=== PATIENT | male | born 1955 | race African-American/Black ===

== ENCOUNTER 2016-06-06 07:44 | Emergency (ER) | payer OTHER, MEDICARE ==
[~2016-06-06] VITALS: Ht 165.1 cm; Wt 117.9 kg
[~2016-06-06 07:44] MED LIST: ASPIRIN EC81 M1 PO; AUGMENTIN 875-1 EACH PO; CANDESARTAN CIL16 MG PO; COLCHICINE0.6 M2 PO; COREG 25 MG TAB25 MG PO; FUROSEMIDE40 M1 PO; GUAIFENESIN-COD10 ML PO; HYDRALAZINE HCL50 M1 PO; IMDUR 60MG TAB60 MG PO; ISOSORBIDE MONO60 MG PO; LEVEMIR 10100 UNITS/ SC; LEVOTHYROXIN0.025 M1 PO; LYRICA50 MG PO; METOLAZONE10 MG PO; METOLAZONE2.5 MG PO; NOVOLOG100 U/ML SC; PERCOCET 325 MG1 TA2 PO; PERCOCET 5-3251 EACH PO; PROCRIT20000 UNIT SC; RENVELA800 M1; RENVELA800 MG PO; XALATAN2.5 ML OPH; ZAROXOLYN - DIUL5 MG PO
[2016-06-06 07:49] VITALS: BP 131/84
--- NOTE | 2016-06-06 08:55 | ED HAND/WRIST INJURY COMPLAINT ---
History of Present Illness General Chief Complaint: Hand or Wrist Injury Stated Complaint: L HAND SWELLING, HX OF GOUT Source: patient, old records Exam Limitations: no limitations Vital Signs & Intake/Output Vital Signs & Intake/Output Vital Signs Date Time Temp Pulse Resp B/P Pulse O2 O2 Flow FiO2 Ox Delivery Rate 06/06 0834 97 06/06 0749 97.1 86 18 131/84 95 Room Air Allergies Coded Allergies: NO KNOWN ALLERGIES (06/10/14) Reconcile Medications Amoxicillin/Potassium Clav (Augmentin 875-125 Tablet) 875 MG-125 MG TABLET 1 TAB PO BID bronchitis Aspirin (Ecotrin) 81 MG ECT 1 TAB PO DAILY HEART (Reported) Carvedilol (Coreg) 25 MG TAB 1.5 TAB PO BID HIGH BLOOD PRESSURE Colchicine 0.6 MG TABLET 1 TAB PO BID PRN gout Colchicine 0.6 MG TABLET 1 TAB PO BID gout Epoetin Kameron (Procrit) 20,000 UNIT/1 ML VIAL 30,000 U SC EVERY 2 WEEKS ANEMIA Furosemide 40 MG TABLET 2 TAB PO BID WATER PILL (Reported) HYDRALAZINE HCL (Hydralazine HCl) 50 MG TABLET 2 TAB PO BID BP (Reported) Hydrocodone/Acetaminophen ([place] 5-325 Tablet) 5 MG-325 MG TABLET 1-2 TAB PO Q6P PRN PAIN Insulin Aspart, Recombinant (Novolog) 100 U/ML JORDAN 0 UNITS SC SEE SLIDING SCALE GLUCOSE CONTROL VIA VGO-20 W/ boluses 2 units before breakfast 2 units before lunch 4 units before dinner Isosorbide Monitrate Sr (Imdur 60MG Tab) 60 MG TAB 2 TAB PO DAILY HEART HEALTH Latanoprost (Xalatan) 2.5 ML DROPS 1 GTT OPH QPM BOTH EYES (Reported) Levothyroxine Sodium 0.025 MG TAB 1 TAB PO DAILY AC THYROID (Reported) Metolazone 10 MG TAB 1 TAB PO Friday CHF (Reported) Oxycodone HCl/Acetaminophen (Percocet 5-325 MG Tablet) 1 EACH TABLET 1-2 TAB PO Q6P PRN pain Robitussin AC (Guaifenesin-Codeine Syrup) 200 MG-20 MG/10 ML LIQUID 10 ML PO Q6HR PRN COUGH Sevelamer Carbonate (Renvela) 800 MG TAB 1 TAB PO TID PHOSPHORUS (Reported) Triage Note: 61 Y/O MALE C/O PAIN AND SWELLING TO L HAND X 2 WEEKS. HX GOUT AND STATES PAIN IS SIMILIAR. DENIES INJURIES OR TRAUMA. SWELLING NOTED. Triage Nurses Notes Reviewed? yes HPI: Patient presents for evaluation of gradual onset of constant severe aching left hand pain gets worse with movement and palpation. Patient states this is consistent with prior attacks of gout that he had in the past. He tried aspirin without much improvement. He states he tries to avoid anti-inflammatory medications outside of aspirin due to his kidney disease. There is been no associated fever or trauma. Past History Travel History Traveled to [place] past 21 day No Medical History Any Pertinent Medical History? 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 There is also an excision of a retained foreign object. This was in May 2012. Psychosocial History Who do you live with Spouse Services at Home None What is your primary language Peruvian Tobacco Use: Never used Family History Family History, If Any: MOTHER Diabetes mellitus (DM) Relation not specified for: Cerebrovascular accident in mother Hx Contributory? No Review of Systems Review of Systems Constitutional: Reports: no symptoms. EENTM: Reports: no symptoms. Respiratory: Reports: no symptoms. Cardiovascular: Reports: no symptoms. GI: Reports: no symptoms. Genitourinary: Reports: no symptoms. Musculoskeletal: Reports: see HPI. Skin: Reports: no symptoms. Neurological/Psychological: Reports: no symptoms. Hematologic/Endocrine: Reports: no symptoms. Immunologic/Allergic: Reports: no symptoms. All Other Systems: Reviewed and Negative Physical Exam Physical Exam Hand Left: see below Hand Right: normal inspection Comments: Gen.: Well-nourished, well-developed, no acute respiratory distress. Head: Normocephalic, atraumatic. Eyes: Normal inspection bilaterally Ears: Normal inspection bilaterally Nose: Normal inspection, nasal cannula in place Throat/mouth : Moist mucosa Neck: Supple, full range of motion, no goiter Heart: Regular rate and rhythm Lungs: Quiet respirations Back: Normal range of motion Extremities: Left hand: Tenderness over the dorsal proximal aspect of the left hand without associated soft tissue swelling or erythema. Left hand is neurovascularly intact distally. Decreased range of motion secondary to pain. Neurologic: Cranial nerves grossly intact, speech is clear Skin: warm and dry Psychiatric: Calm, cooperative, no apparent delusions or hallucinations Progress Differential Diagnosis: cellulitis, gout, septic arthritis, tenosynovitis Plan of Care: Orders Procedure Date/time Status Durable Medical Equipment 06/06 908 Active Colchicine, pain medication, PCP follow-up (JILLIAN CANO,LAMBERT Ewing) Departure Departure Disposition: HOME OR SELF CARE Condition: Stable Clinical Impression Primary Impression: Gout of left hand Referrals: ELLIS CANO,RODNEY Farias (PCP/Family) Additional Instructions: Rest your hand. Colchicine and [place] as prescribed for pain. Follow-up with your primary care physician on Friday. Return if any concerns or sudden worsening. Thank you for choosing the [facility] for your care. It was a pleasure to serve you today. Lambert Ramirez M.D. [facility] Departure Forms: Customer Survey General Discharge Information Prescriptions: Current Visit Scripts Colchicine 1 TAB PO BID PRN gout #14 TAB Hydrocodone/Acetaminophen ([place] 5-325 Tablet) 1-2 TAB PO Q6P PRN PAIN #20 TAB
[2016-06-06] MEDS ORDERED: NORCO 5-325 TA1 EACH PO (09:06)
[2016-06-06] MEDS ORDERED: COLCHICINE0.6 M2 PO (09:06)
== END 2016-06-06 09:45 ==
LOC: ERH 07:44
DX: M10.9 Gout, unspecified (principal)

== ENCOUNTER 2016-08-14 15:09 | Inpatient (IN) | payer OTHER, MEDICARE ==
[~2016-08-14] VITALS: Ht 167.6 cm; Wt 105.0 kg
[~2016-08-14 15:09] MED LIST changes: +NORCO 5-325 TA1 EACH PO
[2016-08-14 15:42] LABS: ABSOLUTE BASOPHIL COUNT 0 /CUMM (0.0-0.2); ABSOLUTE EOSINOPHIL COUNT 0.1 /CUMM (0.0-0.7); ABSOLUTE GRANULOCYTE CT 3.5 /CUMM (1.4-6.5); ABSOLUTE LYMPH COUNT 0.6 /CUMM (1.2-3.4); ABSOLUTE MONOCYTE COUNT 0.6 /CUMM (0.10-0.60); BASOPHIL % 0.5 % (0.0-2.0); EOSINOPHIL % 1.4 % (0-5); GRANULOCYTE % 73.3 % (42.2-75.2); HEMATOCRIT 29.7 % (42-52); MEAN CORPUSCULAR HGB 30.6 PG (27.0-31.0); MEAN CORPUSCULAR HGB CONC 32.6 G/DL (33.0-37.0); MEAN CORPUSCULAR VOLUME 93.9 FL (80.0-94.0); MEAN PLATELET VOLUME 8.2 FL (7.4-10.4); PLATELET COUNT 164 /CUMM (130-400); RBC DISTRIBUTION WIDTH 20.1 % (11.5-14.5); RED BLOOD CELL CT 3.16 /CUMM (4.70-6.10); WHITE BLOOD CELL COUNT 4.8 /CUMM (4.8-10.8)
[2016-08-14 15:51] LABS: PT 14.9 SEC (9.4-12.5); PTT 33 SEC (25-37)
--- NOTE | 2016-08-14 16:01 | ED GI/GU/ABDOMINAL COMPLAINT ---
History of Present Illness General Chief Complaint: General Adult Stated Complaint: PT WAS SIB BY HIS DR. MONTILLA Source: patient Exam Limitations: no limitations Vital Signs & Intake/Output Vital Signs & Intake/Output Vital Signs Date Time Temp Pulse Resp B/P B/P Pulse O2 O2 Flow FiO2 Mean Ox Delivery Rate 08/144 98.0 95 20 122/72 92 08/14 2158 Room Air 08/14 2028 97.5 106 18 113/65 99 Room Air 08/14 1800 96.5 101 18 141/59 93 Room Air 08/14 1613 97 Room Air 08/14 1531 96.9 98 18 130/90 95 Room Air ED Intake and Output 08/15 0000 08/14 1200 Intake Total Output Total Balance Patient 230 lb Weight Weight Reported by Patient Measurement Method Allergies Coded Allergies: NO KNOWN ALLERGIES (06/10/14) Reconcile Medications Allopurinol 300 MG TABLET 1 TAB PO DAILY GOUT (Reported) Aspirin (Ecotrin*) 81 MG TABLET. HEART HEALTH (Reported) Carvedilol (Coreg) 25 MG TABLET 1.5 TAB PO BID RATE CONTROL Cholecalciferol (Vitamin D3) (Vitamin D) 1,000 UNIT TABLET 1 TAB PO DAILY SUPPLEMENT (Reported) Epoetin Kameron (Procrit) 20,000 UNIT/ML VIAL 1 UNIT IV Q 3 WEEKS ANEMIA ( Reported) Fluticasone-Salmeterol (Advair 100-50 Diskus) 100 MCG-50 MCG/DOSE BLST.W.DEV 1 PUF INH BID ASTHMA (Reported) Furosemide 40 MG TABLET 2 TAB PO BID WATER PILL (Reported) Hydralazine HCl 50 MG TABLET 2 TAB PO BID HYPERTENSION (Reported) Insulin Aspart, Recombinant (Novolog) 100 U/ML JORDAN 0 UNITS SC SEE SLIDING SCALE GLUCOSE CONTROL VIA VGO-20 W/ boluses 2 units before breakfast 2 units before lunch 4 units before dinner Isosorbide Monitrate Sr (Imdur 60MG Tab) 60 MG TAB 2 TAB PO DAILY [facility] Latanoprost (Xalatan) 2.5 ML DROPS 1 GTT OPH QPM BOTH EYES (Reported) Oxycodone HCl/Acetaminophen (Percocet 5-325 MG Tablet) 1 EACH TABLET 1-2 TAB PO Q6P PRN pain Sevelamer Carbonate (Renvela) 800 MG TAB 1 TAB PO TID PHOSPHORUS (Reported) Sub-Q Insulin Device, 20 Unit (Vgo 20) 1 EACH EACH DM (Reported) Triage Note: C/O VOMITING X "A COUPLE OF DAYS", FELLING "UNCOMFORTABLE" IN STOMACH AND CHEST. SENT BY DR. ORNELAS FOR EVALUATION. HAS FISTULA IN LEFT ARM. PMH: ESRD, HAS FISTULA Triage Nurses Notes Reviewed? yes Onset: Abrupt Duration: day(s): (FEW) Timing: recent history Activities at Onset: none Modifying Factors: Worsens With: eating. Associated Symptoms: nausea/vomiting HPI: This a 61-year-old male with history of insulin dependent diabetes and stage renal disease not yet on hemodialysis who presents from home for chief complaint of intractable episodes of vomiting over the past few days. He was sent in by Dr. Barnes for evaluation. Patient had an AV fistula placed in his left arm close to one year ago but has never been accessed yet. He denies any fever or chills. I H and states that every time he eats he gets nauseous and vomits. There is no diagnosis of gastroparesis at this point. Past History Travel History Traveled to [place] past 21 day No Medical History Any Pertinent Medical History? 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 There is also an excision of a retained foreign object. This was in May 2012. Psychosocial History Who do you live with Spouse Services at Home None What is your primary language Kinyarwanda Tobacco Use: Never used ETOH Use: occasional use Family History Family History, If Any: MOTHER Diabetes mellitus (DM) Relation not specified for: Cerebrovascular accident in mother Hx Contributory? No Review of Systems Review of Systems Constitutional: Denies: chills, fever. EENTM: Reports: blurred vision. Respiratory: Denies: cough, short of breath, sputum production. Cardiovascular: Denies: chest pain, palpitations. GI: Reports: abdominal pain (DISCOMFORT), nausea, vomiting. Genitourinary: Denies: discharge, dysuria. Musculoskeletal: Reports: no symptoms. Skin: Reports: no symptoms. Neurological/Psychological: Reports: no symptoms. Hematologic/Endocrine: Denies: bruising, bleeding, polyuria, polydipsia. Immunologic/Allergic: Denies: splenectomy. All Other Systems: Reviewed and Negative Physical Exam Physical Exam General Appearance: well developed/nourished, alert, awake, mild distress Head: atraumatic Eyes: Bilateral: EOMI. Ears, Nose, Throat, Mouth: hearing grossly normal, moist mucous membrane Neck: normal inspection, supple, full range of motion Respiratory: normal breath sounds, chest non-tender, no respiratory distress Cardiovascular: regular rate/rhythm (FLUTTER ON MONITOR) Peripheral Pulses: 2+ radial (R), 2+ radial (L) Gastrointestinal: soft, non-tender, PROTUBERANT Extremities: normal range of motion Neurologic/Psych: awake, alert, oriented x 3 Skin: intact, normal color, warm/dry Core Measures ACS in differential dx? Yes ASA ordered for poss ACS? No-ACS ruled out Severe Sepsis Present: No Septic Shock Present: No Progress Differential Diagnosis: GASTROENTERITIS, SBO, ILEUS, WORSENING RENAL DISEASE, NEW ONSET ATRIAL FLUTTER Plan of Care: Orders Procedure Date/time Status Renal Dialysis Diet 08/15 D Active Renal Dialysis Diet 08/15 B Active TROPONIN LEVEL 08/15 0600 Active PHOSPHORUS 08/15 0600 Active MAGNESIUM 08/15 0600 Active CBC WITHOUT DIFFERENTIAL 08/15 0600 Active BASIC ELECTROLYTES PLUS BUN&CR 08/15 0600 Active EKG 08/15 0600 Active TROPONIN LEVEL 08/15 0000 Active EKG 08/15 0000 Active Code Status 08/14 2228 Active Vital Signs 08/14 2157 Active Teach/Educate 08/14 2157 Active Pain Treatment and Response 08/14 2157 Active Nutritional Intake, Monitor 08/14 2157 Active Isolation 08/14 2157 Active Intake & Output 08/14 2157 Active Patient Care Conference 08/14 2157 Active Activity/Ambulation 08/14 2157 Active Add-on Test (ER Only) 08/14 194 Active FingerStick- Glucose 08/14 193 Active Pathway - chart 08/14 1859 Active Pathway - chart 08/14 1852 Active Vital Signs 08/14 185 Complete Intake & Output 08/14 185 Active Vital Signs 08/14 1835 Active Code Status 08/14 1835 Complete Patient Data 08/14 1822 Active Patient Data 08/14 1821 Active Admit to inpatient 08/14 1812 Active URINALYSIS 08/14 1752 Complete FingerStick- Glucose 08/14 1726 Active THYROID STIMULATING HORMONE 08/14 1536 Complete TROPONIN LEVEL 08/14 1536 Complete PHOSPHORUS 08/14 1536 Complete MAGNESIUM 08/14 1536 Complete FREE T4 08/14 1536 Complete PARTIAL THROMBOPLASTIN TIME 08/14 1534 Complete PROTHROMBIN TIME 08/14 1534 Complete LACTIC ACID 08/14 1534 Complete CBC WITHOUT DIFFERENTIAL 08/14 1534 Complete BASIC METABOLIC PANEL 08/14 1534 Complete EKG 08/14 1534 Active House Staff 08/14 UNK Active Lab Add-on Test 08/14 UNK Active Hemoccult 08/14 UNK Active ECHOCARDIOGRAM 08/14 UNK Active Current Medications Sig/Cole Start time Last Medication Dose Stop Time Status Admin Latanoprost 1 GTT QPM 08/15 2200 AC (Xalatan) Aspirin Buffered 81 MG DAILY 08/15 1000 AC (Ecotrin) Cholecalciferol 1,000 IU DAILY 08/15 1000 AC (Vitamin D) Insulin Detemir 5 UNITS BID 08/15 1000 AC (Levemir) Sevelamer Carbonate 800 MG TID 08/15 1000 AC (Renvela) Insulin Aspart 0 TIDAC 08/15 0800 AC (NovoLOG) Levothyroxine Sodium 0.025 MG DAILY AC 08/15 0700 AC (Synthroid) Metoclopramide HCl 10 MG Q6P PRN 08/14 2230 AC (Reglan) Carvedilol 37.5 MG BID 08/14 2223 AC (Coreg) Acetaminophen 650 MG Q6P PRN 08/14 1900 AC (Tylenol) Acetaminophen 1,000 MG Q6P PRN 08/14 1900 AC (Ofirmev) Oxycodone HCl 10 MG Q6P PRN 08/14 1900 AC (Roxicodone) Heparin Sodium 25,000 UNIT Q24H 08/14 1845 AC 08/14 (Porcine) 1950 (Heparin) Sodium Chloride 500 ML Laboratory Tests 08/14/161950: Troponin I Cancelled 08/14/16 1834: Lactic Acid Cancelled 08/14/16 1750: Urine Color YEL, Urine Clarity CLEAR, Urine pH 6.0, Ur Specific [place] 1.015, Urine Protein 100 H, Urine Ketones NEG, Urine Nitrite NEG, Urine Bilirubin NEG, Urine Urobilinogen 0.2, Ur Leukocyte Esterase NEG, Ur Microscopic SEDIMENT EXAMINED, Urine WBC 1-3 H, Ur Epithelial Cells FEW, Urine Hemoglobin NEG, Urine Glucose NEG 08/14/16 1536: Anion Gap 15, Estimated GFR 10 L, BUN/Creatinine Ratio 20.2, Glucose 62 L, Lactic Acid 0.8, Calcium 7.6 L, Phosphorus 6.5 H, Magnesium 2.3, Troponin I 0.06, TSH 1.880, Free T4 1.30, PT 14.9 H, INR 1.42 H, APTT 33, CBC w Diff NO MAN DIFF REQ, RBC 3.16 L, MCV 93.9, MCH 30.6, RDW 20.1 H, MPV 8.2, Gran % 73.3 , Lymphocytes % 12.9 L, Monocytes % 11.9 H, Eosinophils % 1.4, Basophils % 0.5 , Absolute Granulocytes 3.5, Absolute Lymphocytes 0.6 L, Absolute Monocytes 0.6 , Absolute Eosinophils 0.1, Absolute Basophils 0, PUBS MCHC 32.6 L EKG, TELE MONITOR, LABS DRAWN IN TRIAGE. [place] SEEN BY DR SAUCEDO ON ARRIVAL. ADVISES ADMISSION TO THE HOSPITAL IF HE HAS WORSENING CREATININE. CRE 5.6. PATIENT IN NEW ONSET ATRIAL FLUTTER. D/W DR GOLDBERG - NO HISTORY OF A FLUTTER. IV HEPARIN ORDERED. PLACED ON TELEMETRY UNDER HOSPITALIST SERVICE. (DON CANO,YOON) Diagnostic Imaging: Viewed by Me: Radiology Read. Discussed w/RAD: Radiology Read. CXR Impression: PATIENT: TIFFANI SHI PRESENT AGE: 61 PATIENT ACCOUNT NO: [id number] : 54 LOCATION: [facility] ORDERING PHYSICIAN: YOON OCHOA MD SERVICE DATE: 08/14/16 EXAM TYPE: RAD - XRY-ABD MULTI VIEW W/PA CHEST EXAMINATION: XR ABDOMEN WITH PA CHEST CLINICAL INDICATION: Abdominal distention, vomiting. COMPARISON: Chest x-ray 03/22/2016. TECHNIQUE: PA view of the chest is obtained. AP supine views (3 images) of the abdomen are obtained. FINDINGS: The bowel gas pattern is normal with no evidence of obstruction. There is no definite evidence of free air. There are no soft tissue masses organomegaly. A tiny density in the left upper quadrant could represent calcification or dense material in colon. There is moderate enlargement of the cardiac silhouette with mild central vascular congestion, both slightly more pronounced when compared to the prior chest x-ray. IMPRESSION: No evidence of bowel obstruction or definite evidence of free air. 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 <Electronically signed in Other Vendor System> SIGNED BY: TOO REY MD 08/14/16 1741 Initial ED EKG: ATRIAL FLUTTER, 111 BPM Prior EKG: unchanged Departure Departure Time of Disposition: 1811 Disposition: STILL A PATIENT Condition: Stable Clinical Impression Primary Impression: Acute renal failure Secondary Impressions: Atrial flutter Referrals: ELLIS CANO,RODNEY Farias (PCP/Family) Departure Forms: Customer Survey General Discharge Information Prescriptions: Current Visit Scripts Carvedilol (Coreg) 1.5 TAB PO BID #60 TAB Admission Note Spoke With: RICHARD CANO,KELSEY Documentation of Exam: Documentation of any treatments & extenuating circumstances including Concerns Regarding Discharge (functional status, medication knowledge or non-compliance, living conditions, etc.) that warrant an admission rather than observation: [ NEPHROLOGY CONSULTATION, ANTIEMETICS, IV HEPARIN, TELE MONITOR, SERIAL EKG/ TROPONIN, CARDIOLOGY EVALUATION DR GOLDBERG, ECHOCARDIOGRAM] Critical Care Note Critical Care Note Critical Care Time: 30-74 min
[2016-08-14] MEDS ORDERED: PROCRIT20000 UNIT IV (17:35)
[2016-08-14] MEDS ORDERED: ADVAIR 100-501 EACH INH (17:39)
[2016-08-14] MEDS ORDERED: CALCITRIOL0.25 MC1 PO (17:39)
[2016-08-14] MEDS ORDERED: ALLOPURINOL300 M1 PO (17:39)
[2016-08-14] MEDS ORDERED: VGO 201 EACH (17:40)
[2016-08-14] MEDS ORDERED: VITAMIN D1000 UNIT PO (17:41)
--- NOTE | 2016-08-14 17:48 | RADIOLOGY REPORT ---
EXAMINATION: XR ABDOMEN WITH PA CHEST CLINICAL INDICATION: Abdominal distention, vomiting. COMPARISON: Chest x-ray 03/22/2016. TECHNIQUE: PA view of the chest is obtained. AP supine views (3 images) of the abdomen are obtained. FINDINGS: The bowel gas pattern is normal with no evidence of obstruction. There is no definite evidence of free air. There are no soft tissue masses organomegaly. A tiny density in the left upper quadrant could represent calcification or dense material in colon. There is moderate enlargement of the cardiac silhouette with mild central vascular congestion, both slightly more pronounced when compared to the prior chest x-ray. IMPRESSION: No evidence of bowel obstruction or definite evidence of free air.
--- NOTE | 2016-08-14 19:33 | History & Physical ---
TIM SALCIDO 08/14/161931: General Information and HPI MD Statement: I have seen and personally examined TIFFANI SANTIAGO and documented this H&P. The patient is a 61 year old M who presented with a patient stated chief complaint of nausea and vomiting x 2 wks. Source of Information: patient, old records Exam Limitations: no limitations History of Present Illness: Mr. Santiago is a 61-year-old man who was known to be in his usual state of health until 2 weeks ago. He has a past medical history of diabetes (insulin- dependent), end-stage renal disease (not on hemodialysis, AV fistula in place), nonischemic cardiomyopathy, CHF, hypertension. He was brought to [facility] with a chief concern of nausea, vomiting 2 weeks, abnormal renal function (as informed by his frame changer). As per the patient, he had nausea and vomiting, intermittent for the last 2 weeks; associated with food intake. Also reports abdominal distention. No diarrhea or constipation. Reports decreased fluid intake. No change in his urinary output. He continues to have pedal edema, which is chronic, largely unchanged. No shortness of breath, chest pain, palpitations. No lightheadedness or dizziness, weakness in lower or upper extremities. No abnormal bleeding noted. No fever, cough, association with any sick contacts or travel lately. Sees Dr. Agudelo, and Clem Barnes MD and Dr. Mcpherson regularly. Compliant with his medications, and ambulates using a cane with no difficulty. Nonsmoker, and occasional alcohol use. 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 There is also an excision of a retained foreign object. This was in May 2012. Past Family/Social History Family History Relations & Conditions if any MOTHER Diabetes mellitus (DM) Relation not specified for: Cerebrovascular accident in mother Psychosocial History Who Do You Live With? spouse Services at Home: None Primary Language: Nepali ETOH Use: occasional use Functional Ability ADLs Independent: dressing, eating, toileting, bathing. Ambulation: cane IADLs Independent: telephone. Needs Assist: housework, finances, food prep, medication admin. Unknown: shopping, transportation. Review of Systems Review of Systems Constitutional: Reports: see HPI. Denies: chills, fever, weakness. EENTM: Denies: visual changes, icterus. Cardiovascular: Denies: chest pain, edema, orthopena, palpitations, peripheral edema, syncope. Respiratory: Denies: cough, hemoptysis, orthopnea, short of breath, sputum production. GI: Reports: distention, nausea. Denies: abdominal pain, bloating, constipation, diarrhea, melena, bloody stool, changes in stool. Genitourinary: Denies: discharge, hesitation, nocturia. Musculoskeletal: Denies: back pain, joint pain. Skin: Denies: dryness. Neurological/Psychological: Denies: anxiety, numbness, paresthesia, pre-existing deficit, tingling, tremors. Hematologic/Endocrine: Denies: bleeding. Exam & Diagnostic Data Last 24 Hrs of Vital Signs/I&O Vital Signs Date Time Temp Pulse Resp B/P B/P Pulse O2 O2 Flow FiO2 Mean Ox Delivery Rate 08/14 1800 96.5 101 18 141/59 93 Room Air 08/14 1613 97 Room Air 08/14 1531 96.9 98 18 130/90 95 Room Air Intake & Output 08/14 1600 08/14 0800 08/14 0000 Intake Total Output Total Balance Patient 230 lb Weight Weight Reported by Patient Measurement Method Physical Exam General Appearance Alert, Oriented X3, Cooperative Skin No Rashes, No Breakdown, No Significant Lesion Skin Temp/Moisture Exam: Warm/Dry Sepsis Skin Exam (color): Normal for Ethnicity HEENT Atraumatic, PERRLA, EOMI, Mucous Membr. moist/pink, decreased visual acuity Neck Supple, No JVD, No thryomegaly, +2 Carotid Pulse wo Bruit Lymphatic Axillary nl, Cervical nl Cardiovascular Normal S1, Normal S2, No Murmurs, irregular Lungs Clear to Auscultation, Normal Air Movement Abdomen Normal Bowel Sounds, Soft, No Tenderness, No Hepatospenomegaly, No Masses, abdominal distention Neurological Normal Gait, Normal Speech, Strength at 5/5 X4 Ext, Normal Tone, Sensation Intact, Cranial Nerves 3-12 NL Extremities No Clubbing, No Cyanosis, Normal Pulses, No Tenderness/Swelling Vascular Normal Pulses, Pulses Symmetrical Sepsis Peripheral Pulse Location: Dorsalis Pedis Sepsis Peripheral Pulse Exam: Normal Sepsis Cap Refill Exam: <2 Sec Body Front and Back (Adult) 1) fistula Last 24 Hrs of Labs/Cristi: Laboratory Tests 08/14/16 1834: Lactic Acid Cancelled 08/14/16 1750: Urine Color YEL, Urine Clarity CLEAR, Urine pH 6.0, Ur Specific [place] 1.015, Urine Protein 100 H, Urine Ketones NEG, Urine Nitrite NEG, Urine Bilirubin NEG, Urine Urobilinogen 0.2, Ur Leukocyte Esterase NEG, Ur Microscopic SEDIMENT EXAMINED, Urine WBC 1-3 H, Ur Epithelial Cells FEW, Urine Hemoglobin NEG, Urine Glucose NEG 08/14/16 1536: Anion Gap 15, Estimated GFR 10 L, BUN/Creatinine Ratio 20.2, Glucose 62 L, Lactic Acid 0.8, Calcium 7.6 L, Phosphorus 6.5 H, Magnesium 2.3, Troponin I 0.06, TSH 1.880, Free T4 1.30, PT 14.9 H, INR 1.42 H, APTT 33, CBC w Diff NO MAN DIFF REQ, RBC 3.16 L, MCV 93.9, MCH 30.6, RDW 20.1 H, MPV 8.2, Gran % 73.3 , Lymphocytes % 12.9 L, Monocytes % 11.9 H, Eosinophils % 1.4, Basophils % 0.5 , Absolute Granulocytes 3.5, Absolute Lymphocytes 0.6 L, Absolute Monocytes 0.6 , Absolute Eosinophils 0.1, Absolute Basophils 0, PUBS MCHC 32.6 L Diagnostic Data EKG Results Aflutter HR 111 No STTWI Other Results RAD - XRY-ABD MULTI VIEW W/PA CHEST The bowel gas pattern is normal with no evidence of obstruction. There is no definite evidence of free air. There are no soft tissue masses organomegaly. A tiny density in the left upper quadrant could represent calcification or dense material in colon. There is moderate enlargement of the cardiac silhouette with mild central vascular congestion, both slightly more pronounced when compared to the prior chest x-ray. IMPRESSION: No evidence of bowel obstruction or definite evidence of free air. Assessment/Plan Assessment: His a middle-aged man with a past history of diabetes, end-stage renal disease, nonischemic cardiomyopathy, CHF is being evaluated for persistent nausea and vomiting, worsening renal function. At the time of admission, vitals were stable temperature 96.9, pulse rate 98, respiratory rate 18, blood pressure 130/90, pulse ox 95% on room air. Lab findings indicated WBC 4.8, hemoglobin 9.7 (baseline 10.0), platelets 164, sodium 139, potassium 3.7, bicarbonate 23, renal function-abnormal: BUN 113, serum creatinine 5.6 (last BUN 94, serum creatinine 4.9 03/22/2016), glucose 62 (low likely from worsening kidney function and long-acting insulin use), and calcium 7.6, phosphorus 6.5 (due to ESRD). EKG findings revealed atrial flutter , heart rate 111, irregular. Chest x-ray revealed mild vascular congestion, with no overt pulmonary edema. Abdominal x-ray did not reveal any evidence of obstruction or any free air. TSH, free T4 within normal limits. Echocardiogram-08/09/2015 revealed ejection fraction of 35-40%, with global hypokinesis and diastolic dysfunction. Differential diagnosis: #1 acute on chronic kidney disease #2 atrial flutter #3 diabetes complication-nephropathy Below is the problem list and plan: #1 nausea, vomiting-likely due to elevated BUN at this time. No infectious etiology found either in history or any lab findings. Gastroparesis could be contributing to this condition, but highly unlikely. Symptomatic treatment with antiemetics. #2 atrial flutter-Hemoccult test/HAYLEY negative for bleeding. Patient was started on intravenous heparin. Currently rate controlled with carvedilol. [id number] VASC score 3, w/ to 3.2 % yearly risk of stroke. Anticoagulation is indicated. Serial electrocardiograms and cardiac enzymes to r/o TX. Await recommendation from the photo optics technician. Patient has history of CHF, but no clinical signs suggestive of fluid overload. No furosemide indicated at this time. Thyroid function within normal limits. Etiology unclear at this time, with uremia being the most likely cause. #3 diabetes-patient has insulin pump in place. Replace dosing from insulin pump with manual long-acting and short-acting insulin at this time. Hold long-acting insulin at this time, as the patient has low blood sugar. At just long-acting insulin as per kidney function permits. Endocrinology erp consultant advising. Check HbA1c. #4 end-stage renal disease-worsening kidney function. Acute on chronic kidney disease. GFR around 10 mL. In view of worsening kidney function, would have to dialyze this patient. No fluids indicated at this time. Nephrology-Dr. Luna /Dr. Victoria advising. #5 anemia-currently stable. Continue Epogen. #6 DVT prophylaxis-IV heparin #7 full-code. As Ranked By This Provider Problem List: 1. Atrial flutter 2. Acute renal failure 3. Chronic kidney disease (CKD) 4. Hypertension 5. Diabetes Core Measures/Miscellaneous Acute Coronary Syndrome ACS Diagnosis: No Cerebrovascular Accident CVA/TIA Diagnosis: No Congestive Heart Failure CHF Diagnosis: No Venous Thromboembolism VTE Risk Factors: Acute medical illness, Age > 40, CHF or Resp failure, Nephrotic syndrome [facility] prophylaxis d/t: No contraindications No VTE Pharm Prophylaxis d/t: No contraindications VTE Diagnosis: No VTE Type: NONE VTE Confirmed by (Test): NONE Severe Sepsis Severe Sepsis Present: No Septic Shock Septic Shock Present: No Miscellaneous Documentation Attending Case Discussed With: KELSEY RAMOS MD Primary Care Physician: ELLIS CANO,RODNEY Farias Patient sees these Specialists Clem Barnes MD Level of Patient Care: Telemetry SHAY RAMOS MD 08/14/162057: General Information and HPI Allergies/Medications Home Med list Allopurinol 300 MG TABLET 1 TAB PO DAILY GOUT (Reported) Aspirin (Ecotrin*) 81 MG TABLET. HEART HEALTH (Reported) Carvedilol (Coreg) 25 MG TABLET 1.5 TAB PO BID RATE CONTROL Cholecalciferol (Vitamin D3) (Vitamin D) 1,000 UNIT TABLET 1 TAB PO DAILY SUPPLEMENT (Reported) Epoetin Kameron (Procrit) 20,000 UNIT/ML VIAL 1 UNIT IV Q 3 WEEKS ANEMIA ( Reported) Fluticasone-Salmeterol (Advair 100-50 Diskus) 100 MCG-50 MCG/DOSE BLST.W.DEV 1 PUF INH BID ASTHMA (Reported) Furosemide 40 MG TABLET 2 TAB PO BID WATER PILL (Reported) Hydralazine HCl 50 MG TABLET 2 TAB PO BID HYPERTENSION (Reported) Insulin Aspart, Recombinant (Novolog) 100 U/ML JORDAN 0 UNITS SC SEE SLIDING SCALE GLUCOSE CONTROL VIA VGO-20 W/ boluses 2 units before breakfast 2 units before lunch 4 units before dinner Isosorbide Monitrate Sr (Imdur 60MG Tab) 60 MG TAB 2 TAB PO DAILY HEART HEALTH Latanoprost (Xalatan) 2.5 ML DROPS 1 GTT OPH QPM BOTH EYES (Reported) Oxycodone HCl/Acetaminophen (Percocet 5-325 MG Tablet) 1 EACH TABLET 1-2 TAB PO Q6P PRN pain Sevelamer Carbonate (Renvela) 800 MG TAB 1 TAB PO TID PHOSPHORUS (Reported) Sub-Q Insulin Device, 20 Unit (Vgo 20) 1 EACH EACH DM (Reported) Attending MD Review Statement Attending Statement Attending MD Statement: examined this patient, discuss w/resident/PA/DISPATCHER ELECTRIC POWER, agreed w/resident/PA/DISPATCHER ELECTRIC POWER Attending Assessment/Plan: 61 yo M T2DM on insulin via VGO, CKD stage 5, anemia of chronic disease, cardiomyopathy with both chronic systolic and diastolic CHF, CAD, legally blind due to diabetic retinopathy, ANAHI, hypothyroidism, last admitted to [place] August 2015 for anemia and right knee effusion; who now presents with 2 week h/o episodic nausea and vomiting. C/o abdominal distension, but no pain or diarrhea. He is passing gas and has normal BM's. He had an left AV fistula placed Dec [address] York in anticipation of dialysis. He still makes urine. Vitals stable except for tachycardia. AAO, MMM, Lungs clear, Heart S1S2 regular, Abdomen: soft, distended, BS+, no tenderness. LE: 2+ pitting edema. LUE AV fistula bruit+. Labs: H/H 9.7/29.7, INR 1.42, BUN 113, creat 5.6 (creat 4.5- 5.0), lactic acid 0.8, Calcium 7.6, phosphorus 6.5, trop neg, TSH/ free T4 normal. UA proteinuria. Abd Xray: no bowel obstruction or free air. CXR: mild central vascular congestion. EKG: Aflutter. Echo (2016): EF 35-40%, diastolic dysfunction. 1. Nausea/ vomiting in the setting of uremia, acute worsening of chronic kidney disease. No infectious process. Supportive care with anti-emetics. Patient was evaluated by Physician Neonatology in ER, with a plan for dialysis in AM. They may try to access the fistula, if not patient will need Armen Cath placement by IR prior to dialysis. No diuretics or IV hydration. Hold allopurinol and lasix. 2. New onset Atrial flutter most likely in the setting of uremia. Tele admit, serial EKG and troponin, Echo, Cardio consult (Dr. Agudelo). TFTs are normal. Continue Coreg. Given high [id number] VASc score, IV heparin has been initiated. May need to hold heparin 30 mins to 1 hour prior to Armen Cath placement in AM. Please discuss with nephro and IR. 3. T2DM on insulin via VGO. The VGO has been discontinued. Patient was noted to be hypoglycemic in ER, given juice and accucheks improved. Initiate levemir and novolog SS from AM. Endo consulted. Recheck HbA1c (last A1C was 8.4 in 2014). 4. Anemic of chronic disease. Patient to receive Epogen with dialysis. DVT ppx IV heparin. DNR/I. I tried calling his to update her about the plan, however no response. 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 He denied any fever, chest pain,palpitations, change in urine output, headache, lightheadedness, dizziness, diarrhea or constiaption. His regular doctors are nephro : Dr barnes,endo : Dr mcpherson On presentation, patient was alert, oriented to time, place and person, mental status intact. CVS : s1, s2 present, mild crackles at base, no obvious signs of fluid overload noted. Skin : mucous membrane not very dry, normal tugor. RS : AEBE, no wheezing PA :BS +, abdomen distended, tensed, nontender, no guarding/rigidity. extremtiy : b/l 1 to 2+ pedal edema ( not worse from baseline), lef upper extremity AV fistula present. Vitals : tmax: 97.5. HR around 110, RR : 15, b/p 130/90, 95% on room air. Relevant labs : white count :4.0, no bands, H/H :9.7/29.7 (this is baseline) Electrolytes : na - 139, k - 3.5, bun/creatinine : 113/5.6 (basline 4.4/94) phosphorus : 6.5,mag : 2.3, calcium : 7.6, initial troponin negative. EKG was noted to be atrial flutter not present on previosu EKG. Xray abd and chest xray : showed no evidence of obstruction,no definite evidence of free air. A tiny density in the left upper quadrant could represent calcification or dense material in colon and moderate enlargement of the cardiac silhouette with mild central vascular congestion, both slightly more pronounced when compared to the prior chest x-ray. Problem list alognwith assesment and plan : Problem #1 acute on chronic CKD stage 5 * patient doesnot have altered mental status however worsening bun/creatinine, abdominal bloating, nausea and vomiting seems to more like 2/2 to uremia. Other possbility could be diabetic gastroparesis 2/2 to longstandign DM. * continue to monitor vitas q shift. * continue to monitor strict i/o. * patient has h/o stage 3 DD and was noted to have mild pulmonary congestion and on other hand he is having nausea/vomting and is not able to keep anything inside, therefore fine line between hydration and iv diuretics. * as the patient looks okay hydration cardozo and doesnt look in florid fluid overlaod as well, we will hold off both furosemide and ivf for now. * nephrology to see the patient to determine need for dialysis * patient has a av fistula, further to be determined if this can be used. * if not patient will need armen cath if decide to dialyse * continue to monitor kidney function test closely on daily basis. * continue iv reglan prn for nausea. * will start renal dialysis diet for now, watch if tolerates diet. * hold furosemide Problem #2 h/o complicated DM with neurpathy and retinopathy. * continue to monitor FS * case discussed with Dr perez ( patient of dr mcpherson) * endo consult. * patient had insuln pump which was removed in the ED. * we will hold off inulin for now, as the patient was noted to be hypoglycemia. * patient takes 20 untis at home, however as per Dr perez we will not start the patient on no insulin for tonight, unless the patient sugar is > 200. * Will start novolgue SS ( low dose) and levemir 5 untis BId in the am. Problem # 3 hypothyrodism * TFT's WNLL * Continue levothyroxine. Problem #4 New onset Atrial flutter on ekg. * continue to monitor the patient on tele. * Chasvasc 2 socre of 3, AC recommended, will start him on iv heparin for now. * Will ct home med of cavedilol. * Previous Echo in 2016 showed EF of 35 to 40% with stage 3 DD. * repeat echo at this admission. * Please trend EKg and troponins to davide out ACS, next at 12am and 6am. * Cardiology consult with Dr. agudelo in am. Problem #5 Normocytic symptomatic Anemia * Patient was guaiac negative * Anemia most likely 2/2 to ESRD and continue procrit with dialysis. Problem #6 Nonischemic cardiomyopathy: * Manager Patient Dr. Agudelo consulted. * Will repeat echo * will hold lasix for now * will continue carvedilol Problem # 7. Diabetic Retinopathy: * Latanoprost was continued DNR/DNI renal diet. pain pathway with tylenol dvt px iv heparin.
--- NOTE | 2016-08-14 19:35 | Admission Certification ---
Admission Certification Certification Statement - As attending physician, I certify that at the time of - admission, based on clinical presentation, severity of - symptoms, need for further diagnostic testing and - therapeutic interventions, and risk of adverse outcomes - without in-hospital treatment, in my clinical assessment, - this patient requires an acute hospital stay for a minimum - of two nights or longer. I have also considered psychsocial - factors such as support system, advanced age, financial - issues, cognitive issues, and failed out-patient treatments, - past re-admission history, safety of patient, and lack of - compliance as applicable. Specific rationale supporting this admission is: Acute on chronic kidney disease stage 5, uremia, new onset atrial flutter requiring inpatient admission.
[2016-08-14] MEDS ORDERED: COREG25 M1 PO (19:39)
--- NOTE | 2016-08-14 19:42 | Cons- Nephrology ---
General Information and HPI Consulting Request Date of Consult: 08/14/16 Requested By: RICHARD CANO,KELSEY Reason for Consult: ESRD with vomitng History of Present Illness: 61 yo male with ckd stage 5 from diabetes followed by Dr. Barnes in office. He also has a dilated cardiomyopathy with EF of less than 20%. He had an AVF created in [address] York in anticipation of dialysis. Most recently his creatiine has been near 5. He now presents with 2 weeks of epidsodic vomiting, usually post meal, not asssociated with any pain. He states his appetite is normal although he has lost around 5 lbs. He denies diarrhea, has not had any history of gastroparesis. In the ED his BUN was found to be over 100, creatinine over 5 so he was admitted. FH: negative for kidney disease SH: No smoking or excessive EtOH Allergies/Medications Allergies: Coded Allergies: NO KNOWN ALLERGIES (06/10/14) Home Med List: Allopurinol 300 MG TABLET 1 TAB PO DAILY GOUT (Reported) Aspirin (Ecotrin) 81 MG ECT 1 TAB PO DAILY HEART (Reported) Calcitriol 0.25 MCG CAPSULE 1 CAP PO DAILY CALCIUM (Reported) Carvedilol (Coreg) 25 MG TAB 1.5 TAB PO BID HIGH BLOOD PRESSURE Cholecalciferol (Vitamin D3) (Vitamin D) 1,000 UNIT TABLET 1 TAB PO DAILY SUPPLEMENT (Reported) Colchicine 0.6 MG TABLET 1 TAB PO BID PRN gout Epoetin Kameron (Procrit) 20,000 UNIT/ML VIAL 1 UNIT IV Q 3 WEEKS ANEMIA ( Reported) Fluticasone-Salmeterol (Advair 100-50 Diskus) 100 MCG-50 MCG/DOSE BLST.W.DEV 1 PUF INH BID ASTHMA (Reported) Furosemide 40 MG TABLET 2 TAB PO BID WATER PILL (Reported) HYDRALAZINE HCL (Hydralazine HCl) 50 MG TABLET 2 TAB PO BID BP (Reported) Insulin Aspart, Recombinant (Novolog) 100 U/ML JORDAN 0 UNITS SC SEE SLIDING SCALE GLUCOSE CONTROL VIA VGO-20 W/ boluses 2 units before breakfast 2 units before lunch 4 units before dinner Isosorbide Monitrate Sr (Imdur 60MG Tab) 60 MG TAB 2 TAB PO DAILY [facility] Latanoprost (Xalatan) 2.5 ML DROPS 1 GTT OPH QPM BOTH EYES (Reported) Levothyroxine Sodium 0.025 MG TAB 1 TAB PO DAILY AC THYROID (Reported) Metolazone 10 MG TAB 1 TAB PO Friday CHF (Reported) Oxycodone HCl/Acetaminophen (Percocet 5-325 MG Tablet) 1 EACH TABLET 1-2 TAB PO Q6P PRN pain Sevelamer Carbonate (Renvela) 800 MG TAB 1 TAB PO TID PHOSPHORUS (Reported) Sub-Q Insulin Device, 20 Unit (Vgo 20) 1 EACH EACH DM (Reported) Current Medications: Current Medications Sig/Cole Start time Last Medication Dose Route Stop Time Status Admin Acetaminophen 650 MG Q6P PRN 08/14 190 AC PO Acetaminophen 1,000 MG Q6P PRN 08/14 190 AC IV Heparin Sodium See Dose PER PROTOCL PRN 08/14 1899 DC (Porcine) Insts (1) IV Heparin Sodium 4,000 UNIT ONCE ONE 08/14 1844 DC (Porcine) IV 08/14 184 Heparin Sodium 25,000 UNIT Q24H 08/14 184 AC (Porcine) IV Sodium Chloride 500 ML Metoclopramide HCl 0 .STK-MED ONE 08/14 1638 DC .ROUTE Metoclopramide HCl 10 MG ONCE ONE 08/14 1630 DC 08/14 IV 08/14 1631 1646 Oxycodone HCl 10 MG Q6P PRN 08/14 190 AC PO Dose Instructions: (1)Heparin Sodium (Porcine): SEE ADMIN CRITERIA Review of Systems Review of Systems: Negative except as noted above. 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 There is also an excision of a retained foreign object. This was in May 2012. Family History Relations & Conditions If Any: MOTHER Diabetes mellitus (DM) Relation not specified for: Cerebrovascular accident in mother Psychosocial History Who Do You Live With? spouse Services at Home: None Primary Language: Burkinan ETOH Use: occasional use Exam & Diagnostic Data Vital Signs and I&O Vital Signs Date Time Temp Pulse Resp B/P B/P Pulse O2 O2 Flow FiO2 Mean Ox Delivery Rate 08/14 1800 96.5 101 18 141/59 93 Room Air 08/14 1613 97 Room Air 08/14 1531 96.9 98 18 130/90 95 Room Air Intake & Output 08/14 1600 08/14 0400 08/13 1600 08/13 0400 08/12 1600 08/12 0400 Intake Total Output Total Balance Patient 230 lb Weight Weight Reported by Patient Measurement Method Physical Exam: NAD VS as above Eyes: anicteric, PEERLA Neck: no mass or thyromegaly Nodes: negative cervical/inguinal Skin: no rash or induration Lungs: clear P&A CV: no rub or murmur Abd: mild distention, non-tender, no organomegaly, BS positive Exts: 2+ ankle edema, [place] AVF with poor distal development, bruit present. Neuro: A&O, CN intact, no asterixis Results Pertinent Lab Results: Laboratory Tests 08/14 08/14 1834 1750 Chemistry Lactic Acid Cancelled Urines Urine Color (YEL,AMB,STR) YEL Urine Clarity (CLEAR) CLEAR Urine pH (5.0 - 8.0) 6.0 Ur Specific [place] (1.001 - 1.035) 1.015 Urine Protein (NEG,<30 MG/DL) 100 H Urine Ketones (NEG) NEG Urine Nitrite (NEG) NEG Urine Bilirubin (NEG) NEG Urine Urobilinogen (0.1 - 1.0 EU/dl) 0.2 Ur Leukocyte Esterase (NEG) NEG Ur Microscopic SEDIMENT EXAMINED Urine WBC (0 - 2 /HPF) 1-3 H Ur Epithelial Cells (NONE,FEW) FEW Urine Hemoglobin (NEG) NEG Urine Glucose (N MG/DL) NEG 08/14 1536 Chemistry Sodium (137 - 145 mmol/L) 139 Potassium (3.5 - 5.1 mmol/L) 3.7 Chloride (98 - 107 mmol/L) 100 Carbon Dioxide (22 - 30 mmol/L) 23 Anion Gap (5 - 16) 15 BUN (9 - 20 mg/dL) 113 *H Creatinine (0.7 - 1.2 mg/dL) 5.6 *H Estimated GFR (>60 ml/min) 10 L BUN/Creatinine Ratio (7 - 25 %) 20.2 Glucose (65 - 99 mg/dL) 62 L Lactic Acid (0.7 - 2.1 mmol/L) 0.8 Calcium (8.4 - 10.2 mg/dL) 7.6 L Phosphorus (2.5 - 4.5 mg/dL) 6.5 H Magnesium (1.6 - 2.3 mg/dL) 2.3 TSH (0.270 - 4.200 uIU/mL) Pending Free T4 (0.78 - 2.44 ng/dL) Pending Coagulation PT (9.4 - 12.5 SEC) 14.9 H INR (0.90 - 1.17) 1.42 H APTT (25 - 37 SEC) 33 Hematology CBC w Diff NO MAN DIFF REQ WBC (4.8 - 10.8 /CUMM) 4.8 RBC (4.70 - 6.10 /CUMM) 3.16 L Hgb (14.0 - 18.0 G/DL) 9.7 L Hct (42 - 52 %) 29.7 L MCV (80.0 - 94.0 FL) 93.9 MCH (27.0 - 31.0 PG) 30.6 RDW (11.5 - 14.5 %) 20.1 H Plt Count (130 - 400 /CUMM) 164 MPV (7.4 - 10.4 FL) 8.2 Gran % (42.2 - 75.2 %) 73.3 Lymphocytes % (20.5 - 51.1 %) 12.9 L Monocytes % (1.7 - 9.3 %) 11.9 H Eosinophils % (0 - 5 %) 1.4 Basophils % (0.0 - 2.0 %) 0.5 Absolute Granulocytes (1.4 - 6.5 /CUMM) 3.5 Absolute Lymphocytes (1.2 - 3.4 /CUMM) 0.6 L Absolute Monocytes (0.10 - 0.60 /CUMM) 0.6 Absolute Eosinophils (0.0 - 0.7 /CUMM) 0.1 Absolute Basophils (0.0 - 0.2 /CUMM) 0 PUBS MCHC (33.0 - 37.0 G/DL) 32.6 L Assessment/Plan Assessment/Recommendations Assessment: Patient with post prandial vomiting, which may be due to uremia. Current GFR is around 5 cc so would have to assume that uremia is primary driving force as never had history of gastroparesis. He is willling to begin maintenence dialysis but I am not certain his AVF will be useable. Recommendations: Will arrange for dialyisis tomorrow but may have to have Marshal catheter placed if access cannot be successfully canulated. He would probably benefit from some balloon augmentation if we cannot use the access. I would otherwise keep him on his usual outpatient medications but EPO will be given with dialysis. Thank you for this consult.
[2016-08-14 22:54] VITALS: BP 122/72
--- NOTE | 2016-08-15 07:22 | Cons- Endocrinology ---
General Information and HPI Consulting Request Date of Consult: 08/15/16 Requested By: medical team Reason for Consult: Hypoglycemia Source of Information: patient, old records Exam Limitations: poor historian History of Present Illness: This 61-year-old -[place] male apparently had developed nausea and vomiting over the past few weeks. When he came to emergency room he had low sugar with a glucose of only 62. The patient was on the VGO-20. He was taking 2 units before meals as well. The patient has end-stage renal disease and the plan is to begin dialysis during this admission. He has been seen by Dr. Victoria on the renal service. He already has a shunt but it is uncertain whether that can be used. Patient also has cardiac disease with a low EF. He has developed now atrial flutter fibrillation. He has been placed on heparin. Allergies/Medications Allergies: Coded Allergies: NO KNOWN ALLERGIES (06/10/14) Home Med List: Allopurinol 300 MG TABLET 1 TAB PO DAILY GOUT (Reported) Aspirin (Ecotrin*) 81 MG TABLET. HEART [facility] (Reported) Carvedilol (Coreg) 25 MG TABLET 1.5 TAB PO BID RATE CONTROL Cholecalciferol (Vitamin D3) (Vitamin D) 1,000 UNIT TABLET 1 TAB PO DAILY SUPPLEMENT (Reported) Epoetin Kameron (Procrit) 20,000 UNIT/ML VIAL 1 UNIT IV Q 3 WEEKS ANEMIA ( Reported) Fluticasone-Salmeterol (Advair 100-50 Diskus) 100 MCG-50 MCG/DOSE BLST.W.DEV 1 PUF INH BID ASTHMA (Reported) Furosemide 40 MG TABLET 2 TAB PO BID WATER PILL (Reported) Hydralazine HCl 50 MG TABLET 2 TAB PO BID HYPERTENSION (Reported) Insulin Aspart, Recombinant (Novolog) 100 U/ML JORDAN 0 UNITS SC SEE SLIDING SCALE GLUCOSE CONTROL VIA VGO-20 W/ boluses 2 units before breakfast 2 units before lunch 4 units before dinner Isosorbide Monitrate Sr (Imdur 60MG Tab) 60 MG TAB 2 TAB PO DAILY [facility] Latanoprost (Xalatan) 2.5 ML DROPS 1 GTT OPH QPM BOTH EYES (Reported) Oxycodone HCl/Acetaminophen (Percocet 5-325 MG Tablet) 1 EACH TABLET 1-2 TAB PO Q6P PRN pain Sevelamer Carbonate (Renvela) 800 MG TAB 1 TAB PO TID PHOSPHORUS (Reported) Sub-Q Insulin Device, 20 Unit (Vgo 20) 1 EACH EACH DM (Reported) Review of Systems Review of Systems Constitutional: Denies: chills, fever. Cardiovascular: Denies: chest pain. Respiratory: Denies: short of breath. Musculoskeletal: Denies: back pain. Skin: Reports: no symptoms. 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 There is also an excision of a retained foreign object. This was in May 2012. Family History Relations & Conditions If Any: MOTHER Diabetes mellitus (DM) Relation not specified for: Cerebrovascular accident in mother Psychosocial History Where Do You Live? Home Who Do You Live With? spouse Services at Home: None Primary Language: Belizean Smoking Status: Never Smoked ETOH Use: occasional use Functional Ability ADLs Independent: dressing, eating, toileting, bathing. Ambulation: cane IADLs Independent: telephone. Needs Assist: housework, finances, food prep, medication admin. Unknown: shopping, transportation. Exam & Diagnostic Data Last 24 Hrs of Vital Signs/I&O Vital Signs Date Time Temp Pulse Resp B/P B/P Pulse O2 O2 Flow FiO2 Mean Ox Delivery Rate 08/15 0316 125 92 08/14 2300 125 122/72 08/14 2254 98.0 95 20 122/72 92 08/14 2158 Room Air 08/149 97.5 106 18 113/65 99 Room Air 08/14 1800 96.5 101 18 141/59 93 Room Air 08/14 1613 97 Room Air 08/14 1531 96.9 98 18 130/90 95 Room Air Intake & Output 08/15 0800 08/15 0000 08/14 1600 Intake Total 200 200 Output Total 300 300 Balance -100 -100 Intake, Oral 200 200 Output, Urine 300 300 Patient 230 lb 230 lb Weight Weight Reported by Patient Reported by Patient Measurement Method Vital Signs Date Time Temp Pulse Resp B/P B/P Pulse O2 O2 Flow FiO2 Mean Ox Delivery Rate 08/15 0316 125 92 08/14 2300 125 122/72 08/14 2254 98.0 95 20 122/72 92 08/14 2158 Room Air 08/14 2028 97.5 106 18 113/65 99 Room Air 08/14 1800 96.5 101 18 141/59 93 Room Air 08/14 1613 97 Room Air 08/14 1531 96.9 98 18 130/90 95 Room Air Intake & Output 08/15 0800 08/15 0000 08/14 1600 Intake Total 200 200 Output Total 300 300 Balance -100 -100 Intake, Oral 200 200 Output, Urine 300 300 Patient 230 lb 230 lb Weight Weight Reported by Patient Reported by Patient Measurement Method Physical Exam General Appearance: alert, awake, obese Head: normal appearance Eyes: Bilateral: normal appearance. Neck: normal inspection Respiratory: normal breath sounds Cardiovascular: irregularly irregular Gastrointestinal: distention Extremities: swelling (mild both lower legs) Neurologic/Psych: awake, alert Skin: intact Assessment/Plan Assessment/Plan Suggest that we reduce the patient's insulin. The VGO can be stopped. We can place him on Levemir 5 units twice a day and sliding scale NovoLog for sugars that are above 150. Once this patient starts dialysis, his appetite may improve and further adjustments in his insulin regimen will probably be necessary we can check his sugars 4 times a day before meals and at bedtime. No bedtime coverage should be given. Cardiology consult to be obtained. The patient will probably begin dialysis today.. Consult Acknowledgment - Thank you for your consult request.
--- NOTE | 2016-08-15 07:35 | PN- Housestaff ---
TIM SALCIDO 08/15/16 0734: Subjective Follow-up For: - ESRD - Aflutter - Diabetes - Anemia Complaints: no complaints Tele-Events Since Last Visit: A flutter, heart rate 94-110, multiple PVCs. Subjective: The patient was comfortable this morning. Did not have any complaints. Vitals were stable overnight. Did not have any nausea or vomiting. Patient was seen by Dr. Dahl this morning. Review of Systems Constitutional: Reports: see HPI. Objective Last 24 Hrs of Vital Signs/I&O Vital Signs Date Time Temp Pulse Resp B/P B/P Pulse O2 O2 Flow FiO2 Mean Ox Delivery Rate 08/15 0316 125 92 08/14 2300 125 122/72 08/14 2254 98.0 95 20 122/72 92 08/14 2158 Room Air 08/14 2029 97.5 106 18 113/65 99 Room Air 08/14 1800 96.5 101 18 141/59 93 Room Air 08/14 1613 97 Room Air 08/14 1531 96.9 98 18 130/90 95 Room Air Intake & Output 08/15 0800 08/15 0000 08/14 1600 Intake Total 200 200 Output Total 300 300 Balance -100 -100 Intake, Oral 200 200 Output, Urine 300 300 Patient 230 lb 230 lb Weight Weight Reported by Patient Reported by Patient Measurement Method Physical Exam General Appearance: No Acute Distress Other Physical Findings: General Exam: AAOx3, No acute distress, Skin: No rashes, no breakdown HEENT: PERRLA, EOMI Neck: Supple, No JVD No cervical lymphadenopathy CVS: Reg Rate, Normal S1,S2, No MGR Resp: Normal air entry, no ronchi/rales Abdomen: Soft, No tenderness, Normal Bowel Sounds Neuro: Normal Speech, Strength 5/5 b/l x 4 extremities, Sensation intact, CN III -XII NL, Reflexes 2+ Extremities: No cyanosis, 2+ pedal edema, AV fistula on left upper extremity Current Medications: Current Medications Sig/Cole Start time Last Medication Dose Route Stop Time Status Admin Acetaminophen 650 MG Q6P PRN 08/140 AC PO Acetaminophen 1,000 MG Q6P PRN 08/140 AC IV Aspirin Buffered 81 MG DAILY 08/15 1000 CAN PO Carvedilol 50 MG BID 08/15 1000 AC 08/15 PO 1015 Carvedilol 37.5 MG BID 08/14 2223 DC 08/14 PO 2300 Cholecalciferol 1,000 IU DAILY 08/15 1000 AC 08/15 PO 1014 Heparin Sodium See Dose PER PROTOCL PRN 08/14 1900 DC (Porcine) Insts (1) IV Heparin Sodium 4,000 UNIT ONCE ONE 08/14 1845 DC 08/14 (Porcine) IV 08/14 1846 1950 Heparin Sodium 25,000 UNIT Q24H 08/14 1845 AC 08/15 (Porcine) IV 1750 Sodium Chloride 500 ML Insulin Aspart 0 TIDAC 08/15 0800 AC 08/15 SC 1755 Insulin Detemir 5 UNITS BID 08/15 1000 AC 08/15 SC 1015 Latanoprost 1 GTT QPM 08/15 2200 AC OPH Levothyroxine Sodium 0.025 MG DAILY AC 08/15 0700 AC 08/15 PO 0555 Metoclopramide HCl 10 MG Q6P PRN 08/14 2230 AC IV Oxycodone HCl 10 MG Q6P PRN 08/14 1900 AC PO Patient Medication 1 ED .STK-MED ONE 08/15 1414 DC Teaching ED 08/15 1415 Sevelamer Carbonate 800 MG 0800,1200,1700 08/15 0800 AC 08/15 PO 1749 Dose Instructions: (1)Heparin Sodium (Porcine): SEE ADMIN CRITERIA Last 24 Hrs of Lab/Cristi Results Last 24 Hrs of Labs/Mics: Laboratory Tests 08/15/16 0900: Hep Bs Antigen Cancelled, Hep Bs Antibody Cancelled, Hepatitis C Antibody Cancelled 08/15/16 0900: Anion Gap 17 H, Estimated GFR 11 L, BUN/Creatinine Ratio 20.0, Phosphorus 6.6 H, Magnesium 2.2, Troponin I 0.09, Hep Bs Antigen NONREACTIVE, Hep Bs Antibody NONREACTIVE, Hepatitis C Antibody NONREACTIVE 08/15/16 0625: APTT 67 H 08/15/16 0100: Magnesium 2.1, Troponin I 0.06 08/14/16 1951: Troponin I Cancelled 08/14/16 1834: Lactic Acid Cancelled Assessment/Plan Assessment: Mr. Santiago is a 61-year-old man with a past medical history of diabetes ( insulin-dependent), end-stage renal disease (not on hemodialysis, AV fistula in place), nonischemic cardiomyopathy, CHF, hypertension is being evaluated for a chief concern of nausea, vomiting 2 weeks, abnormal renal function (as informed by his dental practitioner). At the time of admission, vitals were stable temperature 96.9, pulse rate 98, respiratory rate 18, blood pressure 130/90, pulse ox 95% on room air. Lab findings indicated WBC 4.8, hemoglobin 9.7 (baseline 10.0), platelets 164, sodium 139, potassium 3.7, bicarbonate 23, renal function-abnormal: BUN 113, serum creatinine 5.6 (last BUN 94, serum creatinine 4.9 03/22/2016), glucose 62 (low likely from worsening kidney function and long-acting insulin use), and calcium 7.6, phosphorus 6.5 (due to ESRD). EKG findings revealed atrial flutter , heart rate 111, irregular. Chest x-ray revealed mild vascular congestion, with no overt pulmonary edema. Abdominal x-ray did not reveal any evidence of obstruction or any free air. TSH, free T4 within normal limits. Differential diagnosis: #1 acute on chronic kidney disease #2 atrial flutter #3 diabetes complication-nephropathy Below is the problem list and plan: #1 nausea, vomiting-likely due to elevated BUN at this time. Gastroparesis in the differential. Continue symptomatic treatment with antiemetics at this time. #2 atrial flutter- Patient was started on intravenous heparin. Currently rate controlled with carvedilol. Serial electrocardiograms and cardiac enzymes are negative. 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 Increase the dose of carvedilol. To start Coumadin after a decision is made about an Marshal catheter placement in the a.m. Thyroid function within normal limits. Etiology unclear at this time, with uremia being the most likely cause. Await recommendation from Dr. York. #3 diabetes-patient has insulin pump in place. Continue long-acting insulin as per kidney function permits. #4 end-stage renal disease-worsening kidney function. Acute on chronic kidney disease. No fluids indicated at this time. Nephrology-Dr. Luna/Dr. Victoria advising. Closely monitor renal function, and BUN. Problem List: 1. Atrial flutter 2. Acute renal failure 3. Chronic kidney disease (CKD) 4. Hypertension Pain Ratin Pain Location: none Pain Goal: Pain 4 or less Pain Plan: tylenol prn Tomorrow's Labs & Rationales: cbc bep PATTI TAYLOR MD 08/15/16 1241: Attending MD Review Statement Attending Statement Attending MD Statement: examined this patient, discuss w/resident/PA/CARDIOTHORACIC ANESTHESIA TECHNICIAN, agreed w/resident/PA/CARDIOTHORACIC ANESTHESIA TECHNICIAN, reviewed EMR data (avail) Attending Assessment/Plan: 61M PMH CKD now with worsening renal function, hypervolemia, uremia, hyperphospatemia. Had AV-fistula performed recently but not yet matured. Patient has no complaints. Also found to have new onset atrial flutter and started on heparin drip. Will follow nephrology recommendations, continue heparin drip, possible dialysis catheter placement, start Coumadin after any procedure, monitor electrolytes and renal function, continue home medications.
--- NOTE | 2016-08-15 07:55 | Cons- Cardiology ---
General Information and HPI Consulting Request Date of Consult: 08/15/16 Requested By: PATTI TAYLOR MD Reason for Consult: Atrial flutter Source of Information: patient Exam Limitations: no limitations History of Present Illness: 60 year old male with h/o non ischemic CMP (last LVEF 35-40% by echo 1 year ago, refused ICD on many occasions in the past), HTN, DM, severe renal insuficiency, AV fistula. Patient was admitted last night with postprandial nausea, vomiting and worsening renal function. In ER he was found to be in atrial flutter with rates 90-110 bpm. He does not report any palpitations, chest pain, dyspnea, dizziness or syncope. Allergies/Medications Allergies: Coded Allergies: NO KNOWN ALLERGIES (06/10/14) Home Med List: Allopurinol 300 MG TABLET 1 TAB PO DAILY GOUT (Reported) Aspirin (Ecotrin*) 81 MG TABLET. HEART HEALTH (Reported) Carvedilol (Coreg) 25 MG TABLET 1.5 TAB PO BID RATE CONTROL Cholecalciferol (Vitamin D3) (Vitamin D) 1,000 UNIT TABLET 1 TAB PO DAILY SUPPLEMENT (Reported) Epoetin Kameron (Procrit) 20,000 UNIT/ML VIAL 1 UNIT IV Q 3 WEEKS ANEMIA ( Reported) Fluticasone-Salmeterol (Advair 100-50 Diskus) 100 MCG-50 MCG/DOSE BLST.W.DEV 1 PUF INH BID ASTHMA (Reported) Furosemide 40 MG TABLET 2 TAB PO BID WATER PILL (Reported) Hydralazine HCl 50 MG TABLET 2 TAB PO BID HYPERTENSION (Reported) Insulin Aspart, Recombinant (Novolog) 100 U/ML JORDAN 0 UNITS SC SEE SLIDING SCALE GLUCOSE CONTROL VIA VGO-20 W/ boluses 2 units before breakfast 2 units before lunch 4 units before dinner Isosorbide Monitrate Sr (Imdur 60MG Tab) 60 MG TAB 2 TAB PO DAILY HEART [facility] Latanoprost (Xalatan) 2.5 ML DROPS 1 GTT OPH QPM BOTH EYES (Reported) Oxycodone HCl/Acetaminophen (Percocet 5-325 MG Tablet) 1 EACH TABLET 1-2 TAB PO Q6P PRN pain Sevelamer Carbonate (Renvela) 800 MG TAB 1 TAB PO TID PHOSPHORUS (Reported) Sub-Q Insulin Device, 20 Unit (Vgo 20) 1 EACH EACH DM (Reported) Current Medications: Current Medications Sig/Cole Start time Last Medication Dose Route Stop Time Status Admin Acetaminophen 650 MG Q6P PRN 08/14 1900 AC PO Acetaminophen 1,000 MG Q6P PRN 08/14 1900 AC IV Aspirin Buffered 81 MG DAILY 08/15 1000 AC PO Carvedilol 37.5 MG BID 08/14 2223 AC 08/14 PO 2300 Cholecalciferol 1,000 IU DAILY 08/15 1000 AC PO Heparin Sodium See Dose PER PROTOCL PRN 08/14 1900 DC (Porcine) Insts (1) IV Heparin Sodium 4,000 UNIT ONCE ONE 08/14 1845 DC 08/14 (Porcine) IV 08/14 1846 1950 Heparin Sodium 25,000 UNIT Q24H 08/14 1845 AC 08/14 (Porcine) IV 1950 Sodium Chloride 500 ML Insulin Aspart 0 TIDAC 08/15 0800 AC SC Insulin Detemir 5 UNITS BID 08/15 1000 AC SC Latanoprost 1 GTT QPM 08/15 2200 AC OPH Levothyroxine Sodium 0.025 MG DAILY AC 08/15 0700 AC 08/15 PO 0555 Metoclopramide HCl 10 MG Q6P PRN 08/14 2230 AC IV Metoclopramide HCl 0 .STK-MED ONE 08/14 1638 DC .ROUTE Metoclopramide HCl 10 MG ONCE ONE 08/14 1630 DC 08/14 IV 08/14 1631 1646 Oxycodone HCl 10 MG Q6P PRN 08/14 1900 AC PO Sevelamer Carbonate 800 MG 0800,1200,1700 08/15 0800 AC PO Dose Instructions: (1)Heparin Sodium (Porcine): SEE ADMIN CRITERIA Review of Systems Review of Systems: 12 point ROS negative except for HPI. 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 There is also an excision of a retained foreign object. This was in May 2012. Family History Relations & Conditions If Any: MOTHER Diabetes mellitus (DM) Relation not specified for: Cerebrovascular accident in mother Psychosocial History Where Do You Live? Home Who Do You Live With? spouse Services at Home: None Primary Language: Latvian Smoking Status: Never Smoked ETOH Use: occasional use Functional Ability ADLs Independent: dressing, eating, toileting, bathing. Ambulation: cane IADLs Independent: telephone. Needs Assist: housework, finances, food prep, medication admin. Unknown: shopping, transportation. Exam & Diagnostic Data Vital Signs and I&O Vital Signs Date Time Temp Pulse Resp B/P B/P Pulse O2 O2 Flow FiO2 Mean Ox Delivery Rate 08/15 0316 125 92 08/14 2300 125 122/72 08/14 2254 98.0 95 20 122/72 92 08/14 2158 Room Air 08/14 2028 97.5 106 18 113/65 99 Room Air 08/14 1800 96.5 101 18 141/59 93 Room Air 08/14 1613 97 Room Air 08/14 1531 96.9 98 18 130/90 95 Room Air Intake & Output 08/15 0800 08/15 0000 08/14 1600 08/14 0800 08/14 0000 08/13 1600 Intake Total 200 200 Output Total 300 300 Balance -100 -100 Intake, Oral 200 200 Output, Urine 300 300 Patient 230 lb 230 lb Weight Weight Reported by Patient Reported by Patient Measurement Method Physical Exam: HEENT-PERRLA Neck JVP normal, no bruit Lungs-clear bilaterally Heart-S1S2, irregular tachycadia Abdomen-soft, obese, BS+, not tender, no organomegaly Extr-trace edema 1+ distal pulses Neuro-non focal Labs/Cristi Results: Laboratory Tests 08/15 08/15 08/14 08/14 0625 0100 1951 1834 Chemistry Lactic Acid Cancelled Troponin I (<0.11 ng/ml) 0.06 Cancelled Coagulation APTT Pending 08/14 08/14 1750 1536 Chemistry Sodium (137 - 145 mmol/L) 139 Potassium (3.5 - 5.1 mmol/L) 3.7 Chloride (98 - 107 mmol/L) 100 Carbon Dioxide (22 - 30 mmol/L) 23 Anion Gap (5 - 16) 15 BUN (9 - 20 mg/dL) 113 *H Creatinine (0.7 - 1.2 mg/dL) 5.6 *H Estimated GFR (>60 ml/min) 10 L BUN/Creatinine Ratio (7 - 25 %) 20.2 Glucose (65 - 99 mg/dL) 62 L Lactic Acid (0.7 - 2.1 mmol/L) 0.8 Calcium (8.4 - 10.2 mg/dL) 7.6 L Phosphorus (2.5 - 4.5 mg/dL) 6.5 H Magnesium (1.6 - 2.3 mg/dL) 2.3 Troponin I (<0.11 ng/ml) 0.06 TSH (0.270 - 4.200 uIU/mL) 1.880 Free T4 (0.78 - 2.44 ng/dL) 1.30 Coagulation PT (9.4 - 12.5 SEC) 14.9 H INR (0.90 - 1.17) 1.42 H APTT (25 - 37 SEC) 33 Hematology CBC w Diff NO MAN DIFF REQ WBC (4.8 - 10.8 /CUMM) 4.8 RBC (4.70 - 6.10 /CUMM) 3.16 L Hgb (14.0 - 18.0 G/DL) 9.7 L Hct (42 - 52 %) 29.7 L MCV (80.0 - 94.0 FL) 93.9 MCH (27.0 - 31.0 PG) 30.6 RDW (11.5 - 14.5 %) 20.1 H Plt Count (130 - 400 /CUMM) 164 MPV (7.4 - 10.4 FL) 8.2 Gran % (42.2 - 75.2 %) 73.3 Lymphocytes % (20.5 - 51.1 %) 12.9 L Monocytes % (1.7 - 9.3 %) 11.9 H Eosinophils % (0 - 5 %) 1.4 Basophils % (0.0 - 2.0 %) 0.5 Absolute Granulocytes (1.4 - 6.5 /CUMM) 3.5 Absolute Lymphocytes (1.2 - 3.4 /CUMM) 0.6 L Absolute Monocytes (0.10 - 0.60 /CUMM) 0.6 Absolute Eosinophils (0.0 - 0.7 /CUMM) 0.1 Absolute Basophils (0.0 - 0.2 /CUMM) 0 PUBS MCHC (33.0 - 37.0 G/DL) 32.6 L Urines Urine Color (YEL,AMB,STR) YEL Urine Clarity (CLEAR) CLEAR Urine pH (5.0 - 8.0) 6.0 Ur Specific [place] (1.001 - 1.035) 1.015 Urine Protein (NEG,<30 MG/DL) 100 H Urine Ketones (NEG) NEG Urine Nitrite (NEG) NEG Urine Bilirubin (NEG) NEG Urine Urobilinogen (0.1 - 1.0 EU/dl) 0.2 Ur Leukocyte Esterase (NEG) NEG Ur Microscopic SEDIMENT EXAMINED Urine WBC (0 - 2 /HPF) 1-3 H Ur Epithelial Cells (NONE,FEW) FEW Urine Hemoglobin (NEG) NEG Urine Glucose (N MG/DL) NEG Diagnostic Data EKG Results Atrial flutter type I with 2:1, 3:1 AV conduction, poor R wave progression. Assessment/Plan Assessment/Plan 60 year old male with 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 gastroparesis) and new asymptomatic atrial flutter with borderline controlled ventricular rate ( rates up to 140 bpm with variable AV conduction). He is currently euvolemic. Plan: keep on tely increase carvedilol to 50 mg po bid echo today iv heparin he may need Marshal catheter and dialysis start warfarin after catheter placed if no other invasive procedure planned possible cardioversion in 4-6 weeks if he remains in flutter Consult Acknowledgment - Thank you for your consult request.
[2016-08-15 08:21] LABS: PTT 67 SEC (25-37)
[2016-08-15 08:30] VITALS: BP 118/64
--- NOTE | 2016-08-15 08:43 | PN- Nephrology ---
Assessment/Plan Assessment: N/V probably due to uremia. Currently refusing dialysis access, wants to discuss with Dr. York. Suggestion: I spoke with Dr. York who will see patient later today. Once definitive plan made for dialysis will procede with dialsyis. Subjective Subjective: Patient eating breakfast, has not vomited today. He refuses dialysis catheter. Access not useable currently as after a couple of cm the vein becomes deep and/ or poorly filled. Objective Vital Signs and I&Os Vital Signs Date Time Temp Pulse Resp B/P B/P Pulse O2 O2 Flow FiO2 Mean Ox Delivery Rate 08/16 0730 98.3 103 20 118/64 93 Room Air 08/15 0316 125 92 08/14 2300 125 122/72 08/14 2254 98.0 95 20 122/72 92 08/14 2158 Room Air 08/14 2028 97.5 106 18 113/65 99 Room Air 08/14 1800 96.5 101 18 141/59 93 Room Air 08/14 1613 97 Room Air 08/14 1531 96.9 98 18 130/90 95 Room Air Intake & Output 08/15 1600 08/15 0400 08/14 1600 08/14 0400 08/13 1600 08/13 0400 Intake Total 200 200 Output Total 300 300 Balance -100 -100 Intake, Oral 200 200 Output, Urine 300 300 Patient 230 lb 230 lb Weight Weight Reported by Patient Reported by Patient Measurement Method Physical Exam: NAD VS no rub Lungs: clear CV: no rub Abd: non-tender Exts:no edema Neuro: A&O Current Medications: Current Medications Sig/Cole Start time Last Medication Dose Route Stop Time Status Admin Acetaminophen 650 MG Q6P PRN 08/14 1899 AC PO Acetaminophen 1,000 MG Q6P PRN 08/14 1900 AC IV Aspirin Buffered 81 MG DAILY 08/15 1000 CAN PO Carvedilol 50 MG BID 08/15 1000 UNVr PO Carvedilol 37.5 MG BID 08/143 DC 08/14 PO 2300 Cholecalciferol 1,000 IU DAILY 08/15 1000 AC PO Heparin Sodium See Dose PER PROTOCL PRN 08/14 1899 DC (Porcine) Insts (1) IV Heparin Sodium 4,000 UNIT ONCE ONE 08/14 1844 DC 08/14 (Porcine) IV 08/14 184 1950 Heparin Sodium 25,000 UNIT Q24H 08/14 1845 AC 08/14 (Porcine) IV 1950 Sodium Chloride 500 ML Insulin Aspart 0 TIDAC 08/15 0800 AC 08/15 SC 0814 Insulin Detemir 5 UNITS BID 08/15 1000 AC SC Latanoprost 1 GTT QPM 08/15 2200 AC OPH Levothyroxine Sodium 0.025 MG DAILY AC 08/15 0700 AC 08/15 PO 0555 Metoclopramide HCl 10 MG Q6P PRN 08/14 2230 AC IV Metoclopramide HCl 0 .STK-MED ONE 08/14 1638 DC .ROUTE Metoclopramide HCl 10 MG ONCE ONE 08/14 1630 DC 08/14 IV 08/14 1631 1646 Oxycodone HCl 10 MG Q6P PRN 08/14 1900 AC PO Sevelamer Carbonate 800 MG 0800,1200,1700 08/15 0800 AC 08/15 PO 0814 Dose Instructions: (1)Heparin Sodium (Porcine): SEE ADMIN CRITERIA Results Pertinent Lab Results: Laboratory Tests 08/15 08/15 08/14 08/14 0625 0100 195 1834 Chemistry Lactic Acid Cancelled Magnesium (1.6 - 2.3 mg/dL) 2.1 Troponin I (<0.11 ng/ml) 0.06 Cancelled Coagulation APTT (25 - 37 SEC) 67 H 08/14 08/14 1750 1536 Chemistry Sodium (137 - 145 mmol/L) 139 Potassium (3.5 - 5.1 mmol/L) 3.7 Chloride (98 - 107 mmol/L) 100 Carbon Dioxide (22 - 30 mmol/L) 23 Anion Gap (5 - 16) 15 BUN (9 - 20 mg/dL) 113 *H Creatinine (0.7 - 1.2 mg/dL) 5.6 *H Estimated GFR (>60 ml/min) 10 L BUN/Creatinine Ratio (7 - 25 %) 20.2 Glucose (65 - 99 mg/dL) 62 L Lactic Acid (0.7 - 2.1 mmol/L) 0.8 Calcium (8.4 - 10.2 mg/dL) 7.6 L Phosphorus (2.5 - 4.5 mg/dL) 6.5 H Magnesium (1.6 - 2.3 mg/dL) 2.3 Troponin I (<0.11 ng/ml) 0.06 TSH (0.270 - 4.200 uIU/mL) 1.880 Free T4 (0.78 - 2.44 ng/dL) 1.30 Coagulation PT (9.4 - 12.5 SEC) 14.9 H INR (0.90 - 1.17) 1.42 H APTT (25 - 37 SEC) 33 Hematology CBC w Diff NO MAN DIFF REQ WBC (4.8 - 10.8 /CUMM) 4.8 RBC (4.70 - 6.10 /CUMM) 3.16 L Hgb (14.0 - 18.0 G/DL) 9.7 L Hct (42 - 52 %) 29.7 L MCV (80.0 - 94.0 FL) 93.9 MCH (27.0 - 31.0 PG) 30.6 RDW (11.5 - 14.5 %) 20.1 H Plt Count (130 - 400 /CUMM) 164 MPV (7.4 - 10.4 FL) 8.2 Gran % (42.2 - 75.2 %) 73.3 Lymphocytes % (20.5 - 51.1 %) 12.9 L Monocytes % (1.7 - 9.3 %) 11.9 H Eosinophils % (0 - 5 %) 1.4 Basophils % (0.0 - 2.0 %) 0.5 Absolute Granulocytes (1.4 - 6.5 /CUMM) 3.5 Absolute Lymphocytes (1.2 - 3.4 /CUMM) 0.6 L Absolute Monocytes (0.10 - 0.60 /CUMM) 0.6 Absolute Eosinophils (0.0 - 0.7 /CUMM) 0.1 Absolute Basophils (0.0 - 0.2 /CUMM) 0 PUBS MCHC (33.0 - 37.0 G/DL) 32.6 L Urines Urine Color (YEL,AMB,STR) YEL Urine Clarity (CLEAR) CLEAR Urine pH (5.0 - 8.0) 6.0 Ur Specific [place] (1.001 - 1.035) 1.015 Urine Protein (NEG,<30 MG/DL) 100 H Urine Ketones (NEG) NEG Urine Nitrite (NEG) NEG Urine Bilirubin (NEG) NEG Urine Urobilinogen (0.1 - 1.0 EU/dl) 0.2 Ur Leukocyte Esterase (NEG) NEG Ur Microscopic SEDIMENT EXAMINED Urine WBC (0 - 2 /HPF) 1-3 H Ur Epithelial Cells (NONE,FEW) FEW Urine Hemoglobin (NEG) NEG Urine Glucose (N MG/DL) NEG
[2016-08-15 16:59] VITALS: BP 116/66
[2016-08-15 19:00] LABS: ABSOLUTE BASOPHIL COUNT 0 /CUMM (0.0-0.2); ABSOLUTE EOSINOPHIL COUNT 0.1 /CUMM (0.0-0.7); ABSOLUTE GRANULOCYTE CT 5.4 /CUMM (1.4-6.5); ABSOLUTE LYMPH COUNT 0.8 /CUMM (1.2-3.4); ABSOLUTE MONOCYTE COUNT 0.6 /CUMM (0.10-0.60); BASOPHIL % 0.4 % (0.0-2.0); GRANULOCYTE % 78.3 % (42.2-75.2); HEMATOCRIT 30.1 % (42-52); MEAN CORPUSCULAR HGB 30.4 PG (27.0-31.0); MEAN CORPUSCULAR HGB CONC 32.4 G/DL (33.0-37.0); MEAN CORPUSCULAR VOLUME 93.7 FL (80.0-94.0); MEAN PLATELET VOLUME 8.9 FL (7.4-10.4); PLATELET COUNT 153 /CUMM (130-400); RBC DISTRIBUTION WIDTH 19.7 % (11.5-14.5); RED BLOOD CELL CT 3.21 /CUMM (4.70-6.10); WHITE BLOOD CELL COUNT 6.9 /CUMM (4.8-10.8)
[2016-08-15 19:17] LABS: PTT 93 SEC (25-37)
--- NOTE | 2016-08-15 21:41 | ECHOCARDIOGRAM REPORT ---
TIFFANI SHI Age: 61 : 1955 Gender: M Exam Date: 08/15/2016 16:44 Exam Location: 1 [address] Ht (in): 66 Wt (lb): 230 BSA: 2.25 BP: 122 / 72 Ordering Physician: HEBER GOLDBERG MD Referring Physician: HEBER GOLDBERG MD Technologist: Flora Matos TODD Room Number: [id number] Indications: ARRHYTHMIAS Rhythm: Other Technical Quality: FINDINGS Left Ventricle Normal size left ventricle. Left ventricular wall thickness mildly increased. Severely reduced global left ventricular systolic function. Left ventricular ejection fraction is estimated at 20 %. There is severe global hypokinesis. Right Ventricle Mild right ventricular dilatation. Moderately reduced right ventricular global systolic function. Moderately reduced right ventricular global systolic function. Right Atrium Mild right atrial dilatation. Left Atrium Moderate left atrial dilatation. Mitral Valve Structurally normal mitral valve. Moderate mitral regurgitation. Aortic Valve Structurally normal trileaflet aortic valve. Tricuspid Valve Structurally normal tricuspid valve. Mild tricuspid regurgitation. Right ventricular systolic pressure estimated at 52 mmHg. Pulmonic Valve Structurally normal pulmonic valve. Mild pulmonic regurgitation. Pericardium No pericardial effusion. Great Vessels Normal size aortic root. CONCLUSIONS Severely reduced left ventricular systolic function wiht estimated ejection fraction of 20%. Severe global hypokinesis. Mild concentric left ventricular hypertrophy. Mildly dilated right ventricle with moderately reduced systolic function. Moderately dilated left atrium. Mildly dilated right atrium. Moderate mitral regurgitation. Mild tricuspid regurgitation with moderate pulmonary hypertension. Heber Goldberg M.D. (Electronically Signed) Final Date: 15 August 2016 21:40 MEASUREMENTS (Male / Female) Normal Values 2D ECHO LV Diastolic Diameter PLAX 4.9 cm 4.2 - 5.9 / 3.9 - 5.3 cm LV Systolic Diameter PLAX 4.3 cm 2.1 - 4.0 cm LV Fractional Shortening PLAX 12.2 % 25 - 46 % LV Ejection Fraction 2D Teich 26.4 % IVS Diastolic Thickness 1.1 cm LVPW Diastolic Thickness 1.1 cm LV Relative Wall Thickness 0.4 RV Internal Dim ED PLAX 3.6 cm 1.9 - 3.8 cm LVOT Diameter 2.1 cm Aortic Root Diameter 2.8 cm LA Systolic Diameter LX 4.5 cm 3.0 - 4.0 / 2.7 - 3.8 cm LV Ejection Fraction MOD BP 25.5 % >= 55 % LV Diastolic Length 4C 9.4 cm 6.9 - 10.3 cm LV Diastolic Area 4C 34.3 cm LV Diastolic Volume MOD 4C 104.0 cm LV Ejection Fraction MOD 4C 23.1 % LV Stroke Volume MOD 4C 24.0 cm LV Systolic Length 4C 8.8 cm LV Systolic Area 4C 28.9 cm LV Systolic Volume MOD 4C 80.0 cm LV Ejection Fraction MOD 2C 26.6 % LV Diastolic Volume 4C AL 106.8 cm 85 - 139 / 69 - 109 cm LV Systolic Volume 4C AL 81.0 cm LV Ejection Fraction 4C AL 24.1 % LV Stroke Volume 4C AL 25.8 cm LV Ejection Fraction 2C AL 29.2 % LA Volume 77.0 cm 18 - 58 / 22 - 52 cm Ascending Aorta Diameter 3.0 cm DOPPLER AV Peak Velocity 91.7 cm/s AV Peak Gradient 3.4 mmHg AV Mean Velocity 63.9 cm/s AV Mean Gradient 2.0 mmHg AV Velocity Time Integral 16.0 cm LVOT Peak Velocity 81.2 cm/s LVOT Peak Gradient 2.6 mmHg LVOT Mean Velocity 48.8 cm/s LVOT Mean Gradient 1.0 mmHg LVOT Velocity Time Integral 12.8 cm LVOT Stroke Volume 44.3 cm AV Area Cont Eq vti 2.8 cm AV Area Cont Eq pk 3.1 cm MV Peak Velocity 130.0 cm/s MV Peak Gradient 6.8 mmHg MV Mean Velocity 64.1 cm/s MV Mean Gradient 2.0 mmHg Mitral E Point Velocity 112.0 cm/s MV PHT Velocity 134.0 cm/s MV Deceleration [place] 389.0 cm/s MV Pressure Half Time 103.3 ms MV Area PHT 2.1 cm MV Deceleration Time 206.0 ms MR Peak Velocity 421.0 cm/s MR Peak Gradient 70.9 mmHg MR ERO PISA 0.4 cm MR Regurgitant Volume PISA 42.5 cm TR Peak Velocity 331.0 cm/s TR Peak Gradient 43.8 mmHg Right Atrial Pressure 10.0 mmHg Pulmonary Artery Systolic Pressu 53.8 mmHg Right Ventricular Systolic Press 53.8 mmHg PV Peak Velocity 64.5 cm/s PV Peak Gradient 1.7 mmHg PV Mean Velocity 41.2 cm/s PV Mean Gradient 1.0 mmHg PV Velocity Time Integral 11.3 cm LV E' Lateral Velocity 12.4 cm/s Mitral E to LV E' Lateral Ratio 9.0 LV E' Septal Velocity 7.5 cm/s Mitral E to LV E' Septal Ratio 14.9
[2016-08-16 00:17] VITALS: BP 124/78
[2016-08-16 02:17] LABS: ABSOLUTE BASOPHIL COUNT 0.1 /CUMM (0.0-0.2); ABSOLUTE EOSINOPHIL COUNT 0.1 /CUMM (0.0-0.7); ABSOLUTE GRANULOCYTE CT 5.1 /CUMM (1.4-6.5); ABSOLUTE LYMPH COUNT 0.9 /CUMM (1.2-3.4); ABSOLUTE MONOCYTE COUNT 0.6 /CUMM (0.10-0.60); BASOPHIL % 0.9 % (0.0-2.0); EOSINOPHIL % 1.2 % (0-5); GRANULOCYTE % 75.2 % (42.2-75.2); HEMATOCRIT 29.6 % (42-52); MEAN CORPUSCULAR HGB 30.2 PG (27.0-31.0); MEAN CORPUSCULAR HGB CONC 32.1 G/DL (33.0-37.0); MEAN PLATELET VOLUME 8.7 FL (7.4-10.4); PLATELET COUNT 160 /CUMM (130-400); PT 16.6 SEC (9.4-12.5); RED BLOOD CELL CT 3.15 /CUMM (4.70-6.10); WHITE BLOOD CELL COUNT 6.7 /CUMM (4.8-10.8)
[2016-08-16 02:20] LABS: PTT 57 SEC (25-37)
--- NOTE | 2016-08-16 06:29 | PN- Housestaff ---
TIM SALCIDO 08/16/16 0629: Subjective Follow-up For: - ESRD - Diabetes - Elevated BUN Complaints: no complaints Tele-Events Since Last Visit: A flutter, HR 80-102, First degree HB, No overnight events. Subjective: Pt comfortable, and no complaints. Vitals stable overnight. Discussed with him about the prospect of placing an armen catheter for dialysis. He agreed for the procedure, but would still like to discuss with Dr. York. Called Dr. Carter office, and await his reply. Review of Systems Constitutional: Reports: see HPI. Objective Last 24 Hrs of Vital Signs/I&O Vital Signs Date Time Temp Pulse Resp B/P B/P Pulse O2 O2 Flow FiO2 Mean Ox Delivery Rate 08/16 0017 98.1 120 20 124/78 96 Room Air 08/16 0006 89 97 08/16 0000 CPAP 08/15 2149 130 99 08/15 2128 90 117/63 08/15 1659 97.8 98 18 116/66 96 08/15 1015 118/64 08/15 0830 98.3 103 20 118/64 93 Room Air Intake & Output 08/16 0800 08/16 0000 08/15 1600 Intake Total 240 590 928 Output Total 350 Balance 240 590 578 Intake, IV 240 208 Intake, Oral 240 350 720 Number 0 1 Bowel Movements Output, Urine 350 Physical Exam General Appearance: No Acute Distress Other Physical Findings: General Exam: AAOx3, No acute distress, Skin: No rashes, no breakdown HEENT: PERRLA, EOMI Neck: Supple, No JVD No cervical lymphadenopathy CVS: Reg Rate, Normal S1,S2, No MGR Resp: Normal air entry, no ronchi/rales Abdomen: Soft, No tenderness, Normal Bowel Sounds Neuro: Normal Speech, Strength 5/5 b/l x 4 extremities, Sensation intact, CN III -XII NL, Reflexes 2+ Extremities: No cyanosis, 2+ pedal edema, AV fistula on left upper extremity Current Medications: Current Medications Sig/Cole Start time Last Medication Dose Route Stop Time Status Admin Acetaminophen 650 MG Q6P PRN 08/140 AC 08/16 PO 0321 Acetaminophen 1,000 MG Q6P PRN 08/14 1899 AC IV Carvedilol 50 MG BID 08/15 1000 AC 08/15 PO 2127 Cholecalciferol 1,000 IU DAILY 08/15 1000 AC 08/15 PO 1014 Heparin Sodium 25,000 UNIT Q24H 08/14 1845 AC 08/15 (Porcine) IV 1750 Sodium Chloride 500 ML Insulin Aspart 0 TIDAC 08/15 0800 AC 08/16 SC 0811 Insulin Detemir 8 UNITS BID 08/16 1000 AC SC Insulin Detemir 5 UNITS BID 08/15 1000 DC 08/15 SC 2121 Latanoprost 1 GTT QPM 08/15 2200 AC 08/15 OPH 2121 Levothyroxine Sodium 0.025 MG DAILY AC 08/15 0700 AC 08/16 PO 0639 Metoclopramide HCl 10 MG Q6P PRN 08/14 2230 AC IV Oxycodone HCl 10 MG Q6P PRN 08/14 1900 AC PO Patient Medication 1 ED .STK-MED ONE 08/15 1414 OH Teaching ED 08/15 1415 Sevelamer Carbonate 800 MG 0800,1200,1700 08/15 0800 AC 08/16 PO 0810 Last 24 Hrs of Lab/Cristi Results Last 24 Hrs of Labs/Mics: Laboratory Tests 08/16/16 0200: PT 16.6 H, INR 1.59 H 08/16/16 0200: Anion Gap 16, Estimated GFR 10 L, BUN/Creatinine Ratio 20.4, APTT 57 H, CBC w Diff NO MAN DIFF REQ, RBC 3.15 L, MCV 94.0, MCH 30.2, RDW 20.0 H, MPV 8.7, Gran % 75.2, Lymphocytes % 13.6 L, Monocytes % 9.1, Eosinophils % 1.2, Basophils % 0.9, Absolute Granulocytes 5.1, Absolute Lymphocytes 0.9 L, Absolute Monocytes 0.6, Absolute Eosinophils 0.1, Absolute Basophils 0.1, PUBS MCHC 32.1 L 08/15/16 1830: APTT 93 H, CBC w Diff NO MAN DIFF REQ, RBC 3.21 L, MCV 93.7, MCH 30.4, RDW 19.7 H, MPV 8.9, Gran % 78.3 H, Lymphocytes % 11.1 L, Monocytes % 9.2, Eosinophils % 1.0, Basophils % 0.4, Absolute Granulocytes 5.4, Absolute Lymphocytes 0.8 L, Absolute Monocytes 0.6, Absolute Eosinophils 0.1, Absolute Basophils 0, PUBS MCHC 32.4 L 08/15/16 0900: Hep Bs Antigen Cancelled, Hep Bs Antibody Cancelled, Hepatitis C Antibody Cancelled 08/15/16 0900: Anion Gap 17 H, Estimated GFR 11 L, BUN/Creatinine Ratio 20.0, Hemoglobin A1c Pending, Phosphorus 6.6 H, Magnesium 2.2, Troponin I 0.09, Hep Bs Antigen NONREACTIVE, Hep Bs Antibody NONREACTIVE, Hepatitis C Antibody NONREACTIVE Assessment/Plan Assessment: Mr. 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 Differential diagnosis: #1 acute on chronic kidney disease #2 atrial flutter #3 diabetes complication-nephropathy Below is the problem list and plan: #1 nausea, vomiting-likely due to elevated BUN at this time. Gastroparesis in the differential. #2 atrial flutter and HFrEF- Continue heparin drip, with a brief discontinuation of drip for the armen cath placement. Start Coumadin after the procedure. Rate controlled right now; carvedilol 50 mg. Echocardiogram revealed EF of theodora 20%, likely from atrial flutter. Etiology likely uremia. #3 diabetes-patient has insulin pump in place. Continue long-acting insulin as per kidney function permits. Blood sugar levels were slighly elevated 200-300, and the dose of levemir has been increased to 8 u, and insulin sliding scale adjusted. Dr. Pinon advising. #4 end-stage renal disease-worsening kidney function. Acute on chronic kidney disease. No fluids indicated at this time. Nephrology-Dr. Luna/Dr. Victoria advising. Closely monitor renal function, and BUN. If the pt requires dialysis, would need an armen cath placed. Made arrangements. Problem List: 1. Atrial flutter 2. Acute renal failure 3. Chronic renal failure 4. Symptomatic anemia Pain Ratin Pain Location: none Pain Goal: Pain 4 or less Pain Plan: tylenol prn Tomorrow's Labs & Rationales: cbc bep pt has low h&h, and elevated BUN. Pt might require dialysis. DVT/Prophylaxis: pharmacological Consulting Request: Consulting Specialty: Cardiology PATTI TAYLOR MD 08/16/16 0934: Attending MD Review Statement Attending Statement Attending MD Statement: examined this patient, discuss w/resident/PA/PSYCHOLOGY ASSOCIATE, agreed w/resident/PA/PSYCHOLOGY ASSOCIATE, reviewed EMR data (avail) Attending Assessment/Plan: 61M PMH CKD now with worsening renal function, hypervolemia, uremia, hyperphospatemia. Had AV-fistula performed recently but not yet matured. Patient has no complaints. Also found to have new onset atrial flutter and started on heparin drip. Will follow nephrology recommendations, continue heparin drip, possible dialysis catheter placement, start Coumadin after any procedure, monitor electrolytes and renal function, continue home medications.
--- NOTE | 2016-08-16 07:51 | PN- Diabetes ---
Assessment/Plan Assessment: This 61-year-old patient entered the hospital with hypoglycemia nausea and vomiting. The plan was to initiate dialysis during this admission. He was on the VGO 20 at home. The patient states he is eating and has no further nausea or vomiting. He states he is waiting to talk to Dr. York about his dialysis access. He has not yet been dialyzed. His blood sugars were high yesterday as we had cut back on his insulin in view of the low sugar that he had when he entered the hospital. Plan: Suggest today that we increase his Levemir to 8 units twice a day. Also we need to revise his sliding scale NovoLog. Sliding-scale NovoLog before meals should be 80-150 give 2 units NovoLog, 151-200 give 3 units NovoLog, 201-250 give 4 units NovoLog, 251-300 give 4 units NovoLog, 301-350 give 5 units NovoLog, 351- 400 give 5 units NovoLog. If the patient does not eat his NovoLog should be held. We should continue to monitor his blood sugars 4 times a day. No bedtime sliding-scale should be written at this time. Subjective Subjective: Feels okay Review of Systems Constitutional: Denies: chills, fever. Cardiovascular: Denies: chest pain. Respiratory: Denies: short of breath. Gastrointestinal: Denies: abdominal pain. Skin: Reports: no symptoms. Objective Last 24 Hrs of Vital Signs/I&O Vital Signs Date Time Temp Pulse Resp B/P B/P Pulse O2 O2 Flow FiO2 Mean Ox Delivery Rate 08/16 16 98.1 120 20 124/78 96 Room Air 08/16 5 89 97 08/16 0000 CPAP 08/15 2149 130 99 08/15 2128 90 117/63 08/15 1659 97.8 98 18 116/66 96 08/15 1015 118/64 08/15 0830 98.3 103 20 118/64 93 Room Air Intake & Output 08/16 0800 08/16 0000 08/15 1600 Intake Total 240 590 928 Output Total 350 Balance 240 590 578 Intake, IV 240 208 Intake, Oral 240 350 720 Number 0 1 Bowel Movements Output, Urine 350 Vital Signs Date Time Temp Pulse Resp B/P B/P Pulse O2 O2 Flow FiO2 Mean Ox Delivery Rate 08/16 16 98.1 120 20 124/78 96 Room Air 08/16 0006 89 97 08/16 0000 CPAP 08/15 2149 130 99 08/15 2128 90 117/63 08/15 1659 97.8 98 18 116/66 96 08/15 1015 118/64 08/15 0830 98.3 103 20 118/64 93 Room Air Intake & Output 08/16 0800 08/16 0000 08/15 1600 Intake Total 240 590 928 Output Total 350 Balance 240 590 578 Intake, IV 240 208 Intake, Oral 240 350 720 Number 0 1 Bowel Movements Output, Urine 350 Physical Exam General Appearance: alert, awake, comfortable Head: normal appearance Neck: normal inspection Respiratory: normal breath sounds Abdomen: normal bowel sounds Current Medications: Current Medications Sig/Cole Start time Last Medication Dose Route Stop Time Status Admin Acetaminophen 650 MG Q6P PRN 08/14 1900 AC 08/16 PO 0321 Acetaminophen 1,000 MG Q6P PRN 08/14 1900 AC IV Aspirin Buffered 81 MG DAILY 08/15 1000 CAN PO Carvedilol 50 MG BID 08/15 1000 AC 08/15 PO 2128 Carvedilol 37.5 MG BID 08/14 2223 DC 08/14 PO 2300 Cholecalciferol 1,000 IU DAILY 08/15 1000 AC 08/15 PO 1014 Heparin Sodium 25,000 UNIT Q24H 08/14 1845 AC 08/15 (Porcine) IV 1750 Sodium Chloride 500 ML Insulin Aspart 0 TIDAC 08/15 0800 AC 08/15 SC 1755 Insulin Detemir 5 UNITS BID 08/15 1000 AC 08/15 SC 2121 Latanoprost 1 GTT QPM 08/15 2200 AC 08/15 OPH 2121 Levothyroxine Sodium 0.025 MG DAILY AC 08/15 0700 AC 08/16 PO 0639 Metoclopramide HCl 10 MG Q6P PRN 08/14 2230 AC IV Oxycodone HCl 10 MG Q6P PRN 08/14 1900 AC PO Patient Medication 1 ED .STK-MED ONE 08/15 1414 [place] Teaching ED 08/15 1415 Sevelamer Carbonate 800 MG 0800,1200,1700 08/15 0800 AC 08/15 PO 1749 Findings Pertinent Lab/Cristi Results: Current Medications Sig/Cole Start time Last Medication Dose Route Stop Time Status Admin Latanoprost 1 GTT QPM 08/15 2200 AC 08/15 OPH 2121 Patient Medication 1 ED .K-MED ONE 08/15 1414 PA Teaching ED 08/15 1415 Aspirin Buffered 81 MG DAILY 08/15 1000 CAN PO Carvedilol 50 MG BID 08/15 1000 AC 08/15 PO 2128 Cholecalciferol 1,000 IU DAILY 08/15 1000 AC 08/15 PO 1014 Insulin Detemir 5 UNITS BID 08/15 1000 AC 08/15 SC 212 Insulin Aspart 0 TIDAC 08/15 0800 AC 08/15 SC 1755 Sevelamer Carbonate 800 MG 0800,1200,1700 08/15 0800 AC 08/15 PO 1749 Levothyroxine Sodium 0.025 MG DAILY AC 08/15 0700 AC 08/16 PO 0639 Metoclopramide HCl 10 MG Q6P PRN 08/14 2230 AC IV Carvedilol 37.5 MG BID 08/14 2223 DC 08/14 PO 2300 Acetaminophen 650 MG Q6P PRN 08/14 1900 AC 08/16 PO 0321 Acetaminophen 1,000 MG Q6P PRN 08/14 1900 AC IV Oxycodone HCl 10 MG Q6P PRN 08/14 1900 AC PO Heparin Sodium 25,000 UNIT Q24H 08/14 1845 AC 08/15 (Porcine) IV 1750 Sodium Chloride 500 ML Laboratory Tests 08/16 08/16 0200 0200 Chemistry Sodium (137 - 145 mmol/L) 134 L Potassium (3.5 - 5.1 mmol/L) 4.4 Chloride (98 - 107 mmol/L) 97 L Carbon Dioxide (22 - 30 mmol/L) 22 Anion Gap (5 - 16) 16 BUN (9 - 20 mg/dL) 116 *H Creatinine (0.7 - 1.2 mg/dL) 5.7 *H Estimated GFR (>60 ml/min) 10 L BUN/Creatinine Ratio (7 - 25 %) 20.4 Coagulation PT (9.4 - 12.5 SEC) 16.6 H INR (0.90 - 1.17) 1.59 H APTT (25 - 37 SEC) 57 H Hematology CBC w Diff NO MAN DIFF REQ WBC (4.8 - 10.8 /CUMM) 6.7 RBC (4.70 - 6.10 /CUMM) 3.15 L Hgb (14.0 - 18.0 G/DL) 9.5 L Hct (42 - 52 %) 29.6 L MCV (80.0 - 94.0 FL) 94.0 MCH (27.0 - 31.0 PG) 30.2 RDW (11.5 - 14.5 %) 20.0 H Plt Count (130 - 400 /CUMM) 160 MPV (7.4 - 10.4 FL) 8.7 Gran % (42.2 - 75.2 %) 75.2 Lymphocytes % (20.5 - 51.1 %) 13.6 L Monocytes % (1.7 - 9.3 %) 9.1 Eosinophils % (0 - 5 %) 1.2 Basophils % (0.0 - 2.0 %) 0.9 Absolute Granulocytes (1.4 - 6.5 /CUMM) 5.1 Absolute Lymphocytes (1.2 - 3.4 /CUMM) 0.9 L Absolute Monocytes (0.10 - 0.60 /CUMM) 0.6 Absolute Eosinophils (0.0 - 0.7 /CUMM) 0.1 Absolute Basophils (0.0 - 0.2 /CUMM) 0.1 PUBS MCHC (33.0 - 37.0 G/DL) 32.1 L 08/15 08/15 1830 0900 Coagulation APTT (25 - 37 SEC) 93 H Hematology CBC w Diff NO MAN DIFF REQ WBC (4.8 - 10.8 /CUMM) 6.9 RBC (4.70 - 6.10 /CUMM) 3.21 L Hgb (14.0 - 18.0 G/DL) 9.8 L Hct (42 - 52 %) 30.1 L MCV (80.0 - 94.0 FL) 93.7 MCH (27.0 - 31.0 PG) 30.4 RDW (11.5 - 14.5 %) 19.7 H Plt Count (130 - 400 /CUMM) 153 MPV (7.4 - 10.4 FL) 8.9 Gran % (42.2 - 75.2 %) 78.3 H Lymphocytes % (20.5 - 51.1 %) 11.1 L Monocytes % (1.7 - 9.3 %) 9.2 Eosinophils % (0 - 5 %) 1.0 Basophils % (0.0 - 2.0 %) 0.4 Absolute Granulocytes (1.4 - 6.5 /CUMM) 5.4 Absolute Lymphocytes (1.2 - 3.4 /CUMM) 0.8 L Absolute Monocytes (0.10 - 0.60 /CUMM) 0.6 Absolute Eosinophils (0.0 - 0.7 /CUMM) 0.1 Absolute Basophils (0.0 - 0.2 /CUMM) 0 PUBS MCHC (33.0 - 37.0 G/DL) 32.4 L Serology Hep Bs Antigen Cancelled Hep Bs Antibody Cancelled Hepatitis C Antibody Cancelled 08/15 0900 Chemistry Sodium (137 - 145 mmol/L) 137 Potassium (3.5 - 5.1 mmol/L) 4.4 Chloride (98 - 107 mmol/L) 98 Carbon Dioxide (22 - 30 mmol/L) 22 Anion Gap (5 - 16) 17 H BUN (9 - 20 mg/dL) 110 *H Creatinine (0.7 - 1.2 mg/dL) 5.5 *H Estimated GFR (>60 ml/min) 11 L BUN/Creatinine Ratio (7 - 25 %) 20.0 Hemoglobin A1c (4.2 - 5.8 %) Pending Phosphorus (2.5 - 4.5 mg/dL) 6.6 H Magnesium (1.6 - 2.3 mg/dL) 2.2 Troponin I (<0.11 ng/ml) 0.09 Serology Hep Bs Antigen (NONREACTIVE) NONREACTIVE Hep Bs Antibody (NONREACTIVE) NONREACTIVE Hepatitis C Antibody (NONREACTIVE) NONREACTIVE
[2016-08-16 07:52] VITALS: BP 116/68
--- NOTE | 2016-08-16 08:23 | PN- Cardiology ---
Subjective Subjective: No complaints Objective Vital Signs and I&Os Vital Signs Date Time Temp Pulse Resp B/P B/P Pulse O2 O2 Flow FiO2 Mean Ox Delivery Rate 08/16 0752 97.8 99 18 116/68 95 Room Air 08/16 0017 98.1 120 20 124/78 96 Room Air 08/16 0006 89 97 08/16 0000 CPAP 08/15 2149 130 99 08/15 2128 90 117/63 08/15 1659 97.8 98 18 116/66 96 08/15 1015 118/64 08/15 0830 98.3 103 20 118/64 93 Room Air Intake & Output 08/16 1600 08/16 0800 08/16 0000 08/15 1600 08/15 0800 08/15 0000 Intake Total 240 590 928 200 200 Output Total 350 300 300 Balance 240 590 578 -100 -100 Intake, IV 240 208 Intake, Oral 240 350 720 200 200 Number 0 1 Bowel Movements Output, Urine 350 300 300 Patient 230 lb Weight Weight Reported by Patient Measurement Method Physical Exam: HEENT-PERRLA Neck-JVP normal, no bruit Lungs-clear bilaterally Heart S1S2 regular,no murmur Abdomen-soft, not tender, BS+, no organomegaly Extr-trace edema, 2+ pulses Current Medications: Current Medications Sig/Cole Start time Last Medication Dose Route Stop Time Status Admin Acetaminophen 650 MG Q6P PRN 08/14 1900 AC 08/16 PO 0321 Acetaminophen 1,000 MG Q6P PRN 08/14 1900 AC IV Carvedilol 50 MG BID 08/15 1000 AC 08/15 PO 2128 Carvedilol 37.5 MG BID 08/14 2223 DC 08/14 PO 2300 Cholecalciferol 1,000 IU DAILY 08/15 1000 AC 08/15 PO 1014 Heparin Sodium 25,000 UNIT Q24H 08/14 1845 AC 08/15 (Porcine) IV 1750 Sodium Chloride 500 ML Insulin Aspart 0 TIDAC 08/15 0800 AC 08/16 SC 0811 Insulin Detemir 8 UNITS BID 08/16 1000 AC SC Insulin Detemir 5 UNITS BID 08/15 1000 DC 08/15 SC 2121 Latanoprost 1 GTT QPM 08/15 2200 AC 08/15 OPH 2121 Levothyroxine Sodium 0.025 MG DAILY AC 08/15 0700 AC 08/16 PO 0639 Metoclopramide HCl 10 MG Q6P PRN 08/14 2230 AC IV Oxycodone HCl 10 MG Q6P PRN 08/14 1900 AC PO Patient Medication 1 ED .[facility]-MED ONE 08/15 1414 [place] Teaching ED 08/15 1415 Sevelamer Carbonate 800 MG 0800,1200,1700 08/15 0800 AC 08/16 PO 0810 Results Last 48 Hrs of Labs/Mics: Laboratory Tests 08/16/16 0200: PT 16.6 H, INR 1.59 H 08/16/16 0200: Anion Gap 16, Estimated GFR 10 L, BUN/Creatinine Ratio 20.4, APTT 57 H, CBC w Diff NO MAN DIFF REQ, RBC 3.15 L, MCV 94.0, MCH 30.2, RDW 20.0 H, MPV 8.7, Gran % 75.2, Lymphocytes % 13.6 L, Monocytes % 9.1, Eosinophils % 1.2, Basophils % 0.9, Absolute Granulocytes 5.1, Absolute Lymphocytes 0.9 L, Absolute Monocytes 0.6, Absolute Eosinophils 0.1, Absolute Basophils 0.1, PUBS MCHC 32.1 L 08/15/16 1830: APTT 93 H, CBC w Diff NO MAN DIFF REQ, RBC 3.21 L, MCV 93.7, MCH 30.4, RDW 19.7 H, MPV 8.9, Gran % 78.3 H, Lymphocytes % 11.1 L, Monocytes % 9.2, Eosinophils % 1.0, Basophils % 0.4, Absolute Granulocytes 5.4, Absolute Lymphocytes 0.8 L, Absolute Monocytes 0.6, Absolute Eosinophils 0.1, Absolute Basophils 0, PUBS MCHC 32.4 L 08/15/16 0900: Hep Bs Antigen Cancelled, Hep Bs Antibody Cancelled, Hepatitis C Antibody Cancelled 08/15/16 0900: Anion Gap 17 H, Estimated GFR 11 L, BUN/Creatinine Ratio 20.0, Hemoglobin A1c Pending, Phosphorus 6.6 H, Magnesium 2.2, Troponin I 0.09, Hep Bs Antigen NONREACTIVE, Hep Bs Antibody NONREACTIVE, Hepatitis C Antibody NONREACTIVE 08/15/16 0625: APTT 67 H 08/15/16 0100: Magnesium 2.1, Troponin I 0.06 04/26/17 1951: Troponin I Cancelled 08/14/16 1834: Lactic Acid Cancelled 08/14/16 1750: Urine Color YEL, Urine Clarity CLEAR, Urine pH 6.0, Ur Specific [place] 1.015, Urine Protein 100 H, Urine Ketones NEG, Urine Nitrite NEG, Urine Bilirubin NEG, Urine Urobilinogen 0.2, Ur Leukocyte Esterase NEG, Ur Microscopic SEDIMENT EXAMINED, Urine WBC 1-3 H, Ur Epithelial Cells FEW, Urine Hemoglobin NEG, Urine Glucose NEG 08/14/16 1536: Anion Gap 15, Estimated GFR 10 L, BUN/Creatinine Ratio 20.2, Glucose 62 L, Lactic Acid 0.8, Calcium 7.6 L, Phosphorus 6.5 H, Magnesium 2.3, Troponin I 0.06, TSH 1.880, Free T4 1.30, PT 14.9 H, INR 1.42 H, APTT 33, CBC w Diff NO MAN DIFF REQ, RBC 3.16 L, MCV 93.9, MCH 30.6, RDW 20.1 H, MPV 8.2, Gran % 73.3 , Lymphocytes % 12.9 L, Monocytes % 11.9 H, Eosinophils % 1.4, Basophils % 0.5 , Absolute Granulocytes 3.5, Absolute Lymphocytes 0.6 L, Absolute Monocytes 0.6 , Absolute Eosinophils 0.1, Absolute Basophils 0, PUBS MCHC 32.6 L Recent Imaging Studies: Echo-LVEF 20-25%, moderate MR, moderate pulmonary HTN Assessment/Plan Assessment/Plan 60 year old male with 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 gastroparesis) and new asymptomatic atrial flutter with borderline controlled ventricular rate. . He is currently euvolemic. Echo shows decreased LV function likely tachycardia induced. He initially refused Marshal cath but is more agreeable today. Plan: keep on tely carvedilol to 50 mg po bid iv heparin he may agrere with Marshal catheter start warfarin after catheter placed if no other invasive procedure planned possible cardioversion in 4-6 weeks if he remains in flutter Continue telemetry? Yes
[2016-08-16 10:05] LABS: PTT 57 SEC (25-37)
--- NOTE | 2016-08-16 10:54 | PN- Nephrology ---
Assessment/Plan Assessment: N/V probably due to uremia. Better with N/V now but BUN still over 100 and certainly his symptoms will recurr without dialysis. Suggestion: Dialysis access this afternoon and start hemodialysis tomorrow. Patient signed consent and I placed it in chart. Subjective Subjective: Patient states he hasn't vomited further. Scheduled for some AVF revsion and/or placement of dialysis catheter later today. Objective Vital Signs and I&Os Vital Signs Date Time Temp Pulse Resp B/P B/P Pulse O2 O2 Flow FiO2 Mean Ox Delivery Rate 08/16 0927 90 130/86 08/16 0800 95 Room Air Room Air 08/16 0752 97.8 99 18 116/68 95 Room Air 08/16 0017 98.1 120 20 124/78 96 Room Air 08/16 0006 89 97 08/16 0000 CPAP 08/15 2149 130 99 08/15 212 90 117/63 08/15 1659 97.8 98 18 116/66 96 Intake & Output 08/16 1600 08/16 0400 08/15 1600 08/15 0400 08/14 1600 08/14 0400 Intake Total 208 433 6879 200 Output Total 650 300 Balance 240 590 478 -100 Intake, IV 240 208 Intake, Oral 240 350 920 200 Number 0 1 Bowel Movements Output, Urine 650 300 Patient 230 lb 230 lb 230 lb Weight Weight Reported by Patient Reported by Patient Measurement Method Physical Exam: NAD VS no rub Lungs: clear CV: no rub Abd: non-tender Exts:no edema Neuro: A&O Current Medications: Current Medications Sig/Cole Start time Last Medication Dose Route Stop Time Status Admin Acetaminophen 650 MG Q6P PRN 08/14 1900 AC 08/16 PO 0321 Acetaminophen 1,000 MG Q6P PRN 08/14 1900 AC IV Carvedilol 50 MG BID 08/15 1000 AC 08/16 PO 0927 Cholecalciferol 1,000 IU DAILY 08/15 1000 AC 08/16 PO 09 Heparin Sodium 25,000 UNIT Q24H 08/14 1845 r 08/15 (Porcine) IV 08/16 1100 1750 Sodium Chloride 500 ML Insulin Aspart 0 TIDAC 08/15 0800 AC 08/16 SC 0811 Insulin Detemir 8 UNITS BID 08/16 1000 AC 08/16 SC 09 Insulin Detemir 5 UNITS BID 08/15 1000 DC 08/15 SC 2121 Latanoprost 1 GTT QPM 08/15 2200 AC 08/15 OPH 2121 Levothyroxine Sodium 0.025 MG DAILY AC 08/15 0700 AC 08/16 PO 0639 Metoclopramide HCl 10 MG Q6P PRN 08/14 2230 AC IV Oxycodone HCl 10 MG Q6P PRN 08/14 1900 AC PO Patient Medication 1 ED .STK-MED ONE 08/15 1414 [place] Teaching ED 08/15 1415 Sevelamer Carbonate 800 MG 0800,1200,1700 08/15 0800 AC 08/16 PO 0810 Results Pertinent Lab Results: Laboratory Tests 08/16 08/16 08/16 0939 0200 0200 Chemistry Sodium (137 - 145 mmol/L) 134 L Potassium (3.5 - 5.1 mmol/L) 4.4 Chloride (98 - 107 mmol/L) 97 L Carbon Dioxide (22 - 30 mmol/L) 22 Anion Gap (5 - 16) 16 BUN (9 - 20 mg/dL) 116 *H Creatinine (0.7 - 1.2 mg/dL) 5.7 *H Estimated GFR (>60 ml/min) 10 L BUN/Creatinine Ratio (7 - 25 %) 20.4 Coagulation PT (9.4 - 12.5 SEC) 16.6 H INR (0.90 - 1.17) 1.59 H APTT (25 - 37 SEC) 57 H 57 H Hematology CBC w Diff NO MAN DIFF REQ WBC (4.8 - 10.8 /CUMM) 6.7 RBC (4.70 - 6.10 /CUMM) 3.15 L Hgb (14.0 - 18.0 G/DL) 9.5 L Hct (42 - 52 %) 29.6 L MCV (80.0 - 94.0 FL) 94.0 MCH (27.0 - 31.0 PG) 30.2 RDW (11.5 - 14.5 %) 20.0 H Plt Count (130 - 400 /CUMM) 160 MPV (7.4 - 10.4 FL) 8.7 Gran % (42.2 - 75.2 %) 75.2 Lymphocytes % (20.5 - 51.1 %) 13.6 L Monocytes % (1.7 - 9.3 %) 9.1 Eosinophils % (0 - 5 %) 1.2 Basophils % (0.0 - 2.0 %) 0.9 Absolute Granulocytes (1.4 - 6.5 /CUMM) 5.1 Absolute Lymphocytes (1.2 - 3.4 /CUMM) 0.9 L Absolute Monocytes (0.10 - 0.60 /CUMM) 0.6 Absolute Eosinophils (0.0 - 0.7 /CUMM) 0.1 Absolute Basophils (0.0 - 0.2 /CUMM) 0.1 PUBS MCHC (33.0 - 37.0 G/DL) 32.1 L 08/15 08/15 1830 0900 Coagulation APTT (25 - 37 SEC) 93 H Hematology CBC w Diff NO MAN DIFF REQ WBC (4.8 - 10.8 /CUMM) 6.9 RBC (4.70 - 6.10 /CUMM) 3.21 L Hgb (14.0 - 18.0 G/DL) 9.8 L Hct (42 - 52 %) 30.1 L MCV (80.0 - 94.0 FL) 93.7 MCH (27.0 - 31.0 PG) 30.4 RDW (11.5 - 14.5 %) 19.7 H Plt Count (130 - 400 /CUMM) 153 MPV (7.4 - 10.4 FL) 8.9 Gran % (42.2 - 75.2 %) 78.3 H Lymphocytes % (20.5 - 51.1 %) 11.1 L Monocytes % (1.7 - 9.3 %) 9.2 Eosinophils % (0 - 5 %) 1.0 Basophils % (0.0 - 2.0 %) 0.4 Absolute Granulocytes (1.4 - 6.5 /CUMM) 5.4 Absolute Lymphocytes (1.2 - 3.4 /CUMM) 0.8 L Absolute Monocytes (0.10 - 0.60 /CUMM) 0.6 Absolute Eosinophils (0.0 - 0.7 /CUMM) 0.1 Absolute Basophils (0.0 - 0.2 /CUMM) 0 PUBS MCHC (33.0 - 37.0 G/DL) 32.4 L Serology Hep Bs Antigen Cancelled Hep Bs Antibody Cancelled Hepatitis C Antibody Cancelled 08/15 08/15 08/15 08/14 0900 0625 0100 1951 Chemistry Sodium (137 - 145 mmol/L) 137 Potassium (3.5 - 5.1 mmol/L) 4.4 Chloride (98 - 107 mmol/L) 98 Carbon Dioxide (22 - 30 mmol/L) 22 Anion Gap (5 - 16) 17 H BUN (9 - 20 mg/dL) 110 *H Creatinine (0.7 - 1.2 mg/dL) 5.5 *H Estimated GFR (>60 ml/min) 11 L BUN/Creatinine Ratio (7 - 25 %) 20.0 Hemoglobin A1c (4.2 - 5.8 %) 9.6 H Phosphorus (2.5 - 4.5 mg/dL) 6.6 H Magnesium (1.6 - 2.3 mg/dL) 2.2 2.1 Troponin I (<0.11 ng/ml) 0.09 0.06 Cancelled Coagulation APTT (25 - 37 SEC) 67 H Serology Hep Bs Antigen (NONREACTIVE) NONREACTIVE Hep Bs Antibody (NONREACTIVE) NONREACTIVE Hepatitis C Antibody (NONREACTIVE) NONREACTIVE 08/14 08/14 1834 1750 Chemistry Lactic Acid Cancelled Urines Urine Color (YEL,AMB,STR) YEL Urine Clarity (CLEAR) CLEAR Urine pH (5.0 - 8.0) 6.0 Ur Specific [place] (1.001 - 1.035) 1.015 Urine Protein (NEG,<30 MG/DL) 100 H Urine Ketones (NEG) NEG Urine Nitrite (NEG) NEG Urine Bilirubin (NEG) NEG Urine Urobilinogen (0.1 - 1.0 EU/dl) 0.2 Ur Leukocyte Esterase (NEG) NEG Ur Microscopic SEDIMENT EXAMINED Urine WBC (0 - 2 /HPF) 1-3 H Ur Epithelial Cells (NONE,FEW) FEW Urine Hemoglobin (NEG) NEG Urine Glucose (N MG/DL) NEG 08/14 1536 Chemistry Sodium (137 - 145 mmol/L) 139 Potassium (3.5 - 5.1 mmol/L) 3.7 Chloride (98 - 107 mmol/L) 100 Carbon Dioxide (22 - 30 mmol/L) 23 Anion Gap (5 - 16) 15 BUN (9 - 20 mg/dL) 113 *H Creatinine (0.7 - 1.2 mg/dL) 5.6 *H Estimated GFR (>60 ml/min) 10 L BUN/Creatinine Ratio (7 - 25 %) 20.2 Glucose (65 - 99 mg/dL) 62 L Lactic Acid (0.7 - 2.1 mmol/L) 0.8 Calcium (8.4 - 10.2 mg/dL) 7.6 L Phosphorus (2.5 - 4.5 mg/dL) 6.5 H Magnesium (1.6 - 2.3 mg/dL) 2.3 Troponin I (<0.11 ng/ml) 0.06 TSH (0.270 - 4.200 uIU/mL) 1.880 Free T4 (0.78 - 2.44 ng/dL) 1.30 Coagulation PT (9.4 - 12.5 SEC) 14.9 H INR (0.90 - 1.17) 1.42 H APTT (25 - 37 SEC) 33 Hematology CBC w Diff NO MAN DIFF REQ WBC (4.8 - 10.8 /CUMM) 4.8 RBC (4.70 - 6.10 /CUMM) 3.16 L Hgb (14.0 - 18.0 G/DL) 9.7 L Hct (42 - 52 %) 29.7 L MCV (80.0 - 94.0 FL) 93.9 MCH (27.0 - 31.0 PG) 30.6 RDW (11.5 - 14.5 %) 20.1 H Plt Count (130 - 400 /CUMM) 164 MPV (7.4 - 10.4 FL) 8.2 Gran % (42.2 - 75.2 %) 73.3 Lymphocytes % (20.5 - 51.1 %) 12.9 L Monocytes % (1.7 - 9.3 %) 11.9 H Eosinophils % (0 - 5 %) 1.4 Basophils % (0.0 - 2.0 %) 0.5 Absolute Granulocytes (1.4 - 6.5 /CUMM) 3.5 Absolute Lymphocytes (1.2 - 3.4 /CUMM) 0.6 L Absolute Monocytes (0.10 - 0.60 /CUMM) 0.6 Absolute Eosinophils (0.0 - 0.7 /CUMM) 0.1 Absolute Basophils (0.0 - 0.2 /CUMM) 0 PUBS MCHC (33.0 - 37.0 G/DL) 32.6 L
[2016-08-16 16:44] VITALS: BP 130/82
--- NOTE | 2016-08-16 20:35 | Operative Report ---
Operative/Inv Procedure Report Surgery Date: 08/16/16 Name of Procedure: Left arm fistulogram, venous angioplasty of mid fistula, arterial angioplasty of anastomosis, ultrasound-guided access to right internal jugular vein, fluoroscopic guidance for placement of tunneled dialysis catheter, placement of tunnel dialysis catheter in right internal jugular vein Pre-Operative Diagnosis: Acute kidney injury Post-Operative Diagnosis: Same Estimated Blood Loss: less than 50ml Surgeon/Marble Cutter: JOSE ANGELES MD Anesthesia: laryngeal mask airway Operative/Procedure Note Note: The patient was brought to the operating room and placed on the operating table in the supine position, prepped and draped in the usual fashion. Prior to starting the procedure timeout was taken to confirm the patient and procedure. Laryngeal mask airway anesthesia was instituted. I began by accessing the left arm AV fistula in an antegrade fashion with a micropuncture needle and wire. A micropuncture sheath was placed and a fistulogram was obtained from the anastomosis to the right atrium. This demonstrated a severe stenosis in the proximal to mid fistula, near occlusion. Additionally, it demonstrated a high- grade near occlusion of the arterial anastomosis. I then set about treating. I exchanged for a 6 [place] sheath and performed a 7 mm angioplasty of the stenosis in the venous segment. Completion fistulogram demonstrated widely patent flow through the venous segment. I then removed that sheath and placed an interrupted nylon suture for hemostasis. I then re-access the fistula and a retrograde fashion and passed a wire into the brachial artery. I advanced a 5 mm balloon across the anastomosis and performed angioplasty of the arterial anastomosis. Completion fistula gram demonstrated brisk flow throughout both segments. I then removed all wire sheaths and catheters and placed in interrupted nylon suture for hemostasis. I then turned my attention to the right neck. I accessed the right internal jugular vein under direct ultrasound visualization and passed a wire under fluoroscopic guidance to the right atrium. I made a counter incision in the chest wall and tunneled a 23 cm tunneled dialysis catheter on the chest wall exit site to the neck access site. I serially dilated the tract in the neck. I then advanced a breakaway catheter and inserted the dialysis catheter into the breakaway catheter. The peel-away catheter was then removed and the dialysis catheter advanced to the right atrium. Fluoroscopic guidance was used to confirm placement at the junction of the superior vena cava and the right atrium. The ports were flushed and there was easy blood return and good flush. I then heparinized the catheter and locked the ports with high-dose heparin. I closed the neck incision with an interrupted nylon suture and I sutured the catheter to the chest wall. Topical bacitracin ointment was placed and dressings were placed. The patient tolerated the procedure well there were no complications there were no specimens sent and I was present and scrubbed throughout. CC: LEWIS CANO,LETI Murphy
[2016-08-17 03:12] VITALS: BP 102/67
[2016-08-17 04:31] LABS: ABSOLUTE BASOPHIL COUNT 0 /CUMM (0.0-0.2); ABSOLUTE EOSINOPHIL COUNT 0 /CUMM (0.0-0.7); ABSOLUTE GRANULOCYTE CT 5.6 /CUMM (1.4-6.5); ABSOLUTE LYMPH COUNT 0.7 /CUMM (1.2-3.4); ABSOLUTE MONOCYTE COUNT 0.5 /CUMM (0.10-0.60); BASOPHIL % 0.5 % (0.0-2.0); EOSINOPHIL % 0.5 % (0-5); GRANULOCYTE % 80.4 % (42.2-75.2); MEAN CORPUSCULAR HGB 30.4 PG (27.0-31.0); MEAN CORPUSCULAR HGB CONC 32.2 G/DL (33.0-37.0); MEAN CORPUSCULAR VOLUME 94.4 FL (80.0-94.0); MEAN PLATELET VOLUME 8.7 FL (7.4-10.4); PLATELET COUNT 164 /CUMM (130-400); RBC DISTRIBUTION WIDTH 20.1 % (11.5-14.5); RED BLOOD CELL CT 3.29 /CUMM (4.70-6.10); WHITE BLOOD CELL COUNT 6.9 /CUMM (4.8-10.8)
[2016-08-17 04:43] LABS: PT 15.7 SEC (9.4-12.5)
[2016-08-17 08:00] VITALS: BP 110/79
--- NOTE | 2016-08-17 09:10 | PN- Housestaff ---
TIM SALCIDO 08/17/16 0906: Subjective Follow-up For: End-stage renal disease Complaints: no complaints Tele-Events Since Last Visit: Atrial flutter, heart rate 92-110, no overnight events. Subjective: The patient was more lethargic compared to yesterday. He still had trouble swallowing, and is made NPO. Plan was to take him down for hemodialysis. Vitals were stable overnight. He remained afebrile. Review of Systems Constitutional: Reports: see HPI. Objective Last 24 Hrs of Vital Signs/I&O Vital Signs Date Time Temp Pulse Resp B/P B/P Pulse O2 O2 Flow FiO2 Mean Ox Delivery Rate 08/17 0312 98.3 80 18 102/67 94 Room Air 08/17 0044 98.0 100 16 98 Nasal Cannula 08/17 0014 99 98 08/17 0000 94 CPAP 08/16 2340 102 144/00 08/16 2237 76 98 08/16 1644 97.8 87 16 130/82 96 Room Air 08/16 0927 90 130/86 Intake & Output 08/17 1600 08/17 0800 08/17 0000 Intake Total 50 Output Total Balance 50 Intake, Oral 50 Physical Exam General Appearance: No Acute Distress Other Physical Findings: General Exam: AAOx3, No acute distress, decreased vision(chronic due to retinopathy) Skin: No rashes, no breakdown HEENT: PERRLA, EOMI Neck: Supple, No JVD No cervical lymphadenopathy CVS: Reg Rate, Normal S1,S2, No MGR Resp: Normal air entry, no ronchi/rales Abdomen: Soft, No tenderness, Normal Bowel Sounds Neuro: Normal Speech, Strength 5/5 b/l x 4 extremities, Sensation intact, CN III -XII NL, Reflexes 2+ Extremities: No cyanosis, pedal edema Assessment/Plan Assessment: Mr. Santiago is a 61-year-old man with a past medical history of diabetes ( insulin-dependent), end-stage renal disease (not on hemodialysis, AV fistula in place), nonischemic cardiomyopathy, CHF, hypertension is being evaluated for a chief concern of nausea, vomiting 2 weeks, abnormal renal function (as informed by his on air announcer). Differential diagnosis: #1 acute on chronic kidney disease #2 atrial flutter #3 diabetes complication-nephropathy Below is the problem list and plan: #1 nausea, vomiting-likely due to elevated BUN at this time. Gastroparesis in the differential. #2 atrial flutter and HFrEF- Continue heparin drip, with a brief discontinuation of drip for the armen cath placement. Start Coumadin after the procedure. Rate controlled right now; carvedilol 50 mg. Echocardiogram revealed EF of theodora 20%, likely from atrial flutter. Etiology likely uremia. Dose 6mg of coumadin today. Follow INR in the am. #3 diabetes-patient has insulin pump in place. Continue long-acting insulin as per kidney function permits. Blood sugar levels are well controlled. Currently on levemir 8 u, and insulin sliding scale adjusted. Dr. Pinon advising. #4 end-stage renal disease-worsening kidney function. Acute on chronic kidney disease. Nephrology-Dr. Luna/Dr. Victoria advising. Pt is due to undergo hemodialysis today. #5 increasing lethargy, dysphagia- Pt to undergo swallow evaluation. Reached speech therapy department multiple times, without any success. Problem List: 1. Atrial flutter 2. Acute renal failure Pain Ratin Pain Location: none Pain Goal: Pain 4 or less Pain Plan: tylenol prn Tomorrow's Labs & Rationales: cbc bep inr Consulting Request: Consulting Specialty: Cardiology CRISTY CANO,[facility] 08/17/16 1509: Attending MD Review Statement Attending Statement Attending MD Statement: examined this patient, discuss w/resident/PA/[employer], agreed w/resident/PA/[employer]OOK, reviewed EMR data (avail), discussed with nursing, discussed with case mgmt, reviewed images, amended to note Attending Assessment/Plan: 61-year-old male with past medical history significant for IDDM, CHF, with worsening renal function, hyperlipoidemia, uremia, hypophosphatemia end-stage renal disease has been admitted on the floor and yesterday underwent Armen catheter followed by his first dialysis today. Patient was seen and examined on the bedside. Per the staff patient was a little confused yesterday after coming back from catheter placement and was complaining of some dysphagia. We have consulted a swallow eval. Cardiology and nephrology on board. Patient would have another dialysis session on Friday would continue on chronic anticoagulation with, Kahlil in the setting of atrial fibrillation. His increased troponin has been attributed to his renal insufficiency.
--- NOTE | 2016-08-17 13:43 | PN- Nephrology ---
Assessment/Plan Assessment: Uremia on dialysis now 1st Rx. Using TAE catheter. Dialysis again Friday. Suggestion: . Subjective Subjective: M on dialysis nNauseous Objective Vital Signs and I&Os Vital Signs M Nauseous BP 110/79 P 87 T 97.6 Lungs clear Cor RRR Abd soft Ext 1+edema Results Pertinent Lab Results: Laboratory Tests 08/17 08/17 08/17 1310 0600 0350 Chemistry Sodium (137 - 145 mmol/L) Cancelled 136 L Potassium (3.5 - 5.1 mmol/L) Cancelled 4.9 Chloride (98 - 107 mmol/L) Cancelled 98 Carbon Dioxide (22 - 30 mmol/L) Cancelled 21 L Anion Gap (5 - 16) Cancelled 17 H BUN (9 - 20 mg/dL) Cancelled 116 *H Creatinine (0.7 - 1.2 mg/dL) Cancelled 5.9 *H Estimated GFR (>60 ml/min) 10 L BUN/Creatinine Ratio (7 - 25 %) Cancelled 19.7 Troponin I (<0.11 ng/ml) Pending 0.24 *H Coagulation PT (9.4 - 12.5 SEC) 15.7 H INR (0.90 - 1.17) 1.50 H Hematology CBC w Diff NO MAN DIFF REQ WBC (4.8 - 10.8 /CUMM) 6.9 RBC (4.70 - 6.10 /CUMM) 3.29 L Hgb (14.0 - 18.0 G/DL) 10.0 L Hct (42 - 52 %) 31.0 L MCV (80.0 - 94.0 FL) 94.4 H MCH (27.0 - 31.0 PG) 30.4 RDW (11.5 - 14.5 %) 20.1 H Plt Count (130 - 400 /CUMM) 164 MPV (7.4 - 10.4 FL) 8.7 Gran % (42.2 - 75.2 %) 80.4 H Lymphocytes % (20.5 - 51.1 %) 10.6 L Monocytes % (1.7 - 9.3 %) 8.0 Eosinophils % (0 - 5 %) 0.5 Basophils % (0.0 - 2.0 %) 0.5 Absolute Granulocytes (1.4 - 6.5 /CUMM) 5.6 Absolute Lymphocytes (1.2 - 3.4 /CUMM) 0.7 L Absolute Monocytes (0.10 - 0.60 /CUMM) 0.5 Absolute Eosinophils (0.0 - 0.7 /CUMM) 0 Absolute Basophils (0.0 - 0.2 /CUMM) 0 PUBS MCHC (33.0 - 37.0 G/DL) 32.2 L 08/16 08/16 08/16 0939 0200 0200 Chemistry Sodium (137 - 145 mmol/L) 134 L Potassium (3.5 - 5.1 mmol/L) 4.4 Chloride (98 - 107 mmol/L) 97 L Carbon Dioxide (22 - 30 mmol/L) 22 Anion Gap (5 - 16) 16 BUN (9 - 20 mg/dL) 116 *H Creatinine (0.7 - 1.2 mg/dL) 5.7 *H Estimated GFR (>60 ml/min) 10 L BUN/Creatinine Ratio (7 - 25 %) 20.4 Coagulation PT (9.4 - 12.5 SEC) 16.6 H INR (0.90 - 1.17) 1.59 H APTT (25 - 37 SEC) 57 H 57 H Hematology CBC w Diff NO MAN DIFF REQ WBC (4.8 - 10.8 /CUMM) 6.7 RBC (4.70 - 6.10 /CUMM) 3.15 L Hgb (14.0 - 18.0 G/DL) 9.5 L Hct (42 - 52 %) 29.6 L MCV (80.0 - 94.0 FL) 94.0 MCH (27.0 - 31.0 PG) 30.2 RDW (11.5 - 14.5 %) 20.0 H Plt Count (130 - 400 /CUMM) 160 MPV (7.4 - 10.4 FL) 8.7 Gran % (42.2 - 75.2 %) 75.2 Lymphocytes % (20.5 - 51.1 %) 13.6 L Monocytes % (1.7 - 9.3 %) 9.1 Eosinophils % (0 - 5 %) 1.2 Basophils % (0.0 - 2.0 %) 0.9 Absolute Granulocytes (1.4 - 6.5 /CUMM) 5.1 Absolute Lymphocytes (1.2 - 3.4 /CUMM) 0.9 L Absolute Monocytes (0.10 - 0.60 /CUMM) 0.6 Absolute Eosinophils (0.0 - 0.7 /CUMM) 0.1 Absolute Basophils (0.0 - 0.2 /CUMM) 0.1 PUBS MCHC (33.0 - 37.0 G/DL) 32.1 L 08/15 08/15 1830 0900 Coagulation APTT (25 - 37 SEC) 93 H Hematology CBC w Diff NO MAN DIFF REQ WBC (4.8 - 10.8 /CUMM) 6.9 RBC (4.70 - 6.10 /CUMM) 3.21 L Hgb (14.0 - 18.0 G/DL) 9.8 L Hct (42 - 52 %) 30.1 L MCV (80.0 - 94.0 FL) 93.7 MCH (27.0 - 31.0 PG) 30.4 RDW (11.5 - 14.5 %) 19.7 H Plt Count (130 - 400 /CUMM) 153 MPV (7.4 - 10.4 FL) 8.9 Gran % (42.2 - 75.2 %) 78.3 H Lymphocytes % (20.5 - 51.1 %) 11.1 L Monocytes % (1.7 - 9.3 %) 9.2 Eosinophils % (0 - 5 %) 1.0 Basophils % (0.0 - 2.0 %) 0.4 Absolute Granulocytes (1.4 - 6.5 /CUMM) 5.4 Absolute Lymphocytes (1.2 - 3.4 /CUMM) 0.8 L Absolute Monocytes (0.10 - 0.60 /CUMM) 0.6 Absolute Eosinophils (0.0 - 0.7 /CUMM) 0.1 Absolute Basophils (0.0 - 0.2 /CUMM) 0 PUBS MCHC (33.0 - 37.0 G/DL) 32.4 L Serology Hep Bs Antigen Cancelled Hep Bs Antibody Cancelled Hepatitis C Antibody Cancelled 08/15 08/15 08/15 08/14 0900 0625 0100 1951 Chemistry Sodium (137 - 145 mmol/L) 137 Potassium (3.5 - 5.1 mmol/L) 4.4 Chloride (98 - 107 mmol/L) 98 Carbon Dioxide (22 - 30 mmol/L) 22 Anion Gap (5 - 16) 17 H BUN (9 - 20 mg/dL) 110 *H Creatinine (0.7 - 1.2 mg/dL) 5.5 *H Estimated GFR (>60 ml/min) 11 L BUN/Creatinine Ratio (7 - 25 %) 20.0 Hemoglobin A1c (4.2 - 5.8 %) 9.6 H Phosphorus (2.5 - 4.5 mg/dL) 6.6 H Magnesium (1.6 - 2.3 mg/dL) 2.2 2.1 Troponin I (<0.11 ng/ml) 0.09 0.06 Cancelled Coagulation APTT (25 - 37 SEC) 67 H Serology Hep Bs Antigen (NONREACTIVE) NONREACTIVE Hep Bs Antibody (NONREACTIVE) NONREACTIVE Hepatitis C Antibody (NONREACTIVE) NONREACTIVE 08/14 08/14 1834 1750 Chemistry Lactic Acid Cancelled Urines Urine Color (YEL,AMB,STR) YEL Urine Clarity (CLEAR) CLEAR Urine pH (5.0 - 8.0) 6.0 Ur Specific [place] (1.001 - 1.035) 1.015 Urine Protein (NEG,<30 MG/DL) 100 H Urine Ketones (NEG) NEG Urine Nitrite (NEG) NEG Urine Bilirubin (NEG) NEG Urine Urobilinogen (0.1 - 1.0 EU/dl) 0.2 Ur Leukocyte Esterase (NEG) NEG Ur Microscopic SEDIMENT EXAMINED Urine WBC (0 - 2 /HPF) 1-3 H Ur Epithelial Cells (NONE,FEW) FEW Urine Hemoglobin (NEG) NEG Urine Glucose (N MG/DL) NEG 08/14 1536 Chemistry Sodium (137 - 145 mmol/L) 139 Potassium (3.5 - 5.1 mmol/L) 3.7 Chloride (98 - 107 mmol/L) 100 Carbon Dioxide (22 - 30 mmol/L) 23 Anion Gap (5 - 16) 15 BUN (9 - 20 mg/dL) 113 *H Creatinine (0.7 - 1.2 mg/dL) 5.6 *H Estimated GFR (>60 ml/min) 10 L BUN/Creatinine Ratio (7 - 25 %) 20.2 Glucose (65 - 99 mg/dL) 62 L Lactic Acid (0.7 - 2.1 mmol/L) 0.8 Calcium (8.4 - 10.2 mg/dL) 7.6 L Phosphorus (2.5 - 4.5 mg/dL) 6.5 H Magnesium (1.6 - 2.3 mg/dL) 2.3 Troponin I (<0.11 ng/ml) 0.06 TSH (0.270 - 4.200 uIU/mL) 1.880 Free T4 (0.78 - 2.44 ng/dL) 1.30 Coagulation PT (9.4 - 12.5 SEC) 14.9 H INR (0.90 - 1.17) 1.42 H APTT (25 - 37 SEC) 33 Hematology CBC w Diff NO MAN DIFF REQ WBC (4.8 - 10.8 /CUMM) 4.8 RBC (4.70 - 6.10 /CUMM) 3.16 L Hgb (14.0 - 18.0 G/DL) 9.7 L Hct (42 - 52 %) 29.7 L MCV (80.0 - 94.0 FL) 93.9 MCH (27.0 - 31.0 PG) 30.6 RDW (11.5 - 14.5 %) 20.1 H Plt Count (130 - 400 /CUMM) 164 MPV (7.4 - 10.4 FL) 8.2 Gran % (42.2 - 75.2 %) 73.3 Lymphocytes % (20.5 - 51.1 %) 12.9 L Monocytes % (1.7 - 9.3 %) 11.9 H Eosinophils % (0 - 5 %) 1.4 Basophils % (0.0 - 2.0 %) 0.5 Absolute Granulocytes (1.4 - 6.5 /CUMM) 3.5 Absolute Lymphocytes (1.2 - 3.4 /CUMM) 0.6 L Absolute Monocytes (0.10 - 0.60 /CUMM) 0.6 Absolute Eosinophils (0.0 - 0.7 /CUMM) 0.1 Absolute Basophils (0.0 - 0.2 /CUMM) 0 PUBS MCHC (33.0 - 37.0 G/DL) 32.6 L
--- NOTE | 2016-08-17 13:45 | PN- Diabetes ---
Assessment/Plan Assessment: This 61-year-old patient entered the hospital with hypoglycemia nausea and vomiting. The plan was to initiate dialysis during this admission. He was on the VGO 20 at home. After procedure yesterday, patient was confused. Currently he is kept NPO and is waiting for swallow evaluation. But patient feels hungry. In hospital, he was put on Levemir 8 units twice aday, Novolog coverage before meals. His FSGs were 256, 308, 142, 251, 159 and 143. Plan: 1. when he is NPO --hold Levemir; --Novolog coverage every 4 hours FSG < 200, no coverage 200-250, 2 units 251-300, 3 units 301-350, 4 units 351-400, 5 units > 400, 5 units 2. when he is ready to eat, please follow previous insulin regimen--- Levemir 8 units twice a day and Novolog coverage before meals. 3. monitor FSGs. will follow. Subjective Subjective: He is waiting for swallow evaluation. Objective Last 24 Hrs of Vital Signs/I&O Vital Signs Date Time Temp Pulse Resp B/P B/P Pulse O2 O2 Flow FiO2 Mean Ox Delivery Rate 08/18 799 98 Nasal 1.5L Cannula 08/17 08 97.6 87 20 110/79 97 Nasal 2.0L Cannula 08/17 0312 98.3 80 18 102/67 94 Room Air 08/17 0044 98.0 100 16 98 Nasal Cannula 08/17 0014 99 98 08/17 0000 94 CPAP 08/16 2340 102 144/00 08/16 2237 76 98 08/16 1644 97.8 87 16 130/82 96 Room Air Intake & Output 08/17 1600 08/17 0800 08/17 0000 Intake Total 50 Output Total Balance 50 Intake, Oral 50 Findings Pertinent Lab/Cristi Results: Laboratory Tests 08/17 08/17 08/17 1310 0600 0350 Chemistry Sodium (137 - 145 mmol/L) Cancelled 136 L Potassium (3.5 - 5.1 mmol/L) Cancelled 4.9 Chloride (98 - 107 mmol/L) Cancelled 98 Carbon Dioxide (22 - 30 mmol/L) Cancelled 21 L Anion Gap (5 - 16) Cancelled 17 H BUN (9 - 20 mg/dL) Cancelled 116 *H Creatinine (0.7 - 1.2 mg/dL) Cancelled 5.9 *H Estimated GFR (>60 ml/min) 10 L BUN/Creatinine Ratio (7 - 25 %) Cancelled 19.7 Troponin I (<0.11 ng/ml) Pending 0.24 *H Coagulation PT (9.4 - 12.5 SEC) 15.7 H INR (0.90 - 1.17) 1.50 H Hematology CBC w Diff NO MAN DIFF REQ WBC (4.8 - 10.8 /CUMM) 6.9 RBC (4.70 - 6.10 /CUMM) 3.29 L Hgb (14.0 - 18.0 G/DL) 10.0 L Hct (42 - 52 %) 31.0 L MCV (80.0 - 94.0 FL) 94.4 H MCH (27.0 - 31.0 PG) 30.4 RDW (11.5 - 14.5 %) 20.1 H Plt Count (130 - 400 /CUMM) 164 MPV (7.4 - 10.4 FL) 8.7 Gran % (42.2 - 75.2 %) 80.4 H Lymphocytes % (20.5 - 51.1 %) 10.6 L Monocytes % (1.7 - 9.3 %) 8.0 Eosinophils % (0 - 5 %) 0.5 Basophils % (0.0 - 2.0 %) 0.5 Absolute Granulocytes (1.4 - 6.5 /CUMM) 5.6 Absolute Lymphocytes (1.2 - 3.4 /CUMM) 0.7 L Absolute Monocytes (0.10 - 0.60 /CUMM) 0.5 Absolute Eosinophils (0.0 - 0.7 /CUMM) 0 Absolute Basophils (0.0 - 0.2 /CUMM) 0 PUBS MCHC (33.0 - 37.0 G/DL) 32.2 L
--- NOTE | 2016-08-17 14:57 | PN- Cardiology ---
Subjective Subjective: * Patient is undergoing dialysis. No complaints. * atrial fibrillation with controlled heart rate * increased troponin in the setting of renal insufficiency Objective Vital Signs and I&Os Vital Signs Date Time Temp Pulse Resp B/P B/P Pulse O2 O2 Flow FiO2 Mean Ox Delivery Rate 08/18 799 98 Nasal 1.5L Cannula 08/18 799 97.6 87 20 110/79 97 Nasal 2.0L Cannula 08/17 0312 98.3 80 18 102/67 94 Room Air 08/17 0044 98.0 100 16 98 Nasal Cannula 08/17 0014 99 98 08/17 0000 94 CPAP 08/16 2340 102 144/00 08/16 2237 76 98 08/16 1644 97.8 87 16 130/82 96 Room Air Intake & Output 08/17 1600 08/17 0800 08/17 0000 08/16 1600 08/16 0800 08/16 0000 Intake Total 0 50 584 240 590 Output Total Balance 0 50 584 240 590 Intake, IV 104 240 Intake, Oral 0 50 480 240 350 Number 0 0 Bowel Movements Patient 230 lb Weight Physical Exam: General: WD/obese male in NAD; alert and oriented x 3 Heart: irregularly irregular Lungs: clear Extremities: 2+ bilateral leg edema Assessment/Plan Assessment/Plan * Fluid overload is being addressed by dialysis. * Begin chronic anticoagulation with coumadin. Continue telemetry? Yes
[2016-08-17 17:47] VITALS: BP 118/72
[2016-08-18 00:08] VITALS: BP 130/60
--- NOTE | 2016-08-18 04:29 | Event Note ---
See Addendum Event Note Event Note: is a 61 yo man with a past medical history of diabetes (insulin- dependent), end-stage renal disease (not on hemodialysis, AV fistula in place), nonischemic cardiomyopathy, CHF, hypertension is being evaluated for a chief concern of nausea, vomiting 2 weeks, abnormal renal function (as informed by his coding advisor). Rapid reponse was called at 4:17 am as the patient was given his PO meds, and then started to chock, he also was unresponsive for few second. Up on MD arrival patient was coughing and he was in sever pain, stating that "I can't take it any more" he states that the pain is across his chest ,very sever, he denies SOB. His Vitals: A. fib, P:106, HR:98 through doppler, O2 sat: 96% on RA, B.S:175 On examination: Patient is awake, alert and oriented X3 cvs: S1, S2, irregular Chest: normal air entry B/L L/E: no edema Assessment: #Chest pain His pain could be as a result of new cardiac event, or as a result of musculoskeletal problem, it also could be related to Marshal cath. Plan: -Topical Lidocaine patch for pain -Will order stat labs which include BEP, CBC, TROPONIN, MG and PO4 -CXR stat Will keep montitor and F/U the labs
--- NOTE | 2016-08-18 04:33 | Event Note ---
Event Note Event Note: is a 61 yo man
--- NOTE | 2016-08-18 05:13 | RADIOLOGY REPORT ---
EXAMINATION: XR PORTABLE CHEST CLINICAL INFORMATION: Chest pain, diaphoresis COMPARISON: 03/22/2016 TECHNIQUE: Portable frontal view of the chest was obtained. FINDINGS: The lungs are hypoinflated, which limits evaluation. Right IJ central venous catheter tip lies in the region of the cavoatrial junction. Despite the presence of low lung volumes, there is suggestion of central vascular congestion. No appreciable pneumothorax. Small pleural effusions are difficult to exclude. The cardiac silhouette is enlarged though may be accentuated by low lung volumes. No acute osseous findings are seen. IMPRESSION: Low lung volumes, which limits evaluation. Suggestion of central vascular congestion. Enlarged cardiac silhouette, which may be accentuated by low lung volumes.
[2016-08-18 05:20] LABS: ABSOLUTE BASOPHIL COUNT 0 /CUMM (0.0-0.2); ABSOLUTE EOSINOPHIL COUNT 0.1 /CUMM (0.0-0.7); ABSOLUTE GRANULOCYTE CT 6.6 /CUMM (1.4-6.5); ABSOLUTE LYMPH COUNT 1.1 /CUMM (1.2-3.4); ABSOLUTE MONOCYTE COUNT 0.6 /CUMM (0.10-0.60); BASOPHIL % 0.4 % (0.0-2.0); EOSINOPHIL % 1.1 % (0-5); GRANULOCYTE % 78.3 % (42.2-75.2); HEMATOCRIT 31.1 % (42-52); MEAN CORPUSCULAR HGB 30.7 PG (27.0-31.0); MEAN CORPUSCULAR HGB CONC 32.1 G/DL (33.0-37.0); MEAN CORPUSCULAR VOLUME 95.5 FL (80.0-94.0); PLATELET COUNT 168 /CUMM (130-400); RBC DISTRIBUTION WIDTH 20.1 % (11.5-14.5); RED BLOOD CELL CT 3.26 /CUMM (4.70-6.10); WHITE BLOOD CELL COUNT 8.4 /CUMM (4.8-10.8)
[2016-08-18 05:30] LABS: PT 18.5 SEC (9.4-12.5)
[2016-08-18 08:53] VITALS: BP 116/75
--- NOTE | 2016-08-18 09:09 | PN- Housestaff ---
LINDA JOHNSON 08/18/16 0908: Subjective Follow-up For: End-stage renal disease Tele-Events Since Last Visit: Afib 98-128, 6 beat V [facility] @ 0409 Subjective: Patient seen and examined at bedside. He was really angry, because he choked on food and pills earlier and we made him NPO. Review of Systems Constitutional: Denies: chills, fever. EENTM: Denies: visual changes. Cardiovascular: Denies: chest pain, palpitations. Respiratory: Denies: cough, short of breath. Gastrointestinal: Denies: abdominal pain, diarrhea, nausea, vomiting. Neurological/Psychological: Denies: headache, numbness, tingling, tremors. Objective Last 24 Hrs of Vital Signs/I&O Vital Signs Date Time Temp Pulse Resp B/P B/P Pulse O2 O2 Flow FiO2 Mean Ox Delivery Rate 08/18 0853 98.0 85 20 116/75 96 Room Air 08/18 0425 95 Room Air 08/18 0126 130 130/60 08/18 0042 129 97 08/18 0008 98.4 130 20 130/60 93 CPAP 08/18 0000 96 CPAP 08/17 2201 114 99 08/17 2136 103 108/72 08/17 1747 98.4 95 20 118/72 97 08/17 1600 Room Air 08/17 1534 103 134/102 Intake & Output 08/18 1600 08/18 0800 08/18 0000 Intake Total 100 770 Output Total Balance 100 770 Intake, IV 20 Intake, Oral 100 750 Patient 241 lb Weight Weight Chair scale Measurement Method Physical Exam General Appearance: Alert, Oriented X3, drowsy HEENT: Atraumatic, PERRLA Neck: Supple, No JVD Cardiovascular: Normal S1, Normal S2, No Murmurs Lungs: Clear to Auscultation, Normal Air Movement Abdomen: Normal Bowel Sounds, Soft, No Tenderness Neurological: Normal Speech, Strength at 5/5 X4 Ext, Normal Tone, Sensation Intact, Cranial Nerves 3-12 NL, Reflexes 2+ Extremities: 2+bliateral edema Current Medications: Current Medications Sig/Cole Start time Last Medication Dose Route Stop Time Status Admin Acetaminophen 650 MG Q6P PRN 08/14 1900 AC 08/16 PO 0321 Acetaminophen 1,000 MG Q6P PRN 08/14 1900 AC IV Aspirin 81 MG DAILY 08/18 1000 AC PO Atorvastatin Calcium 20 MG 1700 08/18 1700 AC PO Carvedilol 50 MG BID 08/15 1000 AC 08/17 PO 2136 Cholecalciferol 1,000 IU DAILY 08/15 1000 AC 08/17 PO 1533 Epoetin [place] 4,000 UNIT ONCE PRN 08/17 0745 AC IV Insulin Aspart 0 Q4 08/17 1400 DC SC Insulin Aspart 0 TIDAC 08/15 0800 AC 08/17 SC 1731 Insulin Detemir 8 UNITS BID 08/16 1000 AC 08/17 SC 2135 Latanoprost 1 GTT QPM 08/15 2200 AC 08/17 OPH 2136 Levothyroxine Sodium 0.025 MG DAILY AC 08/15 0700 AC 08/16 PO 0639 Lidocaine 1 PAT DAILY 08/18 1000 AC EXT Metoclopramide HCl 10 MG Q6P PRN 08/14 2230 AC 08/18 IV 0641 Metoprolol Tartrate 2.5 MG ONCE ONE 08/18 0130 DC 08/18 IV 08/18 0131 0126 Oxycodone HCl 10 MG Q6P PRN 08/14 1900 AC 08/18 PO 0414 Patient Medication 1 UNIT ONE NR 08/17 2014 DC Teaching ED 08/17 2100 Phenol 2 SPRAY Q2P PRN 08/17 0915 AC EXT Sevelamer Carbonate 800 MG 0800,1200,1700 08/15 0800 AC 08/17 PO 1731 Warfarin Sodium 6 MG COUMADIN 1700 ONE 08/17 1700 DC 08/17 PO 08/17 1701 1731 Last 24 Hrs of Lab/Cristi Results Last 24 Hrs of Labs/Mics: Laboratory Tests 08/18/16 0430: Anion Gap 17 H, Estimated GFR 12 L, BUN/Creatinine Ratio 19.0, Phosphorus 7.4 H, Magnesium 2.3, Troponin I 0.40 *H, PT 18.5 H, INR 1.77 H, CBC w Diff NO MAN DIFF REQ, RBC 3.26 L, MCV 95.5 H, MCH 30.7, RDW 20.1 H, MPV 9.0, Gran % 78.3 H, Lymphocytes % 12.6 L, Monocytes % 7.6, Eosinophils % 1.1, Basophils % 0.4, Absolute Granulocytes 6.6 H, Absolute Lymphocytes 1.1 L, Absolute Monocytes 0.6, Absolute Eosinophils 0.1, Absolute Basophils 0, PUBS MCHC 32.1 L 08/18/16 0428: Troponin I Cancelled 08/17/161999: Troponin I 0.44 *H 08/17/16 1310: Troponin I 0.50 *H Orders Fingersticks (last 24 hrs): 266, 157, 163 Assessment/Plan Assessment: Mr. Santiago is a 61-year-old man with a past medical history of diabetes ( insulin-dependent), end-stage renal disease (not on hemodialysis, AV fistula in place), nonischemic cardiomyopathy, CHF, hypertension is being evaluated for a chief concern of nausea, vomiting 2 weeks, abnormal renal function (as informed by his operations supervisor 2nd shift). Differential diagnosis: #1 acute on chronic kidney disease #2 atrial flutter #3 diabetes complication-nephropathy Below is the problem list and plan: #1 nausea, vomiting-likely due to elevated BUN at this time. Gastroparesis in the differential. #2 atrial flutter and HFrEF- Continue heparin drip, with a brief discontinuation of drip for the armen cath placement. Started Coumadin after the procedure. Rate controlled right now; carvedilol 50 mg. Echocardiogram revealed EF of theodora 20%, likely from atrial flutter. Etiology likely uremia. Dose 6mg of coumadin today. Follow INR in the am. #3 diabetes-patient has insulin pump. However since he is currently NPO, will switch him to Novolog sliding scale Q4, and D/C Levemir. ONce diet is resumed, please resume his Novolog sliding scale and Levemir, as per Dr. Hernandez's recs. #4 end-stage renal disease-worsening kidney function. Acute on chronic kidney disease. Nephrology-Dr. Luna/Dr. Victoria advising. Pt is due to undergo hemodialysis tomorrow. #5 increasing lethargy, dysphagia- Pt underwent swallow evaluation, who recommended him to be started on chopped and thins. However, patient choked on his meds this AM. Made him NPO, and will get a modified barium swallow in AM. F/ U studies, and cosnider GI eval. Problem List: 1. Atrial flutter 2. Chronic renal failure Pain Ratin Pain Location: n/a Pain Goal: Remain pain free Pain Plan: ofirimev Tomorrow's Labs & Rationales: cbc, bep and inr - coumdain, anemia, and Cr Consulting Request: Consulting Specialty: Cardiology JASS MUNIZ MD 08/18/16 5595: Attending MD Review Statement Attending Statement Attending MD Statement: examined this patient, discuss w/resident/PA/COMMUNICATIONS TECH, agreed w/resident/PA/COMMUNICATIONS TECH, reviewed EMR data (avail), discussed with nursing, discussed with case mgmt, reviewed images, amended to note Attending Assessment/Plan: 61-year-old male with past medical history significant for IDDM, CHF, with worsening renal function, hyperlipoidemia, uremia, hypophosphatemia end-stage renal disease has been admitted on the floor and yesterday underwent Armen catheter followed by his first dialysis. Patient was seen and examined on the bedside. Currently patient is being held nothing by mouth for 2 episodes of choking sensation on per oral intake. Cardiology and nephrology on board. Patient would have another dialysis session on Friday would continue on chronic anticoagulation with Coumadin in the setting of atrial fibrillation with a goal INR of 2-2.5. His increased troponin has been attributed to his renal insufficiency. He will get his second session of dialysis on Friday. Endocrinology is on board for his blood sugar controls. He needs to be reassessed in the morning for swallow eval and can consider a GI/ Neurology Consult.
--- NOTE | 2016-08-18 10:10 | PN- Diabetes ---
Assessment/Plan Assessment: This 61-year-old patient entered the hospital with hypoglycemia nausea and vomiting. The plan was to initiate dialysis during this admission. He was on the VGO 20 at home. Patient passed swallow evaluation yesterday. But he choked again this morning when he was taking pills. Currently he is kept NPO and is waiting for swallow evaluation again. But patient feels hungry. In hospital, he was put on Levemir 8 units twice aday, Novolog coverage before meals. While he was kept NPO and he was on Novolog coverage every 4 hours only when his FSG was > 200. His FSGs were 143, 135, 173, 266 and 157. Plan: 1. when he is NPO --hold Levemir; --Novolog coverage every 4 hours FSG < 200, no coverage 200-250, 2 units 251-300, 3 units 301-350, 4 units 351-400, 5 units > 400, 5 units 2. when he is ready to eat, please continue the previous insulin regimen--- Levemir 8 units twice a day and Novolog coverage before meals. 3. monitor FSGs. will follow. Subjective Subjective: Patient feels tired and frustrated. Objective Last 24 Hrs of Vital Signs/I&O Vital Signs Date Time Temp Pulse Resp B/P B/P Pulse O2 O2 Flow FiO2 Mean Ox Delivery Rate 08/18 0853 98.0 85 20 116/75 96 Room Air 08/18 0425 95 Room Air 08/18 0126 130 130/60 08/18 0042 129 97 08/18 0008 98.4 130 20 130/60 93 CPAP 08/18 0000 96 CPAP 08/17 2201 114 99 08/17 2136 103 108/72 08/17 1747 98.4 95 20 118/72 97 08/17 1600 Room Air 08/17 1534 103 134/102 Intake & Output 08/18 1600 08/18 0800 08/18 0000 Intake Total 100 770 Output Total Balance 100 770 Intake, IV 20 Intake, Oral 100 750 Patient 241 lb Weight Weight Chair scale Measurement Method Findings Pertinent Lab/Cristi Results: Laboratory Tests 08/18 08/18 08/17 0430 0428 2000 Chemistry Sodium (137 - 145 mmol/L) 133 L Potassium (3.5 - 5.1 mmol/L) 4.7 Chloride (98 - 107 mmol/L) 95 L Carbon Dioxide (22 - 30 mmol/L) 20 L Anion Gap (5 - 16) 17 H BUN (9 - 20 mg/dL) 95 H Creatinine (0.7 - 1.2 mg/dL) 5.0 H Estimated GFR (>60 ml/min) 12 L BUN/Creatinine Ratio (7 - 25 %) 19.0 Phosphorus (2.5 - 4.5 mg/dL) 7.4 H Magnesium (1.6 - 2.3 mg/dL) 2.3 Troponin I (<0.11 ng/ml) 0.40 *H Cancelled 0.44 *H Coagulation PT (9.4 - 12.5 SEC) 18.5 H INR (0.90 - 1.17) 1.77 H Hematology CBC w Diff NO MAN DIFF REQ WBC (4.8 - 10.8 /CUMM) 8.4 RBC (4.70 - 6.10 /CUMM) 3.26 L Hgb (14.0 - 18.0 G/DL) 10.0 L Hct (42 - 52 %) 31.1 L MCV (80.0 - 94.0 FL) 95.5 H MCH (27.0 - 31.0 PG) 30.7 RDW (11.5 - 14.5 %) 20.1 H Plt Count (130 - 400 /CUMM) 168 MPV (7.4 - 10.4 FL) 9.0 Gran % (42.2 - 75.2 %) 78.3 H Lymphocytes % (20.5 - 51.1 %) 12.6 L Monocytes % (1.7 - 9.3 %) 7.6 Eosinophils % (0 - 5 %) 1.1 Basophils % (0.0 - 2.0 %) 0.4 Absolute Granulocytes (1.4 - 6.5 /CUMM) 6.6 H Absolute Lymphocytes (1.2 - 3.4 /CUMM) 1.1 L Absolute Monocytes (0.10 - 0.60 /CUMM) 0.6 Absolute Eosinophils (0.0 - 0.7 /CUMM) 0.1 Absolute Basophils (0.0 - 0.2 /CUMM) 0 PUBS MCHC (33.0 - 37.0 G/DL) 32.1 L 08/17 1310 Chemistry Troponin I (<0.11 ng/ml) 0.50 *H
--- NOTE | 2016-08-18 16:39 | PN- Cardiology ---
Subjective Subjective: * No complaints other than some hunger. He is NPO due to an episode of chocking. * Patient has ESRD on hemodialysis. * atrial flutter with controlled heart rate * increased troponin in the setting of renal insufficiency Objective Vital Signs and I&Os Vital Signs Date Time Temp Pulse Resp B/P B/P Pulse O2 O2 Flow FiO2 Mean Ox Delivery Rate 08/18 1000 116/75 08/18 0853 98.0 85 20 116/75 96 Room Air 08/18 0425 95 Room Air 08/18 0126 130 130/60 08/18 0042 129 97 08/18 0008 98.4 130 20 130/60 93 CPAP 08/18 0000 96 CPAP 08/17 2201 114 99 08/17 2136 103 108/72 08/17 1747 98.4 95 20 118/72 97 Intake & Output 08/18 1600 08/18 0800 08/18 0000 08/17 1600 08/17 0800 08/17 0000 Intake Total 0 100 770 0 50 Output Total Balance 0 100 770 0 50 Intake, IV 20 Intake, Oral 0 100 750 0 50 Patient 241 lb Weight Weight Chair scale Measurement Method Physical Exam: General: WD/obese male in NAD; alert and oriented x 3 Heart: irregularly irregular Lungs: clear Extremities: 2+ bilateral leg edema Assessment/Plan Assessment/Plan * Fluid overload is being addressed by dialysis. * Continue chronic anticoagulation with coumadin with goal INR 2-2.5. Continue Coreg for rate control. Continue telemetry? Yes
[2016-08-18 17:16] VITALS: BP 118/78
[2016-08-18 22:47] VITALS: BP 120/70
--- NOTE | 2016-08-19 08:04 | PN- Housestaff ---
TIM SALCIDO 08/19/16 0802: Subjective Follow-up For: - ESRD Complaints: no complaints Tele-Events Since Last Visit: - Atrial flutter, heart rate in the range of 90-126, 7 beat nonsustained V. tach this a.m. Subjective: The patient was comfortable this morning. He seemed improved compared to the day before. Did not have any shortness of breath, chest pain or abdominal pain. Still complains of difficulty swallowing for which a swallow evaluation has been ordered. Vitals stable overnight. He remained afebrile. Review of Systems Constitutional: Reports: see HPI. Objective Last 24 Hrs of Vital Signs/I&O Vital Signs Date Time Temp Pulse Resp B/P B/P Pulse O2 O2 Flow FiO2 Mean Ox Delivery Rate 08/19 0256 96 93 08/19 0000 96 Room Air 08/18 2247 98.6 100 18 120/70 97 Room Air 08/18 2158 100 120/70 08/18 1900 Room Air 08/18 1716 98.6 99 18 118/78 97 Room Air 08/18 1000 116/75 08/18 0853 98.0 85 20 116/75 96 Room Air Intake & Output 08/19 1600 08/19 0800 08/19 0000 Intake Total 0 0 Output Total Balance 0 0 Intake, Oral 0 0 Patient 241 lb Weight Weight Standing Scale Measurement Method Physical Exam General Appearance: No Acute Distress Other Physical Findings: General Exam: AAOx3, No acute distress, decreased vision Skin: No rashes, no breakdown, armen cath in place with sutures. No erythema or tenderness around the site of insertion. HEENT: PERRLA, EOMI Neck: Supple, No JVD No cervical lymphadenopathy CVS: Reg Rate, Normal S1,S2, No MGR Resp: Normal air entry, no ronchi/rales Abdomen: Soft, No tenderness, Normal Bowel Sounds Neuro: Normal Speech, Strength 5/5 b/l x 4 extremities, Sensation intact, CN III -XII NL, Reflexes 2+ Extremities: No cyanosis, pedal edema 2+ pitting, AV fistula left upper extremity in place. No tremors Current Medications: Current Medications Sig/Cole Start time Last Medication Dose Route Stop Time Status Admin Acetaminophen 650 MG Q6P PRN 08/14 1899 AC 08/16 PO 0321 Acetaminophen 1,000 MG Q6P PRN 04/26 1900 AC IV Aspirin 81 MG DAILY 08/18 1000 AC PO Atorvastatin Calcium 20 MG 1700 08/18 1700 AC 08/18 PO 1721 Carvedilol 50 MG BID 08/15 1000 AC 08/18 PO 2158 Cholecalciferol 1,000 IU DAILY 08/15 1000 AC 08/17 PO 1533 Epoetin Kameron 4,000 UNIT ONCE PRN 08/17 0745 AC IV Insulin Aspart 0 Q4H 08/19 0400 AC SC Insulin Aspart 0 Q4 08/19 0100 DC SC Insulin Aspart 0 TIDAC 08/18 1200 DC SC Insulin Aspart 0 TIDAC 08/15 0800 DC 08/17 SC 1731 Insulin Detemir 8 UNITS BID 08/16 1000 DC 08/17 SC 2135 Insulin Human Regular 0 Q6 08/18 2038 DC 08/19 SC 0010 Latanoprost 1 GTT QPM 08/15 2200 AC 08/18 OPH 2200 Levothyroxine Sodium 0.025 MG DAILY AC 08/15 0700 AC 08/19 PO 0559 Lidocaine 1 PAT DAILY 08/18 1000 AC 08/18 EXT 1120 Metoclopramide HCl 10 MG Q6P PRN 08/14 2230 AC 08/18 IV 0641 Oxycodone HCl 10 MG Q6P PRN 08/14 1900 AC 08/18 PO 0414 Phenol 2 SPRAY Q2P PRN 08/17 0915 AC EXT Sevelamer Carbonate 800 MG 0800,1200,1700 08/15 0800 AC 08/17 PO 1731 Warfarin Sodium 6 MG COUMADIN 1700 ONE 08/18 1700 DC 08/18 PO 08/18 1701 1722 Last 24 Hrs of Lab/Cristi Results Last 24 Hrs of Labs/Mics: Laboratory Tests 08/19/16 0737: Sodium Pending, Potassium Pending, Chloride Pending, Carbon Dioxide Pending, Anion Gap Pending, BUN Pending, Creatinine Pending, BUN/Creatinine Ratio Pending , Phosphorus Pending, Magnesium Pending, PT Pending, INR Pending, CBC w Diff Pending, WBC Pending, RBC Pending, Hgb Pending, Hct Pending, MCV Pending, MCH Pending, RDW Pending, Plt Count Pending, MPV Pending, PUBS MCHC Pending Assessment/Plan Assessment: Mr. Santiago is a 61-year-old man with a past medical history of diabetes ( insulin-dependent), end-stage renal disease (not on hemodialysis, AV fistula in place), nonischemic cardiomyopathy, CHF, hypertension is being evaluated for a chief concern of nausea, vomiting 2 weeks, abnormal renal function (as informed by his improvement director). Differential diagnosis: #1 acute on chronic kidney disease #2 atrial flutter #3 diabetes complication-nephropathy Below is the problem list and plan: #1 nausea, vomiting-likely due to elevated BUN at this time. Gastroparesis in the differential. #2 atrial flutter and HFrEF- Initially started on heparin drip, with a brief discontinuation of drip for the armen cath placement. And was then started Coumadin, after the procedure. Rate controlled right now; carvedilol 50 mg. Echocardiogram revealed EF of theodora 20%, likely from atrial flutter. Etiology likely uremia. Dose 4 mg of coumadin today. Follow INR in the am. #3 diabetes-patient has insulin pump at home. Resume NovoLog sliding scale-and Levemir. Advance diet as tolerated. #4 end-stage renal disease-worsening kidney function. Acute on chronic kidney disease. Nephrology-Dr. Luna/Dr. Victoria advising. #5 increasing lethargy, dysphagia- Pt underwent swallow evaluation, who recommended him to be started on chopped and thins. However, patient choked on his meds this AM. Modified barium swallow was normal. Advanced the diet to chopped and thin. Problem List: 1. Atrial flutter 2. Acute gouty arthritis Pain Ratin Pain Location: None Pain Goal: Pain 4 or less Pain Plan: Tylenol when necessary Tomorrow's Labs & Rationales: CBC Basic electrolyte panel PT/INR Consulting Request: Consulting Specialty: Cardiology BROCK ANTHONY MD 08/19/16 1141: Attending MD Review Statement Attending Statement Attending MD Statement: examined this patient, discuss w/resident/PA/TRACTOR MECHANIC, agreed w/resident/PA/TRACTOR MECHANIC, reviewed EMR data (avail), discussed with nursing, discussed with case mgmt, reviewed images, amended to note Attending Assessment/Plan: Patient seen and examined at dialysis. He denies any complaints. He denies any chest pain, funny feeling in the chest, shortness of breath. He remains in a flutter with few beats of NSVT. Vital Signs Date Time Temp Pulse Resp B/P B/P Pulse O2 O2 Flow FiO2 Mean Ox Delivery Rate 08/19 1118 112 120/60 08/19 0822 97.5 120 18 110/68 96 Room Air 08/19 0256 96 93 08/19 0000 96 Room Air 08/18 2247 98.6 100 18 120/70 97 Room Air 08/18 2158 100 120/70 08/18 1900 Room Air 08/18 1716 98.6 99 18 118/78 97 Room Air on exam; aox3, nad. cv; s1, s2, irregular. + armen cath on right side resp; clear abd; soft, nt, bs+ ext; trace edema. Laboratory Tests 08/19 08/19 0803 0737 Chemistry Sodium (137 - 145 mmol/L) 139 138 Potassium (3.5 - 5.1 mmol/L) 4.9 5.0 Chloride (98 - 107 mmol/L) 100 99 Carbon Dioxide (22 - 30 mmol/L) 21 L 23 Anion Gap (5 - 16) 17 H 16 BUN (9 - 20 mg/dL) 114 *H 116 *H Creatinine (0.7 - 1.2 mg/dL) 6.5 *H 6.4 *H Estimated GFR (>60 ml/min) 9 L 9 L BUN/Creatinine Ratio (7 - 25 %) 17.5 18.1 Calcium (8.4 - 10.2 mg/dL) 7.6 L Phosphorus (2.5 - 4.5 mg/dL) 8.0 H Magnesium (1.6 - 2.3 mg/dL) 2.5 H Coagulation PT (9.4 - 12.5 SEC) 29.3 H INR (0.90 - 1.17) 2.82 H Hematology CBC w Diff NO MAN DIFF REQ NO MAN DIFF REQ WBC (4.8 - 10.8 /CUMM) 7.6 7.9 RBC (4.70 - 6.10 /CUMM) 3.25 L 3.41 L Hgb (14.0 - 18.0 G/DL) 9.9 L 10.5 L Hct (42 - 52 %) 30.6 L 32.5 L MCV (80.0 - 94.0 FL) 94.3 H 95.3 H MCH (27.0 - 31.0 PG) 30.6 30.7 RDW (11.5 - 14.5 %) 19.4 H 20.0 H Plt Count (130 - 400 /CUMM) 172 177 MPV (7.4 - 10.4 FL) 9.2 8.7 Gran % (42.2 - 75.2 %) 78.3 H 78.1 H Lymphocytes % (20.5 - 51.1 %) 10.9 L 11.4 L Monocytes % (1.7 - 9.3 %) 9.5 H 9.1 Eosinophils % (0 - 5 %) 0.9 1.2 Basophils % (0.0 - 2.0 %) 0.4 0.2 Absolute Granulocytes (1.4 - 6.5 /CUMM) 5.9 6.2 Absolute Lymphocytes (1.2 - 3.4 /CUMM) 0.8 L 0.9 L Absolute Monocytes (0.10 - 0.60 /CUMM) 0.7 H 0.7 H Absolute Eosinophils (0.0 - 0.7 /CUMM) 0.1 0.1 Absolute Basophils (0.0 - 0.2 /CUMM) 0 0 PUBS MCHC (33.0 - 37.0 G/DL) 32.4 L 32.3 L A/P; 61 M with pmh sig for diabetes (insulin-dependent), end-stage renal disease (not on hemodialysis, AV fistula in place), nonischemic cardiomyopathy, CHF, hypertension admitted with nausea, vomiting and found to have acute on chronic renal failure, atrial flutter now having few beats off NSVT as well as hypoglycemia in a patient with diabetes with complications. Currently undergoing hemodialysis. He will be a chronic dialysis patient. Need to find an outpatient dialysis slot. Magnesium and potassium are normal., Patient has been having these episodes of nonsustained V. tach. Please discuss with the bike mechanic. Patient on Coreg. Please discontinue his Reglan with these episodes of NSVT. Thyroid function is within normal limits. Patient on levothyroxine. Blood sugars are stable, insulin is being managed by endocrinology. DVT prophylaxis: Patient on coumadin, will dose according to INR.
[2016-08-19 08:12] LABS: ABSOLUTE BASOPHIL COUNT 0 /CUMM (0.0-0.2); ABSOLUTE EOSINOPHIL COUNT 0.1 /CUMM (0.0-0.7); ABSOLUTE GRANULOCYTE CT 6.2 /CUMM (1.4-6.5); ABSOLUTE LYMPH COUNT 0.9 /CUMM (1.2-3.4); ABSOLUTE MONOCYTE COUNT 0.7 /CUMM (0.10-0.60); BASOPHIL % 0.2 % (0.0-2.0); EOSINOPHIL % 1.2 % (0-5); GRANULOCYTE % 78.1 % (42.2-75.2); HEMATOCRIT 32.5 % (42-52); MEAN CORPUSCULAR HGB 30.7 PG (27.0-31.0); MEAN CORPUSCULAR HGB CONC 32.3 G/DL (33.0-37.0); MEAN CORPUSCULAR VOLUME 95.3 FL (80.0-94.0); MEAN PLATELET VOLUME 8.7 FL (7.4-10.4); PLATELET COUNT 177 /CUMM (130-400); RED BLOOD CELL CT 3.41 /CUMM (4.70-6.10); WHITE BLOOD CELL COUNT 7.9 /CUMM (4.8-10.8)
[2016-08-19 08:17] LABS: PT 29.3 SEC (9.4-12.5)
[2016-08-19 08:22] VITALS: BP 110/68
--- NOTE | 2016-08-19 09:28 | PN- Nephrology ---
See Addendum Assessment/Plan Assessment: 1. ESRD 2. Dilated cardiomyopathy Suggestion: 1. Hemodialysis today in progress with 2 L ultrafiltration goal over 2.5 hours 2. Next dialysis for Monday 08/21 3. Will discuss with Dr. York regarding usability of his left upper arm AVF 4. Please start Nephro-Geri 1 by mouth daily Subjective Subjective: Patient's only complaint today is regarding discomfort at his right IJ dialysis catheter site. Denies shortness of breath or chest pain. Nausea and vomiting have resolved. Objective Vital Signs and I&Os Vital Signs Date Time Temp Pulse Resp B/P B/P Pulse O2 O2 Flow FiO2 Mean Ox Delivery Rate 08/19 0822 97.5 120 18 110/68 96 Room Air 08/19 0256 96 93 08/19 0000 96 Room Air 08/18 2247 98.6 100 18 120/70 97 Room Air 08/18 2158 100 120/70 08/18 1900 Room Air 08/18 1716 98.6 99 18 118/78 97 Room Air 08/18 1000 116/75 Intake & Output 08/19 1600 08/19 0400 08/18 1600 08/18 0400 08/17 1600 08/17 0400 Intake Total 0 0 100 770 50 Output Total Balance 0 0 100 770 50 Intake, IV 20 Intake, Oral 0 0 100 750 50 Patient 241 lb 241 lb Weight Weight Standing Scale Chair scale Measurement Method Physical Exam: General: Well-developed, obese black male in no distress Skin: No rash or jaundice HEENT: Conjunctivae pink, sclerae anicteric, mucous membranes moist Neck: Without masses or thyromegaly, no supraclavicular or cervical adenopathy Chest: Clear anterolaterally Heart: Regular rate and rhythm without S3 or rub Abdomen: Obese, soft and nontender without palpable masses or organomegaly Extremities: 1-2+ peripheral edema, no livedo, left upper arm AVF patent Neuro: No focal findings, no asterixis or myoclonus Current Medications: Current Medications Sig/Cole Start time Last Medication Dose Route Stop Time Status Admin Acetaminophen 650 MG Q6P PRN 08/14 1900 AC 08/16 PO 0321 Acetaminophen 1,000 MG Q6P PRN 08/14 1900 AC IV Aspirin 81 MG DAILY 08/18 1000 AC PO Atorvastatin Calcium 20 MG 1700 08/18 1700 AC 08/18 PO 1721 Carvedilol 50 MG BID 08/15 1000 AC 08/18 PO 2158 Cholecalciferol 1,000 IU DAILY 08/15 1000 AC 08/17 PO 1533 Epoetin Kameron 4,000 UNIT ONCE ONE 08/19 0900 DC IV 08/19 0901 Epoetin Kameron 4,000 UNIT ONCE PRN 08/17 0745 DC IV Insulin Aspart 0 Q4H 08/19 0400 AC SC Insulin Aspart 0 Q4 08/19 0100 DC SC Insulin Aspart 0 TIDAC 08/18 1200 DC SC Insulin Aspart 0 TIDAC 08/15 0800 DC 08/17 SC 1731 Insulin Detemir 8 UNITS BID 08/16 1000 DC 08/17 SC 2135 Insulin Human Regular 2 UNITS .STK-MED ONE 08/19 0010 DC IV 08/19 0011 Insulin Human Regular 0 Q6 08/18 2038 DC 08/19 SC 0010 Latanoprost 1 GTT QPM 08/15 2200 AC 08/18 OPH 2200 Levothyroxine Sodium 0.025 MG DAILY AC 08/15 0700 AC 08/19 PO 0559 Lidocaine 1 PAT DAILY 08/18 1000 AC 08/18 EXT 1120 Metoclopramide HCl 10 MG Q6P PRN 08/14 2230 AC 08/18 IV 0641 Oxycodone HCl 10 MG Q6P PRN 08/14 1900 AC 08/18 PO 0414 Phenol 2 SPRAY Q2P PRN 08/17 0915 AC EXT Sevelamer Carbonate 800 MG 0800,1200,1700 08/15 0800 AC 08/17 PO 1731 Warfarin Sodium 6 MG COUMADIN 1700 ONE 08/18 1700 DC 08/18 PO 08/18 1701 1722 Results Pertinent Lab Results: Laboratory Tests 08/19 08/18 0737 0430 Chemistry Sodium (137 - 145 mmol/L) 138 133 L Potassium (3.5 - 5.1 mmol/L) 5.0 4.7 Chloride (98 - 107 mmol/L) 99 95 L Carbon Dioxide (22 - 30 mmol/L) 23 20 L Anion Gap (5 - 16) 16 17 H BUN (9 - 20 mg/dL) 116 *H 95 H Creatinine (0.7 - 1.2 mg/dL) 6.4 *H 5.0 H Estimated GFR (>60 ml/min) 9 L 12 L BUN/Creatinine Ratio (7 - 25 %) 18.1 19.0 Phosphorus (2.5 - 4.5 mg/dL) 8.0 H 7.4 H Magnesium (1.6 - 2.3 mg/dL) 2.5 H 2.3 Troponin I (<0.11 ng/ml) 0.40 *H Coagulation PT (9.4 - 12.5 SEC) 29.3 H 18.5 H INR (0.90 - 1.17) 2.82 H 1.77 H Hematology CBC w Diff NO MAN DIFF REQ NO MAN DIFF REQ WBC (4.8 - 10.8 /CUMM) 7.9 8.4 RBC (4.70 - 6.10 /CUMM) 3.41 L 3.26 L Hgb (14.0 - 18.0 G/DL) 10.5 L 10.0 L Hct (42 - 52 %) 32.5 L 31.1 L MCV (80.0 - 94.0 FL) 95.3 H 95.5 H MCH (27.0 - 31.0 PG) 30.7 30.7 RDW (11.5 - 14.5 %) 20.0 H 20.1 H Plt Count (130 - 400 /CUMM) 177 168 MPV (7.4 - 10.4 FL) 8.7 9.0 Gran % (42.2 - 75.2 %) 78.1 H 78.3 H Lymphocytes % (20.5 - 51.1 %) 11.4 L 12.6 L Monocytes % (1.7 - 9.3 %) 9.1 7.6 Eosinophils % (0 - 5 %) 1.2 1.1 Basophils % (0.0 - 2.0 %) 0.2 0.4 Absolute Granulocytes (1.4 - 6.5 /CUMM) 6.2 6.6 H Absolute Lymphocytes (1.2 - 3.4 /CUMM) 0.9 L 1.1 L Absolute Monocytes (0.10 - 0.60 /CUMM) 0.7 H 0.6 Absolute Eosinophils (0.0 - 0.7 /CUMM) 0.1 0.1 Absolute Basophils (0.0 - 0.2 /CUMM) 0 0 PUBS MCHC (33.0 - 37.0 G/DL) 32.3 L 32.1 L 04/30 04/29 04/29 04/29 0428 1999 1310 0600 Chemistry Sodium Cancelled Potassium Cancelled Chloride Cancelled Carbon Dioxide Cancelled Anion Gap Cancelled BUN Cancelled Creatinine Cancelled BUN/Creatinine Ratio Cancelled Troponin I (<0.11 ng/ml) Cancelled 0.44 *H 0.50 *H 08/17 08/16 0350 0939 Chemistry Sodium (137 - 145 mmol/L) 136 L Potassium (3.5 - 5.1 mmol/L) 4.9 Chloride (98 - 107 mmol/L) 98 Carbon Dioxide (22 - 30 mmol/L) 21 L Anion Gap (5 - 16) 17 H BUN (9 - 20 mg/dL) 116 *H Creatinine (0.7 - 1.2 mg/dL) 5.9 *H Estimated GFR (>60 ml/min) 10 L BUN/Creatinine Ratio (7 - 25 %) 19.7 Troponin I (<0.11 ng/ml) 0.24 *H Coagulation PT (9.4 - 12.5 SEC) 15.7 H INR (0.90 - 1.17) 1.50 H APTT (25 - 37 SEC) 57 H Hematology CBC w Diff NO MAN DIFF REQ WBC (4.8 - 10.8 /CUMM) 6.9 RBC (4.70 - 6.10 /CUMM) 3.29 L Hgb (14.0 - 18.0 G/DL) 10.0 L Hct (42 - 52 %) 31.0 L MCV (80.0 - 94.0 FL) 94.4 H MCH (27.0 - 31.0 PG) 30.4 RDW (11.5 - 14.5 %) 20.1 H Plt Count (130 - 400 /CUMM) 164 MPV (7.4 - 10.4 FL) 8.7 Gran % (42.2 - 75.2 %) 80.4 H Lymphocytes % (20.5 - 51.1 %) 10.6 L Monocytes % (1.7 - 9.3 %) 8.0 Eosinophils % (0 - 5 %) 0.5 Basophils % (0.0 - 2.0 %) 0.5 Absolute Granulocytes (1.4 - 6.5 /CUMM) 5.6 Absolute Lymphocytes (1.2 - 3.4 /CUMM) 0.7 L Absolute Monocytes (0.10 - 0.60 /CUMM) 0.5 Absolute Eosinophils (0.0 - 0.7 /CUMM) 0 Absolute Basophils (0.0 - 0.2 /CUMM) 0 PUBS MCHC (33.0 - 37.0 G/DL) 32.2 L
[2016-08-19 09:48] LABS: ABSOLUTE BASOPHIL COUNT 0 /CUMM (0.0-0.2); ABSOLUTE EOSINOPHIL COUNT 0.1 /CUMM (0.0-0.7); ABSOLUTE GRANULOCYTE CT 5.9 /CUMM (1.4-6.5); ABSOLUTE LYMPH COUNT 0.8 /CUMM (1.2-3.4); ABSOLUTE MONOCYTE COUNT 0.7 /CUMM (0.10-0.60); BASOPHIL % 0.4 % (0.0-2.0); EOSINOPHIL % 0.9 % (0-5); GRANULOCYTE % 78.3 % (42.2-75.2); HEMATOCRIT 30.6 % (42-52); MEAN CORPUSCULAR HGB 30.6 PG (27.0-31.0); MEAN CORPUSCULAR HGB CONC 32.4 G/DL (33.0-37.0); MEAN CORPUSCULAR VOLUME 94.3 FL (80.0-94.0); MEAN PLATELET VOLUME 9.2 FL (7.4-10.4); RBC DISTRIBUTION WIDTH 19.4 % (11.5-14.5); RED BLOOD CELL CT 3.25 /CUMM (4.70-6.10); WHITE BLOOD CELL COUNT 7.6 /CUMM (4.8-10.8)
[2016-08-19 10:00] LABS: PLATELET COUNT 172 /CUMM (130-400)
--- NOTE | 2016-08-19 10:05 | PN- Diabetes ---
Assessment/Plan Assessment: This 61-year-old patient entered the hospital with hypoglycemia nausea and vomiting. The plan was to initiate dialysis during this admission. He was on the VGO 20 at home. In hospital, he was put on Levemir 8 units twice aday, Novolog coverage before meals. While he was kept NPO and he was on Novolog coverage every 4 hours only when his FSG was > 200. Patient is currently receiving HD. He is kept NPO for barium swallow evaluation. His FSGs were 139, 132, 132 and 123. Plan: Plan: 1. when he is NPO --hold Levemir; --Novolog coverage every 4 hours FSG < 200, no coverage 200-250, 2 units 251-300, 3 units 301-350, 4 units 351-400, 5 units > 400, 5 units 2. when he is ready to eat, please continue the previous insulin regimen--- Levemir 8 units twice a day and Novolog coverage before meals. 3. monitor FSGs. will follow. Subjective Subjective: He is currently receiving HD. Objective Last 24 Hrs of Vital Signs/I&O Vital Signs Date Time Temp Pulse Resp B/P B/P Pulse O2 O2 Flow FiO2 Mean Ox Delivery Rate 08/19 0822 97.5 120 18 110/68 96 Room Air 08/19 0256 96 93 08/19 0000 96 Room Air 08/18 2247 98.6 100 18 120/70 97 Room Air 08/18 2158 100 120/70 08/18 1900 Room Air 08/18 1716 98.6 99 18 118/78 97 Room Air Intake & Output 08/19 1600 08/19 0800 08/19 0000 Intake Total 0 0 Output Total Balance 0 0 Intake, Oral 0 0 Patient 241 lb Weight Weight Standing Scale Measurement Method Findings Pertinent Lab/Cristi Results: Laboratory Tests 08/19 08/19 0803 0737 Chemistry Sodium (137 - 145 mmol/L) Pending 138 Potassium (3.5 - 5.1 mmol/L) Pending 5.0 Chloride (98 - 107 mmol/L) Pending 99 Carbon Dioxide (22 - 30 mmol/L) Pending 23 Anion Gap (5 - 16) Pending 16 BUN (9 - 20 mg/dL) Pending 116 *H Creatinine (0.7 - 1.2 mg/dL) Pending 6.4 *H Estimated GFR (>60 ml/min) 9 L BUN/Creatinine Ratio (7 - 25 %) Pending 18.1 Calcium Pending Phosphorus (2.5 - 4.5 mg/dL) 8.0 H Magnesium (1.6 - 2.3 mg/dL) 2.5 H Coagulation PT (9.4 - 12.5 SEC) 29.3 H INR (0.90 - 1.17) 2.82 H Hematology CBC w Diff NO MAN DIFF REQ NO MAN DIFF REQ WBC (4.8 - 10.8 /CUMM) 7.6 7.9 RBC (4.70 - 6.10 /CUMM) 3.25 L 3.41 L Hgb (14.0 - 18.0 G/DL) 9.9 L 10.5 L Hct (42 - 52 %) 30.6 L 32.5 L MCV (80.0 - 94.0 FL) 94.3 H 95.3 H MCH (27.0 - 31.0 PG) 30.6 30.7 RDW (11.5 - 14.5 %) 19.4 H 20.0 H Plt Count (130 - 400 /CUMM) 172 177 MPV (7.4 - 10.4 FL) 9.2 8.7 Gran % (42.2 - 75.2 %) 78.3 H 78.1 H Lymphocytes % (20.5 - 51.1 %) 10.9 L 11.4 L Monocytes % (1.7 - 9.3 %) 9.5 H 9.1 Eosinophils % (0 - 5 %) 0.9 1.2 Basophils % (0.0 - 2.0 %) 0.4 0.2 Absolute Granulocytes (1.4 - 6.5 /CUMM) 5.9 6.2 Absolute Lymphocytes (1.2 - 3.4 /CUMM) 0.8 L 0.9 L Absolute Monocytes (0.10 - 0.60 /CUMM) 0.7 H 0.7 H Absolute Eosinophils (0.0 - 0.7 /CUMM) 0.1 0.1 Absolute Basophils (0.0 - 0.2 /CUMM) 0 0 PUBS MCHC (33.0 - 37.0 G/DL) 32.4 L 32.3 L
--- NOTE | 2016-08-19 11:37 | Discharge Summary ---
Visit Information Visit Dates Admission Date: 08/14/16 Discharge Date: 08.22.16 Hospital Course Course Attending Physician: BROCK ANTHONY MD Primary Care Physician: ELLIS CANO,RODNEY Farias Consulting Request: Consulting Specialty: Cardiology Hospital Course: Mr. Santiago is a 61-year-old man who has a past medical history of diabetes ( insulin-dependent), end-stage renal disease (not on hemodialysis, AV fistula in place), nonischemic cardiomyopathy, CHF, hypertension. He was brought to [facility] with a chief concern of nausea, vomiting 2 weeks, abnormal renal function (as informed by his hydroelectric mechanic). At the time of admission, vitals were stable temperature 96.9, pulse rate 98, respiratory rate 18, blood pressure 130/90, pulse ox 95% on room air. Lab findings indicated WBC 4.8, hemoglobin 9.7 (baseline 10.0), platelets 164, sodium 139, potassium 3.7, bicarbonate 23, renal function-abnormal: BUN 113, serum creatinine 5.6 (last BUN 94, serum creatinine 4.9 03/22/2016), glucose 62 (low likely from worsening kidney function and long-acting insulin use which improved during the stay in the hospital), and calcium 7.6, phosphorus 6.5 (due to ESRD). EKG findings revealed atrial flutter, heart rate 111, irregular. Chest x-ray revealed mild vascular congestion, with no overt pulmonary edema. Abdominal x- ray did not reveal any evidence of obstruction or any free air. TSH, free T4 within normal limits. Echocardiogram-08/09/2015 revealed ejection fraction of 35-40%, with global hypokinesis and diastolic dysfunction. Echocardiogram- 08/15/2016 revealed ejection fraction of 20% with global hypokinesis. Right ventricular systolic pressure estimated at 52 mmHg. Mildly dilated right ventricle with moderately reduced systolic function. Differential diagnosis: #1 acute on chronic kidney disease #2 atrial flutter #3 diabetes complication-nephropathy #4 HFrEF Below is the problem list and plan: #1 nausea, vomiting-likely due to elevated BUN at this time. No infectious etiology was suspsced, although gastroparesis was cotributing to the symptoms. Pt improved during the stay in the hospital. #2 atrial flutter- Patient was initially started on intravenous heparin, which was transitited to warfarin. Rate controlled with carvedilol. Serial electrocardiograms and cardiac enzymes did not reveal any STTWI. Thyroid function within normal limits. Etiology unclear, with uremia being the most likely cause. INR was elevated at the time of discharge, and was advised to follow up closely. Arrangements made to have the INR checked at the dialysis sessions, and dosing of warfarin to be done by the snack stewardess, Dr. Agudelo. Also, plan was to cardiovert the pt in 4 wks after a PAKO as an outpatient. #3 diabetes-patient had insulin pump [id number] in place at the time of admission. Pt required less insulin than the bolus 20 regularly, arrangments were made to start a repaglinide instead. Pt had decreased vision, and insulin injections were avoided. Plan was to titrate the repaglinide, as needed as an outpatient. Dr Hernandez was consulted for advice. #4 end-stage renal disease-worsening kidney function. Acute on chronic kidney disease. GFR around 10 mL. In view of worsening kidney function, pt was dialyzed while in the hospital. Arrangements made to have the pt dialyzed three times weekly, TTS. Pt had armen cath placed, while in the hospital by Dr. York. Since the pt had an AV fistule done two years ago, it was accessed w / no success. Plan was to revisit the idea of accessing it as an outpatient in order to gain permanent access. Dr. Barnes was consulted for advice. #5 anemia- stable. Continued on Epogen. Pt had an episode of difficult swallowing, and speech therapist was consuted. Modified barioum swallow did not reveal any abnormalities. Allergies: Coded Allergies: NO KNOWN ALLERGIES (06/10/14) Pertinent Lab Results: 08/14/16 1536: Anion Gap 15, Estimated GFR 10 L, BUN/Creatinine Ratio 20.2, Glucose 62 L, Lactic Acid 0.8, Calcium 7.6 L, Phosphorus 6.5 H, Magnesium 2.3, Troponin I 0.06, TSH 1.880, Free T4 1.30, PT 14.9 H, INR 1.42 H, APTT 33, CBC w Diff NO MAN DIFF REQ, RBC 3.16 L, MCV 93.9, MCH 30.6, RDW 20.1 H, MPV 8.2, Gran % 73.3 , Lymphocytes % 12.9 L, Monocytes % 11.9 H, Eosinophils % 1.4, Basophils % 0.5 , Absolute Granulocytes 3.5, Absolute Lymphocytes 0.6 L, Absolute Monocytes 0.6 , Absolute Eosinophils 0.1, Absolute Basophils 0, PUBS MCHC 32.6 L EKG Results Aflutter HR 111 No STTWI RAD - XRY-ABD MULTI VIEW W/PA CHEST The bowel gas pattern is normal with no evidence of obstruction. There is no definite evidence of free air. There are no soft tissue masses organomegaly. A tiny density in the left upper quadrant could represent calcification or dense material in colon. There is moderate enlargement of the cardiac silhouette with mild central vascular congestion, both slightly more pronounced when compared to the prior chest x-ray. IMPRESSION: No evidence of bowel obstruction or definite evidence of free air. - ECHOCARDIOGRAM 08/15/16- Severely reduced left ventricular systolic function wiht estimated ejection fraction of 20%. Severe global hypokinesis. Mild concentric left ventricular hypertrophy. Mildly dilated right ventricle with moderately reduced systolic function. Moderately dilated left atrium. Mildly dilated right atrium. Moderate mitral regurgitation. Mild tricuspid regurgitation with moderate pulmonary hypertension. RAD - XRY-MODIFIED BARIUM SWALLOW 08/19/16-1000 Normal modified barium swallow study. A full detail report will be provided by the speech therapist. Disposition Summary Disposition Principal Diagnosis: ESRD Additional Diagnosis: HFrEF Discharge Disposition: home or self care Discharge Instructions General Discharge Information Code Status: Full Code Patient's Diet: renal dialsysi didet Patient's Activity: as tolerated Follow-Up Instructions/Appts: Please see your PCP within one week of discarge Please see your hydroelectric mechanic within one week of discharge. Please see your snack stewardess within one week of discharge. Please follow your hemodialysis schedule which is Friday, , Friday. Please talk to your hydroelectric mechanic to confirm the days. Please have them check the INR and relay this information to the snack stewardess for advise on dosing. Please call your snack stewardess for advice on dosing the coumadin. Please take 2.5mg of coumadin on friday ie. 08/24/16 as per your cadiologist. Please check your blood glucose twice daily and please report the numbers to Dr. Hernandez's office, to guide adjustment of repaglinide. Medications at Discharge Discharge Medications: Stop taking the following medications: Furosemide (Furosemide) 40 MG TABLET ORAL TWICE DAILY Hydralazine HCl (Hydralazine HCl) 50 MG TABLET ORAL TWICE DAILY Insulin Aspart, Recombinant (Novolog) 100 U/ML JORDAN Inject into fatty tissue SEE SLIDING SCALE Qty = 30 Sub-Q Insulin Device, 20 Unit (Vgo 20) 1 EACH EACH Qty = 30 Continue taking these medications: Aspirin (Ecotrin*) 81 MG TABLET. 1 Tablet ORAL DAILY Days = 30 Comments: Last Taken: 08/22/16 Time: 12:00 PM Isosorbide Monitrate Sr (Imdur 60MG Tab) 60 MG TAB 2 Tablet ORAL DAILY Days = 30 Comments: Last Taken:08/21/15 Time:1000 Sevelamer Carbonate (Renvela) 800 MG TABLET Comments: Last Taken: 08/22/16 Time: 12 NOON Latanoprost (Xalatan) 2.5 ML DROPS 1 Drop In the eye Every night Qty = 3 Comments: Last Taken: 08/21/16 Time: 9:30 PM Oxycodone HCl/Acetaminophen (Percocet 5-325 MG Tablet) 1 EACH TABLET 1-2 Tablet ORAL EVERY SIX HOURS NEEDED as needed for pain Qty = 20 Comments: OOXYCODONE GIVEN 08/22/16 @ 8 AM Epoetin Kameron (Procrit) 20,000 UNIT/ML VIAL 1 Unit INTRAVEN EVERY 3 WEEKS Comments: Last Taken: 08/21/16 Time: 11:00 Fluticasone-Salmeterol (Advair 100-50 Diskus) 100 MCG-50 MCG/DOSE BLST.W.DEV 1 Puff Inhale through mouth TWICE DAILY Qty = 60 Comments: DID NOT RECEIVE WHILE IN HOSPITAL Allopurinol (Allopurinol) 300 MG TABLET 1 Tablet ORAL DAILY Qty = 90 Comments: DID NOT RECEIVE WHILE IN HOSPITAL Cholecalciferol (Vitamin D3) (Vitamin D) 1,000 UNIT TABLET 1 Tablet ORAL DAILY Comments: Last Taken: 08/22/16 Time: 12:00 PM Start taking the following new medications: Repaglinide (Prandin) 1 MG TABLET 1 Milligram ORAL BEFORE MEALS Qty = 30 No Refills Instructions: Please take your medication before meals. If you skip meals, please dont take this medication. It will cause hypoglycemia. Comments: Last Taken: 08/22/16 Time: 12:00 PM Nephro-Vitamins (Nephro-Geri Tablet) 0.8 MG TABLET 1 Tablet ORAL DAILY Days = 30 No Refills Comments: Last Taken: 08/22/16 Time: 12:00 PM Atorvastatin Calcium (Atorvastatin Calcium) 20 MG TABLET 20 Milligram ORAL 5 PM Days = 30 No Refills Comments: Last Taken: 08/21/16 Time: 5:45 PM Carvedilol (Carvedilol) 25 MG TABLET 50 Milligram ORAL TWICE DAILY Days = 30 No Refills Comments: Last Taken: 08/22/16 Time: 12:00 PM Warfarin Sodium (Coumadin) 2.5 MG TABLET 1 Tablet ORAL DAILY Qty = 30 No Refills Instructions: Please dose coumadin as per INR. Please contact your PCP or snack stewardess for correct dosing. Copies To: ELLIS CANO,RODNEY Farias Attending MD Review Statement Documenting Attending: BROCK ANTHONY MD
--- NOTE | 2016-08-19 12:17 | RADIOLOGY REPORT ---
EXAMINATION: XR HUMERUS, LEFT C-ARM FLUOROSCOPIC ASSISTANCE CLINICAL INFORMATION: 61-year-old male, left arm venogram. COMPARISON: None. TECHNIQUE: Multiple sequential spot radiographs were obtained at the time of the venogram. Fluoroscopy time: 5 minutes, 7 seconds. FINDINGS: The procedure was performed by Dr. York. Full procedural detail as well as the findings will be dictated by him. IMPRESSION: C-arm fluoroscopy assistance at the time of the left arm venography. The full procedural details as well as the findings will be dictated by Dr. York.
--- NOTE | 2016-08-19 12:30 | PN- Cardiology ---
Subjective Subjective: No Complaints Objective Vital Signs and I&Os Vital Signs Date Time Temp Pulse Resp B/P B/P Pulse O2 O2 Flow FiO2 Mean Ox Delivery Rate 08/19 1118 112 120/60 08/19 0822 97.5 120 18 110/68 96 Room Air 08/19 0256 96 93 08/19 0000 96 Room Air 08/18 2247 98.6 100 18 120/70 97 Room Air 08/18 2158 100 120/70 08/18 1900 Room Air 08/18 1716 98.6 99 18 118/78 97 Room Air Intake & Output 08/19 1600 08/19 0800 08/19 0000 08/18 1600 08/18 0800 08/18 0000 Intake Total 0 0 0 100 770 Output Total Balance 0 0 0 100 770 Intake, IV 20 Intake, Oral 0 0 0 100 750 Patient 241 lb 241 lb Weight Weight Standing Scale Chair scale Measurement Method Physical Exam: Neck-JVP normal, no bruit Lungs-CTA bilaterally Heart-S1S2 regular Abdomen-soft, not tender, BS+ Extr-trace edema, 1+ pulses neuro-non focal Current Medications: Current Medications Sig/Cole Start time Last Medication Dose Route Stop Time Status Admin Acetaminophen 650 MG Q6P PRN 08/14 1900 AC 08/16 PO 0321 Acetaminophen 1,000 MG Q6P PRN 08/14 1900 AC IV Aspirin 81 MG DAILY 08/18 1000 AC 08/19 PO 1117 Atorvastatin Calcium 20 MG 1700 08/18 1700 AC 08/18 PO 1721 Carvedilol 50 MG BID 08/15 1000 AC 08/19 PO 1118 Cholecalciferol 1,000 IU DAILY 08/15 1000 AC 08/19 PO 1117 Epoetin Kameron 4,000 UNIT ONCE ONE 08/19 0900 DC IV 08/19 0901 Epoetin Kameron 4,000 UNIT ONCE PRN 08/17 0745 DC IV Insulin Aspart 0 Q4H 08/19 0400 AC SC Insulin Aspart 0 Q4 08/19 0100 DC SC Insulin Aspart 0 TIDAC 08/18 1200 DC SC Insulin Human Regular 2 UNITS .STK-MED ONE 08/19 0010 DC IV 08/19 0011 Insulin Human Regular 0 Q6 08/18 2038 DC 08/19 SC 0010 Latanoprost 1 GTT QPM 08/15 2200 AC 08/18 OPH 2200 Levothyroxine Sodium 0.025 MG DAILY AC 08/15 0700 AC 08/19 PO 0559 Lidocaine 1 PAT DAILY 08/18 1000 AC 08/19 EXT 1117 Metoclopramide HCl 10 MG Q6P PRN 08/14 2230 AC 08/18 IV 0641 Multivitamins 1 TAB DAILY 08/19 1035 AC PO Oxycodone HCl 10 MG Q6P PRN 08/14 1900 AC 08/18 PO 0414 Phenol 2 SPRAY Q2P PRN 08/17 0915 AC EXT Sevelamer Carbonate 800 MG 0800,1200,1700 08/15 0800 AC 08/17 PO 1731 Warfarin Sodium 2.5 MG COUMADIN 1700 ONE 08/19 1700 AC PO 08/19 1701 Warfarin Sodium 6 MG COUMADIN 170 ONE 08/18 1700 DC 08/18 PO 08/18 170 1722 Results Last 48 Hrs of Labs/Mics: Laboratory Tests 08/19/16 0803: Anion Gap 17 H, Estimated GFR 9 L, BUN/Creatinine Ratio 17.5, Calcium 7.6 L, CBC w Diff NO MAN DIFF REQ, RBC 3.25 L, MCV 94.3 H, MCH 30.6, RDW 19.4 H, MPV 9.2, Gran % 78.3 H, Lymphocytes % 10.9 L, Monocytes % 9.5 H, Eosinophils % 0.9, Basophils % 0.4, Absolute Granulocytes 5.9, Absolute Lymphocytes 0.8 L, Absolute Monocytes 0.7 H, Absolute Eosinophils 0.1, Absolute Basophils 0, PUBS MCHC 32.4 L 08/19/16 0737: Anion Gap 16, Estimated GFR 9 L, BUN/Creatinine Ratio 18.1, Phosphorus 8.0 H, Magnesium 2.5 H, PT 29.3 H, INR 2.82 H, CBC w Diff NO MAN DIFF REQ, RBC 3.41 L, MCV 95.3 H, MCH 30.7, RDW 20.0 H, MPV 8.7, Gran % 78.1 H, Lymphocytes % 11.4 L, Monocytes % 9.1, Eosinophils % 1.2, Basophils % 0.2, Absolute Granulocytes 6.2, Absolute Lymphocytes 0.9 L, Absolute Monocytes 0.7 H, Absolute Eosinophils 0.1, Absolute Basophils 0, PUBS MCHC 32.3 L 08/18/16 0430: Anion Gap 17 H, Estimated GFR 12 L, BUN/Creatinine Ratio 19.0, Phosphorus 7.4 H, Magnesium 2.3, Troponin I 0.40 *H, PT 18.5 H, INR 1.77 H, CBC w Diff NO MAN DIFF REQ, RBC 3.26 L, MCV 95.5 H, MCH 30.7, RDW 20.1 H, MPV 9.0, Gran % 78.3 H, Lymphocytes % 12.6 L, Monocytes % 7.6, Eosinophils % 1.1, Basophils % 0.4, Absolute Granulocytes 6.6 H, Absolute Lymphocytes 1.1 L, Absolute Monocytes 0.6, Absolute Eosinophils 0.1, Absolute Basophils 0, PUBS MCHC 32.1 L 08/18/16 0428: Troponin I Cancelled 08/17/161999: Troponin I 0.44 *H 08/17/16 1310: Troponin I 0.50 *H Assessment/Plan Assessment/Plan 60 year old male with 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 gastroparesis) and new asymptomatic atrial flutter with borderline controlled ventricular rate. . He is currently euvolemic. s/p dialysis today INR therapeutic Plan: continue carvedilol to 50 mg po bid continue Warfarin, keep INR 2-3 cardioversion after 4 weeks of therapeutic INR Continue telemetry? Yes
--- NOTE | 2016-08-19 14:35 | RADIOLOGY REPORT ---
EXAMINATION: XR MODIFIED BARIUM SWALLOW CLINICAL INFORMATION: 61-year-old male with episodes of choking. COMPARISON: None TECHNIQUE: Modified barium swallow was performed with speech therapist. FINDINGS: No evidence of any aspiration or penetration was noted at the time of the examination. FLUOROSCOPY TIME: 58 seconds. NUMBER OF IMAGES: 8 sequences were obtained. IMPRESSION: Normal modified barium swallow study. A full detail report will be provided by the speech therapist.
[2016-08-19 15:30] VITALS: BP 132/60
[2016-08-20 00:56] VITALS: BP 122/80
--- NOTE | 2016-08-20 07:15 | PN- Housestaff ---
TIM SALCIDO 08/20/16 0714: Subjective Follow-up For: - ESRD - Diabetes Complaints: no complaints Tele-Events Since Last Visit: A flutter, HR 102-126, No overnight tele events. Subjective: Pt was comfortable. No complaints. Vitals stable overnight, and remained afebrile. Review of Systems Constitutional: Reports: see HPI. Objective Last 24 Hrs of Vital Signs/I&O Vital Signs Date Time Temp Pulse Resp B/P B/P Pulse O2 O2 Flow FiO2 Mean Ox Delivery Rate 08/20 0056 98.4 105 18 122/80 97 CPAP 08/20 0050 114 98 / 0000 96 Room Air 08/19 2147 129 117/76 08/19 1600 99 Nasal 2.0L Cannula 08/19 1530 98.2 116 18 132/60 99 Nasal 2.5L Cannula 08/19 1118 112 120/60 08/19 0822 97.5 120 18 110/68 96 Room Air Intake & Output 08/20 0800 / 0000 08/19 1600 Intake Total 200 470 Output Total 100 1.8 Balance 100 470 -1.8 Intake, IV 20 Intake, Oral 200 450 Number 0 Bowel Movements Output, 1.8 Dialysate Output, Urine 100 Physical Exam General Appearance: No Acute Distress Other Physical Findings: General Exam: AAOx3, No acute distress, decreased vision Skin: No rashes, no breakdown, armen cath in place with sutures. No erythema or tenderness around the site of insertion. HEENT: PERRLA, EOMI Neck: Supple, No JVD No cervical lymphadenopathy CVS: Reg Rate, Normal S1,S2, No MGR Resp: Normal air entry, no ronchi/rales Abdomen: Soft, No tenderness, Normal Bowel Sounds Neuro: Normal Speech, Strength 5/5 b/l x 4 extremities, Sensation intact, CN III -XII NL, Reflexes 2+ Extremities: No cyanosis, pedal edema 2+ pitting, AV fistula left upper extremity in place. No tremors Current Medications: Current Medications Sig/Cole Start time Last Medication Dose Route Stop Time Status Admin Acetaminophen 650 MG Q6P PRN 08/140 AC 08/20 PO 0424 Acetaminophen 1,000 MG Q6P PRN 08/14 190 AC IV Aspirin 81 MG DAILY 08/18 1000 AC 08/19 PO 1117 Atorvastatin Calcium 20 MG 1700 08/18 1700 AC 08/19 PO 1756 Carvedilol 50 MG BID 08/15 1000 AC 08/19 PO 2147 Cholecalciferol 1,000 IU DAILY 08/15 1000 AC 08/19 PO 1117 Epoetin Kameron 4,000 UNIT ONCE ONE 08/19 0900 DC IV 08/19 0901 Epoetin Kameron 4,000 UNIT ONCE PRN 08/17 0745 DC IV Insulin Aspart 0 TIDAC 08/19 1700 AC SC Insulin Aspart 0 Q4H 08/19 0400 DC SC Insulin Detemir 8 UNITS BID 08/19 2200 AC 08/19 SC 2144 Latanoprost 1 GTT QPM 08/15 2200 AC 08/19 OPH 2144 Levothyroxine Sodium 0.025 MG DAILY AC 08/15 0700 AC 08/20 PO 0645 Lidocaine 1 PAT DAILY 08/18 1000 AC 08/19 EXT 1117 Metoclopramide HCl 10 MG Q6P PRN 08/14 2230 AC 08/18 IV 0641 Multivitamins 1 TAB DAILY 08/19 1035 AC 08/19 PO 1436 Oxycodone HCl 10 MG Q6P PRN 08/14 1900 AC 08/20 PO 0035 Phenol 2 SPRAY Q2P PRN 08/17 0915 AC EXT Sevelamer Carbonate 800 MG 0800,1200,1700 08/15 0800 AC 08/19 PO 1756 Warfarin Sodium 4 MG COUMADIN 1700 ONE 08/19 1715 DC 08/19 PO 08/19 1716 1828 Warfarin Sodium 2.5 MG COUMADIN 1700 ONE 08/19 1700 CAN PO 08/19 170 Last 24 Hrs of Lab/Cristi Results Last 24 Hrs of Labs/Mics: Laboratory Tests 08/19/16 0803: Anion Gap 17 H, Estimated GFR 9 L, BUN/Creatinine Ratio 17.5, Calcium 7.6 L, CBC w Diff NO MAN DIFF REQ, RBC 3.25 L, MCV 94.3 H, MCH 30.6, RDW 19.4 H, MPV 9.2, Gran % 78.3 H, Lymphocytes % 10.9 L, Monocytes % 9.5 H, Eosinophils % 0.9, Basophils % 0.4, Absolute Granulocytes 5.9, Absolute Lymphocytes 0.8 L, Absolute Monocytes 0.7 H, Absolute Eosinophils 0.1, Absolute Basophils 0, PUBS MCHC 32.4 L 08/19/16 0737: Anion Gap 16, Estimated GFR 9 L, BUN/Creatinine Ratio 18.1, Phosphorus 8.0 H, Magnesium 2.5 H, PT 29.3 H, INR 2.82 H, CBC w Diff NO MAN DIFF REQ, RBC 3.41 L, MCV 95.3 H, MCH 30.7, RDW 20.0 H, MPV 8.7, Gran % 78.1 H, Lymphocytes % 11.4 L, Monocytes % 9.1, Eosinophils % 1.2, Basophils % 0.2, Absolute Granulocytes 6.2, Absolute Lymphocytes 0.9 L, Absolute Monocytes 0.7 H, Absolute Eosinophils 0.1, Absolute Basophils 0, PUBS MCHC 32.3 L Assessment/Plan Assessment: Mr. Santiago is a 61-year-old man with a past medical history of diabetes ( insulin-dependent), end-stage renal disease (not on hemodialysis, AV fistula in place), nonischemic cardiomyopathy, CHF, hypertension is being evaluated for a chief concern of nausea, vomiting 2 weeks, abnormal renal function (as informed by his airport electrician). Differential diagnosis: #1 acute on chronic kidney disease #2 atrial flutter #3 diabetes complication-nephropathy Below is the problem list and plan: #1 nausea, vomiting-likely due to elevated BUN at this time. Gastroparesis in the differential. #2 atrial flutter and HFrEF- Initially started on heparin drip, with a brief discontinuation of drip for the armen cath placement. And was then started Coumadin, after the procedure. Rate controlled right now; carvedilol 50 mg. Echocardiogram revealed EF of theodora 20%, likely from atrial flutter. Etiology likely uremia. INR supratherapeutic right now. Follow INR in the am. No coumadin dosing today. #3 diabetes-patient has insulin pump at home. Since the pt had hypoglycemic events due to scheduled dosing of insulin through insulin pump, other alternatives were sought. Repaglanide seemed like a reasonable alternative to insulin injections(pt has difficutly w/ vision), as per endocrinology. Although, not the best regime-would be reasonable to try as a monotherapy for diabetes. #4 end-stage renal disease-worsening kidney function. Acute on chronic kidney disease. Nephrology-Dr. Luna/Dr. Victoria advising. Underwent HD. Plan to dc the pt w/ a schedule. #5 increasing lethargy, dysphagia- Pt underwent swallow evaluation, who recommended him to be started on chopped and thins. However, patient choked on his meds this AM. Modified barium swallow was normal. Advanced the diet to chopped and thin. Problem List: 1. Atrial flutter 2. Acute renal failure Pain Ratin Pain Location: none Pain Goal: Pain 4 or less Pain Plan: tylenol prn Tomorrow's Labs & Rationales: bep, cbc, inr- monitor for abnormal kidney function, anemia and elevated INR. Consulting Request: Consulting Specialty: Cardiology GABRIELLE CANO,[facility] 08/20/16 1512: Attending MD Review Statement Attending Statement Attending MD Statement: examined this patient, discuss w/resident/PA/CTE TEACHER, agreed w/resident/PA/CTE TEACHER, reviewed EMR data (avail), discussed with nursing, discussed with case mgmt, amended to note Attending Assessment/Plan: Patient seen and examined, feels well. Offers no complaints. Remains in Aflutter. Vital Signs Date Time Temp Pulse Resp B/P B/P Pulse O2 O2 Flow FiO2 Mean Ox Delivery Rate 08/20 0937 100 118/74 05/ 0800 96 Room Air 08/20 0800 97.6 84 20 118/74 92 Room Air / 0056 98.4 105 18 122/80 97 CPAP 08/20 0050 114 98 05/ 0000 96 Room Air 08/19 2147 129 117/76 05/ 1600 99 Nasal 2.0L Cannula 08/19 1530 98.2 116 18 132/60 99 Nasal 2.5L Cannula On exam; aox3, nad. Cv: s1,s2, irregular. Resp; clear abd; soft, nt, bs+ ext; 2+ edema Laboratory Tests 08/20 0910 Coagulation PT (9.4 - 12.5 SEC) 57.5 *H INR (0.90 - 1.17) 5.57 *H A/P; 61 M with pmh sig for diabetes (insulin-dependent), end-stage renal disease (not on hemodialysis, AV fistula in place), nonischemic cardiomyopathy, CHF, hypertension admitted with nausea, vomiting and found to have acute on chronic renal failure, atrial flutter. HD per nephro. Levemir stopped and pt started on Prandin perEndo. Continue SSI. Continue cardio renal meds. INR supratherapeutic today. Hold coumadin, recheck INR in am. Dispo; Pending out patient HD slot.
[2016-08-20 08:00] VITALS: BP 118/74
[2016-08-20 10:10] LABS: PT 57.5 SEC (9.4-12.5)
--- NOTE | 2016-08-20 12:42 | PN- Diabetes ---
Assessment/Plan Assessment: This 61-year-old patient entered the hospital with hypoglycemia nausea and vomiting. The plan was to initiate dialysis during this admission. He was on the VGO 20 at home. In hospital, he was put on Levemir 8 units twice aday, Novolog coverage before meals. While he was kept NPO and he was on Novolog coverage every 4 hours only when his FSG was > 200. He started eating and his FSGs were 108, 93, 193 and 242. Plan: 1. I recommended starting him on Prandin 1 mg before meal x 3 times a day; 2. hold off on Prandin if he skips meals; 3. recommend Novolog coverage before meals as a back-up-- detail see the inpatient DM order; 4. monitor FSGs. will follow. Inpatient Diabetes Orders Before Each Meal: Bolus Insulin: Novolog < 80 mg/dl: no coverage 80-100 mg/dl: no coverage 101-120 mg/dl: no coverage 121-150 mg/dl: no coverage 151-200 mg/dl: no coverage 201-250 mg/dl: 2 units 251-300 mg/dl: 3 units 301-350 mg/dl: 4 units 351-400 mg/dl: 5 units > 400 mg/dl: 6 units Subjective Subjective: He has been feeling better. Objective Last 24 Hrs of Vital Signs/I&O Vital Signs Date Time Temp Pulse Resp B/P B/P Pulse O2 O2 Flow FiO2 Mean Ox Delivery Rate 08/20 0937 100 118/74 05/ 0800 96 Room Air 08/20 0800 97.6 84 20 118/74 92 Room Air 08/20 0056 98.4 105 18 122/80 97 CPAP 08/20 0050 114 98 05 0000 96 Room Air 08/19 2147 129 117/76 08/19 1600 99 Nasal 2.0L Cannula 08/19 1530 98.2 116 18 132/60 99 Nasal 2.5L Cannula Intake & Output 08/20 1600 08/20 0800 08/20 0000 Intake Total 200 470 Output Total 100 Balance 100 470 Intake, IV 20 Intake, Oral 200 450 Number 0 Bowel Movements Output, Urine 100 Patient 240 lb Weight Weight Chair scale Measurement Method Findings Pertinent Lab/Cristi Results: Laboratory Tests 08/20 09 Coagulation PT (9.4 - 12.5 SEC) 57.5 *H INR (0.90 - 1.17) 5.57 *H
[2016-08-20 15:30] VITALS: BP 116/64
[2016-08-21 01:15] VITALS: BP 120/68
--- NOTE | 2016-08-21 07:59 | PN- Housestaff ---
TIM SALCIDO 08/21/16 0758: Subjective Follow-up For: - ESRD - Diabetes - Aflutter Complaints: no complaints Tele-Events Since Last Visit: Aflutter, heart rate 91-114. No overnight telemetry events were noted. Subjective: He was comfortable this morning. Did not have any complaints. Feels improved compared to yesterday. Hemodialysis to be done today with approximately 2 L of ultrafiltration goal. Plan to have another session of hemodialysis in the a.m. Vitals stable. Remained afebrile. Review of Systems Constitutional: Reports: see HPI. Objective Last 24 Hrs of Vital Signs/I&O Vital Signs Date Time Temp Pulse Resp B/P B/P Pulse O2 O2 Flow FiO2 Mean Ox Delivery Rate 08/21 1335 Room Air 08/21 1332 113 108/60 08/21 1257 97.9 113 20 108/60 97 Room Air 08/21 0115 97.9 87 18 120/68 96 / 0000 CPAP 08/20 2100 104 132/00 08/20 1600 Room Air 08/20 1530 97.6 113 18 116/64 97 Room Air Intake & Output 08/21 1600 08/21 0800 05/03 0000 Intake Total 480 520 Output Total Balance 480 520 Intake, Oral 480 520 Patient 233 lb 240 lb Weight Weight Chair scale Measurement Method Physical Exam General Appearance: No Acute Distress Other Physical Findings: General Exam: AAOx3, No acute distress, decreased vision Skin: No rashes, no breakdown, armen cath in place with sutures. No erythema or tenderness around the site of insertion. HEENT: PERRLA, EOMI Neck: Supple, No JVD No cervical lymphadenopathy CVS: Reg Rate, Normal S1,S2, No MGR Resp: Normal air entry, no ronchi/rales Abdomen: Soft, No tenderness, Normal Bowel Sounds Neuro: Normal Speech, Strength 5/5 b/l x 4 extremities, Sensation intact, CN III -XII NL, Reflexes 2+ Extremities: No cyanosis, pedal edema 2+ pitting, AV fistula left upper extremity in place. No tremors Current Medications: Current Medications Sig/Cole Start time Last Medication Dose Route Stop Time Status Admin Acetaminophen 650 MG Q6P PRN 08/140 AC 08/20 PO 0424 Acetaminophen 1,000 MG Q6P PRN 08/14 190 AC IV Aspirin 81 MG DAILY 08/18 1000 AC 08/20 PO 0936 Atorvastatin Calcium 20 MG 1700 08/18 1700 AC 08/20 PO 1713 Carvedilol 50 MG BID 08/15 1000 AC 08/20 PO 2100 Cholecalciferol 1,000 IU DAILY 08/15 1000 AC 08/20 PO 0937 Insulin Aspart 0 TIDAC 08/20 1700 AC 08/20 SC 1712 Insulin Aspart 0 TIDAC 08/19 1700 DC SC Insulin Detemir 8 UNITS BID 08/19 2200 DC 08/19 SC 2144 Latanoprost 1 GTT QPM 08/15 2200 AC 08/20 OPH 2100 Levothyroxine Sodium 0.025 MG DAILY AC 08/15 0700 AC 08/21 PO 0634 Lidocaine 1 PAT DAILY 08/18 1000 AC 08/20 EXT 0936 Metoclopramide HCl 10 MG Q6P PRN 08/14 2230 AC 08/18 IV 0641 Multivitamins 1 TAB DAILY 08/19 1035 AC 08/20 PO 0936 Oxycodone HCl 10 MG Q6P PRN 08/14 1900 AC 08/20 PO 0035 Patient Medication 1 ED .STK-MED ONE 08/20 1339 MS Teaching ED 08/20 1340 Phenol 2 SPRAY Q2P PRN 08/17 0915 AC EXT Repaglinide 1 MG AC 08/20 0845 AC 08/20 PO 1713 Sevelamer Carbonate 800 MG 0800,1200,1700 08/15 0800 AC 08/20 PO 1713 Last 24 Hrs of Lab/Cristi Results Last 24 Hrs of Labs/Mics: Laboratory Tests 08/21/16 0730: Sodium Pending, Potassium Pending, Chloride Pending, Carbon Dioxide Pending, Anion Gap Pending, BUN Pending, Creatinine Pending, BUN/Creatinine Ratio Pending , PT Pending, INR Pending, CBC w Diff Pending, WBC Pending, RBC Pending, Hgb Pending, Hct Pending, MCV Pending, MCH Pending, RDW Pending, Plt Count Pending, MPV Pending, PUBS MCHC Pending 08/20/16 0910: PT 57.5 *H, INR 5.57 *H Assessment/Plan Assessment: Mr. 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 Differential diagnosis: #1 acute on chronic kidney disease #2 atrial flutter #3 diabetes complication-nephropathy Below is the problem list and plan: #1 nausea, vomiting-likely due to elevated BUN at this time. Gastroparesis in the differential. #2 atrial flutter and HFrEF- Initially started on heparin drip, with a brief discontinuation of drip for the armen cath placement. And was then started Coumadin, after the procedure. Rate controlled right now; carvedilol 50 mg. Echocardiogram revealed EF of theodora 20%, likely from atrial flutter. Etiology likely uremia. INR supratherapeutic right now.Follow INR in the am. No coumadin dosing today. Discussed with Dr. Kim, his radio equipment installer who recommended discontinuing telemetry. Overnight ther were no telemetry events. #3 diabetes-patient has insulin pump at home. Since the pt had hypoglycemic events due to scheduled dosing of insulin through insulin pump, other alternatives were sought. Repaglanide seemed like a reasonable alternative to insulin injections(pt has difficutly w/ vision), as per endocrinology. Although, not the best regime-would be reasonable to try as a monotherapy for diabetes. #4 end-stage renal disease-worsening kidney function. CKD stage 5. Acute on chronic kidney disease. Nephrology-Dr. Luna/Dr. Victoria advising. Underwent HD today. Plan to dc the pt w/ a schedule. Problem List: 1. Atrial flutter 2. Acute renal failure 3. Chronic renal failure Pain Ratin Pain Location: none Pain Goal: Pain 4 or less Pain Plan: tylenol prn Tomorrow's Labs & Rationales: inr Consulting Request: Consulting Specialty: Cardiology GABRIELLE CANO,BROCK 08/21/16 1434: Attending MD Review Statement Attending Statement Attending MD Statement: examined this patient, discuss w/resident/PA/PNEUMATIC TUBE FITTER, agreed w/resident/PA/PNEUMATIC TUBE FITTER, reviewed EMR data (avail), discussed with nursing, discussed with case mgmt, reviewed images, amended to note Attending Assessment/Plan: Patient seen and examined, Feels well. Wants to go home, denies any sob, cp. Vital Signs Date Time Temp Pulse Resp B/P B/P Pulse O2 O2 Flow FiO2 Mean Ox Delivery Rate 08/21 1335 Room Air 08/21 1332 113 108/60 05 1257 97.9 113 20 108/60 97 Room Air 08/21 0115 97.9 87 18 120/68 96 05 0000 CPAP 08/20 2100 104 132/00 08/20 1600 Room Air 08/20 1530 97.6 113 18 116/64 97 Room Air on exam; aox3, nad. cv; s1,s2, irregular. resp; clear abd; soft, nt, bs+ ext; 2+ edema. Laboratory Tests 08/21 08/21 1140 0800 Chemistry Sodium (137 - 145 mmol/L) 135 L Potassium (3.5 - 5.1 mmol/L) 4.8 Chloride (98 - 107 mmol/L) 97 L Carbon Dioxide (22 - 30 mmol/L) 23 Anion Gap (5 - 16) 15 BUN (9 - 20 mg/dL) 35 H 100 H Creatinine (0.7 - 1.2 mg/dL) 6.1 *H Estimated GFR (>60 ml/min) 9 L BUN/Creatinine Ratio (7 - 25 %) 16.4 Calcium (8.4 - 10.2 mg/dL) 7.2 L Phosphorus (2.5 - 4.5 mg/dL) 6.4 H Magnesium (1.6 - 2.3 mg/dL) 2.4 H Albumin (3.5 - 5.0 g/dL) 3.2 L Hematology CBC w Diff MAN DIFF ORDERED WBC (4.8 - 10.8 /CUMM) 7.6 RBC (4.70 - 6.10 /CUMM) 3.27 L Hgb (14.0 - 18.0 G/DL) 10.0 L Hct (42 - 52 %) 31.0 L MCV (80.0 - 94.0 FL) 94.8 H MCH (27.0 - 31.0 PG) 30.6 RDW (11.5 - 14.5 %) 19.3 H Plt Count (130 - 400 /CUMM) 149 MPV (7.4 - 10.4 FL) 9.1 Gran % (42.2 - 75.2 %) 78.4 H Lymphocytes % (20.5 - 51.1 %) 10.9 L Monocytes % (1.7 - 9.3 %) 9.1 Eosinophils % (0 - 5 %) 1.3 Basophils % (0.0 - 2.0 %) 0.3 Absolute Granulocytes (1.4 - 6.5 /CUMM) 5.9 Segmented Neutrophils (42.2 - 75.2 %) 81 H Absolute Lymphocytes (1.2 - 3.4 /CUMM) 0.8 L Lymphocytes (20.5 - 51.1 %) 10 L Monocytes (1.7 - 9.3 %) 9 Absolute Monocytes (0.10 - 0.60 /CUMM) 0.7 H Absolute Eosinophils (0.0 - 0.7 /CUMM) 0.1 Absolute Basophils (0.0 - 0.2 /CUMM) 0 Nucleated RBCs (0.0 - 0.0 /100WBC) 4 H Platelet Estimate (ADEQUATE) ADEQUATE Hypochromic-Microcytic 1+ Poikilocytosis 1+ Anisocytosis 1+ Stomatocytes RARE [place] Cells FEW PUBS MCHC (33.0 - 37.0 G/DL) 32.3 L 05/03 0730 Chemistry Sodium (137 - 145 mmol/L) 134 L Potassium (3.5 - 5.1 mmol/L) 4.7 Chloride (98 - 107 mmol/L) 98 Carbon Dioxide (22 - 30 mmol/L) 20 L Anion Gap (5 - 16) 16 BUN (9 - 20 mg/dL) 96 H Creatinine (0.7 - 1.2 mg/dL) 6.1 *H Estimated GFR (>60 ml/min) 9 L BUN/Creatinine Ratio (7 - 25 %) 15.7 Coagulation PT (9.4 - 12.5 SEC) 65.9 *H INR (0.90 - 1.17) 6.39 *H Hematology CBC w Diff NO MAN DIFF REQ WBC (4.8 - 10.8 /CUMM) 8.0 RBC (4.70 - 6.10 /CUMM) 3.32 L Hgb (14.0 - 18.0 G/DL) 10.2 L Hct (42 - 52 %) 31.5 L MCV (80.0 - 94.0 FL) 95.1 H MCH (27.0 - 31.0 PG) 30.8 RDW (11.5 - 14.5 %) 19.8 H Plt Count (130 - 400 /CUMM) 150 MPV (7.4 - 10.4 FL) 8.7 Gran % (42.2 - 75.2 %) 75.6 H Lymphocytes % (20.5 - 51.1 %) 12.1 L Monocytes % (1.7 - 9.3 %) 10.4 H Eosinophils % (0 - 5 %) 1.7 Basophils % (0.0 - 2.0 %) 0.2 Absolute Granulocytes (1.4 - 6.5 /CUMM) 6.0 Absolute Lymphocytes (1.2 - 3.4 /CUMM) 1.0 L Absolute Monocytes (0.10 - 0.60 /CUMM) 0.8 H Absolute Eosinophils (0.0 - 0.7 /CUMM) 0.1 Absolute Basophils (0.0 - 0.2 /CUMM) 0 PUBS MCHC (33.0 - 37.0 G/DL) 32.3 L A/P; 61 M with pmh sig for diabetes (insulin-dependent), end-stage renal disease (not on hemodialysis, AV fistula in place), nonischemic cardiomyopathy, CHF, hypertension admitted with nausea, vomiting and found to have acute on chronic renal failure, atrial flutter. HD per nephrology. Need to find transportation for outpatient dialysis. Levemir stopped and pt started on Prandin perEndo. Continue SSI. Continue cardio renal meds. INR supratherapeutic today. Hold coumadin, recheck INR in am. Dispo; pending transportation arrangement for outpatient. Possible DC in am post HD.
[2016-08-21 08:08] LABS: ABSOLUTE BASOPHIL COUNT 0 /CUMM (0.0-0.2); ABSOLUTE EOSINOPHIL COUNT 0.1 /CUMM (0.0-0.7); ABSOLUTE MONOCYTE COUNT 0.8 /CUMM (0.10-0.60); BASOPHIL % 0.2 % (0.0-2.0); EOSINOPHIL % 1.7 % (0-5); GRANULOCYTE % 75.6 % (42.2-75.2); HEMATOCRIT 31.5 % (42-52); MEAN CORPUSCULAR HGB 30.8 PG (27.0-31.0); MEAN CORPUSCULAR HGB CONC 32.3 G/DL (33.0-37.0); MEAN CORPUSCULAR VOLUME 95.1 FL (80.0-94.0); MEAN PLATELET VOLUME 8.7 FL (7.4-10.4); PLATELET COUNT 150 /CUMM (130-400); RBC DISTRIBUTION WIDTH 19.8 % (11.5-14.5); RED BLOOD CELL CT 3.32 /CUMM (4.70-6.10)
[2016-08-21 08:48] LABS: PT 65.9 SEC (9.4-12.5)
--- NOTE | 2016-08-21 09:09 | PN- Diabetes ---
Assessment/Plan Assessment: This 61-year-old patient entered the hospital with hypoglycemia nausea and vomiting. The plan was to initiate dialysis during this admission. He was on the VGO 20 at home. He was put on Prandin 1 mg before meals x 3 times a day and Novolog coverage before meal as a backup when his FSG is > 200. His FSGs were 242, 343, 255, 202 and 164. Plan: continue the current DM regimen; monitor FSGs. will follow. Subjective Subjective: He is receiving HD. Objective Last 24 Hrs of Vital Signs/I&O Vital Signs Date Time Temp Pulse Resp B/P B/P Pulse O2 O2 Flow FiO2 Mean Ox Delivery Rate 08/21 0115 97.9 87 18 120/68 96 08/21 0000 CPAP 08/20 2100 104 132/00 08/20 1600 Room Air 08/20 1530 97.6 113 18 116/64 97 Room Air 08/20 0937 100 118/74 Intake & Output 08/21 1600 08/21 0800 08/21 0000 Intake Total 520 Output Total Balance 520 Intake, Oral 520 Patient 240 lb Weight Findings Pertinent Lab/Cristi Results: Laboratory Tests 08/21 08/20 0730 0910 Chemistry Sodium (137 - 145 mmol/L) 134 L Potassium (3.5 - 5.1 mmol/L) 4.7 Chloride (98 - 107 mmol/L) 98 Carbon Dioxide (22 - 30 mmol/L) 20 L Anion Gap (5 - 16) 16 BUN (9 - 20 mg/dL) 96 H Creatinine (0.7 - 1.2 mg/dL) 6.1 *H Estimated GFR (>60 ml/min) 9 L BUN/Creatinine Ratio (7 - 25 %) 15.7 Coagulation PT (9.4 - 12.5 SEC) 65.9 *H 57.5 *H INR (0.90 - 1.17) 6.39 *H 5.57 *H Hematology CBC w Diff NO MAN DIFF REQ WBC (4.8 - 10.8 /CUMM) 8.0 RBC (4.70 - 6.10 /CUMM) 3.32 L Hgb (14.0 - 18.0 G/DL) 10.2 L Hct (42 - 52 %) 31.5 L MCV (80.0 - 94.0 FL) 95.1 H MCH (27.0 - 31.0 PG) 30.8 RDW (11.5 - 14.5 %) 19.8 H Plt Count (130 - 400 /CUMM) 150 MPV (7.4 - 10.4 FL) 8.7 Gran % (42.2 - 75.2 %) 75.6 H Lymphocytes % (20.5 - 51.1 %) 12.1 L Monocytes % (1.7 - 9.3 %) 10.4 H Eosinophils % (0 - 5 %) 1.7 Basophils % (0.0 - 2.0 %) 0.2 Absolute Granulocytes (1.4 - 6.5 /CUMM) 6.0 Absolute Lymphocytes (1.2 - 3.4 /CUMM) 1.0 L Absolute Monocytes (0.10 - 0.60 /CUMM) 0.8 H Absolute Eosinophils (0.0 - 0.7 /CUMM) 0.1 Absolute Basophils (0.0 - 0.2 /CUMM) 0 PUBS MCHC (33.0 - 37.0 G/DL) 32.3 L
[2016-08-21 10:16] LABS: ABSOLUTE BASOPHIL COUNT 0 /CUMM (0.0-0.2); ABSOLUTE EOSINOPHIL COUNT 0.1 /CUMM (0.0-0.7); ABSOLUTE MONOCYTE COUNT 0.7 /CUMM (0.10-0.60)
[2016-08-21 10:19] LABS: ABSOLUTE GRANULOCYTE CT 5.9 /CUMM (1.4-6.5); ABSOLUTE LYMPH COUNT 0.8 /CUMM (1.2-3.4); BASOPHIL % 0.3 % (0.0-2.0); EOSINOPHIL % 1.3 % (0-5); GRANULOCYTE % 78.4 % (42.2-75.2); MEAN CORPUSCULAR HGB 30.6 PG (27.0-31.0); MEAN CORPUSCULAR HGB CONC 32.3 G/DL (33.0-37.0); MEAN CORPUSCULAR VOLUME 94.8 FL (80.0-94.0); MEAN PLATELET VOLUME 9.1 FL (7.4-10.4); PLATELET COUNT 149 /CUMM (130-400); RBC DISTRIBUTION WIDTH 19.3 % (11.5-14.5); RED BLOOD CELL CT 3.27 /CUMM (4.70-6.10); WHITE BLOOD CELL COUNT 7.6 /CUMM (4.8-10.8)
--- NOTE | 2016-08-21 11:44 | PN- Nephrology ---
Assessment/Plan Assessment: 1. ESRD 2. Dilated cardiomyopathy Suggestion: 1. Hemodialysis today in progress with 2 L ultrafiltration goal over 3.5 hours 2. Next dialysis will be here tomorrow 3. If outpatient dialysis transportation can be arranged, he can be discharged after inpatient dialysis here tomorrow; please mobilize 4. Will discuss with Dr. York regarding usability of his left upper arm AVF Subjective Subjective: Complaining of occasional discomfort at right IJ insertion site, which appears benign on exam. He states that he has not as yet been walking. No other complaints. Seen with hemodialysis today. Objective Vital Signs and I&Os Vital Signs Date Time Temp Pulse Resp B/P B/P Pulse O2 O2 Flow FiO2 Mean Ox Delivery Rate 08/21 0115 97.9 87 18 120/68 96 08/21 0000 CPAP 08/20 2100 104 132/00 08/20 1600 Room Air 08/20 1530 97.6 113 18 116/64 97 Room Air Intake & Output 08/21 1600 08/21 0400 08/20 1600 08/20 0400 08/19 1600 08/19 0400 Intake Total 520 600 470 0 0 Output Total 100 1.8 Balance 520 500 470 -1.8 0 Intake, IV 20 Intake, Oral 520 600 450 0 0 Number 1 0 Bowel Movements Output, 1.8 Dialysate Output, Urine 100 Patient 240 lb 240 lb 241 lb Weight Weight Chair scale Standing Scale Measurement Method Physical Exam: General: Well-developed, obese black male in no distress Skin: No rash or jaundice HEENT: Conjunctivae pink, sclerae anicteric, mucous membranes moist Neck: Without masses or thyromegaly, no supraclavicular or cervical adenopathy; right IJ catheter site benign Chest: Clear anterolaterally Heart: Regular rate and rhythm without S3 or rub Abdomen: Obese, soft and nontender without palpable masses or organomegaly Extremities: 1-2+ peripheral edema, no livedo, left upper arm AVF patent Neuro: No focal findings, no asterixis or myoclonus Current Medications: Current Medications Sig/Cole Start time Last Medication Dose Route Stop Time Status Admin Acetaminophen 650 MG Q6P PRN 08/14 1900 AC 08/20 PO 0424 Acetaminophen 1,000 MG Q6P PRN 08/14 1900 AC IV Aspirin 81 MG DAILY 08/18 1000 AC 08/20 PO 0936 Atorvastatin Calcium 20 MG 1700 08/18 1700 AC 08/20 PO 1713 Carvedilol 50 MG BID 08/15 1000 AC 08/20 PO 2100 Cholecalciferol 1,000 IU DAILY 08/15 1000 AC 08/20 PO 0937 Epoetin Kameron 4,000 UNIT MoWeFr PRN 08/21 0830 AC IV Insulin Aspart 0 TIDAC 08/20 1700 AC 08/20 SC 1712 Latanoprost 1 GTT QPM 08/15 2200 AC 08/20 OPH 2100 Levothyroxine Sodium 0.025 MG DAILY AC 08/15 0700 AC 08/21 PO 0634 Lidocaine 1 PAT DAILY 08/18 1000 AC 08/20 EXT 0936 Metoclopramide HCl 10 MG Q6P PRN 08/14 2230 AC 08/18 IV 0641 Multivitamins 1 TAB DAILY 08/19 1035 AC 08/20 PO 0936 Oxycodone HCl 10 MG Q6P PRN 08/14 1900 AC 08/20 PO 0035 Patient Medication 1 ED .STK-MED ONE 08/20 1339 SC Teaching ED 08/20 1340 Phenol 2 SPRAY Q2P PRN 08/17 0915 AC EXT Repaglinide 1 MG AC 08/20 0845 AC 08/20 PO 1713 Sevelamer Carbonate 800 MG 0800,1200,1700 08/15 0800 AC 08/20 PO 1713 Results Pertinent Lab Results: Laboratory Tests 08/21 08/21 0800 0730 Chemistry Sodium (137 - 145 mmol/L) 135 L 134 L Potassium (3.5 - 5.1 mmol/L) 4.8 4.7 Chloride (98 - 107 mmol/L) 97 L 98 Carbon Dioxide (22 - 30 mmol/L) 23 20 L Anion Gap (5 - 16) 15 16 BUN (9 - 20 mg/dL) 100 H 96 H Creatinine (0.7 - 1.2 mg/dL) 6.1 *H 6.1 *H Estimated GFR (>60 ml/min) 9 L 9 L BUN/Creatinine Ratio (7 - 25 %) 16.4 15.7 Calcium (8.4 - 10.2 mg/dL) 7.2 L Phosphorus (2.5 - 4.5 mg/dL) 6.4 H Magnesium (1.6 - 2.3 mg/dL) 2.4 H Albumin (3.5 - 5.0 g/dL) 3.2 L Coagulation PT (9.4 - 12.5 SEC) 65.9 *H INR (0.90 - 1.17) 6.39 *H Hematology CBC w Diff MAN DIFF ORDERED NO MAN DIFF REQ WBC (4.8 - 10.8 /CUMM) 7.6 8.0 RBC (4.70 - 6.10 /CUMM) 3.27 L 3.32 L Hgb (14.0 - 18.0 G/DL) 10.0 L 10.2 L Hct (42 - 52 %) 31.0 L 31.5 L MCV (80.0 - 94.0 FL) 94.8 H 95.1 H MCH (27.0 - 31.0 PG) 30.6 30.8 RDW (11.5 - 14.5 %) 19.3 H 19.8 H Plt Count (130 - 400 /CUMM) 149 150 MPV (7.4 - 10.4 FL) 9.1 8.7 Gran % (42.2 - 75.2 %) 78.4 H 75.6 H Lymphocytes % (20.5 - 51.1 %) 10.9 L 12.1 L Monocytes % (1.7 - 9.3 %) 9.1 10.4 H Eosinophils % (0 - 5 %) 1.3 1.7 Basophils % (0.0 - 2.0 %) 0.3 0.2 Absolute Granulocytes (1.4 - 6.5 /CUMM) 5.9 6.0 Segmented Neutrophils (42.2 - 75.2 %) 81 H Absolute Lymphocytes (1.2 - 3.4 /CUMM) 0.8 L 1.0 L Lymphocytes (20.5 - 51.1 %) 10 L Monocytes (1.7 - 9.3 %) 9 Absolute Monocytes (0.10 - 0.60 /CUMM) 0.7 H 0.8 H Absolute Eosinophils (0.0 - 0.7 /CUMM) 0.1 0.1 Absolute Basophils (0.0 - 0.2 /CUMM) 0 0 Nucleated RBCs (0.0 - 0.0 /100WBC) 4 H Platelet Estimate (ADEQUATE) ADEQUATE Hypochromic-Microcytic 1+ Poikilocytosis 1+ Anisocytosis 1+ Stomatocytes RARE [place] Cells FEW PUBS MCHC (33.0 - 37.0 G/DL) 32.3 L 32.3 L 08/20 08/19 0910 0803 Chemistry Sodium (137 - 145 mmol/L) 139 Potassium (3.5 - 5.1 mmol/L) 4.9 Chloride (98 - 107 mmol/L) 100 Carbon Dioxide (22 - 30 mmol/L) 21 L Anion Gap (5 - 16) 17 H BUN (9 - 20 mg/dL) 114 *H Creatinine (0.7 - 1.2 mg/dL) 6.5 *H Estimated GFR (>60 ml/min) 9 L BUN/Creatinine Ratio (7 - 25 %) 17.5 Calcium (8.4 - 10.2 mg/dL) 7.6 L Coagulation PT (9.4 - 12.5 SEC) 57.5 *H INR (0.90 - 1.17) 5.57 *H Hematology CBC w Diff NO MAN DIFF REQ WBC (4.8 - 10.8 /CUMM) 7.6 RBC (4.70 - 6.10 /CUMM) 3.25 L Hgb (14.0 - 18.0 G/DL) 9.9 L Hct (42 - 52 %) 30.6 L MCV (80.0 - 94.0 FL) 94.3 H MCH (27.0 - 31.0 PG) 30.6 RDW (11.5 - 14.5 %) 19.4 H Plt Count (130 - 400 /CUMM) 172 MPV (7.4 - 10.4 FL) 9.2 Gran % (42.2 - 75.2 %) 78.3 H Lymphocytes % (20.5 - 51.1 %) 10.9 L Monocytes % (1.7 - 9.3 %) 9.5 H Eosinophils % (0 - 5 %) 0.9 Basophils % (0.0 - 2.0 %) 0.4 Absolute Granulocytes (1.4 - 6.5 /CUMM) 5.9 Absolute Lymphocytes (1.2 - 3.4 /CUMM) 0.8 L Absolute Monocytes (0.10 - 0.60 /CUMM) 0.7 H Absolute Eosinophils (0.0 - 0.7 /CUMM) 0.1 Absolute Basophils (0.0 - 0.2 /CUMM) 0 PUBS MCHC (33.0 - 37.0 G/DL) 32.4 L / 0737 Chemistry Sodium (137 - 145 mmol/L) 138 Potassium (3.5 - 5.1 mmol/L) 5.0 Chloride (98 - 107 mmol/L) 99 Carbon Dioxide (22 - 30 mmol/L) 23 Anion Gap (5 - 16) 16 BUN (9 - 20 mg/dL) 116 *H Creatinine (0.7 - 1.2 mg/dL) 6.4 *H Estimated GFR (>60 ml/min) 9 L BUN/Creatinine Ratio (7 - 25 %) 18.1 Phosphorus (2.5 - 4.5 mg/dL) 8.0 H Magnesium (1.6 - 2.3 mg/dL) 2.5 H Coagulation PT (9.4 - 12.5 SEC) 29.3 H INR (0.90 - 1.17) 2.82 H Hematology CBC w Diff NO MAN DIFF REQ WBC (4.8 - 10.8 /CUMM) 7.9 RBC (4.70 - 6.10 /CUMM) 3.41 L Hgb (14.0 - 18.0 G/DL) 10.5 L Hct (42 - 52 %) 32.5 L MCV (80.0 - 94.0 FL) 95.3 H MCH (27.0 - 31.0 PG) 30.7 RDW (11.5 - 14.5 %) 20.0 H Plt Count (130 - 400 /CUMM) 177 MPV (7.4 - 10.4 FL) 8.7 Gran % (42.2 - 75.2 %) 78.1 H Lymphocytes % (20.5 - 51.1 %) 11.4 L Monocytes % (1.7 - 9.3 %) 9.1 Eosinophils % (0 - 5 %) 1.2 Basophils % (0.0 - 2.0 %) 0.2 Absolute Granulocytes (1.4 - 6.5 /CUMM) 6.2 Absolute Lymphocytes (1.2 - 3.4 /CUMM) 0.9 L Absolute Monocytes (0.10 - 0.60 /CUMM) 0.7 H Absolute Eosinophils (0.0 - 0.7 /CUMM) 0.1 Absolute Basophils (0.0 - 0.2 /CUMM) 0 PUBS MCHC (33.0 - 37.0 G/DL) 32.3 L
[2016-08-21 12:57] VITALS: BP 108/60
[2016-08-21 15:30] VITALS: BP 118/70
[2016-08-22 07:40] VITALS: BP 136/84
--- NOTE | 2016-08-22 08:08 | PN- Housestaff ---
TIM SALCIDO 08/22/16 0807: Subjective Follow-up For: - ESRD Complaints: no complaints Tele-Events Since Last Visit: OFF TELEMETRY Subjective: Pt comfortable today. Did not have any complaints. Vitals stable overnight. He was scheduled to be hemodialyzed today. Arrangemements made to have INR checked at the hemodialysis [facility] and report the findings over to yousuf Renteria to dose his coumadin. Pt to take coumadin 2.5mg on friday, ie 5/[address] Agudelo. Review of Systems Constitutional: Reports: see HPI. Objective Last 24 Hrs of Vital Signs/I&O Vital Signs Date Time Temp Pulse Resp B/P B/P Pulse O2 O2 Flow FiO2 Mean Ox Delivery Rate 08/22 0000 CPAP 08/21 2202 118 140/00 08/21 1530 98.0 127 18 118/70 94 Room Air 08/21 1335 Room Air 08/21 1332 113 108/60 08/21 1257 97.9 113 20 108/60 97 Room Air Intake & Output 08/22 1600 08/22 0800 08/22 0000 Intake Total 120 480 Output Total 1 Balance 120 479 Intake, Oral 120 480 Output, Other 1 Patient 240 lb Weight Weight Standing Scale Measurement Method Physical Exam General Appearance: No Acute Distress Other Physical Findings: General Exam: AAOx3, No acute distress, decreased vision Skin: No rashes, no breakdown, armen cath in place with sutures. No erythema or tenderness around the site of insertion. HEENT: PERRLA, EOMI Neck: Supple, No JVD No cervical lymphadenopathy CVS: Reg Rate, Normal S1,S2, No MGR Resp: Normal air entry, no ronchi/rales Abdomen: Soft, No tenderness, Normal Bowel Sounds Neuro: Normal Speech, Strength 5/5 b/l x 4 extremities, Sensation intact, CN III -XII NL, Reflexes 2+ Extremities: No cyanosis, pedal edema 2+ pitting, AV fistula left upper extremity in place. No tremors Current Medications: Current Medications Sig/Cole Start time Last Medication Dose Route Stop Time Status Admin Acetaminophen 650 MG Q6P PRN 08/14 1900 AC 08/20 PO 0424 Acetaminophen 1,000 MG Q6P PRN 08/14 1900 AC IV Aspirin 81 MG DAILY 08/18 1000 AC 05/03 PO 1331 Atorvastatin Calcium 20 MG 1700 08/18 1700 AC 08/21 PO 1741 Carvedilol 50 MG BID 08/15 1000 AC 08/21 PO 2202 Cholecalciferol 1,000 IU DAILY 08/15 1000 AC 08/21 PO 1332 Epoetin Kameron 4,000 UNIT MoWeFr PRN 08/21 0830 AC IV Insulin Aspart 0 TIDAC 08/20 1700 AC 08/21 SC 1742 Latanoprost 1 GTT QPM 08/15 2200 AC 08/21 OPH 2146 Levothyroxine Sodium 0.025 MG DAILY AC 08/15 0700 AC 08/22 PO 0657 Lidocaine 1 PAT DAILY 08/18 1000 AC 08/21 EXT 1331 Metoclopramide HCl 10 MG Q6P PRN 08/14 2230 AC 08/18 IV 0641 Multivitamins 1 TAB DAILY 08/19 1035 AC 08/21 PO 1332 Oxycodone HCl 10 MG Q6P PRN 08/14 1900 AC 08/20 PO 0035 Phenol 2 SPRAY Q2P PRN 08/17 0915 AC EXT Repaglinide 1 MG AC 08/20 0845 AC 08/21 PO 1741 Sevelamer Carbonate 800 MG 0800,1200,1700 08/15 0800 AC 08/21 PO 1742 Last 24 Hrs of Lab/Cristi Results Last 24 Hrs of Labs/Mics: Laboratory Tests 08/22/16 0705: PT Pending, INR Pending 08/21/16 1140: Assessment/Plan Assessment: Mr. Santiago is a 61-year-old man with a past medical history of diabetes ( insulin-dependent), end-stage renal disease (not on hemodialysis, AV fistula in place), nonischemic cardiomyopathy, CHF, hypertension is being evaluated for a chief concern of nausea, vomiting 2 weeks, abnormal renal function (as informed by his director clinical operations). Differential diagnosis: #1 acute on chronic kidney disease #2 atrial flutter #3 diabetes complication-nephropathy Below is the problem list and plan: #1 nausea, vomiting-likely due to elevated BUN at this time. Gastroparesis in the differential. #2 atrial flutter and HFrEF- Initially started on heparin drip, with a brief discontinuation of drip for the armen cath placement. And was then started Coumadin, after the procedure. Rate controlled right now; carvedilol 50 mg. Echocardiogram revealed EF of theodora 20%, likely from atrial flutter. Etiology likely uremia. INR supratherapeutic right now.Follow INR in the am. No coumadin dosing today. Pt to be discharged on advise to take one dose of coumadin 2.5mg. #3 diabetes-patient has insulin pump at home. Since the pt had hypoglycemic events due to scheduled dosing of insulin through insulin pump, other alternatives were sought. Repaglanide seemed like a reasonable alternative to insulin injections(pt has difficutly w/ vision), as per endocrinology. Currently on 1mg dose. #4 end-stage renal disease-worsening kidney function. CKD stage 5. Acute on chronic kidney disease. Nephrology-Dr. Barnes advising. Underwent HD today. Plan to dc the pt w/ a schedule. Sutures were removed, using asceptic technique by Tiffany (medical student) under the supervision. Problem List: 1. Atrial flutter 2. Acute renal failure 3. Gout of left hand Pain Ratin Pain Location: right upper chest area where armen cath is placed Pain Goal: Pain 4 or less Pain Plan: - lidoderm patch Tomorrow's Labs & Rationales: no labs necessary. pt to be discharged. Consulting Request: Consulting Specialty: Cardiology GABRIELLE CANO,[facility] 08/22/16 1118: Attending MD Review Statement Attending Statement Attending MD Statement: examined this patient, discuss w/resident/PA/[employer]OBI[employer] ACCESSORIES INSTALLER, agreed w/resident/PA/AUTOMOBI[employer] ACCESS[employer]IES INSTALLER, reviewed EMR data (avail), discussed with nursing, discussed with case mgmt, amended to note Attending Assessment/Plan: Patient seen and examined, offers no complaints. denies any sob, no pain. Getting his dialysis done. Vital Signs Date Time Temp Pulse Resp B/P B/P Pulse O2 O2 Flow FiO2 Mean Ox Delivery Rate 08/22 0800 Room Air 08/22 0740 97.8 119 18 136/84 92 Room Air 08/22 0000 CPAP 08/21 2202 118 140/00 08/21 1530 98.0 127 18 118/70 94 Room Air 08/21 1335 Room Air 08/21 1332 113 108/60 08/21 1257 97.9 113 20 108/60 97 Room Air on exam; aox3, nad. cv;s1, s2, irregular. resp; clear abd; soft, nt, bs+ ext; no edema Laboratory Tests 08/22 08/22 08/21 0740 0705 1140 Chemistry Sodium (137 - 145 mmol/L) 138 Potassium (3.5 - 5.1 mmol/L) 4.6 Chloride (98 - 107 mmol/L) 99 Carbon Dioxide (22 - 30 mmol/L) 25 Anion Gap (5 - 16) 13 BUN (9 - 20 mg/dL) 53 H 35 H Creatinine (0.7 - 1.2 mg/dL) 4.3 H Estimated GFR (>60 ml/min) 14 L BUN/Creatinine Ratio (7 - 25 %) 12.3 Calcium (8.4 - 10.2 mg/dL) 7.2 L Coagulation PT (9.4 - 12.5 SEC) 44.8 *H INR (0.90 - 1.17) 4.33 *H Hematology CBC w Diff MAN DIFF ORDERED WBC (4.8 - 10.8 /CUMM) 7.6 RBC (4.70 - 6.10 /CUMM) 3.37 L Hgb (14.0 - 18.0 G/DL) 10.2 L Hct (42 - 52 %) 32.3 L MCV (80.0 - 94.0 FL) 95.9 H MCH (27.0 - 31.0 PG) 30.4 RDW (11.5 - 14.5 %) 20.7 H Plt Count (130 - 400 /CUMM) 136 MPV (7.4 - 10.4 FL) 9.1 Gran % (42.2 - 75.2 %) 78.7 H Lymphocytes % (20.5 - 51.1 %) 10.1 L Monocytes % (1.7 - 9.3 %) 9.8 H Eosinophils % (0 - 5 %) 1.1 Basophils % (0.0 - 2.0 %) 0.3 Absolute Granulocytes (1.4 - 6.5 /CUMM) 6.0 Segmented Neutrophils (42.2 - 75.2 %) 80 H Absolute Lymphocytes (1.2 - 3.4 /CUMM) 0.8 L Lymphocytes (20.5 - 51.1 %) 12 L Monocytes (1.7 - 9.3 %) 5 Absolute Monocytes (0.10 - 0.60 /CUMM) 0.7 H Eosinophils (0 - 5.0 %) 3 Absolute Eosinophils (0.0 - 0.7 /CUMM) 0.1 Absolute Basophils (0.0 - 0.2 /CUMM) 0 Nucleated RBCs (0.0 - 0.0 /100WBC) 5 H Platelet Estimate (ADEQUATE) VERIFIED BY SMEAR Polychromasia 1+ Poikilocytosis 1+ Anisocytosis 1+ Ovalocytes FEW PUBS MCHC (33.0 - 37.0 G/DL) 31.7 L A/P: 61 M with pmh sig for diabetes (insulin-dependent), end-stage renal disease (not on hemodialysis, AV fistula in place), nonischemic cardiomyopathy, CHF, hypertension admitted with nausea, vomiting and found to have acute on chronic renal failure, atrial flutter. INR still supratherapeutuic. Will recheck on Friday. Will recommend starting low dose coumadin. Continue all other current meds. DVT Px; INR supratherapeutic. Dispo: DC home today with outpatient dialysis.
[2016-08-22 08:36] LABS: PT 44.8 SEC (9.4-12.5)
--- NOTE | 2016-08-22 08:39 | PN- Diabetes ---
Assessment/Plan Assessment: This 61-year-old patient entered the hospital with hypoglycemia nausea and vomiting. The plan was to initiate dialysis during this admission. He was on the VGO 20 at home. He was put on Prandin 1 mg before meals x 3 times a day and Novolog coverage before meal as a backup when his FSG is > 200. His FSGs were 164, 87, 266, 240 and 248. Plan: continue the current DM regimen for now; monitor FSGs. will follow. Subjective Subjective: He is receiving HD at this moment. Objective Last 24 Hrs of Vital Signs/I&O Vital Signs Date Time Temp Pulse Resp B/P B/P Pulse O2 O2 Flow FiO2 Mean Ox Delivery Rate 08/22 0740 97.8 119 18 136/84 92 Room Air 08/22 0000 CPAP 08/21 2202 118 140/00 08/21 1530 98.0 127 18 118/70 94 Room Air 08/21 1335 Room Air 08/21 1332 113 108/60 08/21 1257 97.9 113 20 108/60 97 Room Air Intake & Output 08/22 1600 08/22 0800 08/22 0000 Intake Total 120 480 Output Total 1 Balance 120 479 Intake, Oral 120 480 Output, Other 1 Patient 240 lb Weight Weight Standing Scale Measurement Method Findings Pertinent Lab/Cristi Results: Laboratory Tests 08/22 08/21 0705 1140 Chemistry BUN (9 - 20 mg/dL) 35 H Coagulation PT (9.4 - 12.5 SEC) 44.8 *H INR (0.90 - 1.17) 4.33 *H
[2016-08-22 09:04] LABS: ABSOLUTE BASOPHIL COUNT 0 /CUMM (0.0-0.2); ABSOLUTE EOSINOPHIL COUNT 0.1 /CUMM (0.0-0.7); ABSOLUTE LYMPH COUNT 0.8 /CUMM (1.2-3.4); ABSOLUTE MONOCYTE COUNT 0.7 /CUMM (0.10-0.60); BASOPHIL % 0.3 % (0.0-2.0); EOSINOPHIL % 1.1 % (0-5); GRANULOCYTE % 78.7 % (42.2-75.2); HEMATOCRIT 32.3 % (42-52); MEAN CORPUSCULAR HGB 30.4 PG (27.0-31.0); MEAN CORPUSCULAR HGB CONC 31.7 G/DL (33.0-37.0); MEAN CORPUSCULAR VOLUME 95.9 FL (80.0-94.0); MEAN PLATELET VOLUME 9.1 FL (7.4-10.4); PLATELET COUNT 136 /CUMM (130-400); RBC DISTRIBUTION WIDTH 20.7 % (11.5-14.5); RED BLOOD CELL CT 3.37 /CUMM (4.70-6.10); WHITE BLOOD CELL COUNT 7.6 /CUMM (4.8-10.8)
[2016-08-22] MEDS ORDERED: NEPHRO-VITE TA0.8 MG PO (10:11)
[2016-08-22] MEDS ORDERED: PRANDIN1 M1 PO ×2 (10:11→11:19)
[2016-08-22] MEDS ORDERED: COUMADIN2.5 M1 PO (10:14)
--- NOTE | 2016-08-22 10:44 | PN- Nephrology ---
See Addendum Assessment/Plan Assessment: 1. ESRD 2. Dilated cardiomyopathy Suggestion: 1. Hemodialysis today in progress with 2-2.5L ultrafiltration goal over 3.5 hours 2. Okay for discharge from renal standpoint; patient has an outpatient hemodialysis slot at [facility] for Thursday 08/24 at 6 AM 3. Permanent vascular access revision - per Dr. York -as an outpatient Subjective Subjective: No new issues or complaints today. Patient being dialyzed again today in anticipation of discharge this afternoon. He has an outpatient slot at [facility] for Thursday 08/24 at 6 AM. Objective Vital Signs and I&Os Vital Signs Date Time Temp Pulse Resp B/P B/P Pulse O2 O2 Flow FiO2 Mean Ox Delivery Rate 08/22 0800 Room Air 08/22 0740 97.8 119 18 136/84 92 Room Air 08/22 0000 CPAP 08/21 2202 118 140/00 08/21 1530 98.0 127 18 118/70 94 Room Air 08/21 1335 Room Air 08/21 1332 113 108/60 08/21 1257 97.9 113 20 108/60 97 Room Air Intake & Output 08/22 1600 08/22 0400 08/21 1600 08/21 0400 08/20 1600 08/20 0400 Intake Total 120 480 480 520 600 470 Output Total 1 100 Balance 120 479 480 520 500 470 Intake, IV 20 Intake, Oral 120 480 480 520 600 450 Number 1 0 Bowel Movements Output, Other 1 Output, Urine 100 Patient 240 lb 233 lb 240 lb Weight Weight Standing Scale Chair scale Chair scale Measurement Method Physical Exam: General: Well-developed, obese black male in no distress Skin: No rash or jaundice HEENT: Conjunctivae pink, sclerae anicteric, mucous membranes moist Neck: Without masses or thyromegaly, no supraclavicular or cervical adenopathy; right IJ catheter site benign Chest: Clear anterolaterally Heart: Regular rate and rhythm without S3 or rub Abdomen: Obese, soft and nontender without palpable masses or organomegaly Extremities: 1-2+ peripheral edema, no livedo, left upper arm AVF patent Neuro: No focal findings, no asterixis or myoclonus Current Medications: Current Medications Sig/Cole Start time Last Medication Dose Route Stop Time Status Admin Acetaminophen 650 MG Q6P PRN 08/14 1900 AC 08/20 PO 0424 Acetaminophen 1,000 MG Q6P PRN 08/14 1900 AC IV Aspirin 81 MG DAILY 08/18 1000 AC 08/21 PO 1331 Atorvastatin Calcium 20 MG 1700 08/18 1700 AC 08/21 PO 1741 Carvedilol 50 MG BID 08/15 1000 AC 08/21 PO 2202 Cholecalciferol 1,000 IU DAILY 08/15 1000 AC 08/21 PO 1332 Epoetin [place] 4,000 UNIT MoWeFr PRN 08/21 0830 AC IV Insulin Aspart 0 TIDAC 08/20 1700 AC 08/21 SC 1742 Latanoprost 1 GTT QPM 08/15 2200 AC 08/21 OPH 2146 Levothyroxine Sodium 0.025 MG DAILY AC 08/15 0700 AC 08/22 PO 0657 Lidocaine 1 PAT DAILY 08/18 1000 AC 08/21 EXT 1331 Metoclopramide HCl 10 MG Q6P PRN 08/14 2230 AC 08/18 IV 0641 Multivitamins 1 TAB DAILY 08/19 1035 AC 08/21 PO 1332 Oxycodone HCl 10 MG Q6P PRN 08/14 1900 AC 08/22 PO 0806 Phenol 2 SPRAY Q2P PRN 08/17 0915 AC EXT Repaglinide 1 MG AC 08/20 0845 AC 08/21 PO 1741 Sevelamer Carbonate 800 MG 0800,1200,1700 08/15 0800 AC 08/21 PO 1742 Results Pertinent Lab Results: Laboratory Tests 08/22 08/22 08/21 0740 0705 1140 Chemistry Sodium (137 - 145 mmol/L) 138 Potassium (3.5 - 5.1 mmol/L) 4.6 Chloride (98 - 107 mmol/L) 99 Carbon Dioxide (22 - 30 mmol/L) 25 Anion Gap (5 - 16) 13 BUN (9 - 20 mg/dL) 53 H 35 H Creatinine (0.7 - 1.2 mg/dL) 4.3 H Estimated GFR (>60 ml/min) 14 L BUN/Creatinine Ratio (7 - 25 %) 12.3 Calcium (8.4 - 10.2 mg/dL) 7.2 L Coagulation PT (9.4 - 12.5 SEC) 44.8 *H INR (0.90 - 1.17) 4.33 *H Hematology CBC w Diff MAN DIFF ORDERED WBC (4.8 - 10.8 /CUMM) 7.6 RBC (4.70 - 6.10 /CUMM) 3.37 L Hgb (14.0 - 18.0 G/DL) 10.2 L Hct (42 - 52 %) 32.3 L MCV (80.0 - 94.0 FL) 95.9 H MCH (27.0 - 31.0 PG) 30.4 RDW (11.5 - 14.5 %) 20.7 H Plt Count (130 - 400 /CUMM) 136 MPV (7.4 - 10.4 FL) 9.1 Gran % (42.2 - 75.2 %) 78.7 H Lymphocytes % (20.5 - 51.1 %) 10.1 L Monocytes % (1.7 - 9.3 %) 9.8 H Eosinophils % (0 - 5 %) 1.1 Basophils % (0.0 - 2.0 %) 0.3 Absolute Granulocytes (1.4 - 6.5 /CUMM) 6.0 Segmented Neutrophils (42.2 - 75.2 %) 80 H Absolute Lymphocytes (1.2 - 3.4 /CUMM) 0.8 L Lymphocytes (20.5 - 51.1 %) 12 L Monocytes (1.7 - 9.3 %) 5 Absolute Monocytes (0.10 - 0.60 /CUMM) 0.7 H Eosinophils (0 - 5.0 %) 3 Absolute Eosinophils (0.0 - 0.7 /CUMM) 0.1 Absolute Basophils (0.0 - 0.2 /CUMM) 0 Nucleated RBCs (0.0 - 0.0 /100WBC) 5 H Platelet Estimate (ADEQUATE) VERIFIED BY SMEAR Polychromasia 1+ Poikilocytosis 1+ Anisocytosis 1+ Ovalocytes FEW PUBS MCHC (33.0 - 37.0 G/DL) 31.7 L 05/03 05/03 0800 0730 Chemistry Sodium (137 - 145 mmol/L) 135 L 134 L Potassium (3.5 - 5.1 mmol/L) 4.8 4.7 Chloride (98 - 107 mmol/L) 97 L 98 Carbon Dioxide (22 - 30 mmol/L) 23 20 L Anion Gap (5 - 16) 15 16 BUN (9 - 20 mg/dL) 100 H 96 H Creatinine (0.7 - 1.2 mg/dL) 6.1 *H 6.1 *H Estimated GFR (>60 ml/min) 9 L 9 L BUN/Creatinine Ratio (7 - 25 %) 16.4 15.7 Calcium (8.4 - 10.2 mg/dL) 7.2 L Phosphorus (2.5 - 4.5 mg/dL) 6.4 H Magnesium (1.6 - 2.3 mg/dL) 2.4 H Albumin (3.5 - 5.0 g/dL) 3.2 L Coagulation PT (9.4 - 12.5 SEC) 65.9 *H INR (0.90 - 1.17) 6.39 *H Hematology CBC w Diff MAN DIFF ORDERED NO MAN DIFF REQ WBC (4.8 - 10.8 /CUMM) 7.6 8.0 RBC (4.70 - 6.10 /CUMM) 3.27 L 3.32 L Hgb (14.0 - 18.0 G/DL) 10.0 L 10.2 L Hct (42 - 52 %) 31.0 L 31.5 L MCV (80.0 - 94.0 FL) 94.8 H 95.1 H MCH (27.0 - 31.0 PG) 30.6 30.8 RDW (11.5 - 14.5 %) 19.3 H 19.8 H Plt Count (130 - 400 /CUMM) 149 150 MPV (7.4 - 10.4 FL) 9.1 8.7 Gran % (42.2 - 75.2 %) 78.4 H 75.6 H Lymphocytes % (20.5 - 51.1 %) 10.9 L 12.1 L Monocytes % (1.7 - 9.3 %) 9.1 10.4 H Eosinophils % (0 - 5 %) 1.3 1.7 Basophils % (0.0 - 2.0 %) 0.3 0.2 Absolute Granulocytes (1.4 - 6.5 /CUMM) 5.9 6.0 Segmented Neutrophils (42.2 - 75.2 %) 81 H Absolute Lymphocytes (1.2 - 3.4 /CUMM) 0.8 L 1.0 L Lymphocytes (20.5 - 51.1 %) 10 L Monocytes (1.7 - 9.3 %) 9 Absolute Monocytes (0.10 - 0.60 /CUMM) 0.7 H 0.8 H Absolute Eosinophils (0.0 - 0.7 /CUMM) 0.1 0.1 Absolute Basophils (0.0 - 0.2 /CUMM) 0 0 Nucleated RBCs (0.0 - 0.0 /100WBC) 4 H Platelet Estimate (ADEQUATE) ADEQUATE Hypochromic-Microcytic 1+ Poikilocytosis 1+ Anisocytosis 1+ Stomatocytes RARE [place] Cells FEW PUBS MCHC (33.0 - 37.0 G/DL) 32.3 L 32.3 L 05/02 0910 Coagulation PT (9.4 - 12.5 SEC) 57.5 *H INR (0.90 - 1.17) 5.57 *H
--- NOTE | 2016-08-22 11:17 | Patient Discharge Instructions ---
Discharge Instructions General Discharge Information You were seen/treated for: - Kidney disease requring dialsysis - Diabetes You had these procedures: Hemodialysis Watch for these problems: -chest pain, shortness of breath - worsening leg swelling - lightheadness, dizziness Special Instructions: Please see your PCP within one week of discarge Please see your faculty physician within one week of discharge. Please see your carrier driver within one week of discharge. Please follow your hemodialysis schedule which is Friday, , Friday. Please talk to your faculty physician to confirm the days. Please have them check the INR and relay this information to the carrier driver for advise on dosing. Please call your carrier driver for advice on dosing the coumadin. Please take 2.5mg of coumadin on friday ie. 08/24/16 as per your cadiologist. Please check your blood glucose twice daily and please report the numbers to Dr. Hernandez's office, to guide adjustment of repaglinide. Acute Coronary Syndrome Inclusion Criteria At DC or during hospital stay patient has or had the following: ACS DIAGNOSIS No Discharge Core Measures Meds if any: Prescribed or Continued at Discharge Meds if any: NOT Prescribed or Continued at Discharge Congestive Heart Failure Inclusion Criteria At DC or during hospital stay patient has or had the following: CHF DIAGNOSIS No Discharge Core Measures Meds if any: Prescribed or Continued at Discharge Meds if any: NOT Prescribed or Continued at Discharge Cerebrovascular accident Inclusion Criteria At DC or during hospital stay patient has or had the following: CVA/TIA Diagnosis No Discharge Core Measures Meds if any: Prescribed or Continued at Discharge Meds if any: NOT Prescribed or Continued at Discharge Venous thromboembolism Inclusion Criteria VTE Diagnosis No VTE Type NONE VTE Confirmed by (Test) NONE Discharge Core Measures - Per Current guidelines, there needs to be overlap - treatment for the first 5 days of Warfarin therapy. - If discharged on Warfarin prior to 5 days of - overlap therapy, the patient will need to be - assessed for post discharge needs including - *Post discharge parental anticoagulation - *Warfarin and/or parental anticoagulation education - *Follow up date to check INR post discharge At least 5 days overlap therapy as Inpatient No Meds if any: Prescribed or Continued at Discharge Note: Overlap Therapy is Warfarin and Anticoagulant Meds if any: NOT Prescribed or Continued at Discharge
[2016-08-22] MEDS ORDERED: ATORVASTATIN CA20 M1 PO (11:21)
[2016-08-22] MEDS ORDERED: CARVEDILOL25 M1 PO (11:21)
[2016-08-22 11:47] VITALS: BP 124/70
[2016-08-22 11:57] VITALS: BP 124/70
== END 2016-08-22 17:15 | disposition home health service (06) | DRG 981 ==
LOC: DELPENDDIS → ERH 15:09 → ERHI 18:12 → 1NO 18:12 → ENRESERV 21:43 → 1NO 22:43 → ENPENDDIS 08-20 17:32 → 1NO 08-22 08:31 → ENPENDDIS 08-22 14:33 → 1NO 08-22 17:15
PROVIDERS: Emergency Medicine; Internal Medicine; Internal Medicine Endocrinology, Diabetes & Metabolism; Internal Medicine Nephrology; Student in an Organized Health Care Education/Training Program; ADMIT Student in an Organized Health Care Education/Training Program
PROC: B513ZZA Fluoroscopy of Right Jugular Veins, Guidance (ICD-10-PCS; principal; 2016-08-16)
PROC: 057Y3ZZ Dilation of Upper Vein, Percutaneous Approach (ICD-10-PCS; principal; 2016-08-16)
PROC: B513YZZ Fluoroscopy of Right Jugular Veins using Other Contrast (ICD-10-PCS; principal; 2016-08-16)
PROC: 05HM33Z Insertion of Infusion Device into Right Internal Jugular Vein, Percutaneous Approach (ICD-10-PCS; principal; 2016-08-16)
PROC: 5A1D60Z (ICD-10-PCS; 2016-08-17)
DX: I12.0 Hypertensive chronic kidney disease with stage 5 chronic kidney disease or end stage renal disease (principal); N18.6 End stage renal disease; N17.9 Acute kidney failure, unspecified; I42.9 Cardiomyopathy, unspecified; E11.65 Type 2 diabetes mellitus with hyperglycemia; I48.92 Unspecified atrial flutter; E11.22 Type 2 diabetes mellitus with diabetic chronic kidney disease; Z79.4 Long term (current) use of insulin; Z96.41 Presence of insulin pump (external) (internal); D64.9 Anemia, unspecified; E11.319 Type 2 diabetes mellitus with unspecified diabetic retinopathy without macular edema; J44.9 Chronic obstructive pulmonary disease, unspecified; E03.9 Hypothyroidism, unspecified; E55.9 Vitamin D deficiency, unspecified; Z99.2 Dependence on renal dialysis
CPT/HCPCS: 1NP; 36415; 73060-LT; 74022; 74230; 81001; 82436; 86803; 93005; 93010; 93306; 94799; 96365; 96375; 97161-GP; 99291; C1725; C1752; J0131; J0690; J0885; J1100; J1644; J1815; J2405; J2765; J3490; Q9967

== ENCOUNTER 2016-10-06 02:43 | Inpatient (IN) | payer OTHER, MEDICARE ==
[~2016-10-06] VITALS: Ht 167.6 cm; Wt 103.0 kg
[~2016-10-06 02:43] MED LIST changes: +ADVAIR 100-501 EACH INH; +ALLOPURINOL300 M1 PO; +ATORVASTATIN CA20 M1 PO; +CALCITRIOL0.25 MC1 PO; +CARVEDILOL25 M1 PO; +COREG25 M1 PO; +COUMADIN2.5 M1 PO; +NEPHRO-VITE TA0.8 MG PO; +PRANDIN1 M1 PO; +PROCRIT20000 UNIT IV; +VGO 201 EACH; +VITAMIN D1000 UNIT PO
--- NOTE | 2016-10-06 02:49 | NUR ---
PT BIBA FROM HOME C/O BACK, SHOULDER , AND LEG PAIN. PT STATES THAT SINCE FRIDAY HE HAS HAD 10/10 NECK, BACK, AND SHOULDER PAIN, PT DENIES TRAUMA OR FALLS. PT STATES THAT AROUND 2300 HE SAY UP IN BED AND HIS GAVE HIM AN OXYCOTIN WHICH HELPED FOR A LITTLE BIT, THEN PT AWOKE IN PAIN AND WAS UNABLE TO GO BACK TO SLEEP. PT IS A DIALYSIS PT WITH A FISTULA IN [place]. RESTRICTED EXT BRACELET APPLIED. PT GRUNTING IN PAIN. AWAITING PROVIDER SAVANNA
[2016-10-06 03:39] LABS: ABSOLUTE BASOPHIL COUNT 0 /CUMM (0.0-0.2); ABSOLUTE EOSINOPHIL COUNT 0 /CUMM (0.0-0.7); ABSOLUTE GRANULOCYTE CT 19.6 /CUMM (1.4-6.5); ABSOLUTE LYMPH COUNT 0.5 /CUMM (1.2-3.4); ABSOLUTE MONOCYTE COUNT 1.2 /CUMM (0.10-0.60); BASOPHIL % 0 % (0.0-2.0); EOSINOPHIL % 0.1 % (0-5); GRANULOCYTE % 92.2 % (42.2-75.2); HEMATOCRIT 34.6 % (42-52); MEAN CORPUSCULAR HGB 31.2 PG (27.0-31.0); MEAN CORPUSCULAR VOLUME 97.6 FL (80.0-94.0); MEAN PLATELET VOLUME 8.1 FL (7.4-10.4); PLATELET COUNT 146 /CUMM (130-400); RBC DISTRIBUTION WIDTH 21.1 % (11.5-14.5); RED BLOOD CELL CT 3.54 /CUMM (4.70-6.10); WHITE BLOOD CELL COUNT 21.2 /CUMM (4.8-10.8)
--- NOTE | 2016-10-06 03:49 | NUR ---
PT MEDICATED WITH 5MG VALIUM IV PER EMAR. PT RESTING WITH 24 R, NO COMPLAINTS.
--- NOTE | 2016-10-06 04:14 | ED GENERAL ADULT ---
History of Present Illness General Chief Complaint: General Adult Stated Complaint: BIBA MULTI COMP, NO INJURY PER PT C/O BACK,HIP EVELYNE Source: patient, old records, EMS Exam Limitations: no limitations Vital Signs & Intake/Output Vital Signs & Intake/Output Vital Signs Date Time Temp Pulse Resp B/P B/P Pulse O2 O2 Flow FiO2 Mean Ox Delivery Rate 10/06 0932 99.1 113 22 122/00 93 Nasal 2.0L Cannula 10/06 0908 94 Nasal 2.0L Cannula 10/06 0907 99.1 10/06 0906 114 20 102/00 94 Nasal 2.0L Cannula 10/06 0839 115 22 96/00 95 Nasal 2.0L Cannula 10/06 0804 99.1 116 22 98/00 95 Nasal 2.0L Cannula 10/06 0251 98 Room Air 10/06 0246 98.1 117 18 122/61 95 Room Air Allergies Coded Allergies: NO KNOWN ALLERGIES (06/10/14) Reconcile Medications Allopurinol 300 MG TABLET 1 TAB PO DAILY GOUT (Reported) Aspirin (Ecotrin*) 81 MG TABLET.DR 1 TAB PO DAILY heart health (Reported) Atorvastatin Calcium 20 MG TABLET 20 MG PO 1700 heart health Carvedilol 25 MG TABLET 50 MG PO BID heart health Cholecalciferol (Vitamin D3) (Vitamin D) 1,000 UNIT TABLET 1 TAB PO DAILY SUPPLEMENT (Reported) Epoetin Kameron (Procrit) 20,000 UNIT/ML VIAL 1 UNIT IV Q 3 WEEKS ANEMIA ( Reported) Fluticasone-Salmeterol (Advair 100-50 Diskus) 100 MCG-50 MCG/DOSE BLST.W.DEV 1 PUF INH BID ASTHMA (Reported) Isosorbide Monitrate Sr (Imdur 60MG Tab) 60 MG TAB 2 TAB PO DAILY HEART HEALTH Latanoprost (Xalatan) 2.5 ML DROPS 1 GTT OPH QPM BOTH EYES (Reported) Nephro-Vitamins (Nephro-Geri Tablet) 0.8 MG TABLET 1 TAB PO DAILY renal health Oxycodone HCl/Acetaminophen (Percocet 5-325 MG Tablet) 1 EACH TABLET 1-2 TAB PO Q6P PRN pain Repaglinide (Prandin) 1 MG TABLET 1 MG PO AC diabetes Please take your medication before meals. If you skip meals, please dont take this medication. It will cause hypoglycemia. Sevelamer Carbonate (Renvela) 800 MG TABLET KIDNEY HEALTH (Reported) Warfarin Sodium (Coumadin) 2.5 MG TABLET 1 TAB PO DAILY heart health Please dose coumadin as per INR. Please contact your PCP or take out waiter/waitress for correct dosing. Core Measure Meds Pre-Hospital coumadin Triage Note: PT BIBA FROM HOME C/O BACK, SHOULDER , AND LEG PAIN. PT STATES THAT SINCE FRIDAY HE HAS HAD 10/10 NECK, BACK, AND SHOULDER PAIN, PT DENIES TRAUMA OR FALLS. PT STATES THAT AROUND 2300 HE SAY UP IN BED AND HIS GAVE HIM AN OXYCOTIN WHICH HELPED FOR A LITTLE BIT, THEN PT AWOKE IN PAIN AND WAS UNABLE TO GO BACK TO SLEEP. PT IS A DIALYSIS PT WITH A [employer] IN [place]. RESTRICTED EXT BRACELET APPLIED. PT GRUNTING IN PAIN. AWAITING PROVIDER EVAL Triage Nurses Notes Reviewed? yes Onset: 2 days Duration: day(s):, constant, changing over time, continues in ED, getting worse Timing: recent history Injury Environment: home Severity: severe Modifying Factors: Improves With: immobilization. Worsens With: movement. Associated Symptoms: back pain HPI: 2 days prior to admission patient complains of bilateral shoulder pain worse with movement turning bending constant nonradiating. He also complains of low back and right hip pain moderate severity also worse with movement turning bending. He took oxycodone prior to admission with little relief. He denies fever chills nausea vomiting diarrhea abdominal pain chest pain shortness of breath headache dysuria rash bleeding. (LISA CANO,PAYAL) Past History Travel History Traveled to [place] past 21 day No Medical History Any Pertinent Medical History? 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 There is also an excision of a retained foreign object. This was in May 2012. Psychosocial History Who do you live with Spouse Services at Home None What is your primary language [place] Tobacco Use: Never used ETOH Use: occasional use Illicit Drug Use: denies illicit drug use Family History Family History, If Any: MOTHER Diabetes mellitus (DM) Relation not specified for: Cerebrovascular accident in mother Hx Contributory? No (PAYAL GONZALEZ MD) Review of Systems Review of Systems Constitutional: Reports: no symptoms. EENTM: Reports: no symptoms. Respiratory: Reports: no symptoms. Cardiovascular: Reports: no symptoms. GI: Reports: no symptoms. Genitourinary: Reports: no symptoms. Musculoskeletal: Reports: see HPI, joint pain, muscle pain. Skin: Reports: no symptoms. Neurological/Psychological: Reports: no symptoms. Hematologic/Endocrine: Reports: no symptoms. Immunologic/Allergic: Reports: no symptoms. All Other Systems: Reviewed and Negative (PAYAL GONZALEZ MD) Physical Exam Physical Exam General Appearance: well developed/nourished, alert, awake, anxious, severe distress, obese Head: atraumatic, normal appearance Eyes: Bilateral: normal appearance, EOMI. Ears, Nose, Throat: normal pharynx, normal ENT inspection, hearing grossly normal Neck: normal inspection, supple, full range of motion, no midline tenderness Respiratory: normal breath sounds, chest non-tender, no respiratory distress, quiet respiration, lungs clear Cardiovascular: regular rate/rhythm, normal peripheral pulses, norml femoral pulses equa Peripheral Pulses: 4+ carotid (R), 4+ carotid (L) Gastrointestinal: normal bowel sounds, soft, non-tender, no organomegaly Back: normal inspection, decreased range of motion Extremities: normal inspection, normal capillary refill, limited range of motion (right hip) Neurologic/Psych: no motor/sensory deficits, awake, alert, curriculum development specialist II-XII nml as tested Reflexes: 4+: bicep (R), bicep (L). Skin: intact, normal color, warm/dry Lymphatic: no anterior cervical carmen Core Measures ACS in differential dx? No CVA/TIA Diagnosis: No Severe Sepsis Present: No Septic Shock Present: No (PAYAL GONZALEZ MD) Core Measures Severe Sepsis Present: Yes BC x2: Yes Lactic Acid x2: Yes IV ABX Broad Spectrum: Yes NS/LR Started: Yes (JILLIAN CANO,HAYDEN Ewing) Progress Differential Diagnoses I considered the following diagnoses in my evaluation of the patient: Musculoskeletal strain electrolyte abnormality diabetic neuropathy Plan of Care: Orders Procedure Date/time Status Renal Dialysis Diet 10/06 L Active LACTIC ACID 10/06 1127 Active BLOOD CULTURE 10/06 1001 Active TROPONIN LEVEL 10/06 1001 Active EKG 10/06 0924 Active WESTERGREN SED RATE 10/06 0912 Active TRC EVALUATION (GEN) 10/06 0851 Active OXYGEN SETUP (GEN) 10/06 0851 Active Pathway - chart 10/06 0851 Active House Staff 10/06 0851 Active Patient Data 10/06 0851 Active Code Status 10/06 0851 Active Patient Data 10/06 0848 Active Misc Message 10/06 0847 Active ED Holding Orders 10/06 0847 Active Vital Signs 10/06 0847 Active Code Status 10/06 0847 Complete Admit to inpatient 10/06 0841 Active BLOOD CULTURE 10/06 0827 Active LACTIC ACID 10/06 0827 Complete URINALYSIS 10/06 0505 Active URIC ACID 10/06 0324 Complete MAGNESIUM 10/06 0324 Complete COMPREHENSIVE METABOLIC PANEL 10/06 0324 Complete CBC WITHOUT DIFFERENTIAL 10/06 0324 Complete VTE Mechanical Prophylaxis 10/06 UNK Active Vital Signs 10/06 UNK Active MISTAKE 10/06 UNK Active Intake & Output 10/06 UNK Active Hemoccult 10/06 UNK Active FingerStick- Glucose 10/06 UNK Active Current Medications Sig/Cole Start time Last Medication Dose Stop Time Status Admin Insulin Aspart 0 TIDAC 10/06 1200 AC (NovoLOG) Laboratory Tests 10/06/16 0850: Lactic Acid 1.2, ESR Westergren Pending 10/06/16 0330: Anion Gap 10, Estimated GFR 16 L, BUN/Creatinine Ratio 9.5, Glucose 117 H, Uric Acid 3.1 L, Calcium 8.8, Magnesium 1.8, Total Bilirubin 1.0, AST 16 L, ALT 49, Alkaline Phosphatase 76, Total Protein 6.4, Albumin 3.3 L, Globulin 3.1 , Albumin/Globulin Ratio 1.1, CBC w Diff MAN DIFF ORDERED, RBC 3.54 L, MCV 97.6 H, MCH 31.2 H, RDW 21.1 H, MPV 8.1, Gran % 92.2 H, Lymphocytes % 2.2 L, Monocytes % 5.5, Eosinophils % 0.1, Basophils % 0 L, Absolute Granulocytes 19.6 H, Segmented Neutrophils 91 H, Band Neutrophils 3, Absolute Lymphocytes 0.5 L , Lymphocytes 5 L, Monocytes 1 L, Absolute Monocytes 1.2 H, Absolute Eosinophils 0, Absolute Basophils 0, Platelet Estimate ADEQUATE, Polychromasia 1 +, Hypochromic-Microcytic 1+, Poikilocytosis 1+, Anisocytosis 2+, Microcytic Cells 1+, Macrocytic Cells 1+, Brant Cells FEW, Elliptocytes 1+, Schistocytes FEW , PUBS MCHC 32.0 L Microbiology 10/06 0910 BLOOD: Blood Culture - RECD 10/06 0850 BLOOD: Blood Culture - RECD Diagnostic Imaging: Viewed by Me: Radiology Read. Discussed w/RAD: Radiology Read. CXR Impression: Suboptimal assessment of the lungs, without definite consolidation. Enlarged cardiac silhouette. Initial ED EKG: none Hand-Off Endorsed To: HAYDEN WALSH MD Endorsed Time: 711 Pending: CT, other (LISA CANO,PAYAL) Differential Diagnoses I considered the following diagnoses in my evaluation of the patient: Radiology Impression: PATIENT: ORALIA SHI PRESENT AGE: 61 PATIENT ACCOUNT NO: [id number] : 54 LOCATION: [facility] ORDERING PHYSICIAN: PAYAL GONZALEZ MD SERVICE DATE: 10/06/16 EXAM TYPE: CAT - CT LUMB SPINE WO IV CONTRAST EXAMINATION: CT LUMBAR SPINE WITHOUT CONTRAST CLINICAL INFORMATION: Right hip pain COMPARISON: None TECHNIQUE: Helical non-contrast CT images were obtained through the lumbar spine and 1.25 and 2.5 mm axial reconstructions were reviewed along with sagittal and coronal MPRs. DLP: 1369.89 mGy-cm FINDINGS: There is anatomic alignment of the lumbar vertebral bodies and posterior elements. Vertebral body heights are maintained. Intervertebral disc spaces are relatively well preserved. A small amount of vacuum disc phenomenon is noted at L5-S1. Multilevel endplate osteophytes are present, most prominently at the superior endplate of L5, where there is also chronic appearing cystic change. No acute fracture is seen. No specific findings for osteomyelitis. There is facet arthropathy of the mid to lower lumbar spine. There is partial fusion of the right sacroiliac joint anteriorly. Visualized portions of the hips appear unremarkable. Scattered vascular calcification is noted. IMPRESSION: No acute findings identified in the lumbar spine. Chronic appearing degenerative changes as described above. Partial fusion of the right sacroiliac joint. DICTATED BY: RYAN MOJICA MD DATE/TIME DICTATED:10/06/16656 STERILE SUPERVISOR:[place] DATE/TIME TRANSCRIBED:10/06/16656 CONFIDENTIAL, DO NOT COPY WITHOUT APPROPRIATE AUTHORIZATION. <Electronically signed in Other Vendor System> SIGNED BY: RYAN MOJICA MD 10/06/16 0707 Comments: 10/06/2016 7:35:28 AM patient signed out to me by Dr. Gonzalez at shift change coordinator. Patient has a sudden elevation in white blood cell count, the etiology is unclear. I have added an erythrocyte sedimentation rate. 10/06/2016 8:22:50 AM I have reevaluated oralia. He is still experiencing severe bilateral shoulder and right hip pain. His blood pressure currently is 98 over palp and his temperature is 99.1. He has a mild tachycardia. I will give a small fluid bolus (patient has a history of renal insufficiency so fluids must be given judiciously). I will begin the admission process given the elevated white blood cell count raising the suspicion for as yet unknown source of inflammation or infection. I feel I should hold on any IV narcotic pain relievers until patient's blood pressure is repeated. 10/06/2016 10:02:15 AM I was contacted by Dr. elizabeth regarding episode of ventricular tachycardia while the house staff was evaluating oralia. According to his nurse the patient was apparently asymptomatic during the episode. He is currently in a sinus rhythm and most recent blood pressure showed a systolic of 122 over palp. (JILLIAN CANO,HAYDEN Ewing) Departure Departure Disposition: STILL A PATIENT Condition: Stable Clinical Impression Primary Impression: Hip pain, right Secondary Impressions: Back pain Qualifiers: Back pain location: low back pain Chronicity: acute Back pain laterality: right Sciatica presence: without sciatica Qualified Code: M54.5 - Low back pain Leukocytosis, unspecified Referrals: ELLIS CANO,RODNEY Farias (PCP/Family) Departure Forms: Customer Survey General Discharge Information (LISA CANO,PAYAL) Admission Note Spoke With: HALIMA ELIZABETH M.D Documentation of Exam: Documentation of any treatments & extenuating circumstances including Concerns Regarding Discharge (functional status, medication knowledge or non-compliance, living conditions, etc.) that warrant an admission rather than observation: Patient presented for severe bilateral shoulder pain and right hip pain. He has a dramatically elevated white blood cell count compared to previous, the etiology of which is unclear at this point. His temperature has elevated during his emergency department stay (although he remains afebrile) I'm becoming concerned for early sepsis. However an inflammatory process such as an autoimmune disorder also be considered. I do not feel the patient is a good candidate for outpatient management. The etiology of the patient's signs and symptoms unclear in its difficult to predict his course. Given his history of diabetes and renal insufficiency, he is relatively immune compromised and at greater risk of sepsis, severe sepsis, septic shock and mortality. I feel he now requires a more aggressive management with IV antibiotics and close clinical monitoring. White blood cell count should be followed and culture results should be evaluated and treated accordingly. Infectious disease consultation should be obtained to determine if there is an underlying infectious etiology. Rheumatology or endocrinology consultation should also be considered given the possibility of an underlying autoimmune or other inflammatory disorder. i Feel this patient will require a multiple day hospitalization. (JILLIAN CANO,HAYDEN Ewing) Critical Care Note Critical Care Note Critical Care Time: non-applicable (LISA CANO,PAYAL) Critical Care Note Critical Care Time: 30-74 min (HAYDEN WALSH MD)
--- NOTE | 2016-10-06 05:46 | NUR ---
PT ASKED TO PROVIDE A URINE SPECIMEN, PT STATES " I DONT HAVE TO GO RIGHT NOW, I GO IN THE MORNING" ISABELLA MORRISON ASKED PT IF A STRAIGH CATHETER WOULD ASSIST, PT REFUSED
--- NOTE | 2016-10-06 06:09 | RADIOLOGY REPORT ---
EXAMINATION: XR PORTABLE CHEST CLINICAL INFORMATION: Back and body pain COMPARISON: 08/18/2016 TECHNIQUE: Portable frontal view of the chest was obtained. FINDINGS: Right IJ dual-lumen catheter tip lies at the level of the cavoatrial junction. There is mild elevation of the right hemidiaphragm. No definite consolidation. No evidence of pneumothorax or pleural effusion. A component of central vascular congestion cannot be excluded. The cardiac silhouette remains enlarged. No acute osseous findings are seen. IMPRESSION: Suboptimal assessment of the lungs, without definite consolidation. Enlarged cardiac silhouette.
--- NOTE | 2016-10-06 06:46 | NUR ---
PT MEDICATED WITH 2.5MG VALIUM IV AND IV TYLENOL PER EMAR. PT TO AND FROM CT SCAN WITH THE ASSISTANCE OF THIS RN.
--- NOTE | 2016-10-06 06:47 | NUR ---
PT STILL STATING HE IS UNABLE TO GIVE URINE SPECIMEN
--- NOTE | 2016-10-06 07:07 | CT SCAN REPORT ---
EXAMINATION: CT LUMBAR SPINE WITHOUT CONTRAST CLINICAL INFORMATION: Right hip pain COMPARISON: None TECHNIQUE: Helical non-contrast CT images were obtained through the lumbar spine and 1.25 and 2.5 mm axial reconstructions were reviewed along with sagittal and coronal MPRs. DLP: 1369.89 mGy-cm FINDINGS: There is anatomic alignment of the lumbar vertebral bodies and posterior elements. Vertebral body heights are maintained. Intervertebral disc spaces are relatively well preserved. A small amount of vacuum disc phenomenon is noted at L5-S1. Multilevel endplate osteophytes are present, most prominently at the superior endplate of L5, where there is also chronic appearing cystic change. No acute fracture is seen. No specific findings for osteomyelitis. There is facet arthropathy of the mid to lower lumbar spine. There is partial fusion of the right sacroiliac joint anteriorly. Visualized portions of the hips appear unremarkable. Scattered vascular calcification is noted. IMPRESSION: No acute findings identified in the lumbar spine. Chronic appearing degenerative changes as described above. Partial fusion of the right sacroiliac joint.
--- NOTE | 2016-10-06 08:00 | NUR ---
PT REFUSED BLOOD WORK AT THIS TIME NURSE INFORMED
--- NOTE | 2016-10-06 08:41 | NUR ---
PT COMPLAINS OF SEVERE BACK PAIN. PT ALSO 98/00 PALP WITH DOPPLER FOR BP. PT MENTATING APPROPRIATELY, COMMUNICATING WITH THIS RN, A/O X4. ATTEMPTED TO GIVE URINE SAMPLE, "I CAN'T GO BECAUSE I HAVEN'T HAD MY WATER PILLS YET." PT ALSO NOTED TO BE SLIGHTLY HYPOXIC 85-89% ON RA. PLACED ON 2L NC OXYGEN. WILL CONTINUE TO MONITOR.
--- NOTE | 2016-10-06 08:49 | History & Physical ---
TIMACORI DYER 10/06/16 0848: General Information and HPI MD Statement: I have seen and personally examined TIFFANI SANTIAGO and documented this H&P. The patient is a 61 year old M who presented with a patient stated chief complaint of []. Source of Information: patient, old records History of Present Illness: Mr. Santiago is a 61-year-old male with PMH significant for diabetes, end-stage renal disease on hemodialysis(Friday//Friday) via right internal jugular vein tunneled dialysis catheter, (also has Left arm AV fistula in place) , nonischemic cardiomyopathy, HfREF, A.flutter on warfarin(On hold since for bleeding), hypertension who presents to the hospital for shoulder pain since Friday. According to the patient, he started having this pain on Friday. He describes the pain as 8/10 dull which starts between his shoulder blades without radiation. He denies any history of fall, or trauma. He reports an episode of nonbloody emesis night. Denies any fever, chills, chest pain, shortness of breath, nausea, vomiting, abdominal pain. The patient was admitted to [facility] from 08/14/16 to 09/02/2016 for ROSA and atrial flutter. He was started on warfarin. His warfarin and aspirin was discontinued on because he was bleeding from his right IJ catheter. His right IJ catheter was placed on 08/16/2016. Per patient, it was changed last week. While in the ED, the patient became hypotensive; systolic blood pressure in 80s and received 500 mL of IV normal saline bolus. Blood pressure at the time of our interview was in sys 100s(via Doppler). Allergies/Medications Allergies: Coded Allergies: NO KNOWN ALLERGIES (06/10/14) Home Med list Allopurinol 300 MG TABLET 1 TAB PO DAILY GOUT (Reported) Aspirin (Ecotrin*) 81 MG TABLET. 1 TAB PO DAILY heart health (Reported) Atorvastatin Calcium 20 MG TABLET 20 MG PO 1700 heart health Carvedilol 25 MG TABLET 50 MG PO BID heart health Cholecalciferol (Vitamin D3) (Vitamin D) 1,000 UNIT TABLET 1 TAB PO DAILY SUPPLEMENT (Reported) Epoetin Kameron (Procrit) 20,000 UNIT/ML VIAL 1 UNIT IV Q 3 WEEKS ANEMIA ( Reported) Fluticasone-Salmeterol (Advair 100-50 Diskus) 100 MCG-50 MCG/DOSE BLST.W.DEV 1 PUF INH BID ASTHMA (Reported) Isosorbide Monitrate Sr (Imdur 60MG Tab) 60 MG TAB 2 TAB PO DAILY HEART HEALTH Latanoprost (Xalatan) 2.5 ML DROPS 1 GTT OPH QPM BOTH EYES (Reported) Nephro-Vitamins (Nephro-Geri Tablet) 0.8 MG TABLET 1 TAB PO DAILY renal health Oxycodone HCl/Acetaminophen (Percocet 5-325 MG Tablet) 1 EACH TABLET 1-2 TAB PO Q6P PRN pain Repaglinide (Prandin) 1 MG TABLET 1 MG PO AC diabetes Please take your medication before meals. If you skip meals, please dont take this medication. It will cause hypoglycemia. Sevelamer Carbonate (Renvela) 800 MG TABLET KIDNEY HEALTH (Reported) Warfarin Sodium (Coumadin) 2.5 MG TABLET 1 TAB PO DAILY heart health Please dose coumadin as per INR. Please contact your PCP or synthetic cloth binding cutter for correct dosing. 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 There is also an excision of a retained foreign object. This was in May 2012. Past Family/Social History Family History Relations & Conditions if any MOTHER Diabetes mellitus (DM) Relation not specified for: Cerebrovascular accident in mother Psychosocial History Who Do You Live With? spouse Services at Home: None Primary Language: Nauruan ETOH Use: occasional use Illicit Drug Use: denies illicit drug use Functional Ability ADLs Independent: dressing, eating, toileting, bathing. Ambulation: cane IADLs Independent: telephone. Needs Assist: housework, finances, food prep, medication admin. Unknown: shopping, transportation. Review of Systems Review of Systems Constitutional: Reports: weakness. Denies: chills, diaphoresis, fever, malaise, unexplained weight loss. EENTM: Reports: no symptoms. Cardiovascular: Denies: chest pain, edema, orthopena, palpitations, peripheral edema, syncope. Respiratory: Denies: cough, hemoptysis, orthopnea, short of breath, sputum production, stridor, wheezing. GI: Reports: distention, vomiting (on ). Denies: abdominal pain, bloating, constipation, diarrhea, bowel incontinence, melena, nausea, bloody stool, changes in stool, steatorrhea. Genitourinary: Reports: no symptoms. Musculoskeletal: Reports: no symptoms. Skin: Reports: no symptoms. Neurological/Psychological: Reports: no symptoms. Hematologic/Endocrine: Reports: no symptoms. Immunologic/Allergic: Reports: no symptoms. All Other Systems: Reviewed and Negative Exam & Diagnostic Data Last 24 Hrs of Vital Signs/I&O Vital Signs Date Time Temp Pulse Resp B/P B/P Pulse O2 O2 Flow FiO2 Mean Ox Delivery Rate 10/06 0908 94 Nasal 2.0L Cannula 10/06 0907 99.1 10/06 0906 114 20 102/00 94 Nasal 2.0L Cannula 10/06 0839 115 22 96/00 95 Nasal 2.0L Cannula 10/06 0804 99.1 116 22 98/00 95 Nasal 2.0L Cannula 10/06 0251 98 Room Air 10/06 0246 98.1 117 18 122/61 95 Room Air Intake & Output 10/06 1600 10/06 0800 10/06 0000 Intake Total Output Total Balance Patient 230 lb Weight Weight Reported by Patient Measurement Method Physical Exam General Appearance Alert, Cooperative, Moderate Distress Skin No Rashes, No Breakdown, No Significant Lesion, Rt IJ tunneled catheter in place Lt forearm AV fistula noted Skin Temp/Moisture Exam: Warm/Dry Sepsis Skin Exam (color): Normal for Ethnicity HEENT Atraumatic, PERRLA, EOMI, Mucous Membr. moist/pink Neck Supple, No JVD, No thryomegaly, +2 Carotid Pulse wo Bruit, No LAD Lymphatic Axillary nl, Cervical nl Cardiovascular Normal S1, Normal S2, No Murmurs, tachycardic Lungs Clear to Auscultation, Normal Air Movement Abdomen Normal Bowel Sounds, Soft, No Tenderness, No Hepatospenomegaly, No Masses, Distended Neurological Normal Speech, Strength at 5/5 X4 Ext, Normal Tone, Sensation Intact, Cranial Nerves 3-12 NL, Reflexes 2+ Extremities No Clubbing, No Cyanosis, No Edema, Normal Pulses, No Tenderness/ Swelling Vascular Pulses Symmetrical Sepsis Peripheral Pulse Location: Dorsalis Pedis Sepsis Peripheral Pulse Exam: Normal Sepsis Cap Refill Exam: <2 Sec Last 24 Hrs of Labs/Cristi: Laboratory Tests 10/06/16 0850: Lactic Acid Pending, ESR Westergren Pending 10/06/16 0330: Anion Gap 10, Estimated GFR 16 L, BUN/Creatinine Ratio 9.5, Glucose 117 H, Uric Acid 3.1 L, Calcium 8.8, Magnesium 1.8, Total Bilirubin 1.0, AST 16 L, ALT 49, Alkaline Phosphatase 76, Total Protein 6.4, Albumin 3.3 L, Globulin 3.1 , Albumin/Globulin Ratio 1.1, CBC w Diff MAN DIFF ORDERED, RBC 3.54 L, MCV 97.6 H, MCH 31.2 H, RDW 21.1 H, MPV 8.1, Gran % 92.2 H, Lymphocytes % 2.2 L, Monocytes % 5.5, Eosinophils % 0.1, Basophils % 0 L, Absolute Granulocytes 19.6 H, Segmented Neutrophils 91 H, Band Neutrophils 3, Absolute Lymphocytes 0.5 L , Lymphocytes 5 L, Monocytes 1 L, Absolute Monocytes 1.2 H, Absolute Eosinophils 0, Absolute Basophils 0, Platelet Estimate ADEQUATE, Polychromasia 1 +, Hypochromic-Microcytic 1+, Poikilocytosis 1+, Anisocytosis 2+, Microcytic Cells 1+, Macrocytic Cells 1+, Diamante Cells FEW, Elliptocytes 1+, Schistocytes FEW , PUBS MCHC 32.0 L Microbiology 10/06 0850 BLOOD: Blood Culture - RECD 10/06 826 BLOOD: Blood Culture - ORD Diagnostic Data EKG Results SR , Rate 113, Borderline inferior Q waves, non specific T wave abnormalities. QTC 489. CXR Results IMPRESSION: Suboptimal assessment of the lungs, without definite consolidation. Enlarged cardiac silhouette. Other Results EXAMINATION: 10/06/16 CT LUMBAR SPINE WITHOUT CONTRAST IMPRESSION: No acute findings identified in the lumbar spine. Chronic appearing degenerative changes as described above. Partial fusion of the right sacroiliac joint. Assessment/Plan Assessment: Mr. Santiago is a 61-year-old male with PMH significant for diabetes (insulin- dependent), end-stage renal disease on hemodialysis(Friday//Friday) via right internal jugular vein tunneled dialysis catheter, (also has Left arm AV fistula in place), nonischemic cardiomyopathy, HfREF, A.flutter on warfarin( On hold since for bleeding), hypertension who presents to the hospital for shoulder pain since Friday. The patient become hypotensive while in the ED plus resuscitated with 500 mL of IV normal saline. He was found to have leukocytosis to 21.2 with granulocytosis and bandemia. blood cultures were drawn in the ED. Patient received 1 dose of IV vancomycin IV ceftaz. Had an episode of V. tach on quality assurance monitor at the time of our interview, with stable vital signs and no specific complaints. Echocardiogram-08/09/2015 revealed ejection fraction of 35-40%, with global hypokinesis and diastolic dysfunction. Echocardiogram- 08/15/2016 revealed ejection fraction of 20% with global hypokinesis. Right ventricular systolic pressure estimated at 52 mmHg. Mildly dilated right ventricle with moderately reduced systolic function. Chest x-ray and lumbar spine CT was performed which did not show any significant pathology. Problem list: #Intractable pain #ESRD on hemodialysis #HFrEF #History of atrial flutter on warfarin (was on hold prior to admission 2/2 bleeding) #History of hypertension, hypotensive upon admission #Patient has leukocytosis and is tachycardic therefore meets SIRS criteria, source of infection, if any, is unknown at this point. Plan: * bus monitor * Panculture including urine culture and culture from site of right IJ catheter * Will check INR * Will check troponin given questionable ischemic changes on EKG * Fingerstick glucose checks * Will hold oral diabetic agent and maintatin the patient on INS SS * Endocrinology, Nephrology and cardiology consult * Aspirin was held prior to admission because of bleeding at right IJ site; resume aspirin * Patient is on carvedilol 50 mg twice a day, has been tachycardic since admission, and has borderline blood pressure; will resume carvedilol at a lower dose of 25 mg twice a day * Will hold Isosorbide mononitrate given borderline blood pressure * Will hold warfarin until we have INR results and cardiology evaluation * Pain management with IV Tylenol, would be cautious w/opioids given borderline blood pressure * DVT prophylaxis ALPS * Patient is full code * Renal dialysis diet As Ranked By This Provider Problem List: 1. Renal failure 2. SIRS (systemic inflammatory response syndrome) 3. Diabetes 4. Leukocytosis, unspecified 5. Intractable pain Core Measures/Miscellaneous Acute Coronary Syndrome ACS Diagnosis: No Cerebrovascular Accident CVA/TIA Diagnosis: No Congestive Heart Failure CHF Diagnosis: No VTE (View Protocol) VTE Risk Factors: Age > 40 No [facility] VTE prophylaxis d/t: No contraindications No VTE Pharm Prophylaxis d/t: No contraindications VTE Diagnosis: No VTE Type: NONE VTE Confirmed by (Test): NONE Sepsis (View Protocol) Severe Sepsis Present: Yes BC x2: Yes Lactic Acid x2: Yes IV ABX Broad Spectrum: Yes NS/LR Started: Yes Septic Shock Septic Shock Present: No Miscellaneous Documentation Attending Case Discussed With: HALIMA RECINOS M.D Primary Care Physician: RODNEY CORRAL MD Patient sees these Specialists Cardiology Level of Patient Care: Telemetry HALIMA RECINOS MD 10/06/16 1456: Attending MD Review Statement Attending Statement Attending MD Statement: examined this patient, discuss w/resident/PA/MOTOR DRIVER, agreed w/resident/PA/MOTOR DRIVER, reviewed EMR data (avail), discussed with nursing, amended to note Attending Assessment/Plan: Patient seen and examined. There is a 61-year-old male with history of end- stage renal disease on hemodialysis Friday via right external jugular vein tunneled catheter due to failure of a left arm AV fistula. History is also significant for nonischemic cardiomyopathy, atrial flutter on anticoagulation and hypertension. He presents with sudden onset of bilateral shoulder pain that got worse over the past 2 days he came to the ED for evaluation. He denies any chest pain discomfort. He denies any shortness of breath or palpitations. He denies any fever or chills. He reports that anti- coagulationtherapy was held recently due to bleeding from his dialysis catheter. In the Emergency room he was found initially afebrile and hemodynamically stable. However during his emergency room stay he became progressively hypotensive. At a point his blood pressure could only be obtained by Doppler. These however spontaneously improved. He did have an episode of 25 beat run of ventricular tachycardia. This broke spontaneously. He was asymptomatic during the episode and has been hemodynamically stable. He was referred to the inpatient medical service for further evaluation. On examination patient is lethargic but oriented 3. Complains of diffuse body aches. Denies any symptoms that would point to an infectious etiology. On examination the catheter site appears intact with no tenderness, erythema or discharge. He has been afebrile during the ER stay with leukocytosis on his labs. His EKG shows T-wave inversions in the lateral leads. Problems: 1. Bilateral shoulder pain. 2. Hypotension; resolved 3. Ventricular tachycardia; resolved 4. Atrial flutter with anticoagulation currently on hold due to bleeding from the dialysis catheter as an outpatient 5. End-stage renal disease on hemodialysis. 6. SIRS with no obvious infectious etiology at present. Plan: -Admit to the inpatient service. -Monitor for repeat arrhythmia on the telemetry unit. Cardiology consultation. Echocardiogram. Trend cardiac enzymes. -Resume his metoprolol however at reduced dose for rate control. Monitor closely if blood pressure tolerates, increase to full dose. -Recommend resuming patient's Coumadin for stroke prophylaxis. -Nephrology consultation -Will obtain blood cultures from the dialysis catheter and compare with cultures drawn from the periphery. -He was empirically started on vancomycin/ceftaz in the emergency room. Recommend reevaluation for an infectious etiology before resuming these medications.
--- NOTE | 2016-10-06 09:00 | NUR ---
WILY FROM HOUSE STAFF AT BEDSIDE FOR EVAL.
--- NOTE | 2016-10-06 09:35 | NUR ---
PT NOTED TO HAVE 26 BEAT RUN OF V TACH, WILY AT BEDSIDE DURING THIS. PT OFFERS NO COMPLAINTS OF CHEST PAIN, SOB, A/O X 4. EKG DONE IMMEDIATELY.
--- NOTE | 2016-10-06 10:09 | NUR ---
DIETARY CALLED FOR FOOD TRAY.
--- NOTE | 2016-10-06 10:30 | NUR ---
SPOKE WITH WILY FROM HOUSE STAFF, SHE HAS PT'S NEWEST EKG. PER WILY, PT TO BE ADMITTED TO TELE, BUT DR. RECINOS NEEDS TO EVAL PT BEFORE PT CAN BE TRANSPORTED UPSTAIRS.
--- NOTE | 2016-10-06 11:06 | NUR ---
PT UNCOOPERATIVE, TRYING TO GET OUT OF BED "I WANT SOME FOOD. I'M GONNA WALK TO THE [employer] AND GET SOME FOOD." PT REFUSING TO LAY DOWN IN BED. PT TOLD THAT WHEN HE IS DONE EATING HIS CRACKERS, HE WILL LAY BACK DOWN IN BED.
--- NOTE | 2016-10-06 11:14 | NUR ---
SPOKE WITH WILY FROM HOUSE STAFF, LAB ADD-ONS ORDERED. PT EATING FOOD TRAY.
--- NOTE | 2016-10-06 11:16 | NUR ---
PHARM CALLED FOR MED.
--- NOTE | 2016-10-06 11:43 | NUR ---
bed 189
--- NOTE | 2016-10-06 11:53 | NUR ---
SPOKE WITH WILY FROM HOUSE STAFF, INFORMED THAT TAE CATH CULTURE IS DONE BY DIALYSIS NURSE.
--- NOTE | 2016-10-06 12:32 | NUR ---
NURSE TO CALL BACK FOR REPORT.
--- NOTE | 2016-10-06 13:05 | NUR ---
PT TO CALL BACK FOR REPORT.
--- NOTE | 2016-10-06 13:49 | NUR ---
REPORT GIVEN TO DAKOTA MASON.
--- NOTE | 2016-10-06 15:24 | Cons- Cardiology ---
General Information and HPI Consulting Request Date of Consult: 10/06/16 Requested By: HALIMA RECINOS M.D Reason for Consult: Cardiomyopathy History of Present Illness: The patient is a 61-year-old male with history of diabetes mellitus, end-stage renal disease on hemodialysis, nonischemic cardiomyopathy, paroxysmal atrial flutter presenting with complaint of shoulder pain. He is anticoagulated on warfarin, however the warfarin has been on hold since for bleeding. He presents with complaint of 8/10 pain between his shoulder blades, radiating to both shoulders. He had an episode of vomiting on night. In the emergency department, he was noted to be hypotensive, and was treated with IV fluid. He is noted to have elevated white blood count with bandemia. He is admitted for possible sepsis.No chest pain. No palpitations. No shortness of breath. No diaphoresis. Allergies/Medications Allergies: Coded Allergies: NO KNOWN ALLERGIES (06/10/14) Home Med List: Allopurinol 300 MG TABLET 1 TAB PO DAILY GOUT (Reported) Aspirin (Ecotrin*) 81 MG TABLET.DR 1 TAB PO DAILY heart health (Reported) Atorvastatin Calcium 20 MG TABLET 20 MG PO 1700 heart health Carvedilol 25 MG TABLET 50 MG PO BID heart health Cholecalciferol (Vitamin D3) (Vitamin D) 1,000 UNIT TABLET 1 TAB PO DAILY SUPPLEMENT (Reported) Epoetin Kameron (Procrit) 20,000 UNIT/ML VIAL 1 UNIT IV Q 3 WEEKS ANEMIA ( Reported) Fluticasone-Salmeterol (Advair 100-50 Diskus) 100 MCG-50 MCG/DOSE BLST.W.DEV 1 PUF INH BID ASTHMA (Reported) Isosorbide Monitrate Sr (Imdur 60MG Tab) 60 MG TAB 2 TAB PO DAILY HEART HEALTH Latanoprost (Xalatan) 2.5 ML DROPS 1 GTT OPH QPM BOTH EYES (Reported) Nephro-Vitamins (Nephro-Geri Tablet) 0.8 MG TABLET 1 TAB PO DAILY renal health Oxycodone HCl/Acetaminophen (Percocet 5-325 MG Tablet) 1 EACH TABLET 1-2 TAB PO Q6P PRN pain Repaglinide (Prandin) 1 MG TABLET 1 MG PO AC diabetes Please take your medication before meals. If you skip meals, please dont take this medication. It will cause hypoglycemia. Sevelamer Carbonate (Renvela) 800 MG TABLET KIDNEY HEALTH (Reported) Warfarin Sodium (Coumadin) 2.5 MG TABLET 1 TAB PO DAILY heart health Please dose coumadin as per INR. Please contact your PCP or radiation oncologist for correct dosing. Current Medications: Current Medications Sig/Cole Start time Last Medication Dose Route Stop Time Status Admin Acetaminophen 1,000 MG Q8P PRN 10/06 1030 AC 10/06 N/A 1 UNIT IV 10/07 0800 1626 Acetaminophen 1,000 MG ONCE ONE 10/06 0630 DC 10/06 IV 10/06 0631 0646 Acetaminophen 0 .STK-MED ONE 10/06 0630 DC IV Allopurinol 300 MG DAILY 10/06 1110 AC 10/06 PO 1211 Aspirin Buffered 81 MG DAILY 10/06 1117 AC 10/06 PO 1211 Atorvastatin Calcium 20 MG 1700 10/06 1700 AC 10/06 PO 1645 Carvedilol 25 MG BID 10/06 1117 AC 10/06 PO 2207 Ceftazidime 0 .STK-MED ONE 10/06 0850 DC .ROUTE Ceftazidime 1,000 MG ONCE ONE 10/06 0830 DC 10/06 IV 10/06 0831 0907 Diazepam 0 .STK-MED ONE 10/06 0631 DC .ROUTE Diazepam 2.5 MG ONCE ONE 10/06 0630 DC 10/06 IV 10/06 0631 0646 Diazepam 0 .STK-MED ONE 10/06 0340 DC .ROUTE Diazepam 5 MG ONCE ONE 10/06 0330 DC 10/06 IV 10/06 0331 0348 Hydromorphone HCl 0.4 MG Q6P PRN 10/06 1945 AC IV Hydromorphone HCl 0 .STK-MED ONE 10/06 0340 DC .ROUTE Hydromorphone HCl 1 MG ONCE ONE 10/06 0330 DC IV 10/06 0331 Insulin Aspart 0 TIDAC 10/06 1200 AC 10/06 SC 1645 Sodium Chloride 500 ML BOLUS ONE 10/06 0830 DC 10/06 IV 10/06 0929 0907 Vancomycin HCl 0 .STK-MED ONE 10/06 0850 DC .ROUTE Vancomycin HCl 1,000 MG ONCE ONE 10/06 0845 DC 10/06 Sodium Chloride 250 ML IV 10/06 0944 0929 Warfarin Sodium 2.5 MG COUMADIN 1700 ONE 10/06 1708 DC 10/06 PO 10/06 1709 1830 Review of Systems Review of Systems: No rash. No tremor. No melena. All other systems are reviewed and are noted to be negative. 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 There is also an excision of a retained foreign object. This was in May 2012. Family History Relations & Conditions If Any: MOTHER Diabetes mellitus (DM) Relation not specified for: Cerebrovascular accident in mother Psychosocial History Who Do You Live With? spouse Services at Home: None Primary Language: Irish ETOH Use: occasional use Illicit Drug Use: denies illicit drug use Functional Ability ADLs Independent: dressing, eating, toileting, bathing. Ambulation: cane IADLs Independent: telephone. Needs Assist: housework, finances, food prep, medication admin. Unknown: shopping, transportation. Exam & Diagnostic Data Vital Signs and I&O Vital Signs Date Time Temp Pulse Resp B/P B/P Pulse O2 O2 Flow FiO2 Mean Ox Delivery Rate 10/067 106 118/0 10/06 1940 98.6 118 20 120/0 97 Nasal 2.0L Cannula 10/06 1713 Nasal 2.0L Cannula 10/06 1600 94 Nasal 2.0L Cannula 10/06 1315 97.0 113 20 105/56 94 Nasal 3.0L Cannula 10/06 1211 113 120/64 10/06 1210 97.4 113 20 120/64 95 Nasal 2.0L Cannula 10/06 1108 98.4 110 22 111/73 97 Nasal 2.0L Cannula 10/06 1004 112 20 115/72 97 Room Air Room Air 10/06 0934 114 22 109/63 95 Nasal 2.0L Cannula 10/06 0932 99.1 113 22 122/00 93 Nasal 2.0L Cannula 10/06 0908 94 Nasal 2.0L Cannula 10/06 0907 99.1 06/18 0906 114 20 102/00 94 Nasal 2.0L Cannula 10/06 0839 115 22 96/00 95 Nasal 2.0L Cannula 10/06 0804 99.1 116 22 98/00 95 Nasal 2.0L Cannula 10/06 0251 98 Room Air 10/06 0246 98.1 117 18 122/61 95 Room Air Intake & Output 10/06 1600 10/06 0800 10/06 0000 10/05 1600 10/05 0800 10/05 0000 Intake Total Output Total Balance Patient 230 lb Weight Weight Reported by Patient Measurement Method Physical Exam: Gen: The patient is in no acute distress HEENT: Normal nose, ears, and oropharynx. Pupils equal bilaterally. Conjunctiva normal. Neck: Supple with no JVD, no masses, and no thyromegaly Lungs: Clear to auscultation with normal respiratory effort Heart: RRR, S1, S2, 2/6 systolic murmur. No peripheral edema, 2+ pulses in the lower extremities bilaterally Abdomen: Soft, nontender, no masses. No hepatomegaly. No splenomegaly Extremities: No clubbing or cyanosis. Normal muscle strength in the upper and lower extremities. Skin: Normal skin turgor with no skin ulcers or lesions noted. Neuro: Cranial nerves intact. Sensation intact Psych: Alert and oriented 3 with appropriate affect Labs/Cristi Results: Laboratory Tests 10/06 10/06 10/06 10/06 10/06 2049 1127 1008 1001 0850 Chemistry Sodium (137 - 145 mmol/L) 132 L Potassium (3.5 - 5.1 mmol/L) 4.6 Chloride (98 - 107 mmol/L) 97 L Carbon Dioxide (22 - 30 mmol/L) 24 Anion Gap (5 - 16) 11 BUN (9 - 20 mg/dL) 48 H Creatinine (0.7 - 1.2 mg/dL) 4.6 H Estimated GFR (>60 ml/min) 13 L BUN/Creatinine Ratio (7 - 25 %) 10.4 Lactic Acid (0.7 - 2.1 mmol/L) Cancelled 1.2 Phosphorus (2.5 - 4.5 mg/dL) 4.5 Magnesium (1.6 - 2.3 mg/dL) 1.9 Troponin I Cancelled Coagulation PT (9.4 - 12.5 SEC) Cancelled 20.0 H INR (0.90 - 1.17) Cancelled 1.92 H Hematology ESR Westergren (0 - 10 MM) 55 H 18 10/06 0505 0330 Chemistry Sodium (137 - 145 mmol/L) 137 Potassium (3.5 - 5.1 mmol/L) 4.2 Chloride (98 - 107 mmol/L) 100 Carbon Dioxide (22 - 30 mmol/L) 27 Anion Gap (5 - 16) 10 BUN (9 - 20 mg/dL) 36 H Creatinine (0.7 - 1.2 mg/dL) 3.8 H Estimated GFR (>60 ml/min) 16 L BUN/Creatinine Ratio (7 - 25 %) 9.5 Glucose (65 - 99 mg/dL) 117 H Uric Acid (3.5 - 8.5 mg/dL) 3.1 L Calcium (8.4 - 10.2 mg/dL) 8.8 Magnesium (1.6 - 2.3 mg/dL) 1.8 Total Bilirubin (0.2 - 1.3 mg/dL) 1.0 AST (17 - 59 U/L) 16 L ALT (21 - 72 U/L) 49 Alkaline Phosphatase (< 127 U/L) 76 Troponin I (<0.11 ng/ml) 0.05 Total Protein (6.3 - 8.2 g/dL) 6.4 Albumin (3.5 - 5.0 g/dL) 3.3 L Globulin (1.9 - 4.2 gm/dL) 3.1 Albumin/Globulin Ratio (1.1 - 2.2 %) 1.1 Hematology CBC w Diff MAN DIFF ORDERED WBC (4.8 - 10.8 /CUMM) 21.2 H RBC (4.70 - 6.10 /CUMM) 3.54 L Hgb (14.0 - 18.0 G/DL) 11.1 L Hct (42 - 52 %) 34.6 L MCV (80.0 - 94.0 FL) 97.6 H MCH (27.0 - 31.0 PG) 31.2 H RDW (11.5 - 14.5 %) 21.1 H Plt Count (130 - 400 /CUMM) 146 MPV (7.4 - 10.4 FL) 8.1 Gran % (42.2 - 75.2 %) 92.2 H Lymphocytes % (20.5 - 51.1 %) 2.2 L Monocytes % (1.7 - 9.3 %) 5.5 Eosinophils % (0 - 5 %) 0.1 Basophils % (0.0 - 2.0 %) 0 L Absolute Granulocytes (1.4 - 6.5 /CUMM) 19.6 H Segmented Neutrophils (42.2 - 75.2 %) 91 H Band Neutrophils (0.0 - 5.0 %) 3 Absolute Lymphocytes (1.2 - 3.4 /CUMM) 0.5 L Lymphocytes (20.5 - 51.1 %) 5 L Monocytes (1.7 - 9.3 %) 1 L Absolute Monocytes (0.10 - 0.60 /CUMM) 1.2 H Absolute Eosinophils (0.0 - 0.7 /CUMM) 0 Absolute Basophils (0.0 - 0.2 /CUMM) 0 Platelet Estimate (ADEQUATE) ADEQUATE Polychromasia 1+ Hypochromic-Microcytic 1+ Poikilocytosis 1+ Anisocytosis 2+ Microcytic Cells 1+ Macrocytic Cells 1+ Diamante Cells FEW Elliptocytes 1+ Schistocytes FEW PUBS MCHC (33.0 - 37.0 G/DL) 32.0 L Urines Urine Color Cancelled Urine Clarity Cancelled Urine pH Cancelled Ur Specific Hamilton Cancelled Urine Protein Cancelled Urine Ketones Cancelled Urine Nitrite Cancelled Urine Bilirubin Cancelled Urine Urobilinogen Cancelled Ur Leukocyte Esterase Cancelled Ur Microscopic Cancelled Urine Hemoglobin Cancelled Urine Glucose Cancelled Diagnostic Data EKG Results EKG tracing is independently reviewed, and reveals ectopic atrial rhythm at 113 , low-voltage, nonspecific T-wave abnormality CXR Results IMPRESSION: Suboptimal assessment of the lungs, without definite consolidation. Enlarged cardiac silhouette. Other Results echocardiogram August 15, 2016: Severely reduced left ventricular systolic function wiht estimated ejection fraction of 20%. Severe global hypokinesis. Mild concentric left ventricular hypertrophy. Mildly dilated right ventricle with moderately reduced systolic function. Moderately dilated left atrium. Mildly dilated right atrium. Moderate mitral regurgitation. Mild tricuspid regurgitation with moderate pulmonary hypertension. Assessment/Plan Assessment/Plan Assessment: 1. Diabetes mellitus 2. Nonischemic cardiomyopathy 3. Paroxysmal atrial flutter, anticoagulated on warfarin. warfarin on hold for bleeding 4. Bilateral shoulder pain 5. Hypotension, possible sepsis plan: * Continue aspirin * Antibiotics as per the medical service * Continue carvedilol, hold for systolic blood pressure less than 100 * Monitor for arrhythmias Consult Acknowledgment - Thank you for your consult request.
--- NOTE | 2016-10-06 18:56 | Cons- Nephrology ---
General Information and HPI Consulting Request Date of Consult: 10/06/16 Requested By: HALIMA RECINOS M.D Reason for Consult: Evaluation and management of end-stage renal disease Source of Information: patient, old records Exam Limitations: no limitations History of Present Illness: Asked to see this 61-year-old gentleman who has end-stage renal disease related to his diabetes mellitus. 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 He presented to the emergency room today with intractable pain scapula going across the back. X-rays apparently were unrevealing. However, while in the emergency room, he became hypotensive requiring the administration of 500 mL of fluid. When asked how he was hemodialysis, he says fine. He says his appetite is been good and dialysis has been going well. He denies any fevers or chills. Any sort of movement aggravates the pain there are no real relieving maneuvers. Allergies/Medications Allergies: Coded Allergies: NO KNOWN ALLERGIES (06/10/14) Home Med List: Allopurinol 300 MG TABLET 1 TAB PO DAILY GOUT (Reported) Aspirin (Ecotrin*) 81 MG TABLET.DR 1 TAB PO DAILY heart health (Reported) Atorvastatin Calcium 20 MG TABLET 20 MG PO 1700 heart health Carvedilol 25 MG TABLET 50 MG PO BID heart health Cholecalciferol (Vitamin D3) (Vitamin D) 1,000 UNIT TABLET 1 TAB PO DAILY SUPPLEMENT (Reported) Epoetin Kameron (Procrit) 20,000 UNIT/ML VIAL 1 UNIT IV Q 3 WEEKS ANEMIA ( Reported) Fluticasone-Salmeterol (Advair 100-50 Diskus) 100 MCG-50 MCG/DOSE BLST.W.DEV 1 PUF INH BID ASTHMA (Reported) Isosorbide Monitrate Sr (Imdur 60MG Tab) 60 MG TAB 2 TAB PO DAILY HEART HEALTH Latanoprost (Xalatan) 2.5 ML DROPS 1 GTT OPH QPM BOTH EYES (Reported) Nephro-Vitamins (Nephro-Geri Tablet) 0.8 MG TABLET 1 TAB PO DAILY renal health Oxycodone HCl/Acetaminophen (Percocet 5-325 MG Tablet) 1 EACH TABLET 1-2 TAB PO Q6P PRN pain Repaglinide (Prandin) 1 MG TABLET 1 MG PO AC diabetes Please take your medication before meals. If you skip meals, please dont take this medication. It will cause hypoglycemia. Sevelamer Carbonate (Renvela) 800 MG TABLET KIDNEY HEALTH (Reported) Warfarin Sodium (Coumadin) 2.5 MG TABLET 1 TAB PO DAILY heart health Please dose coumadin as per INR. Please contact your PCP or glass etcher helper for correct dosing. Current Medications: Current Medications Sig/Cole Start time Last Medication Dose Route Stop Time Status Admin Acetaminophen 1,000 MG Q8P PRN 10/06 1030 AC 10/06 N/A 1 UNIT IV 10/07 0800 1626 Acetaminophen 1,000 MG ONCE ONE 10/06 0630 DC 10/06 IV 10/06 0631 0646 Acetaminophen 0 .STK-MED ONE 10/06 0630 DC IV Allopurinol 300 MG DAILY 10/06 1110 AC 10/06 PO 1211 Aspirin Buffered 81 MG DAILY 10/06 1117 AC 10/06 PO 1211 Atorvastatin Calcium 20 MG 1700 10/06 1700 AC 10/06 PO 1645 Carvedilol 25 MG BID 10/06 1117 AC 10/06 PO 1211 Ceftazidime 0 .STK-MED ONE 10/06 0850 DC .ROUTE Ceftazidime 1,000 MG ONCE ONE 10/06 0830 DC 10/06 IV 10/06 0831 0907 Diazepam 0 .STK-MED ONE 10/06 0631 DC .ROUTE Diazepam 2.5 MG ONCE ONE 10/06 0630 DC 10/06 IV 10/06 0631 0646 Diazepam 0 .STK-MED ONE 10/06 0340 DC .ROUTE Diazepam 5 MG ONCE ONE 10/06 0330 DC 10/06 IV 10/06 0331 0348 Hydromorphone HCl 0 .STK-MED ONE 10/06 0340 DC .ROUTE Hydromorphone HCl 1 MG ONCE ONE 10/06 0330 DC IV 10/06 0331 Insulin Aspart 0 TIDAC 10/06 1200 AC 10/06 SC 1645 Sodium Chloride 500 ML BOLUS ONE 10/06 0830 DC 10/06 IV 10/06 0929 0907 Vancomycin HCl 0 .STK-MED ONE 10/06 0850 DC .ROUTE Vancomycin HCl 1,000 MG ONCE ONE 10/06 0845 DC 10/06 Sodium Chloride 250 ML IV 10/06 0944 0929 Warfarin Sodium 2.5 MG COUMADIN 1700 ONE 10/06 1708 DC 10/06 PO 10/06 1709 1830 Review of Systems Review of Systems Constitutional: Denies: see HPI, chills, diaphoresis, fever, malaise. Cardiovascular: Denies: chest pain, edema, orthopena, palpitations. Respiratory: Denies: cough, orthopnea, short of breath. GI: Denies: bloating, constipation, diarrhea, distention. Musculoskeletal: Reports: see HPI, joint swelling, muscle pain, muscle stiffness, neck pain. Skin: Denies: moles, rash. Neurological/Psychological: Denies: numbness, paresthesia, pre-existing deficit, weakness. 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 There is also an excision of a retained foreign object. This was in May 2012., AVF, armen cath Family History Relations & Conditions If Any: MOTHER Diabetes mellitus (DM) Relation not specified for: Cerebrovascular accident in mother Psychosocial History Who Do You Live With? spouse Services at Home: None Primary Language: Nigerian Smoking Status: Former Smoker ETOH Use: occasional use Illicit Drug Use: denies illicit drug use Functional Ability ADLs Independent: dressing, eating, toileting, bathing. Ambulation: cane IADLs Independent: telephone. Needs Assist: housework, finances, food prep, medication admin. Unknown: shopping, transportation. Exam & Diagnostic Data Vital Signs and I&O Vital Signs Date Time Temp Pulse Resp B/P B/P Pulse O2 O2 Flow FiO2 Mean Ox Delivery Rate 10/06 1713 Nasal 2.0L Cannula 10/06 1315 97.0 113 20 105/56 94 Nasal 3.0L Cannula 10/06 1211 113 120/64 10/06 1210 97.4 113 20 120/64 95 Nasal 2.0L Cannula 10/06 1108 98.4 110 22 111/73 97 Nasal 2.0L Cannula 10/06 1004 112 20 115/72 97 Room Air Room Air 10/06 0934 114 22 109/63 95 Nasal 2.0L Cannula 10/06 0932 99.1 113 22 122/00 93 Nasal 2.0L Cannula 10/06 0908 94 Nasal 2.0L Cannula 10/06 0907 99.1 10/06 0906 114 20 102/00 94 Nasal 2.0L Cannula 10/06 0839 115 22 96/00 95 Nasal 2.0L Cannula 10/06 0804 99.1 116 22 98/00 95 Nasal 2.0L Cannula 10/06 0251 98 Room Air 10/06 0246 98.1 117 18 122/61 95 Room Air Intake & Output 10/06 1600 10/06 0400 10/05 1600 10/05 0400 10/04 1600 10/04 0400 Intake Total Output Total Balance Patient 230 lb Weight Weight Reported by Patient Measurement Method Physical Exam Ears, Nose, Throat: normal pharynx, normal ENT inspection, hearing grossly normal Neck: normal inspection, supple Respiratory: normal breath sounds, chest non-tender, lungs clear Cardiovascular: regular rate/rhythm, edema Peripheral Pulses: 2+ popliteal (R), 2+ popliteal (L), 2+ tibialis posterior (R), 2+ tibialis posterior (L), 2+ dorsalis pedis (R), 2+ dorsalis pedis (L) Gastrointestinal: normal bowel sounds Back: tender over scapula Results Pertinent Lab Results: Laboratory Tests 10/06 10/06 10/06 10/06 1127 1008 1001 0850 Chemistry Lactic Acid (0.7 - 2.1 mmol/L) Cancelled 1.2 Troponin I Cancelled Coagulation PT (9.4 - 12.5 SEC) Cancelled 20.0 H INR (0.90 - 1.17) Cancelled 1.92 H Hematology ESR Westergren (0 - 10 MM) 55 H 10/06 0330 Chemistry Sodium (137 - 145 mmol/L) 137 Potassium (3.5 - 5.1 mmol/L) 4.2 Chloride (98 - 107 mmol/L) 100 Carbon Dioxide (22 - 30 mmol/L) 27 Anion Gap (5 - 16) 10 BUN (9 - 20 mg/dL) 36 H Creatinine (0.7 - 1.2 mg/dL) 3.8 H Estimated GFR (>60 ml/min) 16 L BUN/Creatinine Ratio (7 - 25 %) 9.5 Glucose (65 - 99 mg/dL) 117 H Uric Acid (3.5 - 8.5 mg/dL) 3.1 L Calcium (8.4 - 10.2 mg/dL) 8.8 Magnesium (1.6 - 2.3 mg/dL) 1.8 Total Bilirubin (0.2 - 1.3 mg/dL) 1.0 AST (17 - 59 U/L) 16 L ALT (21 - 72 U/L) 49 Alkaline Phosphatase (< 127 U/L) 76 Troponin I (<0.11 ng/ml) 0.05 Total Protein (6.3 - 8.2 g/dL) 6.4 Albumin (3.5 - 5.0 g/dL) 3.3 L Globulin (1.9 - 4.2 gm/dL) 3.1 Albumin/Globulin Ratio (1.1 - 2.2 %) 1.1 Hematology CBC w Diff MAN DIFF ORDERED WBC (4.8 - 10.8 /CUMM) 21.2 H RBC (4.70 - 6.10 /CUMM) 3.54 L Hgb (14.0 - 18.0 G/DL) 11.1 L Hct (42 - 52 %) 34.6 L MCV (80.0 - 94.0 FL) 97.6 H MCH (27.0 - 31.0 PG) 31.2 H RDW (11.5 - 14.5 %) 21.1 H Plt Count (130 - 400 /CUMM) 146 MPV (7.4 - 10.4 FL) 8.1 Gran % (42.2 - 75.2 %) 92.2 H Lymphocytes % (20.5 - 51.1 %) 2.2 L Monocytes % (1.7 - 9.3 %) 5.5 Eosinophils % (0 - 5 %) 0.1 Basophils % (0.0 - 2.0 %) 0 L Absolute Granulocytes (1.4 - 6.5 /CUMM) 19.6 H Segmented Neutrophils (42.2 - 75.2 %) 91 H Band Neutrophils (0.0 - 5.0 %) 3 Absolute Lymphocytes (1.2 - 3.4 /CUMM) 0.5 L Lymphocytes (20.5 - 51.1 %) 5 L Monocytes (1.7 - 9.3 %) 1 L Absolute Monocytes (0.10 - 0.60 /CUMM) 1.2 H Absolute Eosinophils (0.0 - 0.7 /CUMM) 0 Absolute Basophils (0.0 - 0.2 /CUMM) 0 Platelet Estimate (ADEQUATE) ADEQUATE Polychromasia 1+ Hypochromic-Microcytic 1+ Poikilocytosis 1+ Anisocytosis 2+ Microcytic Cells 1+ Macrocytic Cells 1+ Diamante Cells FEW Elliptocytes 1+ Schistocytes FEW PUBS MCHC (33.0 - 37.0 G/DL) 32.0 L Assessment/Plan Assessment/Recommendations Assessment: 1. Hypotension-unclear reason patient left roughly at his dry weight. He denies fever or chills and says after dialysis 2. end-stage renal disease. I see no urgent dialytic needs night. We'll schedule dialysis for Friday of this week maintain his current outpatient schedule 3. Diabetes mellitus 4. Hypertension 5. Gout by history 6. Anemia 7. Scapular pain. Apparently radiologic evaluation was unrevealing.? Question orthopedic evaluation Mr. Franks Recommendations: 1. Maintain on 2 g sodium 2 g potassium diabetic diet. Maintain 1000 mL per day by mouth fluid restriction 2. Strict I's and O's daily weights 3.
[2016-10-06 19:40] VITALS: BP 120/0
[2016-10-06 22:00] VITALS: BP 118/0
--- NOTE | 2016-10-06 23:54 | NUR ---
1934 patient reports 10/10 right shoulder pain, followed by 13 and 11 beats of v-tach on TM, MD Hunter notified and in to assess. Pain medication ordered and given per emar. Blood work ordered and done. VSS and recorded. pain subsaiding, wctm.
[2016-10-07] VITALS: BP 115/86
--- NOTE | 2016-10-07 02:00 | Event Note ---
Event Note Event Note: SUBJECTIVE: Notified by Dr. Escobedo regarding positive blood cultures; gram-positive cocci in clusters. Patient seen and examined. Lying in bed, on CPAP, no apparent distress. States improvement in pain symptoms after dose of hydromorphone. OBJECTIVE: Afebrile, but tachycardic. Marshal cath site examined, no stigmata of infection. WBC 21.2, high segmented neutrophils counts and few bands. GPC in clusters on microbiology. ASSESSMENT: 61-year-old gentleman with recently placed Marshal cath, leukocytosis and blood cultures positive for gram-positive cocci in clusters. PLAN: Treat for staph aureus bacteremia, dose vancomycin at 15 mg/kg today and then per HD protocol, pending sensitivities. Check Vanco trough levels before Friday HD.
--- NOTE | 2016-10-07 02:21 | NUR ---
1t 0112 am. pt ahd a 6 beat run of vtach. asymptomatic. md ferrer aware. nno. will continue to monitor.
[2016-10-07 08:00] VITALS: BP 112/00
--- NOTE | 2016-10-07 08:17 | PN- Cardiology ---
Subjective Subjective: No CP or SOB. Still c/o shoulder pain, back pain and right hip pain. Objective Vital Signs and I&Os Vital Signs Date Time Temp Pulse Resp B/P B/P Pulse O2 O2 Flow FiO2 Mean Ox Delivery Rate 10/07 0800 99.4 112 20 112/00 93 CPAP 10/07 0258 118 94 10/07 0005 97.6 107 20 95 10/07 0000 CPAP 10/07 0000 115/86 10/06 2234 108 97 10/06 2207 106 118/0 10/06 2200 110 118/0 10/06 1940 98.6 118 20 120/0 97 Nasal 2.0L Cannula 10/06 1713 Nasal 2.0L Cannula 10/06 1600 94 Nasal 2.0L Cannula 10/06 1315 97.0 113 20 105/56 94 Nasal 3.0L Cannula 10/06 1211 113 120/64 10/06 1210 97.4 113 20 120/64 95 Nasal 2.0L Cannula 10/06 1108 98.4 110 22 111/73 97 Nasal 2.0L Cannula 10/06 1004 112 20 115/72 97 Room Air Room Air 10/06 0934 114 22 109/63 95 Nasal 2.0L Cannula 10/06 0932 99.1 113 22 122/00 93 Nasal 2.0L Cannula 10/06 0908 94 Nasal 2.0L Cannula 10/06 0907 99.1 10/06 0906 114 20 102/00 94 Nasal 2.0L Cannula 10/06 0839 115 22 96/00 95 Nasal 2.0L Cannula Intake & Output 10/07 1600 10/07 0800 10/07 0000 10/06 1600 10/06 0800 10/06 0000 Intake Total 370 600 Output Total 0 Balance 370 600 Intake, IV 250 Intake, Oral 120 600 Number 0 Bowel Movements Output, Urine 0 Patient 230 lb Weight Weight Reported by Patient Measurement Method Physical Exam: Neck-JVP normal, no bruit Lungs-clear bilaterally Heart-S1S2 regular, 1/6 apical systolic murmur Abdomen-soft, not tender, mildly distended, BS+, no organomegaly Extr-trace edema, 1+ pulses Neuro-non focal Current Medications: Current Medications Sig/Cole Start time Last Medication Dose Route Stop Time Status Admin Acetaminophen 1,000 MG Q8P PRN 10/06 1030 DC 10/06 N/A 1 UNIT IV 10/07 0800 1626 Allopurinol 300 MG DAILY 10/06 1110 AC 10/06 PO 1211 Aspirin Buffered 81 MG DAILY 10/06 1117 AC 10/06 PO 1211 Atorvastatin Calcium 20 MG 1700 10/06 1700 AC 10/06 PO 1645 Carvedilol 25 MG BID 10/06 1117 AC 10/06 PO 2207 Ceftazidime 0 .STK-MED ONE 10/06 0850 DC .ROUTE Ceftazidime 1,000 MG ONCE ONE 10/06 0830 DC 10/06 IV 10/06 0831 0907 Hydromorphone HCl 0.4 MG Q6P PRN 10/06 1945 AC 10/07 IV 0606 Insulin Aspart 0 TIDAC 10/06 1200 AC 10/06 SC 1645 Sodium Chloride 500 ML BOLUS ONE 10/06 0830 DC 10/06 IV 10/06 0929 0907 Vancomycin HCl 500 MG ONCE ONE 10/07 0100 DC 10/07 Sodium Chloride 250 ML IV 10/07 0159 0145 Vancomycin HCl 0 TUES THURS SAT PRN 10/07 0045 AC IV Vancomycin HCl 0 .STK-MED ONE 10/06 0850 DC .ROUTE Vancomycin HCl 1,000 MG ONCE ONE 10/06 0845 DC 10/06 Sodium Chloride 250 ML IV 10/06 0944 0929 Warfarin Sodium 2.5 MG COUMADIN 1700 ONE 10/06 1708 DC 10/06 PO 10/06 1709 1830 Results Last 48 Hrs of Labs/Mics: Laboratory Tests 10/06/16 2049: Anion Gap 11, Estimated GFR 13 L, BUN/Creatinine Ratio 10.4, Phosphorus 4.5, Magnesium 1.9 10/06/16 1127: Lactic Acid Cancelled 10/06/16 1008: PT Cancelled, INR Cancelled 10/06/16 1001: Troponin I Cancelled 10/06/16 0850: Lactic Acid 1.2, PT 20.0 H, INR 1.92 H, ESR Westergren 55 H 10/06/16 0505: Urine Color Cancelled, Urine Clarity Cancelled, Urine pH Cancelled, Ur Specific [place] Cancelled, Urine Protein Cancelled, Urine Ketones Cancelled, Urine Nitrite Cancelled, Urine Bilirubin Cancelled, Urine Urobilinogen Cancelled, Ur Leukocyte Esterase Cancelled, Ur Microscopic Cancelled, Urine Hemoglobin Cancelled, Urine Glucose Cancelled 10/06/16 0330: Anion Gap 10, Estimated GFR 16 L, BUN/Creatinine Ratio 9.5, Glucose 117 H, Uric Acid 3.1 L, Calcium 8.8, Magnesium 1.8, Total Bilirubin 1.0, AST 16 L, ALT 49, Alkaline Phosphatase 76, Troponin I 0.05, Total Protein 6.4, Albumin 3.3 L, Globulin 3.1, Albumin/Globulin Ratio 1.1, CBC w Diff MAN DIFF ORDERED, RBC 3.54 L, MCV 97.6 H, MCH 31.2 H, RDW 21.1 H, MPV 8.1, Gran % 92.2 H, Lymphocytes % 2.2 L, Monocytes % 5.5, Eosinophils % 0.1, Basophils % 0 L, Absolute Granulocytes 19.6 H, Segmented Neutrophils 91 H, Band Neutrophils 3, Absolute Lymphocytes 0.5 L, Lymphocytes 5 L, Monocytes 1 L, Absolute Monocytes 1.2 H, Absolute Eosinophils 0, Absolute Basophils 0, Platelet Estimate ADEQUATE, Polychromasia 1+, Hypochromic-Microcytic 1+, Poikilocytosis 1 +, Anisocytosis 2+, Microcytic Cells 1+, Macrocytic Cells 1+, [place] Cells FEW, Elliptocytes 1+, Schistocytes FEW, PUBS MCHC 32.0 L Recent Imaging Studies: Tely-ectopic atrial tachycardia, rate 110 bpm, short runs of NSVT Assessment/Plan Assessment/Plan Assessment: 1. GPC bacteremia/sepsis in patient 1 week after dialysis catheter change. Catheter site without obvious signs of infection. 2. Nonischemic cardiomyopathy, currently euvolemic 3. Paroxysmal atrial flutter, currently he appears to be in ectopic atrial tachycardia, rate 110bpm. short runs of NSVT. 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 Bilateral shoulder pain, unclear etiology Plan: continue Vancomycin consider ID consult await today labs carvedilol 25 mg bid, will increase back to 50 mg bid once BP stable hold Warfarin for now (in case he needs any invasive procedures) Continue telemetry? Yes
[2016-10-07 10:14] LABS: PT 23.9 SEC (9.4-12.5)
--- NOTE | 2016-10-07 12:46 | PN- Nephrology ---
Assessment/Plan Assessment: 1. ESRD - on hemodialysis Tuesdays, and Saturdays currently via a right IJ tunneled dialysis catheter. 2. Staph aureus bacteremia - sensitivities pending - am certainly concerned about the possibility of line sepsis. Patient has been afebrile since admission but WBC yesterday 21.2; no labs thus far today. Being covered with vancomycin. 3. Shoulder pains on admission; this may represent diffuse myalgias and arthralgias due to sepsis. No focal findings on exam. 4. Multiple comorbidities Suggestion: 1. ID consult. 2. Continue vancomycin coverage - pending sensitivity results. 3. Repeat cultures tomorrow during dialysis - will discuss with ID. Suspect catheter will need to come out after dialysis tomorrow. 4. Consider imaging of shoulders and scapulae. 5. Patient will likely need echo/PAKO - to discuss with ID. Subjective Subjective: Patient denies any further chills or fever. His maximum temperature has been 99.4 since admission. He is quite irritable and appears to be upset that his caregivers are misinterpreting some of his statements and are claiming that he is lethargic, which he denies. Objective Vital Signs and I&Os Vital Signs Date Time Temp Pulse Resp B/P B/P Pulse O2 O2 Flow FiO2 Mean Ox Delivery Rate 10/07 0828 112 112/00 10/07 0800 95 Nasal 2.0L Cannula 10/07 0800 99.4 112 20 112/00 93 CPAP 10/07 0258 118 94 10/07 0005 97.6 107 20 95 10/07 0000 CPAP 10/07 0000 115/86 10/06 2234 108 97 10/06 2207 106 118/0 10/06 2200 110 118/0 10/06 1940 98.6 118 20 120/0 97 Nasal 2.0L Cannula 10/06 1713 Nasal 2.0L Cannula 10/06 1600 94 Nasal 2.0L Cannula 10/06 1315 97.0 113 20 105/56 94 Nasal 3.0L Cannula Intake & Output 10/07 1600 10/07 0400 10/06 1600 10/06 0400 10/05 1600 10/05 0400 Intake Total 370 600 Output Total 0 Balance 370 600 Intake, IV 250 Intake, Oral 120 600 Number 0 Bowel Movements Output, Urine 0 Patient 230 lb Weight Weight Reported by Patient Measurement Method Physical Exam: General: Well-developed, obese black male, easily irritated but in no acute distress Skin: No rash or jaundice HEENT: Conjunctivae pink, sclerae anicteric, mucous membranes moist Neck: Without masses or thyromegaly, no supraclavicular or cervical adenopathy; right IJ catheter site nontender Chest: Clear anterolaterally Heart: Regular rate and rhythm without S3 or rub Abdomen: Obese, soft and nontender without palpable masses or organomegaly Extremities: Trace peripheral edema, no livedo, left upper arm AVF patent Neuro: No focal findings, no asterixis or myoclonus Results Pertinent Lab Results: Laboratory Tests 10/07 10/06 10/06 10/06 10/06 0930 2049 1127 1008 1001 Chemistry Sodium (137 - 145 mmol/L) 132 L Potassium (3.5 - 5.1 mmol/L) 4.6 Chloride (98 - 107 mmol/L) 97 L Carbon Dioxide (22 - 30 mmol/L) 24 Anion Gap (5 - 16) 11 BUN (9 - 20 mg/dL) 48 H Creatinine (0.7 - 1.2 mg/dL) 4.6 H Estimated GFR (>60 ml/min) 13 L BUN/Creatinine Ratio (7 - 25 %) 10.4 Lactic Acid Cancelled Phosphorus (2.5 - 4.5 mg/dL) 4.5 Magnesium (1.6 - 2.3 mg/dL) 1.9 Troponin I Cancelled Coagulation PT (9.4 - 12.5 SEC) 23.9 H Cancelled INR (0.90 - 1.17) 2.29 H Cancelled 10/06 10/06 10/06 0850 0505 0330 Chemistry Sodium (137 - 145 mmol/L) 137 Potassium (3.5 - 5.1 mmol/L) 4.2 Chloride (98 - 107 mmol/L) 100 Carbon Dioxide (22 - 30 mmol/L) 27 Anion Gap (5 - 16) 10 BUN (9 - 20 mg/dL) 36 H Creatinine (0.7 - 1.2 mg/dL) 3.8 H Estimated GFR (>60 ml/min) 16 L BUN/Creatinine Ratio (7 - 25 %) 9.5 Glucose (65 - 99 mg/dL) 117 H Lactic Acid (0.7 - 2.1 mmol/L) 1.2 Uric Acid (3.5 - 8.5 mg/dL) 3.1 L Calcium (8.4 - 10.2 mg/dL) 8.8 Magnesium (1.6 - 2.3 mg/dL) 1.8 Total Bilirubin (0.2 - 1.3 mg/dL) 1.0 AST (17 - 59 U/L) 16 L ALT (21 - 72 U/L) 49 Alkaline Phosphatase (< 127 U/L) 76 Troponin I (<0.11 ng/ml) 0.05 Total Protein (6.3 - 8.2 g/dL) 6.4 Albumin (3.5 - 5.0 g/dL) 3.3 L Globulin (1.9 - 4.2 gm/dL) 3.1 Albumin/Globulin Ratio (1.1 - 2.2 %) 1.1 Coagulation PT (9.4 - 12.5 SEC) 20.0 H INR (0.90 - 1.17) 1.92 H Hematology CBC w Diff MAN DIFF ORDERED WBC (4.8 - 10.8 /CUMM) 21.2 H RBC (4.70 - 6.10 /CUMM) 3.54 L Hgb (14.0 - 18.0 G/DL) 11.1 L Hct (42 - 52 %) 34.6 L MCV (80.0 - 94.0 FL) 97.6 H MCH (27.0 - 31.0 PG) 31.2 H RDW (11.5 - 14.5 %) 21.1 H Plt Count (130 - 400 /CUMM) 146 MPV (7.4 - 10.4 FL) 8.1 Gran % (42.2 - 75.2 %) 92.2 H Lymphocytes % (20.5 - 51.1 %) 2.2 L Monocytes % (1.7 - 9.3 %) 5.5 Eosinophils % (0 - 5 %) 0.1 Basophils % (0.0 - 2.0 %) 0 L Absolute Granulocytes (1.4 - 6.5 /CUMM) 19.6 H Segmented Neutrophils (42.2 - 75.2 %) 91 H Band Neutrophils (0.0 - 5.0 %) 3 Absolute Lymphocytes (1.2 - 3.4 /CUMM) 0.5 L Lymphocytes (20.5 - 51.1 %) 5 L Monocytes (1.7 - 9.3 %) 1 L Absolute Monocytes (0.10 - 0.60 /CUMM) 1.2 H Absolute Eosinophils (0.0 - 0.7 /CUMM) 0 Absolute Basophils (0.0 - 0.2 /CUMM) 0 Platelet Estimate (ADEQUATE) ADEQUATE Polychromasia 1+ Hypochromic-Microcytic 1+ Poikilocytosis 1+ Anisocytosis 2+ Microcytic Cells 1+ Macrocytic Cells 1+ [place] Cells FEW Elliptocytes 1+ Schistocytes FEW PUBS MCHC (33.0 - 37.0 G/DL) 32.0 L ESR Westergren (0 - 10 MM) 55 H Urines Urine Color Cancelled Urine Clarity Cancelled Urine pH Cancelled Ur Specific [place] Cancelled Urine Protein Cancelled Urine Ketones Cancelled Urine Nitrite Cancelled Urine Bilirubin Cancelled Urine Urobilinogen Cancelled Ur Leukocyte Esterase Cancelled Ur Microscopic Cancelled Urine Hemoglobin Cancelled Urine Glucose Cancelled
--- NOTE | 2016-10-07 13:00 | Cons- Infect Disease ---
General Information and HPI Consulting Request Date of Consult: 10/07/16 Requested By: HALIMA RECINOS M.D Reason for Consult: Positive blood cultures for gram-positive cocci in clusters Source of Information: patient, old records History of Present Illness: This is a 61-year-old man with a history of hypertension, COPD with obstructive sleep apnea, nonischemic cardiomyopathy, HFrEF, gout, diabetes, with severe retinopathy, end-stage renal disease, status post creation of a left upper extremity AV fistula nearly 2 years prior to admission which has never been used and has since clotted, hospitalized nearly 2 months with uremia and begun on dialysis via a right IJ Marshal catheter, with a left arm fistulogram, venous angioplasty and arterial angioplasty performed at that time, with his course complicated by atrial flutter, for which he was begun on Coumadin, dialyzed Tuesdays, and Saturdays since discharge, with an ultrasound 4 weeks prior to admission revealing a patent fistula, status post exchange of his catheter as an outpatient 9 days prior to admission because of pain and loosening of the catheter, admitted on October 06 after presenting to the emergency room with several days of severe interscapular, lower back and left buttock pain without associated fevers or chills. On admission he was afebrile. His initial blood pressure was 122/61 but it did decrease to 96 over palp. Laboratory data revealed a white blood cell count of 21,000, BUN/creatinine 36 and 3.8, with normal liver enzymes, INR 2.29. Chest x-ray revealed no definite consolidation. CT of the lumbar spine revealed chronic appearing degenerative changes with a partial fusion of the right sacroiliac joint. He was given Vancomycin and Ceftazidime. Later in the evening blood cultures 2 were reported positive for gram-positive cocci in clusters, which have been identified today as Staph aureus. He has remained afebrile since admission. He continues to complain of severe pain in the interscapular area and lower back, radiating down the left buttock to the posterior thigh. Allergies/Medications Allergies: Coded Allergies: NO KNOWN ALLERGIES (06/10/14) Home Med List: Allopurinol 300 MG TABLET 1 TAB PO DAILY GOUT (Reported) Aspirin (Ecotrin*) 81 MG TABLET.DR 1 TAB PO DAILY heart health (Reported) Atorvastatin Calcium 20 MG TABLET 20 MG PO 1700 heart health Carvedilol 25 MG TABLET 50 MG PO BID heart health Cholecalciferol (Vitamin D3) (Vitamin D) 1,000 UNIT TABLET 1 TAB PO DAILY SUPPLEMENT (Reported) Epoetin Kameron (Procrit) 20,000 UNIT/ML VIAL 1 UNIT IV Q 3 WEEKS ANEMIA ( Reported) Fluticasone-Salmeterol (Advair 100-50 Diskus) 100 MCG-50 MCG/DOSE BLST.W.DEV 1 PUF INH BID ASTHMA (Reported) Isosorbide Monitrate Sr (Imdur 60MG Tab) 60 MG TAB 2 TAB PO DAILY HEART HEALTH Latanoprost (Xalatan) 2.5 ML DROPS 1 GTT OPH QPM BOTH EYES (Reported) Nephro-Vitamins (Nephro-Geri Tablet) 0.8 MG TABLET 1 TAB PO DAILY renal health Oxycodone HCl/Acetaminophen (Percocet 5-325 MG Tablet) 1 EACH TABLET 1-2 TAB PO Q6P PRN pain Repaglinide (Prandin) 1 MG TABLET 1 MG PO AC diabetes Please take your medication before meals. If you skip meals, please dont take this medication. It will cause hypoglycemia. Sevelamer Carbonate (Renvela) 800 MG TABLET KIDNEY HEALTH (Reported) Warfarin Sodium (Coumadin) 2.5 MG TABLET 1 TAB PO DAILY heart health Please dose coumadin as per INR. Please contact your PCP or occupational health manager for correct dosing. 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 There is also an excision of a retained foreign object. This was in May 2012., left AV fistula venous and arterial angioplasty 07/2016, status post left olecranon bursa excision October 27 Family History Relations & Conditions If Any: MOTHER Diabetes mellitus (DM) Relation not specified for: Cerebrovascular accident in mother Psychosocial History Where Do You Live? Home Who Do You Live With? spouse Services at Home: None Primary Language: Amharic Smoking Status: Former Smoker ETOH Use: occasional use Illicit Drug Use: denies illicit drug use Functional Ability ADLs Independent: dressing, eating, toileting, bathing. Ambulation: cane IADLs Independent: telephone. Needs Assist: housework, finances, food prep, medication admin. Unknown: shopping, transportation. Review of Systems Review of Systems Cardiovascular: Denies: chest pain. Respiratory: Denies: cough, short of breath. GI: Reports: vomiting. Denies: abdominal pain, diarrhea. Genitourinary: Reports: no symptoms. Musculoskeletal: Reports: back pain, joint pain, muscle pain. All Other Systems: Reviewed and Negative Exam & Diagnostic Data Last 24 Hrs of Vital Signs/I&O Vital Signs Date Time Temp Pulse Resp B/P B/P Pulse O2 O2 Flow FiO2 Mean Ox Delivery Rate 10/07 0828 112 112/00 10/07 0800 95 Nasal 2.0L Cannula 10/07 0800 99.4 112 20 112/00 93 CPAP 10/07 0258 118 94 10/07 0005 97.6 107 20 95 10/07 0000 CPAP 10/07 0000 115/86 10/06 2234 108 97 10/06 2207 106 118/0 10/06 2200 110 118/0 10/06 1940 98.6 118 20 120/0 97 Nasal 2.0L Cannula 10/06 1713 Nasal 2.0L Cannula 10/06 1600 94 Nasal 2.0L Cannula 10/06 1315 97.0 113 20 105/56 94 Nasal 3.0L Cannula Intake & Output 10/07 1600 10/07 0800 10/07 0000 Intake Total 370 600 Output Total 0 Balance 370 600 Intake, IV 250 Intake, Oral 120 600 Number 0 Bowel Movements Output, Urine 0 Physical Exam Other Physical Findings: He is awake and alert in moderate distress secondary to pain. He is afebrile. Skin reveals no rash. HEENT exam poor dentition. Neck is supple with no adenopathy; right IJ Marshal catheter slightly tender to palpation, with no erythema , edema or drainage Lungs are clear. Heart regular rhythm with no murmur. Abdomen is soft, nontender with positive bowel sounds. Back no CVA tenderness. Extremities multiple healed ulcerations on both lower extremities, with 1+ pulses bilaterally; left upper extremity fistula with a positive bruit and thrill with no inflammation. Neuro is without focality. Last 24 Hours of Lab Results: Laboratory Tests 10/07 10/06 0930 2049 Chemistry Sodium (137 - 145 mmol/L) 132 L Potassium (3.5 - 5.1 mmol/L) 4.6 Chloride (98 - 107 mmol/L) 97 L Carbon Dioxide (22 - 30 mmol/L) 24 Anion Gap (5 - 16) 11 BUN (9 - 20 mg/dL) 48 H Creatinine (0.7 - 1.2 mg/dL) 4.6 H Estimated GFR (>60 ml/min) 13 L BUN/Creatinine Ratio (7 - 25 %) 10.4 Phosphorus (2.5 - 4.5 mg/dL) 4.5 Magnesium (1.6 - 2.3 mg/dL) 1.9 Coagulation PT (9.4 - 12.5 SEC) 23.9 H INR (0.90 - 1.17) 2.29 H Last 24 Hours of Cristi Results: Blood cultures 2 October 06 positive for Staph aureus Diagnostic Data Recent Imaging Findings: Chest x-ray October [address] of the lumbar spine October 06 reveals chronic appearing degenerative changes with partial fusion of the right sacroiliac joint Assessment/Plan Assessment/Plan Impression: This is a 61-year-old man with hypertension, HFrEF, COPD, atrial flutter, gout and diabetes, with end-stage renal disease, begun on dialysis on his recent admission nearly 2 months prior to admission via a right IJ Marshal catheter placed at that time, with exchange of that catheter over a guidewire 9 days prior to admission because of pain and loosening of the catheter, admitted on October 06 with several days of interscapular and lower back pain, radiating down the left buttock, found to be afebrile with an elevated white blood cell count and with blood cultures 2 positive for Staph aureus. The most likely source of his bacteremia is the right IJ Marshal catheter and, as discussed with Renal and Vascular surgery, feel that this will need to be removed. The accessibility of the left upper extremity AV fistula is unclear per Vascular surgery, but access can be attempted prior to placement of a new catheter. The etiology of his pain is unclear and may be secondary to sepsis, but will need to consider seeding of the spine if his pain persists. The Staph aureus may be MRSA and will need to isolate and continue treatment for this possibility pending final cultures. Suggestion: 1. Repeat blood cultures 2 2. Would have IR remove Marshal catheter in the a.m. October 08 after dialysis and culture the tip 3. Contact isolation for possible MRSA pending final cultures 4. Consider MRI of the cervical, thoracic and lumbar spine if pain persists 5. Redose Vancomycin 1 g IV 1 after dialysis on October 08 pending results of final blood cultures Consult Acknowledgment - Thank you for your consult request.
--- NOTE | 2016-10-07 13:22 | ECHOCARDIOGRAM REPORT ---
TIFFANI SHI Age: 61 : 1955 Gender: M Exam Date: 10/07/2016 10:12 Exam Location: [facility] Ht (in): 66 Wt (lb): 230 BSA: 2.25 BP: 115 / 86 Ordering Physician: KENDRICK FLORES, Referring Physician: KENDRICK FLORES, Technologist: Eliu Dempsey TODD Room Number: 189-2 Indications: AFIB/FLUTTER Rhythm: Technical Quality: FINDINGS Left Ventricle Mild left ventricular dilatation. Left ventricular wall thickness decreased. Moderately abnormal left ventricular ejection fraction estimated at 25-30%. Moderately reduced global left ventricular systolic function. Right Ventricle Normal right ventricular size and function. Right Atrium Normal right atrial size. Left Atrium Moderate left atrial dilatation. Mitral Valve Structurally normal mitral valve. Mild mitral regurgitation. Aortic Valve Structurally normal trileaflet aortic valve. Tricuspid Valve Structurally normal tricuspid valve. Mild tricuspid regurgitation. Right ventricular systolic pressure estimated at 41 mmHg. Pulmonic Valve Structurally normal pulmonic valve. Pericardium No pericardial effusion. Great Vessels Normal size aortic root. CONCLUSIONS Mild left ventricular dilatation. Left ventricular wall thickness decreased. Moderately abnormal left ventricular ejection fraction estimated at 25-30%. Moderately reduced global left ventricular systolic function. Moderate left atrial dilatation. Mild mitral regurgitation. Mild tricuspid regurgitation. Right ventricular systolic pressure estimated at 41 mmHg. Compared to previous study from July 2016 left ventricular systolic function is slightly improved. There is less mitral regurgitation. Heber Agudelo M.D. (Electronically Signed) Final Date: 07 October 2016 13:21 MEASUREMENTS (Male / Female) Normal Values 2D ECHO LV Diastolic Diameter PLAX 5.6 cm 4.2 - 5.9 / 3.9 - 5.3 cm LV Systolic Diameter PLAX 4.9 cm 2.1 - 4.0 cm LV Fractional Shortening PLAX 12.5 % 25 - 46 % LV Ejection Fraction 2D Teich 26.6 % IVS Diastolic Thickness 1.0 cm LVPW Diastolic Thickness 1.1 cm LV Relative Wall Thickness 0.4 RV Internal Dim ED PLAX 3.9 cm 1.9 - 3.8 cm LVOT Diameter 2.1 cm Aortic Root Diameter 2.9 cm LA Systolic Diameter LX 4.2 cm 3.0 - 4.0 / 2.7 - 3.8 cm LA Volume 81.0 cm 18 - 58 / 22 - 52 cm Ascending Aorta Diameter 3.0 cm DOPPLER AV Peak Velocity 102.0 cm/s AV Peak Gradient 4.2 mmHg AV Mean Velocity 73.1 cm/s AV Mean Gradient 2.0 mmHg AV Velocity Time Integral 16.2 cm LVOT Peak Velocity 66.9 cm/s LVOT Peak Gradient 1.8 mmHg LVOT Mean Velocity 39.5 cm/s LVOT Mean Gradient 1.0 mmHg LVOT Velocity Time Integral 9.0 cm LVOT Stroke Volume 31.0 cm AV Area Cont Eq vti 1.9 cm AV Area Cont Eq pk 2.3 cm MV Peak Velocity 81.3 cm/s MV Peak Gradient 2.6 mmHg MV Mean Velocity 55.4 cm/s MV Mean Gradient 1.0 mmHg Mitral E Point Velocity 56.4 cm/s Mitral A Point Velocity 46.5 cm/s Mitral E to A Ratio 1.2 MV PHT Velocity 85.5 cm/s MV Deceleration [place] 386.0 cm/s MV Pressure Half Time 66.5 ms MV Area PHT 3.3 cm MV Deceleration Time 239.0 ms TR Peak Velocity 299.0 cm/s TR Peak Gradient 35.8 mmHg Right Atrial Pressure 10.0 mmHg Pulmonary Artery Systolic Pressu 45.8 mmHg Right Ventricular Systolic Press 45.8 mmHg PV Peak Velocity 60.7 cm/s PV Peak Gradient 1.5 mmHg PV Mean Velocity 39.5 cm/s PV Mean Gradient 1.0 mmHg PV Velocity Time Integral 9.2 cm LV E' Lateral Velocity 6.8 cm/s Mitral E to LV E' Lateral Ratio 8.3
--- NOTE | 2016-10-07 13:59 | PN- Housestaff ---
DYLAN CABRERA 10/07/16 1358: Subjective Follow-up For: Bilateral shoulder pain Staph aureus bacteremia Ventricular tachycardia End-stage kidney disease on dialysis Tele-Events Since Last Visit: 11 and 13 beat run of V. tach yesterday and 6 beat run of V. tach overnight Subjective: This morning patient is drowsy but arousable. He is little agitated. Still complaining of pain in his shoulders. Denies any chest pain or abdominal pain. He does not want to answer anymore questions. Review of Systems Constitutional: Reports: see HPI. Objective Last 24 Hrs of Vital Signs/I&O Vital Signs Date Time Temp Pulse Resp B/P B/P Pulse O2 O2 Flow FiO2 Mean Ox Delivery Rate 10/07 0828 112 112/00 10/07 0800 95 Nasal 2.0L Cannula 10/07 0800 99.4 112 20 112/00 93 CPAP 10/07 0258 118 94 10/07 0005 97.6 107 20 95 10/07 0000 CPAP 10/07 0000 115/86 10/06 2234 108 97 10/06 2207 106 118/0 10/06 2200 110 118/0 10/06 1940 98.6 118 20 120/0 97 Nasal 2.0L Cannula 10/06 1713 Nasal 2.0L Cannula 10/06 1600 94 Nasal 2.0L Cannula Intake & Output 10/07 1600 10/07 0800 10/07 0000 Intake Total 370 600 Output Total 0 Balance 370 600 Intake, IV 250 Intake, Oral 120 600 Number 0 Bowel Movements Output, Urine 0 Physical Exam General Appearance: No Acute Distress, irritable, drowsy but arousable Skin: right Marshal cath Cardiovascular: Regular Rate, No Murmurs Lungs: Clear to Auscultation Abdomen: Normal Bowel Sounds, Soft, No Tenderness Extremities: No Edema Current Medications: Current Medications Sig/Cole Start time Last Medication Dose Route Stop Time Status Admin Acetaminophen 1,000 MG Q8P PRN 10/06 1030 DC 10/06 N/A 1 UNIT IV 10/07 0800 1626 Allopurinol 300 MG DAILY 10/06 1110 AC 10/07 PO 0828 Aspirin Buffered 81 MG DAILY 10/06 1117 AC 10/07 PO 0828 Atorvastatin Calcium 20 MG 1700 10/06 1700 AC 10/06 PO 1645 Carvedilol 25 MG BID 10/06 1117 AC 10/07 PO 0828 Hydromorphone HCl 0.6 MG Q4 HRS NEEDED PRN 10/07 1245 AC IV Hydromorphone HCl 1 MG Q4 HRS NEEDED PRN 10/07 0930 DC 10/07 IV 0921 Hydromorphone HCl 0.4 MG Q6P PRN 10/06 1945 DC 10/07 IV 0606 Insulin Aspart 0 TIDAC 10/06 1200 AC 10/07 SC 0820 Vancomycin HCl 500 MG ONCE ONE 10/07 0100 DC 10/07 Sodium Chloride 250 ML IV 10/07 0159 0145 Vancomycin HCl 0 SAT PRN 10/07 0045 AC IV Warfarin Sodium 2.5 MG COUMADIN 1700 ONE 10/06 1708 DC 10/06 PO 10/06 1709 1830 Last 24 Hrs of Lab/Cristi Results Last 24 Hrs of Labs/Mics: Laboratory Tests 10/07/16 0930: PT 23.9 H, INR 2.29 H 10/06/162048: Anion Gap 11, Estimated GFR 13 L, BUN/Creatinine Ratio 10.4, Phosphorus 4.5, Magnesium 1.9 Microbiology 10/07 1402 BLOOD: Blood Culture - ORD 10/07 1402 BLOOD: Blood Culture - ORD 10/07 0756 BLOOD: Blood Culture - CAN Cancelled: Cancelled via OE: Per MD Decision Assessment/Plan Assessment: 61-year-old man with PMH of end-stage renal disease on hemodialysis (Friday) via RIJ tunneled dialysis catheter, nonischemic cardiomyopathy, paroxysmal atrial flutter on warfarin and hypertension. Problem list 1. GPC bacteremia. MAXIMUM TEMPERATURE 99.4. WBC count 21.2. Most likely sources dialysis catheter site. Catheter site without obvious signs of infection. 2. History of Nonischemic cardiomyopathy 3. Paroxysmal atrial flutter. on Warfarin. held because of bleeding from dialysis catheter 4. short runs of NSVT. Most likely secondary to ongoing bacteremia and sepsis 5. Bilateral shoulder pain. ? muscular PLAN * Monitor vitals closely * Continue telemetry monitoring and watch for any arrhythmias * Check electrolytes daily and replete accordingly * ID consult appreciated * Continue vancomycin * Dialysis catheter to be removed by IR tomorrow after dialysis and tip to be sent for culture * Would get MRI of cervicothoracic and lumbar spine * hemodialysis tomorrow * Adequate pain management * Holding Coumadin for now * Continue other home medications * DVT prophylaxis * Full code Problem List: 1. Sepsis Pain Ratin Pain Location: Bilateral shoulders Pain Goal: Pain 4 or less Pain Plan: IV Dilaudid Tomorrow's Labs & Rationales: CBC BEP DVT/Prophylaxis: pharmacological GRISEL CANO,ROSAJuice 10/07/16 2248: Attending MD Review Statement Attending Statement Attending MD Statement: examined this patient, discuss w/resident/PA/SENIOR QA AUTOMATION ENGINEER, agreed w/resident/PA/SENIOR QA AUTOMATION ENGINEER, reviewed EMR data (avail), discussed with nursing, discussed with case mgmt, amended to note Attending Assessment/Plan: Patient seen and examined. I have reviewed and agree with resident's notes. Patient is lethargic but oriented 3. She is complaining of diffuse body aches. MRI of her thoracic and lumbar spine was obtained as recommended by infectious disease service, it reveals evidence of excessive infectious pathology noted. Nursing staff reported that she required Dopplers obtain blood pressure earlier on today. This is likely secondary to his vasculopathy. Case was discussed in detail with ID service. On account of his bacteremia his tunneled catheter will need to be discontinued. This will be done after hemodialysis tomorrow. We'll discuss with the nephrology and vascular surgery service regarding access for hemodialysis.
--- NOTE | 2016-10-07 19:11 | MRI REPORT ---
EXAMINATION: MR CERVICAL SPINE WITHOUT CONTRAST MR THORACIC SPINE WITHOUT CONTRAST MR LUMBAR SPINE WITHOUT CONTRAST CLINICAL INFORMATION: Pain. Assess for spinal seeding in the setting of GPC sepsis. COMPARISON: CT scan of the lumbar spine 10/06/2016. Chest x-ray 10/06/2016. TECHNIQUE: MRI scans of the cervical, thoracic and lumbar spines were obtained using routine sequences without contrast. Intravenous contrast was not able to be given, as the patient's GFR was 13. Multiple sequences are degraded by patient motion artifact due to severe pain. FINDINGS: MRI CERVICAL SPINE: VERTEBRAL BODIES AND PARASPINAL SOFT TISSUES: There is a mild levoscoliosis. There is a degenerative anterolisthesis of C3 on C4, there is reversal of the cervical lordosis at C5-C6. There is multilevel narrowing of intervertebral disc height. Vertebral body heights are maintained. There appear to be mild Modic type I edematous endplate signal changes toward the left at C5-C6. There are fatty endplate changes anteriorly at C6-C7. There are no compression fractures. There is moderate prevertebral soft tissue fullness with fluid extending from the clivus, to the level of C6-C7. There is mild edematous signal in the paraspinal soft tissues. CERVICOMEDULLARY JUNCTION AND VISUALIZED POSTERIOR FOSSA: There are multiple small foci of increased T2 and STIR signal in the kerwin, consistent with chronic microvascular ischemic changes. Accounting for artifact, spinal cord signal appears normal. SPINAL LEVELS: C2-C3: Disc contour is normal. There is no spinal cord compression or central stenosis. The neural foramina are patent. C3-C4: There is a broad-based posterior disc protrusion. There is bilateral facet arthropathy. There is effacement of CSF ventral to the spinal cord, but there is no spinal cord compression. There is mild bilateral foraminal narrowing. C4-C5: There is bilateral facet arthropathy. There is a posterior disc protrusion which effaces CSF ventral to the spinal cord. There is mild bilateral foraminal narrowing. C5-C6: There is severe right facet arthropathy. There is a posterior disc protrusion which effaces CSF ventral to the spinal cord. There is mild flattening of the cord and there is moderate central stenosis. There appear to be small fluid collections posterior to the bilateral facet joints. C6-C7: There is a broad-based posterior disc osteophyte complex and there are bilateral uncovertebral osteophytes. There is effacement of CSF ventral to the spinal cord without spinal cord compression. There is mild bilateral foraminal narrowing. C7-T1: Disc contour is normal. There is no spinal cord compression or central stenosis. The neural foramina are patent. MRI THORACIC SPINE: VERTEBRAL BODIES AND PARASPINAL STRUCTURES: There is a mild levoscoliosis. There is mild narrowing of intervertebral disc height in the mid thoracic spine. Vertebral body heights are maintained. There are no compression fractures. Overall, marrow signal is homogenous. The paravertebral and posterior thoracic structures are unremarkable. The conus is at the level of L1. Accounting for artifact, spinal cord signal appears normal. SPINAL LEVELS: T2-T3: There is a small right paracentral disc protrusion. There is no spinal cord compression or central stenosis. T3-T4: There is a small right paracentral disc protrusion. There is no spinal cord compression or central stenosis. T4-T5: There is a small right paracentral disc protrusion. There is no spinal cord compression or central stenosis. T6-T7: There is a broad-based posterior disc protrusion. There is no spinal cord compression or central stenosis. T9-T10: There is a posterior disc osteophyte complex which effaces CSF ventral to the spinal cord. There is bilateral facet arthropathy. There is no spinal cord compression. MRI LUMBAR SPINE: VERTEBRAL BODIES AND PARASPINAL STRUCTURES: There is straightening of the lumbar lordosis. There is loss of signal from the intervertebral discs at L4-L5 and L5-S1. Vertebral body heights are maintained. There are no compression fractures. There are mild edematous endplate signal changes toward the left at L4-L5. There is increased signal in the periarticular soft tissues around the right L4-L5 facet joint. Overall, marrow signal is homogenous. The visualized pelvic structures are unremarkable. There are degenerative changes in the right sacroiliac joint. CONUS MEDULLARIS AND CAUDA EQUINA: Normal, terminating at the level of L1. The cauda equina nerve roots appear normal. There is equivocal fat in the filum terminale in the sacral spinal canal. SPINAL LEVELS: L1-L2: There is mild bilateral facet arthropathy. Disc contour is normal. There is no central stenosis or foraminal narrowing. L2-L3: There is mild bilateral facet arthropathy. Disc contour is normal. There is no central stenosis or foraminal narrowing. L3-L4: There is mild bilateral facet arthropathy. Disc contour is normal. There is no central stenosis or foraminal narrowing. L4-L5: There is severe bilateral facet arthropathy with ligamenta flava hypertrophy and large facet joint effusions. There is a cyst extending off the posterior right facet joint. There is a broad-based posterior disc protrusion extending into the bilateral neural foramina, with impingement on the exiting L4 nerve roots. There is narrowing of the subarticular recesses bilaterally. There is mild central stenosis. L5-S1: There is moderate bilateral facet arthropathy. There is a broad-based posterior disc protrusion extending into the bilateral neural foramina with impingement on the exiting L5 nerve roots bilaterally. There is no central stenosis. IMPRESSION: MRI CERVICAL SPINE: 1. There is moderate prevertebral soft tissue fullness with fluid extending from the clivus to the level of C7. There is also edematous signal in the paraspinal soft tissues bilaterally. 2. There is spondylosis which is most severe at C4-C5, C5-C6 and C6-C7 with effacement of CSF around the cord and flattening of the cord as described above. 3. CT scan of the neck is recommended for further assessment. A postcontrast study could be considered if the patient has normal creatinine or is going to undergo dialysis. MRI THORACIC SPINE: 1. There are mild multilevel spondylitic changes. 2. There is no spinal cord compression or central stenosis. 3. Accounting for artifact, spinal cord signal appears normal. MRI LUMBAR SPINE: 1. There are severe facet arthropathic changes at L4-L5 with facet joint effusions and periarticular soft tissue changes. 2. There are disc protrusions at L4-L5 and L5-S1 extending into the neural foramina bilaterally with impingement on the exiting L4 and L5 nerve roots.
--- NOTE | 2016-10-07 21:34 | NUR ---
2130 PT C/O NONRADIATING CP BP 110/72 HR 113. TIM SALCIDO MADE AWARE EKG AND TROP ORDERED. WILL CONTINUE TO MONITOR.
[2016-10-07 22:00] VITALS: BP 110/72
--- NOTE | 2016-10-07 22:21 | Event Note ---
Event Note Event Note: As per the nurse, the pt was woken up from sleep to check vitals, and he started complaining of sudden onset of chest pain; 10/10 radiating to the back, tightness, moderately relieved upon settling down in a comfortable position. Also complained of upper back ache, which is chronic. Vitals stable, Temp 98.3, HR 112, BP 110/72, 94 % 2l supplemental oxygen. On examination, appeared to be in mild distress due to pain, heart sounds S1S2 normal and no no additional sounds noted. Lung auscultaiton was within normal limits with no abnormal lung sounds, with occasssional wheezes. EKG revealed sinus tachy, low voltage, normal axis, non specific T wave changes ? in V5, V6. Differentials at the time of examination- Musculo skeletal(Radiculopathy), R/O ACS. Pt receieved his aspirin this am, and also his beta luciano. Cardiac enzyme Trop I- wnl. Pt received his pain medication, and soon after, he fell asleep within 10'. He stated that his pain improved, before he falling asleep. Informed the resident. Checked on the pt a few times during the shift.
[2016-10-08 08:19] LABS: ABSOLUTE BASOPHIL COUNT 0 /CUMM (0.0-0.2); ABSOLUTE EOSINOPHIL COUNT 0 /CUMM (0.0-0.7); ABSOLUTE GRANULOCYTE CT 12.4 /CUMM (1.4-6.5); ABSOLUTE LYMPH COUNT 0.7 /CUMM (1.2-3.4); ABSOLUTE MONOCYTE COUNT 1.3 /CUMM (0.10-0.60); BASOPHIL % 0.1 % (0.0-2.0); EOSINOPHIL % 0.3 % (0-5); GRANULOCYTE % 85.9 % (42.2-75.2); HEMATOCRIT 31.6 % (42-52); MEAN CORPUSCULAR HGB 31.4 PG (27.0-31.0); MEAN CORPUSCULAR HGB CONC 32.2 G/DL (33.0-37.0); MEAN CORPUSCULAR VOLUME 97.6 FL (80.0-94.0); MEAN PLATELET VOLUME 9.2 FL (7.4-10.4); PLATELET COUNT 139 /CUMM (130-400); RED BLOOD CELL CT 3.24 /CUMM (4.70-6.10); WHITE BLOOD CELL COUNT 14.4 /CUMM (4.8-10.8)
--- NOTE | 2016-10-08 10:27 | PN- Housestaff ---
DYLAN CABRERA 10/08/16 1026: Subjective Follow-up For: GPC bacteremia short runs of NSVT Bilateral shoulder pain Tele-Events Since Last Visit: 8 beat Run of V. tach overnight Subjective: Patient got dialysis today. He is still complaining f bilateral shoulder pain. 10 in intensity. He is still complaining of left-sided chest pain. Review of Systems Constitutional: Reports: see HPI. Objective Last 24 Hrs of Vital Signs/I&O Vital Signs Date Time Temp Pulse Resp B/P B/P Pulse O2 O2 Flow FiO2 Mean Ox Delivery Rate 10/08 1320 112 130/92 10/08 1122 97.7 111 20 118/92 96 Nasal 2.0L Cannula 10/08 0800 Nasal 2.0L Cannula 10/08 0000 94 CPAP 10/07 2244 110 95 10/07 2200 98.7 113 18 110/72 94 Nasal 2.0L Cannula 10/07 2129 113 110/72 10/07 1600 96 Nasal 2.0L Cannula 10/07 1540 99.1 77 16 96 Nasal 2.0L Cannula Intake & Output 10/08 1600 10/08 0800 10/08 0000 Intake Total 200 100 Output Total Balance 200 100 Intake, Oral 200 100 Patient 227 lb Weight Physical Exam General Appearance: Alert, Oriented X3, Cooperative, Mild Distress Neck: back of neck: skin is lax with fluid thrill positive. non tender, normal temp. tenderness upon deep palpation of neck. Cardiovascular: Regular Rate, No Murmurs Lungs: Clear to Auscultation, tenderness on palpation of left side of chest Abdomen: Normal Bowel Sounds, Soft, No Tenderness, obese Extremities: No Edema Current Medications: Current Medications Sig/Cole Start time Last Medication Dose Route Stop Time Status Admin Allopurinol 300 MG DAILY 10/06 1110 AC 10/08 PO 1321 Aspirin Buffered 81 MG DAILY 10/06 1117 AC 10/08 PO 1321 Atorvastatin Calcium 20 MG 1700 10/06 1700 AC 10/07 PO 1548 Carvedilol 50 MG BID 10/08 2200 AC PO Carvedilol 25 MG BID 10/06 1117 DC 10/08 PO 1320 Epoetin Kameron 4,000 UNIT TUES THURS SAT PRN 10/08 0830 AC IV Hydromorphone HCl 0.6 MG Q4 HRS NEEDED PRN 10/07 1245 AC 10/08 IV 1010 Insulin Aspart 0 TIDAC 10/06 1200 AC 10/07 SC 1330 Lidocaine 0 .STK-MED ONE 10/08 1154 DC .ROUTE Paricalcitol 5 MCG SAT PRN 10/08 0830 AC IV Vancomycin HCl 1,000 MG ONCE ONE 10/08 1200 DC 10/08 Sodium Chloride 250 ML IV 10/08 1259 1319 Vancomycin HCl 0 THURS SAT PRN 10/07 0045 AC IV Last 24 Hrs of Lab/Cristi Results Last 24 Hrs of Labs/Mics: Laboratory Tests 10/08/16 0625: Anion Gap 13, Estimated GFR 9 L, BUN/Creatinine Ratio 12.1, Glucose 210 H, Calcium 8.0 L, Magnesium 2.1, Total Bilirubin 0.9, AST 14 L, ALT 35, Alkaline Phosphatase 97, Troponin I 0.02, Total Protein 6.1 L, Albumin 2.9 L, Globulin 3.2, Albumin/Globulin Ratio 0.9 L, CBC w Diff MAN DIFF ORDERED, RBC 3.24 L, MCV 97.6 H, MCH 31.4 H, RDW 21.0 H, MPV 9.2, Gran % 85.9 H, Lymphocytes % 4.6 L, Monocytes % 9.1, Eosinophils % 0.3, Basophils % 0.1, Absolute Granulocytes 12.4 H, Absolute Lymphocytes 0.7 L, Absolute Monocytes 1.3 H, Absolute Eosinophils 0, Absolute Basophils 0, Platelet Estimate VERIFIED BY SMEAR, Polychromasia 1+, Poikilocytosis 1+, Anisocytosis 1+, Ovalocytes 1+, Diamante Cells 1+, PUBS MCHC 32.2 L, Random Vancomycin 10.9 10/07/16 2150: Troponin I 0.02 Microbiology 10/08 1150 CATH TIP: Catheter Tip Culture - RECD 10/08 1115 BLOOD: Blood Culture - COLB 10/08 1115 BLOOD: Blood Culture - COLB 10/07 1625 BLOOD: Blood Culture - RES GRAM POSITIVE COCCI 10/07 1610 BLOOD: Blood Culture - RES GRAM POSITIVE COCCI Assessment/Plan Assessment: 61-year-old man with PMH of end-stage renal disease on hemodialysis (Friday) via RIJ tunneled dialysis catheter, nonischemic cardiomyopathy, paroxysmal atrial flutter on warfarin and hypertension. Problem list 1. GPC bacteremia. MAXIMUM TEMPERATURE 99.1. WBC count 14.4. 4. Paroxysmal atrial flutter. on Warfarin. held because of history of bleeding from dialysis catheter 4. short runs of NSVT. Most likely secondary to ongoing bacteremia and sepsis 5. Bilateral shoulder pain 6. retropharyngeal/prevertebral abscess (3.6 cm TV by 1.5 cm AP by 9.2 cm CC) 7. Suspicion for C5-C6 osteomyelitis 8. Right internal jugular vein nonocclusive thrombus PLAN * Monitor vitals closely * Continue telemetry monitoring and watch for any arrhythmias * Check electrolytes daily and replete accordingly * ID consult appreciated * Continue vancomycin * Dialysis catheter was removed by IR today. Follow-up cultures from dialysis catheter tip * ENT consult for retropharyngeal/prevertebral abscess. Dr. Glimore is was coming to see him today. Patient might need OR drainage of abscess. * Adequate pain management * Holding Coumadin for now * Continue other home medications * DVT prophylaxis * Full code Problem List: 1. Sepsis Pain Ratin Pain Location: neck Pain Goal: Pain 4 or less Pain Plan: dilaudid Tomorrow's Labs & Rationales: cbc DVT/Prophylaxis: pharmacological Consulting Request: Consulting Specialty: Otorhinolaryngology HALIMA RECINOS MD 10/08/16 1375: Attending MD Review Statement Attending Statement Attending MD Statement: examined this patient, discuss w/resident/PA/DIRECT OF REAL ESTATE, agreed w/resident/PA/DIRECT OF REAL ESTATE, reviewed EMR data (avail), discussed with nursing, discussed with case mgmt, amended to note Attending Assessment/Plan: Patient seen and examined. Lying in bed. Complains of neck pain radiating to both shoulders. Repeat blood cultures remain positive this morning. He is growing MRSA. MRI of the cervical spine done yesterday revealed prevertebral fluid collection. CT shows large retropharyngeal collection extending from the nasopharyngeal region to the C7 region raising concern for abscess. Case was discussed with the neurosurgery/ENT/interventional radiology service. He will be evaluated by the ENT service for possible drainage in the operating room. Recommendations: -Continue IV antibiotic therapy with vancomycin. -Dialysis catheter was discontinued today after dialysis. Next dialysis session will be attempted through his left upper arm AV fistula -Keep nothing by mouth past midnight tomorrow. -Hold Coumadin and repeat INR in a.m. We'll transfuse FFP to reverse INR is needed urgently for surgery. Will consider IV Heparin if surgeyr is delayed and INR subtherapeutic. -Continue current pain regimen. Patient continues to complain of pain or reports relief with the current regimen.
--- NOTE | 2016-10-08 10:43 | PN- Infect Dx ---
See Addendum Subjective Subjective: Afebrile. He complains of severe interscapular pain and lower back pain, with no radiation down the left leg today. He apparently reported severe chest pain earlier this morning. Objective Last 24 Hrs of Vital Signs/I&O Vital Signs Date Time Temp Pulse Resp B/P B/P Pulse O2 O2 Flow FiO2 Mean Ox Delivery Rate 10/08 0000 94 CPAP 10/07 2244 110 95 10/07 2200 98.7 113 18 110/72 94 Nasal 2.0L Cannula 10/07 2129 113 110/72 10/07 1600 96 Nasal 2.0L Cannula 10/07 1540 99.1 77 16 96 Nasal 2.0L Cannula Intake & Output 10/08 1600 10/08 0800 10/08 0000 Intake Total 200 100 Output Total Balance 200 100 Intake, Oral 200 100 Patient 227 lb Weight Physical Exam Other Physical Findings: He is awake and alert in mild distress secondary to the pain Neck tender on palpation over the posterior neck; right IJ Marshal catheter with no erythema, edema or tenderness on palpation Lungs are clear Heart regular rhythm with no murmur Abdomen is soft, nontender with positive bowel sounds Extremities no cyanosis, clubbing or edema Neuro is without focality Results Last 24 Hours of Lab Results: Laboratory Tests 10/08 10/07 0625 2150 Chemistry Sodium (137 - 145 mmol/L) 131 L Potassium (3.5 - 5.1 mmol/L) 5.1 Chloride (98 - 107 mmol/L) 97 L Carbon Dioxide (22 - 30 mmol/L) 21 L Anion Gap (5 - 16) 13 BUN (9 - 20 mg/dL) 75 H Creatinine (0.7 - 1.2 mg/dL) 6.2 *H Estimated GFR (>60 ml/min) 9 L BUN/Creatinine Ratio (7 - 25 %) 12.1 Glucose (65 - 99 mg/dL) 210 H Calcium (8.4 - 10.2 mg/dL) 8.0 L Magnesium (1.6 - 2.3 mg/dL) 2.1 Total Bilirubin (0.2 - 1.3 mg/dL) 0.9 AST (17 - 59 U/L) 14 L ALT (21 - 72 U/L) 35 Alkaline Phosphatase (< 127 U/L) 97 Troponin I (<0.11 ng/ml) 0.02 0.02 Total Protein (6.3 - 8.2 g/dL) 6.1 L Albumin (3.5 - 5.0 g/dL) 2.9 L Globulin (1.9 - 4.2 gm/dL) 3.2 Albumin/Globulin Ratio (1.1 - 2.2 %) 0.9 L Hematology CBC w Diff MAN DIFF ORDERED WBC (4.8 - 10.8 /CUMM) 14.4 H RBC (4.70 - 6.10 /CUMM) 3.24 L Hgb (14.0 - 18.0 G/DL) 10.2 L Hct (42 - 52 %) 31.6 L MCV (80.0 - 94.0 FL) 97.6 H MCH (27.0 - 31.0 PG) 31.4 H RDW (11.5 - 14.5 %) 21.0 H Plt Count (130 - 400 /CUMM) 139 MPV (7.4 - 10.4 FL) 9.2 Gran % (42.2 - 75.2 %) 85.9 H Lymphocytes % (20.5 - 51.1 %) 4.6 L Monocytes % (1.7 - 9.3 %) 9.1 Eosinophils % (0 - 5 %) 0.3 Basophils % (0.0 - 2.0 %) 0.1 Absolute Granulocytes (1.4 - 6.5 /CUMM) 12.4 H Absolute Lymphocytes (1.2 - 3.4 /CUMM) 0.7 L Absolute Monocytes (0.10 - 0.60 /CUMM) 1.3 H Absolute Eosinophils (0.0 - 0.7 /CUMM) 0 Absolute Basophils (0.0 - 0.2 /CUMM) 0 Platelet Estimate (ADEQUATE) VERIFIED BY SMEAR Polychromasia 1+ Poikilocytosis 1+ Anisocytosis 1+ Ovalocytes 1+ Diamante Cells 1+ PUBS MCHC (33.0 - 37.0 G/DL) 32.2 L Toxicology Random Vancomycin (ug/ml) 10.9 Last 24 Hours of Cristi Results: Blood cultures October 06 positive for MRSA Blood cultures October 07 positive for gram-positive cocci in clusters Recent Imaging Studies: MRI of the cervical spine reveals moderate prevertebral soft tissue fullness with fluid extending from the clivus to the level of C7, with small fluid collections posterior to the bilateral facet joints at C5-C6; spondylosis from C4 to C7 with effacement of CSF around the cord and flattening of the cord MRI of the thoracic spine reveals multilevel spondylitic changes with no spinal cord compression or central stenosis MRI of the lumbar spine reveals severe facet arthropathic changes at L4-L5 with disc protrusions L4-L5 and L5-S1 with impingement on the exiting L4 and L5 nerve roots Assessment/Plan Impression: MRSA sepsis presumably secondary to an infected right IJ Marshal catheter, status post exchange of this catheter over guidewire 9 days prior to admission because of pain and loosening of the catheter. He remains afebrile with white blood cell count decreasing on Vancomycin now Day 3 of treatment. The etiology of his severe neck and back pain is unclear. The MRI results are as noted, with concern for a possible inflammatory process/paraspinal abscess in the cervical spine. Suggestion: 1. Repeat blood cultures 2 today 2. Await removal of Marshal catheter later today after dialysis 3. Would pursue CT of the neck with IV contrast (would discuss timing with Renal) 4. Neurosurgical evaluation 5. Continue Vancomycin with dosing per dialysis protocol
--- NOTE | 2016-10-08 11:17 | Event Note ---
Event Note Event Note: I spoke with Dr. Guajardo over the phone and told her about the patient. I also read MRI report to her. After listening she doesn't think it's a spine issue. She is thinking its more ENT issue. For MRI findings she recommended physical therapy and pain management. She is also going to review MRI images by herself and call me if she thinks something else. She called at 2 PM after reviewing MRI images and she still thinks that he is having some chronic changes in the spine and no active issue. She will review CT scan later tonight but still thinks that there is no intervention from neurosurgical point of view.
[2016-10-08 11:22] VITALS: BP 118/92
--- NOTE | 2016-10-08 12:18 | PN- Cardiology ---
Subjective Subjective: Fei still reports significant back pain. He is uncomfortable. Objective Vital Signs and I&Os Vital Signs Date Time Temp Pulse Resp B/P B/P Pulse O2 O2 Flow FiO2 Mean Ox Delivery Rate 10/08 1122 97.7 111 20 118/92 96 Nasal 2.0L Cannula 10/08 0800 Nasal 2.0L Cannula 10/08 0000 94 CPAP 10/07 2244 110 95 10/07 2200 98.7 113 18 110/72 94 Nasal 2.0L Cannula 10/07 2129 113 110/72 10/07 1600 96 Nasal 2.0L Cannula 10/07 1540 99.1 77 16 96 Nasal 2.0L Cannula Intake & Output 10/08 1600 10/08 0800 10/08 0000 10/07 1600 10/07 0800 10/07 0000 Intake Total 200 100 400 370 600 Output Total 0 Balance 200 100 400 370 600 Intake, IV 250 Intake, Oral 200 100 400 120 600 Number 0 Bowel Movements Output, Urine 0 Patient 227 lb Weight Physical Exam: Neck JVP nl Lungs-clear bilat. [id number] regular Abdomen-soft, not tender, BS+, no organomegaly Ext-trace edema, 1+ pulses Current Medications: Current Medications Sig/Cole Start time Last Medication Dose Route Stop Time Status Admin Allopurinol 300 MG DAILY 10/06 1110 AC 10/07 PO 0828 Aspirin Buffered 81 MG DAILY 10/06 1117 AC 10/07 PO 0828 Atorvastatin Calcium 20 MG 1700 10/06 1700 AC 10/07 PO 1548 Carvedilol 25 MG BID 10/06 1117 AC 10/07 PO 2129 Epoetin Kameron 4,000 UNIT TUES TH SAT PRN 10/08 0830 AC IV Hydromorphone HCl 0.6 MG Q4 HRS NEEDED PRN 10/07 1245 AC 10/08 IV 1010 Hydromorphone HCl 1 MG Q4 HRS NEEDED PRN 10/07 0930 DC 10/07 IV 0921 Insulin Aspart 0 TIDAC 10/06 1200 AC 10/07 SC 1330 Lidocaine 0 .STK-MED ONE 10/08 1154 DC .ROUTE Paricalcitol 5 MCG TUES THURS SAT PRN 10/08 0830 AC IV Vancomycin HCl 1,000 MG ONCE ONE 10/08 1200 AC Sodium Chloride 250 ML IV 10/08 1259 Vancomycin HCl 0 TUES THURS SAT PRN 10/07 0045 AC IV Results Last 48 Hrs of Labs/Mics: Laboratory Tests 10/08/16 0625: Anion Gap 13, Estimated GFR 9 L, BUN/Creatinine Ratio 12.1, Glucose 210 H, Calcium 8.0 L, Magnesium 2.1, Total Bilirubin 0.9, AST 14 L, ALT 35, Alkaline Phosphatase 97, Troponin I 0.02, Total Protein 6.1 L, Albumin 2.9 L, Globulin 3.2, Albumin/Globulin Ratio 0.9 L, CBC w Diff MAN DIFF ORDERED, RBC 3.24 L, MCV 97.6 H, MCH 31.4 H, RDW 21.0 H, MPV 9.2, Gran % 85.9 H, Lymphocytes % 4.6 L, Monocytes % 9.1, Eosinophils % 0.3, Basophils % 0.1, Absolute Granulocytes 12.4 H, Absolute Lymphocytes 0.7 L, Absolute Monocytes 1.3 H, Absolute Eosinophils 0, Absolute Basophils 0, Platelet Estimate VERIFIED BY SMEAR, Polychromasia 1+, Poikilocytosis 1+, Anisocytosis 1+, Ovalocytes 1+, [place] Cells 1+, PUBS MCHC 32.2 L, Random Vancomycin 10.9 10/07/16 2150: Troponin I 0.02 10/07/16 0930: PT 23.9 H, INR 2.29 H 10/06/162048: Anion Gap 11, Estimated GFR 13 L, BUN/Creatinine Ratio 10.4, Phosphorus 4.5, Magnesium 1.9 Recent Imaging Studies: Echo-LVEF 25-30%, slightly improved, mild MR, TR Assessment/Plan Assessment/Plan Assessment: 1. GPC bacteremia/sepsis in patient 1 week after dialysis catheter change. Catheter site without obvious signs of infection, but likely the source. Will be exchanged after dialysis WBC improving 2. Nonischemic cardiomyopathy, currently euvolemic 3. Paroxysmal atrial flutter, currently he appears to be in ectopic atrial tachycardia, rate 110bpm. short runs of NSVT. 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 Bilateral shoulder pain, unclear etiology, MRI showed cervical paraspinal fluid. Plan: continue Vancomycin await today labs increase carvedilol 50 mg bid hold Warfarin for now (in case he needs any invasive procedures). agree with neurosurgical evaluation Continue telemetry? Yes
--- NOTE | 2016-10-08 14:11 | CT SCAN REPORT ---
CT NECK WITH CONTRAST CLINICAL INFORMATION: Cervical spine abscess. COMPARISON: Cervical spine MRI 10/07/2016. TECHNIQUE: CT acquisition of the neck is obtained following the administration of 94 mL of Optiray 320 intravenous contrast without complication. FINDINGS: As noted on yesterday's cervical spine MRI there is a large retropharyngeal/prevertebral fluid collection extending from the nasopharyngeal region to the C7 level that is concerning for a retropharyngeal/prevertebral abscess in light of the clinical history. Collection measures up to 3.6 cm TV by 1.5 cm AP by 9.2 cm CC. There is no extension of this collection into the mediastinum. On the cervical spine MRI from yesterday there was T2 signal change/marrow placement throughout the C5 and C6 vertebral bodies as well as the anterior aspect of the C5-C6 disc making it difficult to exclude osteomyelitis discitis at this level. Suspect early demineralization and a possible focal prevertebral abscess at this level best seen on sagittal image 6 of series 14 from the 10/07/2016 MRI. There is a soft tissue tract within the right supraclavicular region extending towards the right internal jugular vein, presumably related to a tract from recent dialysis catheter removal. There is a nonocclusive soft tissue filling defect within the right internal jugular vein at the level of the tract that is most suggestive of nonocclusive thrombus best seen on image 79 of series 2. The thyroid gland, the submandibular glands, and the parotid glands are normal. Orbital soft tissues are unremarkable. There is a left scleral band. Laryngeal structures are symmetric and normal. There is no pathologic size criteria lymphadenopathy within the neck. The partially imaged intracranial compartment is unremarkable. Partially imaged indeterminate atelectasis within the right lung. Degenerative changes throughout the cervical spine are described in detail on the recent cervical spine MRI and remain greatest at the C5-C6 and C6-C7 levels. The paranasal sinuses and the mastoid air cells are clear. Periapical lucency associated with the residual right mandibular premolar and the right maxillary canine. IMPRESSION: - As noted on yesterday's cervical spine MRI, there is a large retropharyngeal/prevertebral fluid collection extending from the nasopharyngeal region to the C7 level that is concerning for a retropharyngeal/prevertebral abscess in light of the clinical history. There is no extension of this collection into the mediastinum. - On the cervical spine MRI from yesterday there was T2 signal change/marrow placement throughout the C5 and C6 vertebral bodies as well as the anterior aspect of the C5-C6 disc making it difficult to exclude osteomyelitis discitis at this level. Suspect early demineralization and a possible focal prevertebral abscess at this level best seen on sagittal image 6 of series 14 from the 10/07/2016 MRI. - There is a soft tissue tract within the right supraclavicular region extending towards the right internal jugular vein, presumably related to a tract from recent dialysis catheter removal. There is a nonocclusive soft tissue filling defect within the right internal jugular vein at the level of the tract that is most suggestive of nonocclusive thrombus best seen on image 79 of series 2. The referring provider has been paged and once reached an addendum will be made.
--- NOTE | 2016-10-08 14:33 | NUR ---
Physical Therapy. PT consult received and chart reviewed. Pt currently eating and refused PT evaluation. Pt reports he has not yet been OOB since his admission. RW left in room and baseline status discussed w/ RN. PT will f/u as appropriate to complete evaluation.
--- NOTE | 2016-10-08 15:18 | PN- Nephrology ---
Assessment/Plan Assessment: 1. ESRD - on hemodialysis Tuesdays, and Saturdays currently via a right IJ tunneled dialysis catheter. 2. MRSA bacteremia - dialysis catheter is a potential, perhaps likely source. Patient remains afebrile; WBC down to 14.4; on vancomycin per dialysis protocol. 3. Persistent, perhaps back, neck and inter-scapular pain with MRI of cervical spine showing areas of edema/fluid 4. Multiple comorbidities Suggestion: 1. Hemodialysis today via Marshal catheter to be followed by removal of the catheter with culturing the tip 2. Continue vancomycin 3. Okay to proceed with cervical CT scan with contrast at any time 4. Next hemodialysis tentatively scheduled for 10/10; if possible, will try to use his left upper arm AVF. Otherwise, he will need a new central tunneled catheter . If necessary his dialysis may be able to be put off until Friday 5. Neurosurgery consult pending Subjective Subjective: Patient seen with hemodialysis, complaining of severe back, neck and interscapular pain. He remains afebrile with a falling WBC. Blood cultures positive for MRSA. He remains on vancomycin per vancomycin dialysis protocol. Results of cervical MRI noted. CT scan of neck with contrast, neurosurgical consult pending. Objective Vital Signs and I&Os Vital Signs Date Time Temp Pulse Resp B/P B/P Pulse O2 O2 Flow FiO2 Mean Ox Delivery Rate 10/08 1320 112 130/92 10/08 1122 97.7 111 20 118/92 96 Nasal 2.0L Cannula 10/08 0800 Nasal 2.0L Cannula 10/08 0000 94 CPAP 10/07 2244 110 95 10/07 2200 98.7 113 18 110/72 94 Nasal 2.0L Cannula 10/07 2129 113 110/72 10/07 1600 96 Nasal 2.0L Cannula 10/07 1540 99.1 77 16 96 Nasal 2.0L Cannula Intake & Output 10/08 1600 10/08 0400 10/07 1600 10/07 0400 10/06 1600 10/06 0400 Intake Total 812.6 100 770 600 Output Total 0 Balance 812.6 100 770 600 Intake, IV 270.6 250 Intake, Oral 542 100 520 600 Number 0 Bowel Movements Output, Urine 0 Patient 227 lb 230 lb Weight Weight Reported by Patient Measurement Method Physical Exam: General: Well-developed, obese black male, complaining of severe back, neck and interscapular pain Skin: No rash or jaundice HEENT: Conjunctivae pink, sclerae anicteric, mucous membranes moist Neck: Without masses or thyromegaly, no supraclavicular or cervical adenopathy; right IJ catheter site nontender Chest: Clear anterolaterally Heart: Regular rate and rhythm without S3 or rub Abdomen: Obese, soft and nontender without palpable masses or organomegaly Extremities: Trace peripheral edema, no livedo, left upper arm AVF patent Neuro: No focal findings, no asterixis or myoclonus Results Pertinent Lab Results: Laboratory Tests 10/08 10/07 10/07 0625 2150 0930 Chemistry Sodium (137 - 145 mmol/L) 131 L Potassium (3.5 - 5.1 mmol/L) 5.1 Chloride (98 - 107 mmol/L) 97 L Carbon Dioxide (22 - 30 mmol/L) 21 L Anion Gap (5 - 16) 13 BUN (9 - 20 mg/dL) 75 H Creatinine (0.7 - 1.2 mg/dL) 6.2 *H Estimated GFR (>60 ml/min) 9 L BUN/Creatinine Ratio (7 - 25 %) 12.1 Glucose (65 - 99 mg/dL) 210 H Calcium (8.4 - 10.2 mg/dL) 8.0 L Magnesium (1.6 - 2.3 mg/dL) 2.1 Total Bilirubin (0.2 - 1.3 mg/dL) 0.9 AST (17 - 59 U/L) 14 L ALT (21 - 72 U/L) 35 Alkaline Phosphatase (< 127 U/L) 97 Troponin I (<0.11 ng/ml) 0.02 0.02 Total Protein (6.3 - 8.2 g/dL) 6.1 L Albumin (3.5 - 5.0 g/dL) 2.9 L Globulin (1.9 - 4.2 gm/dL) 3.2 Albumin/Globulin Ratio (1.1 - 2.2 %) 0.9 L Coagulation PT (9.4 - 12.5 SEC) 23.9 H INR (0.90 - 1.17) 2.29 H Hematology CBC w Diff MAN DIFF ORDERED WBC (4.8 - 10.8 /CUMM) 14.4 H RBC (4.70 - 6.10 /CUMM) 3.24 L Hgb (14.0 - 18.0 G/DL) 10.2 L Hct (42 - 52 %) 31.6 L MCV (80.0 - 94.0 FL) 97.6 H MCH (27.0 - 31.0 PG) 31.4 H RDW (11.5 - 14.5 %) 21.0 H Plt Count (130 - 400 /CUMM) 139 MPV (7.4 - 10.4 FL) 9.2 Gran % (42.2 - 75.2 %) 85.9 H Lymphocytes % (20.5 - 51.1 %) 4.6 L Monocytes % (1.7 - 9.3 %) 9.1 Eosinophils % (0 - 5 %) 0.3 Basophils % (0.0 - 2.0 %) 0.1 Absolute Granulocytes (1.4 - 6.5 /CUMM) 12.4 H Absolute Lymphocytes (1.2 - 3.4 /CUMM) 0.7 L Absolute Monocytes (0.10 - 0.60 /CUMM) 1.3 H Absolute Eosinophils (0.0 - 0.7 /CUMM) 0 Absolute Basophils (0.0 - 0.2 /CUMM) 0 Platelet Estimate (ADEQUATE) VERIFIED BY SMEAR Polychromasia 1+ Poikilocytosis 1+ Anisocytosis 1+ Ovalocytes 1+ [place] Cells 1+ PUBS MCHC (33.0 - 37.0 G/DL) 32.2 L Toxicology Random Vancomycin (ug/ml) 10.9 18 18 18 10/06 2049 1127 1008 1002 Chemistry Sodium (137 - 145 mmol/L) 132 L Potassium (3.5 - 5.1 mmol/L) 4.6 Chloride (98 - 107 mmol/L) 97 L Carbon Dioxide (22 - 30 mmol/L) 24 Anion Gap (5 - 16) 11 BUN (9 - 20 mg/dL) 48 H Creatinine (0.7 - 1.2 mg/dL) 4.6 H Estimated GFR (>60 ml/min) 13 L BUN/Creatinine Ratio (7 - 25 %) 10.4 Lactic Acid Cancelled Phosphorus (2.5 - 4.5 mg/dL) 4.5 Magnesium (1.6 - 2.3 mg/dL) 1.9 Coagulation PT Cancelled INR Cancelled Urines Urine Color Cancelled Urine Clarity Cancelled Urine pH Cancelled Ur Specific [place] Cancelled Urine Protein Cancelled Urine Ketones Cancelled Urine Nitrite Cancelled Urine Bilirubin Cancelled Urine Urobilinogen Cancelled Ur Leukocyte Esterase Cancelled Ur Microscopic Cancelled Urine Hemoglobin Cancelled Urine Glucose Cancelled 10/06 10/06 10/06 1001 0850 0505 Chemistry Lactic Acid (0.7 - 2.1 mmol/L) 1.2 Troponin I Cancelled Coagulation PT (9.4 - 12.5 SEC) 20.0 H INR (0.90 - 1.17) 1.92 H Hematology ESR W[place]gren (0 - 10 MM) 55 H Urines Urine Color Cancelled Urine Clarity Cancelled Urine pH Cancelled Ur Specific [place] Cancelled Urine Protein Cancelled Urine Ketones Cancelled Urine Nitrite Cancelled Urine Bilirubin Cancelled Urine Urobilinogen Cancelled Ur Leukocyte Esterase Cancelled Ur Microscopic Cancelled Urine Hemoglobin Cancelled Urine Glucose Cancelled 10/06 0330 Chemistry Sodium (137 - 145 mmol/L) 137 Potassium (3.5 - 5.1 mmol/L) 4.2 Chloride (98 - 107 mmol/L) 100 Carbon Dioxide (22 - 30 mmol/L) 27 Anion Gap (5 - 16) 10 BUN (9 - 20 mg/dL) 36 H Creatinine (0.7 - 1.2 mg/dL) 3.8 H Estimated GFR (>60 ml/min) 16 L BUN/Creatinine Ratio (7 - 25 %) 9.5 Glucose (65 - 99 mg/dL) 117 H Uric Acid (3.5 - 8.5 mg/dL) 3.1 L Calcium (8.4 - 10.2 mg/dL) 8.8 Magnesium (1.6 - 2.3 mg/dL) 1.8 Total Bilirubin (0.2 - 1.3 mg/dL) 1.0 AST (17 - 59 U/L) 16 L ALT (21 - 72 U/L) 49 Alkaline Phosphatase (< 127 U/L) 76 Troponin I (<0.11 ng/ml) 0.05 Total Protein (6.3 - 8.2 g/dL) 6.4 Albumin (3.5 - 5.0 g/dL) 3.3 L Globulin (1.9 - 4.2 gm/dL) 3.1 Albumin/Globulin Ratio (1.1 - 2.2 %) 1.1 Hematology CBC w Diff MAN DIFF ORDERED WBC (4.8 - 10.8 /CUMM) 21.2 H RBC (4.70 - 6.10 /CUMM) 3.54 L Hgb (14.0 - 18.0 G/DL) 11.1 L Hct (42 - 52 %) 34.6 L MCV (80.0 - 94.0 FL) 97.6 H MCH (27.0 - 31.0 PG) 31.2 H RDW (11.5 - 14.5 %) 21.1 H Plt Count (130 - 400 /CUMM) 146 MPV (7.4 - 10.4 FL) 8.1 Gran % (42.2 - 75.2 %) 92.2 H Lymphocytes % (20.5 - 51.1 %) 2.2 L Monocytes % (1.7 - 9.3 %) 5.5 Eosinophils % (0 - 5 %) 0.1 Basophils % (0.0 - 2.0 %) 0 L Absolute Granulocytes (1.4 - 6.5 /CUMM) 19.6 H Segmented Neutrophils (42.2 - 75.2 %) 91 H Band Neutrophils (0.0 - 5.0 %) 3 Absolute Lymphocytes (1.2 - 3.4 /CUMM) 0.5 L Lymphocytes (20.5 - 51.1 %) 5 L Monocytes (1.7 - 9.3 %) 1 L Absolute Monocytes (0.10 - 0.60 /CUMM) 1.2 H Absolute Eosinophils (0.0 - 0.7 /CUMM) 0 Absolute Basophils (0.0 - 0.2 /CUMM) 0 Platelet Estimate (ADEQUATE) ADEQUATE Polychromasia 1+ Hypochromic-Microcytic 1+ Poikilocytosis 1+ Anisocytosis 2+ Microcytic Cells 1+ Macrocytic Cells 1+ [place] Cells FEW Elliptocytes 1+ Schistocytes FEW PUBS MCHC (33.0 - 37.0 G/DL) 32.0 L
--- NOTE | 2016-10-08 15:29 | Cons- Neurosurgical ---
REAL SCOTT PA-C 10/08/16 1519: General Information and HPI Consulting Request Date of Consult: 10/08/16 Requested By: HALIMA RECINOS M.D Reason for Consult: abnormal MRI findings of cervical spine suggestive of infection and neck pain Source of Information: patient, old records Exam Limitations: no limitations History of Present Illness: 61-year-old male admitted to the hospital 2 days ago for sepsis of unknown origin. He has a very significant past medical history which consists of being legally blind, diabetes, end-stage renal disease on hemodialysis(Friday/ /Friday) via right internal jugular vein tunneled dialysis catheter, (also has Left arm AV fistula in place), nonischemic cardiomyopathy, A.flutter on Coumadin. Patient has been having posterior neck pain and bilateral posterior shoulder pain for the past several weeks approximately 4 weeks per patient which was associated with painful and difficulty swallowing for the same length of time and it is progressively getting worse. He states he has not had any subjective fevers or flulike illness, although he states he does not usually get any fevers. Over the last few days the pain is getting exponentially worse, He describes the pain as 8/10 dull which starts between his shoulder blades. There is no numbness or weakness in the extremities, no radiation of the pain, he is not weak or dropping things, he does not feel uncoordinated. He denies any history of neck pain or injury, denies any recent history of fall, or trauma. Upon evaluation for his sepsis, MRI of his cervical, thoracic and lumbar spine was ordered which showed a possible collection of the prevertebral tissue of the cervical region. Neurosurgery, Dr Guajardo, was consulted for evaluation of this. Allergies/Medications Allergies: Coded Allergies: NO KNOWN ALLERGIES (06/10/14) Home Med List: Allopurinol 300 MG TABLET 1 TAB PO DAILY GOUT (Reported) Aspirin (Ecotrin*) 81 MG TABLET. 1 TAB PO DAILY heart health (Reported) Atorvastatin Calcium 20 MG TABLET 20 MG PO 1700 heart health Carvedilol 25 MG TABLET 50 MG PO BID heart health Cholecalciferol (Vitamin D3) (Vitamin D) 1,000 UNIT TABLET 1 TAB PO DAILY SUPPLEMENT (Reported) Epoetin Kameron (Procrit) 20,000 UNIT/ML VIAL 1 UNIT IV Q 3 WEEKS ANEMIA ( Reported) Fluticasone-Salmeterol (Advair 100-50 Diskus) 100 MCG-50 MCG/DOSE BLST.W.DEV 1 PUF INH BID ASTHMA (Reported) Isosorbide Monitrate Sr (Imdur 60MG Tab) 60 MG TAB 2 TAB PO DAILY HEART HEALTH Latanoprost (Xalatan) 2.5 ML DROPS 1 GTT OPH QPM BOTH EYES (Reported) Nephro-Vitamins (Nephro-Geri Tablet) 0.8 MG TABLET 1 TAB PO DAILY renal health Oxycodone HCl/Acetaminophen (Percocet 5-325 MG Tablet) 1 EACH TABLET 1-2 TAB PO Q6P PRN pain Repaglinide (Prandin) 1 MG TABLET 1 MG PO AC diabetes Please take your medication before meals. If you skip meals, please dont take this medication. It will cause hypoglycemia. Sevelamer Carbonate (Renvela) 800 MG TABLET KIDNEY HEALTH (Reported) Warfarin Sodium (Coumadin) 2.5 MG TABLET 1 TAB PO DAILY heart health Please dose coumadin as per INR. Please contact your PCP or fixed wing pilot for correct dosing. 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 There is also an excision of a retained foreign object. This was in May 2012. left AV fistula venous and arterial angioplasty 07/2016 status post left olecranon bursa excision October 27 Family History Relations & Conditions If Any: MOTHER Diabetes mellitus (DM) Relation not specified for: Cerebrovascular accident in mother Psychosocial History Where Do You Live? Home Who Do You Live With? spouse Services at Home: None Primary Language: Maltese Smoking Status: Former Smoker ETOH Use: occasional use Illicit Drug Use: denies illicit drug use Functional Ability ADLs Independent: dressing, eating, toileting, bathing. Ambulation: cane IADLs Independent: telephone. Needs Assist: housework, finances, food prep, medication admin. Unknown: shopping, transportation. Review of Systems Review of Systems: Review of systems: See HPI, all other systems negative. Constitutional: See HPI HEENT: See HPI Cardiovascular: No chest pain ,palpitation , orthopnea or ankle swelling Skin: No jaundice no rashes Respiratory: No dyspnea cough sputum or hemoptysis GI: No nausea no vomiting : No dysuria no hematuria Musclulo skeletal: See HPI Neurologic: No numbness no confusion Psych: No stress anxiety or depression,. Heme/endocrine: No bruising no bleeding no polyuria or polydipsia Immunology: No splenectomy or history of AIDS Exam & Diagnostic Data Vital Signs and I&O Vital Signs Date Time Temp Pulse Resp B/P B/P Pulse O2 O2 Flow FiO2 Mean Ox Delivery Rate 10/08 1320 112 130/92 10/08 1122 97.7 111 20 118/92 96 Nasal 2.0L Cannula 10/08 0800 Nasal 2.0L Cannula 10/08 0000 94 CPAP 10/07 2244 110 95 10/07 2200 98.7 113 18 110/72 94 Nasal 2.0L Cannula 10/07 2129 113 110/72 10/07 1600 96 Nasal 2.0L Cannula 10/07 1540 99.1 77 16 96 Nasal 2.0L Cannula Intake & Output 10/08 1600 10/08 0800 10/08 0000 10/07 1600 10/07 0800 10/07 0000 Intake Total 612.6 200 100 400 370 600 Output Total 0 Balance 612.6 200 100 400 370 600 Intake, IV 270.6 250 Intake, Oral 342 200 100 400 120 600 Number 0 Bowel Movements Output, Urine 0 Patient 227 lb Weight Physical Exam: Well-developed well-nourished no apparent distress. HEENT: Atraumatic Neck: Supple, no lymphadenopathy. Cervical range of motion is mildly limited secondary to pain, there is no meningismus, there is no point tenderness Respiratory: No respiratory distress clear to auscultation bilateral. Heart: Mild tachycardia Abdomen: Soft nontender nondistended Extremities: Trace bilateral lower extremity pitting edema, no calf pain Neuro: Alert and oriented x3 Psych: Mood affect normal, normal memory normal judgment. Skin: Warm and dry, no rash on exposed skin Last 24 Hours of Labs: Laboratory Tests 10/08 10/07 0625 2150 Chemistry Sodium (137 - 145 mmol/L) 131 L Potassium (3.5 - 5.1 mmol/L) 5.1 Chloride (98 - 107 mmol/L) 97 L Carbon Dioxide (22 - 30 mmol/L) 21 L Anion Gap (5 - 16) 13 BUN (9 - 20 mg/dL) 75 H Creatinine (0.7 - 1.2 mg/dL) 6.2 *H Estimated GFR (>60 ml/min) 9 L BUN/Creatinine Ratio (7 - 25 %) 12.1 Glucose (65 - 99 mg/dL) 210 H Calcium (8.4 - 10.2 mg/dL) 8.0 L Magnesium (1.6 - 2.3 mg/dL) 2.1 Total Bilirubin (0.2 - 1.3 mg/dL) 0.9 AST (17 - 59 U/L) 14 L ALT (21 - 72 U/L) 35 Alkaline Phosphatase (< 127 U/L) 97 Troponin I (<0.11 ng/ml) 0.02 0.02 Total Protein (6.3 - 8.2 g/dL) 6.1 L Albumin (3.5 - 5.0 g/dL) 2.9 L Globulin (1.9 - 4.2 gm/dL) 3.2 Albumin/Globulin Ratio (1.1 - 2.2 %) 0.9 L Hematology CBC w Diff MAN DIFF ORDERED WBC (4.8 - 10.8 /CUMM) 14.4 H RBC (4.70 - 6.10 /CUMM) 3.24 L Hgb (14.0 - 18.0 G/DL) 10.2 L Hct (42 - 52 %) 31.6 L MCV (80.0 - 94.0 FL) 97.6 H MCH (27.0 - 31.0 PG) 31.4 H RDW (11.5 - 14.5 %) 21.0 H Plt Count (130 - 400 /CUMM) 139 MPV (7.4 - 10.4 FL) 9.2 Gran % (42.2 - 75.2 %) 85.9 H Lymphocytes % (20.5 - 51.1 %) 4.6 L Monocytes % (1.7 - 9.3 %) 9.1 Eosinophils % (0 - 5 %) 0.3 Basophils % (0.0 - 2.0 %) 0.1 Absolute Granulocytes (1.4 - 6.5 /CUMM) 12.4 H Absolute Lymphocytes (1.2 - 3.4 /CUMM) 0.7 L Absolute Monocytes (0.10 - 0.60 /CUMM) 1.3 H Absolute Eosinophils (0.0 - 0.7 /CUMM) 0 Absolute Basophils (0.0 - 0.2 /CUMM) 0 Platelet Estimate (ADEQUATE) VERIFIED BY SMEAR Polychromasia 1+ Poikilocytosis 1+ Anisocytosis 1+ Ovalocytes 1+ Diamante Cells 1+ PUBS MCHC (33.0 - 37.0 G/DL) 32.2 L Toxicology Random Vancomycin (ug/ml) 10.9 Imaging Results: PATIENT: TIFFANI SHI PRESENT AGE: 61 PATIENT ACCOUNT NO: [id number] : 54 LOCATION: [facility] ORDERING PHYSICIAN: DYLAN CABRERA MD SERVICE DATE: 10/07/16- EXAM TYPE: MRI - MRI-CERVICAL SPINE; MRI-LUMBAR SPINE; MRI-THORACIC SPINE EXAMINATION: MR CERVICAL SPINE WITHOUT CONTRAST MR THORACIC SPINE WITHOUT CONTRAST MR LUMBAR SPINE WITHOUT CONTRAST CLINICAL INFORMATION: Pain. Assess for spinal seeding in the setting of GPC sepsis. COMPARISON: CT scan of the lumbar spine 10/06/2016. Chest x-ray 10/06/2016. TECHNIQUE: MRI scans of the cervical, thoracic and lumbar spines were obtained using routine sequences without contrast. Intravenous contrast was not able to be given, as the patient's GFR was 13. Multiple sequences are degraded by patient motion artifact due to severe pain. FINDINGS: MRI CERVICAL SPINE: VERTEBRAL BODIES AND PARASPINAL SOFT TISSUES: There is a mild levoscoliosis. There is a degenerative anterolisthesis of C3 on C4, there is reversal of the cervical lordosis at C5-C6. There is multilevel narrowing of intervertebral disc height. Vertebral body heights are maintained. There appear to be mild Modic type I edematous endplate signal changes toward the left at C5-C6. There are fatty endplate changes anteriorly at C6-C7. There are no compression fractures. There is moderate prevertebral soft tissue fullness with fluid extending from the clivus, to the level of C6-C7. There is mild edematous signal in the paraspinal soft tissues. CERVICOMEDULLARY JUNCTION AND VISUALIZED POSTERIOR FOSSA: There are multiple small foci of increased T2 and STIR signal in the kerwin, consistent with chronic microvascular ischemic changes. Accounting for artifact, spinal cord signal appears normal. SPINAL LEVELS: C2-C3: Disc contour is normal. There is no spinal cord compression or central stenosis. The neural foramina are patent. C3-C4: There is a broad-based posterior disc protrusion. There is bilateral facet arthropathy. There is effacement of CSF ventral to the spinal cord, but there is no spinal cord compression. There is mild bilateral foraminal narrowing. C4-C5: There is bilateral facet arthropathy. There is a posterior disc protrusion which effaces CSF ventral to the spinal cord. There is mild bilateral foraminal narrowing. C5-C6: There is severe right facet arthropathy. There is a posterior disc protrusion which effaces CSF ventral to the spinal cord. There is mild flattening of the cord and there is moderate central stenosis. There appear to be small fluid collections posterior to the bilateral facet joints. C6-C7: There is a broad-based posterior disc osteophyte complex and there are bilateral uncovertebral osteophytes. There is effacement of CSF ventral to the spinal cord without spinal cord compression. There is mild bilateral foraminal narrowing. C7-T1: Disc contour is normal. There is no spinal cord compression or central stenosis. The neural foramina are patent. MRI THORACIC SPINE: VERTEBRAL BODIES AND PARASPINAL STRUCTURES: There is a mild levoscoliosis. There is mild narrowing of intervertebral disc height in the mid thoracic spine. Vertebral body heights are maintained. There are no compression fractures. Overall, marrow signal is homogenous. The paravertebral and posterior thoracic structures are unremarkable. The conus is at the level of L1. Accounting for artifact, spinal cord signal appears normal. SPINAL LEVELS: T2-T3: There is a small right paracentral disc protrusion. There is no spinal cord compression or central stenosis. T3-T4: There is a small right paracentral disc protrusion. There is no spinal cord compression or central stenosis. T4-T5: There is a small right paracentral disc protrusion. There is no spinal cord compression or central stenosis. T6-T7: There is a broad-based posterior disc protrusion. There is no spinal cord compression or central stenosis. T9-T10: There is a posterior disc osteophyte complex which effaces CSF ventral to the spinal cord. There is bilateral facet arthropathy. There is no spinal cord compression. MRI LUMBAR SPINE: VERTEBRAL BODIES AND PARASPINAL STRUCTURES: There is straightening of the lumbar lordosis. There is loss of signal from the intervertebral discs at L4-L5 and L5-S1. Vertebral body heights are maintained. There are no compression fractures. There are mild edematous endplate signal changes toward the left at L4-L5. There is increased signal in the periarticular soft tissues around the right L4-L5 facet joint. Overall, marrow signal is homogenous. The visualized pelvic structures are unremarkable. There are degenerative changes in the right sacroiliac joint. CONUS MEDULLARIS AND CAUDA EQUINA: Normal, terminating at the level of L1. The cauda equina nerve roots appear normal. There is equivocal fat in the filum terminale in the sacral spinal canal. SPINAL LEVELS: L1-L2: There is mild bilateral facet arthropathy. Disc contour is normal. There is no central stenosis or foraminal narrowing. L2-L3: There is mild bilateral facet arthropathy. Disc contour is normal. There is no central stenosis or foraminal narrowing. L3-L4: There is mild bilateral facet arthropathy. Disc contour is normal. There is no central stenosis or foraminal narrowing. L4-L5: There is severe bilateral facet arthropathy with ligamenta flava hypertrophy and large facet joint effusions. There is a cyst extending off the posterior right facet joint. There is a broad-based posterior disc protrusion extending into the bilateral neural foramina, with impingement on the exiting L4 nerve roots. There is narrowing of the subarticular recesses bilaterally. There is mild central stenosis. L5-S1: There is moderate bilateral facet arthropathy. There is a broad-based posterior disc protrusion extending into the bilateral neural foramina with impingement on the exiting L5 nerve roots bilaterally. There is no central stenosis. IMPRESSION: MRI CERVICAL SPINE: 1. There is moderate prevertebral soft tissue fullness with fluid extending from the clivus to the level of C7. There is also edematous signal in the paraspinal soft tissues bilaterally. 2. There is spondylosis which is most severe at C4-C5, C5-C6 and C6-C7 with effacement of CSF around the cord and flattening of the cord as described above. 3. CT scan of the neck is recommended for further assessment. A postcontrast study could be considered if the patient has normal creatinine or is going to undergo dialysis. MRI THORACIC SPINE: 1. There are mild multilevel spondylitic changes. 2. There is no spinal cord compression or central stenosis. 3. Accounting for artifact, spinal cord signal appears normal. MRI LUMBAR SPINE: 1. There are severe facet arthropathic changes at L4-L5 with facet joint effusions and periarticular soft tissue changes. 2. There are disc protrusions at L4-L5 and L5-S1 extending into the neural foramina bilaterally with impingement on the exiting L4 and L5 nerve roots. DICTATED BY: NICOLE CAR MD DATE/TIME DICTATED:10/07/161813 NETWORK PROJECT MANAGER:[place] DATE/TIME TRANSCRIBED:10/07/16 PATIENT: TIFFANI SHI PRESENT AGE: 61 PATIENT ACCOUNT NO: [id number] : 54 LOCATION: O ORDERING PHYSICIAN: DYLAN CABRERA MD SERVICE DATE: 10/08/16- EXAM TYPE: CAT - CT NECK W IV CONTRAST CT NECK WITH CONTRAST CLINICAL INFORMATION: Cervical spine abscess. COMPARISON: Cervical spine MRI 10/07/2016. TECHNIQUE: CT acquisition of the neck is obtained following the administration of 94 mL of Optiray 320 intravenous contrast without complication. FINDINGS: As noted on yesterday's cervical spine MRI there is a large retropharyngeal/prevertebral fluid collection extending from the nasopharyngeal region to the C7 level that is concerning for a retropharyngeal/prevertebral abscess in light of the clinical history. Collection measures up to 3.6 cm TV by 1.5 cm AP by 9.2 cm CC. There is no extension of this collection into the mediastinum. On the cervical spine MRI from yesterday there was T2 signal change/marrow placement throughout the C5 and C6 vertebral bodies as well as the anterior aspect of the C5-C6 disc making it difficult to exclude osteomyelitis discitis at this level. Suspect early demineralization and a possible focal prevertebral abscess at this level best seen on sagittal image 6 of series 14 from the 10/07/2016 MRI. There is a soft tissue tract within the right supraclavicular region extending towards the right internal jugular vein, presumably related to a tract from recent dialysis catheter removal. There is a nonocclusive soft tissue filling defect within the right internal jugular vein at the level of the tract that is most suggestive of nonocclusive thrombus best seen on image 79 of series 2. The thyroid gland, the submandibular glands, and the parotid glands are normal. Orbital soft tissues are unremarkable. There is a left scleral band. Laryngeal structures are symmetric and normal. There is no pathologic size criteria lymphadenopathy within the neck. The partially imaged intracranial compartment is unremarkable. Partially imaged indeterminate atelectasis within the right lung. Degenerative changes throughout the cervical spine are described in detail on the recent cervical spine MRI and remain greatest at the C5-C6 and C6-C7 levels. The paranasal sinuses and the mastoid air cells are clear. Periapical lucency associated with the residual right mandibular premolar and the right maxillary canine. IMPRESSION: - As noted on yesterday's cervical spine MRI, there is a large retropharyngeal/prevertebral fluid collection extending from the nasopharyngeal region to the C7 level that is concerning for a retropharyngeal/prevertebral abscess in light of the clinical history. There is no extension of this collection into the mediastinum. - On the cervical spine MRI from yesterday there was T2 signal change/marrow placement throughout the C5 and C6 vertebral bodies as well as the anterior aspect of the C5-C6 disc making it difficult to exclude osteomyelitis discitis at this level. Suspect early demineralization and a possible focal prevertebral abscess at this level best seen on sagittal image 6 of series 14 from the 10/07/2016 MRI. - There is a soft tissue tract within the right supraclavicular region extending towards the right internal jugular vein, presumably related to a tract from recent dialysis catheter removal. There is a nonocclusive soft tissue filling defect within the right internal jugular vein at the level of the tract that is most suggestive of nonocclusive thrombus best seen on image 79 of series 2. The referring provider has been paged and once reached an addendum will be made. DICTATED BY: HAYDEN HUNTER MD DATE/TIME DICTATED:10/08/161348 NETWORK PROJECT MANAGER:[place] DATE/TIME TRANSCRIBED:10/08/161348 CONFIDENTIAL, DO NOT COPY WITHOUT APPROPRIATE AUTHORIZATION. <Electronically signed in Other Vendor System> SIGNED BY: HAYDEN HUNTER MD 10/08/16 1411 Assessment/Plan Assessment/Plan 61-year-old male with multiple Medical comorbidities including diabetes and end- stage renal disease, on hemodialysis, admitted for suspected sepsis, subsequent found to have MRSA positive blood cultures and a large retropharyngeal/ paravertebral fluid collection extending from the nasopharyngeal region to the C7 region concerning for abscess. There is no need for neurosurgical intervention at this time, this does not extend into the disc space or spinal canal and patient is not having any focal neurologic findings. His degenerative disc disease and spinal stenosis is chronic and not of immediate concern and may be followed up as outpatient. For his suspected abscess in the retropharyngeal/cervical prevertebral space, recommend evaluation by interventional radiology for possible aspiration as well as consultation from ENT for possible surgical evacuation. Dr. Guajardo to evaluate the patient tomorrow as well Problem List: 1. Sepsis Consult Acknowledgment - Thank you for your consult request. [facility] 10/09/16 0831: Assessment/Plan Assessment/Plan I have seen and examined this patient and agree with above. Please see current note for further recommendations. Consult Acknowledgment - Thank you for your consult request.
--- NOTE | 2016-10-08 16:30 | NUR ---
PT HAD A 5 BEAT RUN V-TACH. PT SLEEPING AT THIS TIME. 1630 REGULATORY COMPLIANCE ENGINEER LINH MUNIZ AWARE. WILL CONTINUE TO MONITOR PT.
[2016-10-08 16:56] LABS: PT 26.2 SEC (9.4-12.5)
[2016-10-08 17:23] VITALS: BP 136/74
--- NOTE | 2016-10-08 18:25 | Cons- Ear,Nose&Throat ---
General Information and HPI Consulting Request Date of Consult: 10/08/16 Requested By: HALIMA RECINOS M.D Reason for Consult: Evaluate for Retropharyngeal abscess Source of Information: patient, family, PCP Exam Limitations: no limitations History of Present Illness: This patient with a history of diabetes mellitus, end stage renal disease requiring dialysis, cardiovascular disease with an arrhythmia requiring anticoagulation was admitted 2 days ago and found to have fever and shoulder and back pain. There was evidence of an infected internal jugular vein catheter on the right side. His white count is elevated Initially denied sore throat, airway difficulties or dysphagia Workup has included an MRI scan of the neck and a CT scan with contrast of the neck and back showing evidence of retropharyngeal collection primarily on the right side Allergies/Medications Allergies: Coded Allergies: NO KNOWN ALLERGIES (06/10/14) Home Med List: Allopurinol 300 MG TABLET 1 TAB PO DAILY GOUT (Reported) Aspirin (Ecotrin*) 81 MG TABLET.DR 1 TAB PO DAILY heart health (Reported) Atorvastatin Calcium 20 MG TABLET 20 MG PO 1700 heart [facility] Carvedilol 25 MG TABLET 50 MG PO BID heart health Cholecalciferol (Vitamin D3) (Vitamin D) 1,000 UNIT TABLET 1 TAB PO DAILY SUPPLEMENT (Reported) Epoetin Kameron (Procrit) 20,000 UNIT/ML VIAL 1 UNIT IV Q 3 WEEKS ANEMIA ( Reported) Fluticasone-Salmeterol (Advair 100-50 Diskus) 100 MCG-50 MCG/DOSE BLST.W.DEV 1 PUF INH BID ASTHMA (Reported) Isosorbide Monitrate Sr (Imdur 60MG Tab) 60 MG TAB 2 TAB PO DAILY HEART HEALTH Latanoprost (Xalatan) 2.5 ML DROPS 1 GTT OPH QPM BOTH EYES (Reported) Nephro-Vitamins (Nephro-Geri Tablet) 0.8 MG TABLET 1 TAB PO DAILY renal health Oxycodone HCl/Acetaminophen (Percocet 5-325 MG Tablet) 1 EACH TABLET 1-2 TAB PO Q6P PRN pain Repaglinide (Prandin) 1 MG TABLET 1 MG PO AC diabetes Please take your medication before meals. If you skip meals, please dont take this medication. It will cause hypoglycemia. Sevelamer Carbonate (Renvela) 800 MG TABLET KIDNEY HEALTH (Reported) Warfarin Sodium (Coumadin) 2.5 MG TABLET 1 TAB PO DAILY heart health Please dose coumadin as per INR. Please contact your PCP or staffing executive for correct dosing. Current Medications: Current Medications Sig/Cole Start time Last Medication Dose Route Stop Time Status Admin Allopurinol 300 MG DAILY 10/06 1110 AC 10/08 PO 1321 Aspirin Buffered 81 MG DAILY 10/06 1117 AC 10/08 PO 1321 Atorvastatin Calcium 20 MG 1700 10/06 1700 AC 10/07 PO 1548 Carvedilol 50 MG BID 10/08 2200 AC PO Carvedilol 25 MG BID 10/06 1117 DC 10/08 PO 1320 Epoetin Kameron 4,000 UNIT TUES THURS SAT PRN 10/08 0830 AC IV Hydromorphone HCl 0.6 MG Q4 HRS NEEDED PRN 10/07 1245 AC 10/08 IV 1427 Insulin Aspart 0 TIDAC 10/06 1200 AC 10/07 SC 1330 Lidocaine 0 .STK-MED ONE 10/08 1154 DC .ROUTE Paricalcitol 5 MCG TUES THURS SAT PRN 10/08 0830 AC IV Vancomycin HCl 1,000 MG ONCE ONE 10/08 1200 DC 10/08 Sodium Chloride 250 ML IV 10/08 1259 1319 Vancomycin HCl 0 TUES THURS SAT PRN 10/07 0045 AC IV Past History Medical History Blood Transfusion Hx: No Neurological: vertigo EENT: blindness Cardiovascular: aflutter, cardiomyopathy, CHF, hypertension Respiratory: COPD, obstructive sleep apnea Gastrointestinal: NONE Hepatic: NONE Renal: ERECTILE DYSFUNCTION NEPHROTIC SYNDROME HYPERURICEMIA Musculoskeletal: gout Psychiatric: NONE Endocrine: diabetes, hypothyroidism, NEUROPATHY VITAMIN d DEFICIENCY, matilde HYPOTHYROIDISM Blood Disorders: anemia Cancer(s): NONE PST SPECIALIST/Reproductive: NONE Surgical History Pertinent Surgical History: s/p incision and drainage of a plantar space abscess in the left foot. There is also an excision of a retained foreign object. This was in May 2012. left AV fistula venous and arterial angioplasty 07/2016 status post left olecranon bursa excision October 27 Family History Relations & Conditions If Any: MOTHER Diabetes mellitus (DM) Relation not specified for: Cerebrovascular accident in mother Psychosocial History Where Do You Live? Home Who Do You Live With? spouse Services at Home: None Primary Language: Spanish Smoking Status: Former Smoker ETOH Use: occasional use Illicit Drug Use: denies illicit drug use Functional Ability ADLs Independent: dressing, eating, toileting, bathing. Ambulation: cane IADLs Independent: telephone. Needs Assist: housework, finances, food prep, medication admin. Unknown: shopping, transportation. Exam & Diagnostic Data Vital Signs and I&O Vital Signs Date Time Temp Pulse Resp B/P B/P Pulse O2 O2 Flow FiO2 Mean Ox Delivery Rate 10/08 1723 98.8 85 20 136/74 95 Nasal 2.0L Cannula 10/08 1320 112 130/92 10/08 1122 97.7 111 20 118/92 96 Nasal 2.0L Cannula 10/08 0800 Nasal 2.0L Cannula 10/08 0000 94 CPAP 10/07 2244 110 95 10/07 2200 98.7 113 18 110/72 94 Nasal 2.0L Cannula 10/07 2129 113 110/72 Intake & Output 10/08 1600 10/08 0800 10/08 0000 10/07 1600 10/07 0800 10/07 0000 Intake Total 612.6 200 100 400 370 600 Output Total 0 Balance 612.6 200 100 400 370 600 Intake, IV 270.6 250 Intake, Oral 342 200 100 400 120 600 Number 0 Bowel Movements Output, Urine 0 Patient 227 lb Weight Examination at the bedside with his present He is awake and oriented, but appears ill He is afebrile,. He complains of stiffness of his neck Examination of the ears and nose were unremarkable Oral examination reveals no evidence of trismus. The posterior pharynx reveals slight fullness of the right posterior pharyngeal wall. Attempted palpation was not successful The neck motion is slightly restricted due to guarding due to discomfort Fiberoptic laryngoscopy performed at the bedside through the right nostril revealed an unremarkable nasal passage nasopharynx hypopharynx and larynx including posterior pharyngeal wall and the endolarynx Assessment/Plan Assessment/Plan It is my impression that he does in fact have retropharyngeal infection primarily on the right side His anticoagulation has been stopped however his INR is still elevated to therapeutic levels. Would prefer the INR to be less than 1.5 He has recently eaten dinner at approximately 6:00. Would recommend he be nothing by mouth for the rest of the evening Suggest maintaining fluids by intravenous by the medical attending staff Reevaluate in the morning for possible drainage of retropharyngeal collection under general anesthesia Consult Acknowledgment - Thank you for your consult request.
[2016-10-09 00:10] VITALS: BP 112/60
--- NOTE | 2016-10-09 07:54 | PN- Cardiology ---
Subjective Subjective: Patient still c/o severe back pain Objective Vital Signs and I&Os Vital Signs Date Time Temp Pulse Resp B/P B/P Pulse O2 O2 Flow FiO2 Mean Ox Delivery Rate 10/09 0027 109 94 10/09 0010 99.3 115 20 112/60 96 Nasal Cannula 10/09 0000 Nasal 2.0L Cannula 10/08 2206 111 91 10/08 2121 114 110/62 10/08 1723 98.8 85 20 136/74 95 Nasal 2.0L Cannula 10/08 1320 112 130/92 10/08 1122 97.7 111 20 118/92 96 Nasal 2.0L Cannula 10/08 0800 Nasal 2.0L Cannula Intake & Output 10/09 0800 10/09 0000 10/08 1600 10/08 0800 10/08 0000 10/07 1600 Intake Total 0 360.3 612.6 200 100 400 Output Total Balance 0 360.3 612.6 200 100 400 Intake, IV 0 20.3 270.6 Intake, Oral 0 340 342 200 100 400 Number 0 0 Bowel Movements Patient 227 lb Weight Physical Exam: Neck JVP normal Lungs-clear bilaterally [id number] regular Abdomen-soft, mildly distended, BS+, no organomegaly Extr-trace edema, 1+ pulses Current Medications: Current Medications Sig/Cole Start time Last Medication Dose Route Stop Time Status Admin Allopurinol 300 MG DAILY 10/06 1110 AC 10/08 PO 1321 Aspirin Buffered 81 MG DAILY 10/06 1117 AC 10/08 PO 1321 Atorvastatin Calcium 20 MG 1700 10/06 1700 AC 10/08 PO 1817 Carvedilol 50 MG BID 10/08 2200 AC 10/08 PO 2121 Carvedilol 25 MG BID 10/06 1117 DC 10/08 PO 1320 Dextrose/Sodium 500 ML Q13H 10/09 0745 AC Chloride IV 10/09 1744 Epoetin Kameron 4,000 UNIT TUES THURS SAT PRN 10/08 0830 AC IV Hydromorphone HCl 0.6 MG Q4 HRS NEEDED PRN 10/07 1245 AC 10/09 IV 0415 Insulin Aspart 0 TIDAC 10/06 1200 AC 10/08 SC 1841 Lidocaine 0 .STK-MED ONE 10/08 1154 DC .ROUTE Paricalcitol 5 MCG TUES THURS SAT PRN 10/08 0830 AC IV Vancomycin HCl 1,000 MG ONCE ONE 10/08 1200 DC 10/08 Sodium Chloride 250 ML IV 10/08 1259 1319 Vancomycin HCl 0 TUES THURS SAT PRN 10/07 0045 AC IV Results Last 48 Hrs of Labs/Mics: Laboratory Tests 10/09/16 0619: Sodium Pending, Potassium Pending, Chloride Pending, Carbon Dioxide Pending, Anion Gap Pending, BUN Pending, Creatinine Pending, BUN/Creatinine Ratio Pending , Glucose Pending, Calcium Pending, Total Bilirubin Pending, AST Pending, ALT Pending, Alkaline Phosphatase Pending, Total Protein Pending, Albumin Pending, Globulin Pending, Albumin/Globulin Ratio Pending, PT Pending, INR Pending, CBC w Diff Pending, WBC Pending, RBC Pending, Hgb Pending, Hct Pending, MCV Pending, MCH Pending, RDW Pending, Plt Count Pending, MPV Pending, PUBS MCHC Pending 10/08/16 1535: PT 26.2 H, INR 2.52 H 10/08/16 0625: Anion Gap 13, Estimated GFR 9 L, BUN/Creatinine Ratio 12.1, Glucose 210 H, Calcium 8.0 L, Magnesium 2.1, Total Bilirubin 0.9, AST 14 L, ALT 35, Alkaline Phosphatase 97, Troponin I 0.02, Total Protein 6.1 L, Albumin 2.9 L, Globulin 3.2, Albumin/Globulin Ratio 0.9 L, CBC w Diff MAN DIFF ORDERED, RBC 3.24 L, MCV 97.6 H, MCH 31.4 H, RDW 21.0 H, MPV 9.2, Gran % 85.9 H, Lymphocytes % 4.6 L, Monocytes % 9.1, Eosinophils % 0.3, Basophils % 0.1, Absolute Granulocytes 12.4 H, Absolute Lymphocytes 0.7 L, Absolute Monocytes 1.3 H, Absolute Eosinophils 0, Absolute Basophils 0, Platelet Estimate VERIFIED BY SMEAR, Polychromasia 1+, Poikilocytosis 1+, Anisocytosis 1+, Ovalocytes 1+, [place] Cells 1+, PUBS MCHC 32.2 L, Random Vancomycin 10.9 10/07/16 2150: Troponin I 0.02 10/07/16 0930: PT 23.9 H, INR 2.29 H Recent Imaging Studies: Tely-SR, NSVT, intermittent atrial tachycardia Assessment/Plan Assessment/Plan Assessment: 1. GPC bacteremia/sepsis in patient 1 week after dialysis catheter change. Catheter site without obvious signs of infection. Catheter removed yesterday. 2. Nonischemic cardiomyopathy, currently euvolemic 3. Paroxysmal atrial flutter, currently he appears to be in ectopic atrial tachycardia, rate 110bpm. short runs of NSVT. 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 Bilateral shoulder pain. MRI showed cervical paraspinal fluid concerning for parapharyngeal abscess. Plan: continue Vancomycin continue carvedilol 50 mg bid Warfarin has been on hold but INR still elevated Patient seen by Dr. Gilmore. He may need abscess drainage today. OK to give 2 U FFP prior to surgery if necessary Continue telemetry? Yes
[2016-10-09 08:05] LABS: ABSOLUTE BASOPHIL COUNT 0 /CUMM (0.0-0.2); ABSOLUTE EOSINOPHIL COUNT 0.1 /CUMM (0.0-0.7); ABSOLUTE GRANULOCYTE CT 9.6 /CUMM (1.4-6.5); ABSOLUTE LYMPH COUNT 0.8 /CUMM (1.2-3.4); ABSOLUTE MONOCYTE COUNT 1.4 /CUMM (0.10-0.60); BASOPHIL % 0 % (0.0-2.0); EOSINOPHIL % 0.5 % (0-5); GRANULOCYTE % 81.1 % (42.2-75.2); HEMATOCRIT 31.8 % (42-52); MEAN CORPUSCULAR HGB 31.3 PG (27.0-31.0); MEAN PLATELET VOLUME 8.8 FL (7.4-10.4); PLATELET COUNT 160 /CUMM (130-400); RBC DISTRIBUTION WIDTH 20.9 % (11.5-14.5); RED BLOOD CELL CT 3.24 /CUMM (4.70-6.10); WHITE BLOOD CELL COUNT 11.9 /CUMM (4.8-10.8)
[2016-10-09 08:18] LABS: PT 28.4 SEC (9.4-12.5)
[2016-10-09 08:26] VITALS: BP 108/68
--- NOTE | 2016-10-09 08:31 | PN- Neurosurgical ---
Subjective Subjective: Pt with c/o severe LBP this am, denies signif neck pain, reports left greater than right shoulder pain, no dysphagia this am Objective Vital Signs and I&Os Vital Signs Date Time Temp Pulse Resp B/P B/P Pulse O2 O2 Flow FiO2 Mean Ox Delivery Rate 10/09 0027 109 94 10/09 0010 99.3 115 20 112/60 96 Nasal Cannula 10/09 0000 Nasal 2.0L Cannula 10/08 2206 111 91 10/08 212 114 110/62 10/08 1723 98.8 85 20 136/74 95 Nasal 2.0L Cannula 10/08 1320 112 130/92 10/08 1122 97.7 111 20 118/92 96 Nasal 2.0L Cannula Intake & Output 10/09 1600 10/09 0800 10/09 0000 10/08 1600 10/08 0800 10/08 0000 Intake Total 0 360.3 612.6 200 100 Output Total Balance 0 360.3 612.6 200 100 Intake, IV 0 20.3 270.6 Intake, Oral 0 340 342 200 100 Number 0 0 Bowel Movements Patient 102.965 kg Weight Physical Exam: AF awake and oriented, no fullness noted in ant neck voice clear with hoarseness able to flex/ex neck without neck pain but worsens LBP normal motor all 4 extrem, no signif sensory deficit UE and LE's gait not tested TTP lumbar spine midline min TTP post neck, FROM bilat shoulders but with pain L>R DTR hypoactive Current Medications: Current Medications Sig/Cole Start time Last Medication Dose Route Stop Time Status Admin Allopurinol 300 MG DAILY 10/06 1110 AC 10/08 PO 1321 Aspirin Buffered 81 MG DAILY 10/06 1117 AC 10/08 PO 1321 Atorvastatin Calcium 20 MG 1700 10/06 1700 AC 10/08 PO 1817 Carvedilol 50 MG BID 10/08 2200 AC 10/08 PO 2121 Carvedilol 25 MG BID 10/06 1117 DC 10/08 PO 1320 Dextrose/Sodium 500 ML Q13H 10/09 0745 AC 10/09 Chloride IV 10/09 1744 0758 Epoetin Kameron 4,000 UNIT TUES THURS SAT PRN 10/08 0830 AC IV Hydromorphone HCl 0.6 MG Q4 HRS NEEDED PRN 10/07 1245 AC 10/09 IV 0415 Insulin Aspart 0 TIDAC 10/06 1200 DC 10/08 SC 1841 Insulin Human Regular 0 Q6 10/09 0755 AC 10/09 SC 0758 Lidocaine 0 .STK-MED ONE 10/08 1154 DC .ROUTE Paricalcitol 5 MCG TUES THURS SAT PRN 10/08 0830 AC IV Vancomycin HCl 1,000 MG ONCE ONE 10/08 1200 DC 10/08 Sodium Chloride 250 ML IV 10/08 1259 1319 Vancomycin HCl 0 TUES THURS SAT PRN 10/07 0045 AC IV Results Last 48 Hours of Labs: Laboratory Tests 10/09 10/08 10/08 0619 1535 0625 Chemistry Sodium (137 - 145 mmol/L) 134 L 131 L Potassium (3.5 - 5.1 mmol/L) 4.9 5.1 Chloride (98 - 107 mmol/L) 99 97 L Carbon Dioxide (22 - 30 mmol/L) 25 21 L Anion Gap (5 - 16) 10 13 BUN (9 - 20 mg/dL) 51 H 75 H Creatinine (0.7 - 1.2 mg/dL) 4.5 H 6.2 *H Estimated GFR (>60 ml/min) 13 L 9 L BUN/Creatinine Ratio (7 - 25 %) 11.3 12.1 Glucose (65 - 99 mg/dL) 253 H 210 H Calcium (8.4 - 10.2 mg/dL) 8.0 L 8.0 L Magnesium (1.6 - 2.3 mg/dL) 2.1 Total Bilirubin (0.2 - 1.3 mg/dL) 0.8 0.9 AST (17 - 59 U/L) 12 L 14 L ALT (21 - 72 U/L) 33 35 Alkaline Phosphatase (< 127 U/L) 105 97 Troponin I (<0.11 ng/ml) 0.02 Total Protein (6.3 - 8.2 g/dL) 5.9 L 6.1 L Albumin (3.5 - 5.0 g/dL) 2.9 L 2.9 L Globulin (1.9 - 4.2 gm/dL) 3.0 3.2 Albumin/Globulin Ratio (1.1 - 2.2 %) 1.0 L 0.9 L Coagulation PT (9.4 - 12.5 SEC) Pending 26.2 H INR (0.90 - 1.17) Pending 2.52 H Hematology CBC w Diff Pending MAN DIFF ORDERED WBC (4.8 - 10.8 /CUMM) Pending 14.4 H RBC (4.70 - 6.10 /CUMM) Pending 3.24 L Hgb (14.0 - 18.0 G/DL) Pending 10.2 L Hct (42 - 52 %) Pending 31.6 L MCV (80.0 - 94.0 FL) Pending 97.6 H MCH (27.0 - 31.0 PG) Pending 31.4 H RDW (11.5 - 14.5 %) Pending 21.0 H Plt Count (130 - 400 /CUMM) Pending 139 MPV (7.4 - 10.4 FL) Pending 9.2 Gran % (42.2 - 75.2 %) 85.9 H Lymphocytes % (20.5 - 51.1 %) 4.6 L Monocytes % (1.7 - 9.3 %) 9.1 Eosinophils % (0 - 5 %) 0.3 Basophils % (0.0 - 2.0 %) 0.1 Absolute Granulocytes (1.4 - 6.5 /CUMM) 12.4 H Absolute Lymphocytes (1.2 - 3.4 /CUMM) 0.7 L Absolute Monocytes (0.10 - 0.60 /CUMM) 1.3 H Absolute Eosinophils (0.0 - 0.7 /CUMM) 0 Absolute Basophils (0.0 - 0.2 /CUMM) 0 Platelet Estimate (ADEQUATE) VERIFIED BY SMEAR Polychromasia 1+ Poikilocytosis 1+ Anisocytosis 1+ Ovalocytes 1+ [place] Cells 1+ PUBS MCHC (33.0 - 37.0 G/DL) Pending 32.2 L Toxicology Random Vancomycin (ug/ml) 10.9 19 10/07 2150 0930 Chemistry Troponin I (<0.11 ng/ml) 0.02 Coagulation PT (9.4 - 12.5 SEC) 23.9 H INR (0.90 - 1.17) 2.29 H Recent Imaging Studies: I have reviewed total spine MRI and CT with contrast done yest. In lumbar region, pt noted to have advanced L4/5 facet arthrosis with joint effusions bilat. Also with increased T2 signal about the ant L4/5 endplates which could reflect degenerative modic type2 changes or potentially edema secondary to early osteo. No paravertebral collection. No contrast given. No evidence epidural collection or canal compromise. In neck, pt with signif retropharyngeal and prevertebral collection c/w probable abscess in context of pts hx. Also early increased T2 signal ant C5/6 disc space and endplates without epidural collection which could be c/w early discitis/osteomyelitis. Pt with advanced multilevel spondylosis, DDD, disc/ osteophyte complexes and multilevel stenosis. Assessment/Plan Assessment/Plan Pt 61yo man with chronic renal failure on dialysis and MRSA sepsis with retropharyngeal and prevertebral fluid collection. Blood cultures have been consistently positive despite vanco, though pt remains afebrile. Currently ENT considering surgical exploration and drainage of the collection but pt remains anticoagulated with INR 2.5. Pt neurologically intact. At this point, pt without definite spinal infection and no indication for neurosurgical intervention. 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 Preference would be MRI with and without contrast if needed. call with questions. Core Measures/Miscellaneous Venous Thromboembolism VTE Risk Factors: Previous VTE VTE Contraindications: No Contraindications (pt with active infection) VTE Diagnosis: No VTE Type: NONE VTE Confirmed by (Test): NONE Beta Tayla Is Beta Tayla a Home Med? No Antibiotics Is Patient on Antibiotics? Yes If Yes: infection Attending MD Review Statement Attending Statement Attending MD Statement: examined this patient, discuss w/resident/PA/MOLD COOLER, discussed w/nursing
--- NOTE | 2016-10-09 09:20 | PN- Housestaff ---
DYLAN CABRERA 10/09/16 0919: Subjective Follow-up For: MRSA bacteremia retropharyngeal/prevertebral abscess End-stage renal disease on dialysis Severe bilateral shoulder pain Tele-Events Since Last Visit: 10 beat run of V. tach overnight Subjective: This morning he is an alert and awake but complaining of severe shoulder pain. Review of Systems Constitutional: Reports: see HPI. Objective Last 24 Hrs of Vital Signs/I&O Vital Signs Date Time Temp Pulse Resp B/P B/P Pulse O2 O2 Flow FiO2 Mean Ox Delivery Rate 10/09 1110 112 108/68 10/09 0826 96.9 112 20 108/68 95 Nasal 2.0L Cannula 10/09 0800 Nasal 2.0L Cannula 10/09 0027 109 94 10/09 0010 99.3 115 20 112/60 96 Nasal Cannula 10/09 0000 Nasal 2.0L Cannula 10/08 2206 111 91 10/08 2121 114 110/62 10/08 1723 98.8 85 20 136/74 95 Nasal 2.0L Cannula Intake & Output 10/09 1600 10/09 0800 10/09 0000 Intake Total 390.6 0 360.3 Output Total Balance 390.6 0 360.3 Intake, IV 270.6 0 20.3 Intake, Oral 120 0 340 Number 0 0 Bowel Movements Patient 227 lb Weight Physical Exam General Appearance: Alert, Oriented X3, Cooperative, Moderate Distress Neck: Supple Cardiovascular: Regular Rate Lungs: Clear to Auscultation Abdomen: Normal Bowel Sounds, Soft, No Tenderness Extremities: No Edema Current Medications: Current Medications Sig/Cole Start time Last Medication Dose Route Stop Time Status Admin Allopurinol 300 MG DAILY 10/06 1110 AC 10/09 PO 1110 Aspirin Buffered 81 MG DAILY 10/06 1117 AC 10/09 PO 1110 Atorvastatin Calcium 20 MG 1700 10/06 1700 AC 10/08 PO 1817 Carvedilol 50 MG BID 10/08 2200 AC 10/09 PO 1110 Dextrose/Sodium 500 ML Q13H 10/10 0000 UNVr Chloride IV 10/10 0959 Dextrose/Sodium 500 ML Q13H 10/09 0745 DC 10/09 Chloride IV 10/09 1744 0758 Epoetin Kameron 4,000 UNIT TUES THURS SAT PRN 10/08 0830 AC IV Hydromorphone HCl 0.6 MG Q3P PRN 10/09 1152 AC 10/09 IV 1158 Hydromorphone HCl 0.6 MG Q4 HRS NEEDED PRN 10/07 1245 DC 10/09 IV 0847 Insulin Aspart 0 TIDAC 10/09 1700 UNVr SC Insulin Aspart 0 TIDAC 10/06 1200 DC 10/08 SC 1841 Insulin Human Regular 0 Q6 10/10 0000 UNVr SC Insulin Human Regular 8 UNITS .STK-MED ONE 10/09 1359 DC IV 10/09 1400 Insulin Human Regular 0 Q6 10/09 0755 DC 10/09 SC 1158 Lidocaine 1 PAT DAILY 10/09 1431 UNVr EXT Paricalcitol 5 MCG TUES THURS SAT PRN 10/08 0830 AC IV Vancomycin HCl 0 THURS SAT PRN 10/07 0045 AC IV Last 24 Hrs of Lab/Cristi Results Last 24 Hrs of Labs/Mics: Laboratory Tests 10/09/16 0619: Anion Gap 10, Estimated GFR 13 L, BUN/Creatinine Ratio 11.3, Glucose 253 H, Calcium 8.0 L, Total Bilirubin 0.8, AST 12 L, ALT 33, Alkaline Phosphatase 105 , Total Protein 5.9 L, Albumin 2.9 L, Globulin 3.0, Albumin/Globulin Ratio 1.0 L, PT 28.4 H, INR 2.73 H, CBC w Diff NO MAN DIFF REQ, RBC 3.24 L, MCV 98.0 H, MCH 31.3 H, RDW 20.9 H, MPV 8.8, Gran % 81.1 H, Lymphocytes % 6.5 L, Monocytes % 11.9 H, Eosinophils % 0.5, Basophils % 0 L, Absolute Granulocytes 9.6 H, Absolute Lymphocytes 0.8 L, Absolute Monocytes 1.4 H, Absolute Eosinophils 0.1, Absolute Basophils 0, PUBS MCHC 32.0 L 10/08/16 1535: PT 26.2 H, INR 2.52 H Microbiology 10/09 143 BLOOD: Blood Culture - COLB 10/10 1431 BLOOD: Blood Culture - COLB Assessment/Plan Assessment: 61-year-old man with PMH of end-stage renal disease on hemodialysis (Friday) via RIJ tunneled dialysis catheter, nonischemic cardiomyopathy, paroxysmal atrial flutter on warfarin and hypertension. Problem list 1. MRSA bacteremia. WBC count 14.4. Afebrile. Dialysis catheter tip culture is also growing staph aureus 4. Paroxysmal atrial flutter. Warfarin on hold 4. Short runs of NSVT. Most likely secondary to ongoing bacteremia and sepsis 5. Bilateral shoulder pain 6. retropharyngeal/prevertebral abscess (3.6 cm TV by 1.5 cm AP by 9.2 cm CC) 7. Suspicion for C5-C6 osteomyelitis 8. Right internal jugular vein nonocclusive thrombus PLAN * Monitor vitals closely * Continue telemetry monitoring and watch for any arrhythmias * Check electrolytes daily and replete accordingly * ID consult appreciated * Continue vancomycin * Next dialysis on Friday. If left AV fistula could not be used then patient might need urgent non-tunneled dialysis catheter * retropharyngeal/prevertebral abscess drainage by ENT tomorrow. * Nothing by mouth after midnight tonight * Check INR in the morning. If more than 1.4 then give FFP's preoperatively * Adequate pain management * Neurosurgery consult appreciated. * Holding Coumadin for now * Patient might need long-term IV antibiotics in the setting of osteomyelitis * Continue other home medications * DVT prophylaxis * Full code Problem List: 1. Sepsis 2. Abscess, parapharyngeal space Pain Ratin Pain Location: Neck pain Pain Goal: Pain 4 or less Pain Plan: Dilaudid and Lidoderm patch Tomorrow's Labs & Rationales: cbc, inr, bep DVT/Prophylaxis: pharmacological GRISEL CANO,HALIMA 10/09/16 1153: Attending MD Review Statement Attending Statement Attending MD Statement: examined this patient, discuss w/resident/PA/MOLD MOVER, agreed w/resident/PA/MOLD MOVER, reviewed EMR data (avail), discussed with nursing, discussed with case mgmt, amended to note Attending Assessment/Plan: Patient seen and examined. Complains of upper and lower back pain. Complaint of chest pain overnight denies any chest pain this morning. Denies cough or shortness of breath. He remains afebrile and is hemodynamically stable. His INR today is trending upwards despite Coumadin being on hold. Case was discussed in detail with the ENT service. Given his clinically stable status and risk of thrombosis given his current blood clot, he is recommending reevaluation of the patient in the morning. If at that time patient remains with an elevated INR we will administer FFP and actively reverse his INR. This has been discussed with the nephrology service and they're in agreement. Case was also discussed in detail with the neurosurgery service. Imaging reveals high suspicion for C5/C6 osteomyelitis. Therapy for this will be long- term antibiotic therapy. His complaint of low back pain also raises concern for possible myelitis in the lumbar region as well of which management would be the same as there is no evidence of abscess collection on previous imaging. On examination he is lethargic but oriented 3. He reports that his analgesia last for over 2 hours before wearing off. Lungs are clear to auscultation bilaterally. Abdomen is soft and nontender. He has no peripheral edema. Recommendations: -Resume diet today but keep nothing by mouth past midnight for possible surgery tomorrow. -Repeat INR in a.m. If still greater than 1.4 transfuse 2 units of fresh frozen plasma. -Case discussed with the nephrology service, the surgery is done tomorrow to be no hemodialysis until his next session on Friday. Dialysis will be attempted at that time via is AV fistula. If this is unsuccessful in new IJ catheter will be urgently placed. -Continue antibiotic therapy with vancomycin with plans for long-term therapy. -We'll follow-up with the ID service even a PAKO is required as well. -Administer Dilaudid 0.6 mg every 3 hours for pain control. Apply lidoderm patch as well.
--- NOTE | 2016-10-09 09:43 | NUR ---
Physical Therapy - Pt remains in too much pain to perform functional mobility tasks, unable to roll in bed, likely going to OR today for abscess drainage. Nsg aware of baseline LOF and will continued mobility attempts as tolerated. Will f/u and complete evaluation as appropriate.
--- NOTE | 2016-10-09 10:40 | INTERVENTIONAL RADIOLOGY RPT ---
EXAMINATION: VENOUS ACCESS REMOVAL TUNNEL CVC INTERVENTIONAL RADIOLOGIST: Florentino He MD CLINICAL INFORMATION: Patient presents for right chest PermCath removal. No longer required as concern for line infection causing sepsis. Discussed case with Dr. Woodson who requests removal. COMPARISON: None TECHNIQUE AND FINDINGS: Informed consent was obtained from the patient prior to the procedure. During this process, the procedure and potential alternatives were explained along with the intended outcome and benefits. The risks of the procedure, including the possibility of an unsuccessful procedure, as well as the risk of not doing the procedure, were discussed. Opportunity was given to ask questions regarding the procedure and intact competence to make decisions was determined. A signed consent form documenting this discussion was placed in the medical record. A time-out procedure was performed. The procedure was performed at bedside with patient at a greater than 45 degrees head up position. The right anterior chest wall was then prepped and draped in usual sterile fashion. Using standard interventional and sterile technique 1% lidocaine was infiltrated into the skin and subcutaneous tissues around the catheter. Gentle dissection was performed. The catheter was removed entirely. Manual pressure was applied until hemostasis was achieved. The wound site was clean and dry at the completion. Good hemostasis was achieved. The patient tolerated the procedure well. Instructions were reviewed with the patient. The patient was monitored in the recovery area. The patient returned to the inpatient bed in stable condition. Complications: None. IMPRESSION: Successful removal of right chest permacatheter in total.
--- NOTE | 2016-10-09 10:48 | PN- Infect Dx ---
Subjective Subjective: Afebrile. He continues to complain of severe interscapular and lower back pain. Objective Last 24 Hrs of Vital Signs/I&O Vital Signs Date Time Temp Pulse Resp B/P B/P Pulse O2 O2 Flow FiO2 Mean Ox Delivery Rate 10/09 0826 96.9 112 20 108/68 95 Nasal 2.0L Cannula 10/09 0800 Nasal 2.0L Cannula 10/09 0027 109 94 10/09 0010 99.3 115 20 112/60 96 Nasal Cannula 10/09 0000 Nasal 2.0L Cannula 10/08 2206 111 91 10/08 2121 114 110/62 10/08 1723 98.8 85 20 136/74 95 Nasal 2.0L Cannula 10/08 1320 112 130/92 10/08 1122 97.7 111 20 118/92 96 Nasal 2.0L Cannula Intake & Output 10/09 1600 10/09 0800 10/09 0000 Intake Total 0 360.3 Output Total Balance 0 360.3 Intake, IV 0 20.3 Intake, Oral 0 340 Number 0 0 Bowel Movements Physical Exam Other Physical Findings: He appears uncomfortable secondary to the pain but is awake, alert and responsive Lungs are clear Heart regular rhythm with no murmur Abdomen is soft, nontender with positive bowel sounds Extremities no cyanosis, clubbing or edema Results Last 24 Hours of Lab Results: Laboratory Tests 10/09 10/08 0619 1535 Chemistry Sodium (137 - 145 mmol/L) 134 L Potassium (3.5 - 5.1 mmol/L) 4.9 Chloride (98 - 107 mmol/L) 99 Carbon Dioxide (22 - 30 mmol/L) 25 Anion Gap (5 - 16) 10 BUN (9 - 20 mg/dL) 51 H Creatinine (0.7 - 1.2 mg/dL) 4.5 H Estimated GFR (>60 ml/min) 13 L BUN/Creatinine Ratio (7 - 25 %) 11.3 Glucose (65 - 99 mg/dL) 253 H Calcium (8.4 - 10.2 mg/dL) 8.0 L Total Bilirubin (0.2 - 1.3 mg/dL) 0.8 AST (17 - 59 U/L) 12 L ALT (21 - 72 U/L) 33 Alkaline Phosphatase (< 127 U/L) 105 Total Protein (6.3 - 8.2 g/dL) 5.9 L Albumin (3.5 - 5.0 g/dL) 2.9 L Globulin (1.9 - 4.2 gm/dL) 3.0 Albumin/Globulin Ratio (1.1 - 2.2 %) 1.0 L Coagulation PT (9.4 - 12.5 SEC) 28.4 H 26.2 H INR (0.90 - 1.17) 2.73 H 2.52 H Hematology CBC w Diff NO MAN DIFF REQ WBC (4.8 - 10.8 /CUMM) 11.9 H RBC (4.70 - 6.10 /CUMM) 3.24 L Hgb (14.0 - 18.0 G/DL) 10.2 L Hct (42 - 52 %) 31.8 L MCV (80.0 - 94.0 FL) 98.0 H MCH (27.0 - 31.0 PG) 31.3 H RDW (11.5 - 14.5 %) 20.9 H Plt Count (130 - 400 /CUMM) 160 MPV (7.4 - 10.4 FL) 8.8 Gran % (42.2 - 75.2 %) 81.1 H Lymphocytes % (20.5 - 51.1 %) 6.5 L Monocytes % (1.7 - 9.3 %) 11.9 H Eosinophils % (0 - 5 %) 0.5 Basophils % (0.0 - 2.0 %) 0 L Absolute Granulocytes (1.4 - 6.5 /CUMM) 9.6 H Absolute Lymphocytes (1.2 - 3.4 /CUMM) 0.8 L Absolute Monocytes (0.10 - 0.60 /CUMM) 1.4 H Absolute Eosinophils (0.0 - 0.7 /CUMM) 0.1 Absolute Basophils (0.0 - 0.2 /CUMM) 0 PUBS MCHC (33.0 - 37.0 G/DL) 32.0 L Last 24 Hours of Cristi Results: Blood cultures October 08 positive for gram-positive cocci in clusters Blood cultures October 07 positive for MRSA Blood cultures October 06 positive for MRSA, with an CRISTI of 1.0 Marshal catheter tip culture October 08 greater than 15 colonies of Staph aureus Assessment/Plan Impression: MRSA sepsis secondary to an infected right IJ Marshal catheter, status post exchange of this catheter over a guidewire 9 days prior to admission because of pain and loosening of the catheter, with CT of the neck yesterday revealing a large retropharyngeal collection extending from the nasopharyngeal region to the C7 level, concerning for an abscess, with a possible nonocclusive thrombus within the right IJ also noted, suggesting a possible suppurative thrombophlebitis. He has been evaluated by ENT with plans for surgery once his INR has corrected. His blood cultures from yesterday remain positive, though he remains afebrile and white blood cell count has decreased on Vancomycin now Day 4 of treatment. His transthoracic echocardiogram was negative for any vegetations, and a PAKO may need to be considered, but the CT scan did suggest the possibility of osteomyelitis of the cervical spine, in which case he would require a prolonged course of IV antibiotics regardless of the PAKO findings. Suggestion: 1. Repeat blood cultures 2 today 2. Await drainage of the retropharyngeal/prevertebral collection per ENT 3. Continue Vancomycin with dosing per dialysis protocol
--- NOTE | 2016-10-09 11:28 | PN- Nephrology ---
Assessment/Plan Assessment: 1. ESRD - on hemodialysis Tuesdays, and Saturdays 2. MRSA bacteremia with apparent retropharyngeal/prevertebral collection which I suspect is related to an infected Marshal catheter - now removed. 3. Persistent MRSA bacteremia Suggestion: 1. For abscess drainage, apparently by ENT service; this is now been put off until tomorrow because of a high INR. Ok to receive FFP tomorrow a.m. preoperatively 2. Continue vancomycin 3. Will arrange for hemodialysis either late tomorrow or on Friday; if left upper arm AVF proves to be unusable, will need to arrange for a another IJ catheter perhaps a DLQ (non-tunneled catheter) Subjective Subjective: Patient continues to be very uncomfortable with pain in neck and back. He remains afebrile with a falling WBC. Unfortunately, blood cultures are positive. Also unfortunately, his INR remains elevated which will delay surgery , likely until tomorrow. Objective Vital Signs and I&Os Vital Signs Date Time Temp Pulse Resp B/P B/P Pulse O2 O2 Flow FiO2 Mean Ox Delivery Rate 10/09 1110 112 108/68 10/09 0826 96.9 112 20 108/68 95 Nasal 2.0L Cannula 10/09 0800 Nasal 2.0L Cannula 10/09 0027 109 94 10/09 0010 99.3 115 20 112/60 96 Nasal Cannula 10/09 0000 Nasal 2.0L Cannula 10/08 2206 111 91 10/081 114 110/62 10/08 1723 98.8 85 20 136/74 95 Nasal 2.0L Cannula 10/08 1320 112 130/92 Intake & Output 10/09 1600 10/09 0400 10/08 1600 10/08 0400 10/07 1600 10/07 0400 Intake Total 0 360.3 812.6 100 770 600 Output Total 0 Balance 0 360.3 812.6 100 770 600 Intake, IV 0 20.3 270.6 250 Intake, Oral 0 340 542 100 520 600 Number 0 0 0 Bowel Movements Output, Urine 0 Patient 227 lb Weight Physical Exam: General: Well-developed, obese black male, complaining of severe back, neck and interscapular pain Skin: No rash or jaundice HEENT: Conjunctivae pink, sclerae anicteric, mucous membranes moist Neck: Without masses or thyromegaly, no supraclavicular or cervical adenopathy Chest: Clear anterolaterally Heart: Regular rate and rhythm without S3 or rub Abdomen: Obese, soft and nontender without palpable masses or organomegaly Extremities: No edema, no livedo, left upper arm AVF patent Neuro: No focal findings, no asterixis or myoclonus Results Pertinent Lab Results: Laboratory Tests 10/09 10/08 0619 1535 Chemistry Sodium (137 - 145 mmol/L) 134 L Potassium (3.5 - 5.1 mmol/L) 4.9 Chloride (98 - 107 mmol/L) 99 Carbon Dioxide (22 - 30 mmol/L) 25 Anion Gap (5 - 16) 10 BUN (9 - 20 mg/dL) 51 H Creatinine (0.7 - 1.2 mg/dL) 4.5 H Estimated GFR (>60 ml/min) 13 L BUN/Creatinine Ratio (7 - 25 %) 11.3 Glucose (65 - 99 mg/dL) 253 H Calcium (8.4 - 10.2 mg/dL) 8.0 L Total Bilirubin (0.2 - 1.3 mg/dL) 0.8 AST (17 - 59 U/L) 12 L ALT (21 - 72 U/L) 33 Alkaline Phosphatase (< 127 U/L) 105 Total Protein (6.3 - 8.2 g/dL) 5.9 L Albumin (3.5 - 5.0 g/dL) 2.9 L Globulin (1.9 - 4.2 gm/dL) 3.0 Albumin/Globulin Ratio (1.1 - 2.2 %) 1.0 L Coagulation PT (9.4 - 12.5 SEC) 28.4 H 26.2 H INR (0.90 - 1.17) 2.73 H 2.52 H Hematology CBC w Diff NO MAN DIFF REQ WBC (4.8 - 10.8 /CUMM) 11.9 H RBC (4.70 - 6.10 /CUMM) 3.24 L Hgb (14.0 - 18.0 G/DL) 10.2 L Hct (42 - 52 %) 31.8 L MCV (80.0 - 94.0 FL) 98.0 H MCH (27.0 - 31.0 PG) 31.3 H RDW (11.5 - 14.5 %) 20.9 H Plt Count (130 - 400 /CUMM) 160 MPV (7.4 - 10.4 FL) 8.8 Gran % (42.2 - 75.2 %) 81.1 H Lymphocytes % (20.5 - 51.1 %) 6.5 L Monocytes % (1.7 - 9.3 %) 11.9 H Eosinophils % (0 - 5 %) 0.5 Basophils % (0.0 - 2.0 %) 0 L Absolute Granulocytes (1.4 - 6.5 /CUMM) 9.6 H Absolute Lymphocytes (1.2 - 3.4 /CUMM) 0.8 L Absolute Monocytes (0.10 - 0.60 /CUMM) 1.4 H Absolute Eosinophils (0.0 - 0.7 /CUMM) 0.1 Absolute Basophils (0.0 - 0.2 /CUMM) 0 PUBS MCHC (33.0 - 37.0 G/DL) 32.0 L 10/08 10/07 10/07 0625 2150 0930 Chemistry Sodium (137 - 145 mmol/L) 131 L Potassium (3.5 - 5.1 mmol/L) 5.1 Chloride (98 - 107 mmol/L) 97 L Carbon Dioxide (22 - 30 mmol/L) 21 L Anion Gap (5 - 16) 13 BUN (9 - 20 mg/dL) 75 H Creatinine (0.7 - 1.2 mg/dL) 6.2 *H Estimated GFR (>60 ml/min) 9 L BUN/Creatinine Ratio (7 - 25 %) 12.1 Glucose (65 - 99 mg/dL) 210 H Calcium (8.4 - 10.2 mg/dL) 8.0 L Magnesium (1.6 - 2.3 mg/dL) 2.1 Total Bilirubin (0.2 - 1.3 mg/dL) 0.9 AST (17 - 59 U/L) 14 L ALT (21 - 72 U/L) 35 Alkaline Phosphatase (< 127 U/L) 97 Troponin I (<0.11 ng/ml) 0.02 0.02 Total Protein (6.3 - 8.2 g/dL) 6.1 L Albumin (3.5 - 5.0 g/dL) 2.9 L Globulin (1.9 - 4.2 gm/dL) 3.2 Albumin/Globulin Ratio (1.1 - 2.2 %) 0.9 L Coagulation PT (9.4 - 12.5 SEC) 23.9 H INR (0.90 - 1.17) 2.29 H Hematology CBC w Diff MAN DIFF ORDERED WBC (4.8 - 10.8 /CUMM) 14.4 H RBC (4.70 - 6.10 /CUMM) 3.24 L Hgb (14.0 - 18.0 G/DL) 10.2 L Hct (42 - 52 %) 31.6 L MCV (80.0 - 94.0 FL) 97.6 H MCH (27.0 - 31.0 PG) 31.4 H RDW (11.5 - 14.5 %) 21.0 H Plt Count (130 - 400 /CUMM) 139 MPV (7.4 - 10.4 FL) 9.2 Gran % (42.2 - 75.2 %) 85.9 H Lymphocytes % (20.5 - 51.1 %) 4.6 L Monocytes % (1.7 - 9.3 %) 9.1 Eosinophils % (0 - 5 %) 0.3 Basophils % (0.0 - 2.0 %) 0.1 Absolute Granulocytes (1.4 - 6.5 /CUMM) 12.4 H Absolute Lymphocytes (1.2 - 3.4 /CUMM) 0.7 L Absolute Monocytes (0.10 - 0.60 /CUMM) 1.3 H Absolute Eosinophils (0.0 - 0.7 /CUMM) 0 Absolute Basophils (0.0 - 0.2 /CUMM) 0 Platelet Estimate (ADEQUATE) VERIFIED BY SMEAR Polychromasia 1+ Poikilocytosis 1+ Anisocytosis 1+ Ovalocytes 1+ Diamond Cells 1+ PUBS MCHC (33.0 - 37.0 G/DL) 32.2 L Toxicology Random Vancomycin (ug/ml) 10.9 10/06 2048 Chemistry Sodium (137 - 145 mmol/L) 132 L Potassium (3.5 - 5.1 mmol/L) 4.6 Chloride (98 - 107 mmol/L) 97 L Carbon Dioxide (22 - 30 mmol/L) 24 Anion Gap (5 - 16) 11 BUN (9 - 20 mg/dL) 48 H Creatinine (0.7 - 1.2 mg/dL) 4.6 H Estimated GFR (>60 ml/min) 13 L BUN/Creatinine Ratio (7 - 25 %) 10.4 Phosphorus (2.5 - 4.5 mg/dL) 4.5 Magnesium (1.6 - 2.3 mg/dL) 1.9
[2016-10-09 16:53] VITALS: BP 110/58
--- NOTE | 2016-10-09 18:09 | PN- Ear, Nose & Throat ---
Subjective Subjective: Throat pain continues as does back pain Discomfort with turning his head Objective Vital Signs and I&Os Vital Signs Date Time Temp Pulse Resp B/P B/P Pulse O2 O2 Flow FiO2 Mean Ox Delivery Rate 10/09 1653 97.0 110 20 110/58 97 10/09 1110 112 108/68 10/09 0826 96.9 112 20 108/68 95 Nasal 2.0L Cannula 10/09 0800 Nasal 2.0L Cannula 10/09 0027 109 94 10/09 0010 99.3 115 20 112/60 96 Nasal Cannula 10/09 0000 Nasal 2.0L Cannula 10/08 2206 111 91 10/08 2121 114 110/62 Intake & Output 10/09 1600 10/09 0800 10/09 0000 10/08 1600 10/08 0800 10/08 0000 Intake Total 390.6 0 360.3 612.6 200 100 Output Total Balance 390.6 0 360.3 612.6 200 100 Intake, IV 270.6 0 20.3 270.6 Intake, Oral 120 0 340 342 200 100 Number 0 0 Bowel Movements Patient 227 lb 227 lb Weight Examination at the bedside on the floor reveals he continues to be awake and alert. His vital signs have been stable, he is afebrile Oral pharyngeal examination reveals fullness of the right posterior pharyngeal wall without erythema. No evidence of trismus Neck soft, slight tenderness on the right without evidence of mass lesion Assessment/Plan Assessment/Plan Have discussed the situation with Dr. Sue earlier today and we'll plan to perform examination under anesthesia with probable drainage of retropharyngeal abscess. Due to persistently elevated INR associated with his anticoagulation use will consider reversing anticoagulation with FFP should this be necessary in the AM Presently is nothing by mouth after midnight Reevaluation of INR in the a.m. I have contacted the operating room to place this patient on the add-on list Will contact the patient's for signature of the operative permit as the patient is legally blind Core Measures/Miscellaneous Venous Thromboembolism VTE Risk Factors: Previous VTE VTE Contraindications: No Contraindications (pt with active infection) VTE Diagnosis: No VTE Type: NONE VTE Confirmed by (Test): NONE Beta Tayla Is Beta Tayla a Home Med? No Antibiotics Is Patient on Antibiotics? Yes If Yes: infection
--- NOTE | 2016-10-09 19:00 | NUR ---
184 PT HAD A 7 BEAT RUN V-TACH. PT SLEEPING. ARCHIVIST ALISON AWARE. WILL CONTINUE TO MONITOR PT.
[2016-10-09 22:41] VITALS: BP 114/67
[2016-10-10 01:59] VITALS: BP 107/62
[2016-10-10 07:48] LABS: ABSOLUTE BASOPHIL COUNT 0 /CUMM (0.0-0.2); ABSOLUTE EOSINOPHIL COUNT 0.1 /CUMM (0.0-0.7); ABSOLUTE GRANULOCYTE CT 9.8 /CUMM (1.4-6.5); ABSOLUTE LYMPH COUNT 1.1 /CUMM (1.2-3.4); ABSOLUTE MONOCYTE COUNT 1.1 /CUMM (0.10-0.60); BASOPHIL % 0 % (0.0-2.0); EOSINOPHIL % 0.8 % (0-5); GRANULOCYTE % 80.6 % (42.2-75.2); HEMATOCRIT 30.8 % (42-52); MEAN CORPUSCULAR HGB 31.2 PG (27.0-31.0); MEAN CORPUSCULAR HGB CONC 32.1 G/DL (33.0-37.0); MEAN CORPUSCULAR VOLUME 97.3 FL (80.0-94.0); MEAN PLATELET VOLUME 8.6 FL (7.4-10.4); PLATELET COUNT 186 /CUMM (130-400); RBC DISTRIBUTION WIDTH 20.9 % (11.5-14.5); RED BLOOD CELL CT 3.16 /CUMM (4.70-6.10); WHITE BLOOD CELL COUNT 12.1 /CUMM (4.8-10.8)
[2016-10-10 08:17] LABS: PT 26.4 SEC (9.4-12.5)
[2016-10-10 08:29] VITALS: BP 112/60
--- NOTE | 2016-10-10 08:51 | NUR ---
PHYSICAL THERAPY. PLAN REMAINS FOR ABSCESS ASPIRATION, CANCELLED YESTERDAY / AWAITING THERAPEUTIC INR. Pt CURRENTLY W/ HIGH PAIN LEVELS AND NOT APPROPRIATE FOR PT EVALUATION AT THIS TIME. PT WILL F/U APPROPRIATE.
--- NOTE | 2016-10-10 09:57 | PN- Att Addend ---
Attending Addendum Attending Brief Note Patient seen and examined. Complains of shoulder and upper back pain. Denies shortness of breath. Denies chest pain. Afebrile overnight with no events on telemetry monitoring. He is hemodynamically stable. Blood cultures continue to go gram-positive cocci. His INR today remains elevated at 2.5. On examination he is not in any respiratory distress. Heart sounds are regular. Lungs are clear to auscultation bilaterally. Abdomen is obese but soft and nontender. He has trace pedal edema bilaterally. Recommendations: -Transfuse 2 units of fresh frozen plasma. Repeat INR posttransfusion. -If INR still greater than 1.5 transfuse another unit en route to the operating room. -Patient is scheduled for incision and drainage of these retropharyngeal abscess by the ENT service later on today. -Post procedure once cleared by the ENT service begin patient on IV heparin. -Postprocedure patient will be placed on the liquid diet only avoid entry of particulate matter into the incision site. -Continue IV antibiotic therapy with vancomycin. Follow-up with the ID service regarding need for PAKO prior to discharge. Patient will require long-term antibiotic therapy in view of his spinal osteomyelitis. -Continue analgesic therapy with Dilaudid 0.6 mg every 3 hours when necessary pain. Add IV Tylenol every 4 hours [id number]. Patient declined to have the Lidoderm patch placed. -Follow-up with the nephrology service regarding timing for his next hemodialysis session.
--- NOTE | 2016-10-10 10:24 | PN- Infect Dx ---
Subjective Subjective: Afebrile. He continues to complain of severe neck and lower back pain. He also apparently reported chest pain earlier today. Objective Last 24 Hrs of Vital Signs/I&O Vital Signs Date Time Temp Pulse Resp B/P B/P Pulse O2 O2 Flow FiO2 Mean Ox Delivery Rate 10/10 0947 112/60 10/10 0829 96.4 104 20 112/60 96 10/10 0159 96.5 64 20 107/62 93 CPAP 10/10 0034 77 97 10/09 2241 113 114/67 10/09 2241 97.8 113 18 114/67 95 10/09 2226 110 95 10/09 1653 97.0 110 20 110/58 97 10/09 1110 112 108/68 Intake & Output 10/10 1600 10/10 0800 10/10 0000 Intake Total 400 75 Output Total 0 Balance 400 75 Intake, IV 400 75 Intake, Oral 0 0 Output, Urine 0 Physical Exam Other Physical Findings: He appears uncomfortable secondary to severe pain Neck is supple, with tenderness on minimal palpation over the cervical area Lungs are clear Heart regular rhythm with no murmur Extremities no cyanosis, clubbing or edema Results Last 24 Hours of Lab Results: Laboratory Tests 10/10 10/10 0620 0240 Chemistry Sodium (137 - 145 mmol/L) 135 L Potassium (3.5 - 5.1 mmol/L) 5.0 Chloride (98 - 107 mmol/L) 98 Carbon Dioxide (22 - 30 mmol/L) 21 L Anion Gap (5 - 16) 16 BUN (9 - 20 mg/dL) 63 H Creatinine (0.7 - 1.2 mg/dL) 5.8 *H Estimated GFR (>60 ml/min) 10 L BUN/Creatinine Ratio (7 - 25 %) 10.9 Glucose (65 - 99 mg/dL) 132 H Calcium (8.4 - 10.2 mg/dL) 8.4 Total Bilirubin (0.2 - 1.3 mg/dL) 1.0 AST (17 - 59 U/L) 10 L ALT (21 - 72 U/L) 30 Alkaline Phosphatase (< 127 U/L) 93 Troponin I (<0.11 ng/ml) 0.01 Total Protein (6.3 - 8.2 g/dL) 6.2 L Albumin (3.5 - 5.0 g/dL) 2.9 L Globulin (1.9 - 4.2 gm/dL) 3.3 Albumin/Globulin Ratio (1.1 - 2.2 %) 0.9 L Coagulation PT (9.4 - 12.5 SEC) 26.4 H INR (0.90 - 1.17) 2.54 H Hematology CBC w Diff NO MAN DIFF REQ WBC (4.8 - 10.8 /CUMM) 12.1 H RBC (4.70 - 6.10 /CUMM) 3.16 L Hgb (14.0 - 18.0 G/DL) 9.9 L Hct (42 - 52 %) 30.8 L MCV (80.0 - 94.0 FL) 97.3 H MCH (27.0 - 31.0 PG) 31.2 H RDW (11.5 - 14.5 %) 20.9 H Plt Count (130 - 400 /CUMM) 186 MPV (7.4 - 10.4 FL) 8.6 Gran % (42.2 - 75.2 %) 80.6 H Lymphocytes % (20.5 - 51.1 %) 9.2 L Monocytes % (1.7 - 9.3 %) 9.4 H Eosinophils % (0 - 5 %) 0.8 Basophils % (0.0 - 2.0 %) 0 L Absolute Granulocytes (1.4 - 6.5 /CUMM) 9.8 H Absolute Lymphocytes (1.2 - 3.4 /CUMM) 1.1 L Absolute Monocytes (0.10 - 0.60 /CUMM) 1.1 H Absolute Eosinophils (0.0 - 0.7 /CUMM) 0.1 Absolute Basophils (0.0 - 0.2 /CUMM) 0 PUBS MCHC (33.0 - 37.0 G/DL) 32.1 L Last 24 Hours of Cristi Results: Blood cultures October 09 one bottle positive for gram-positive cocci in clusters Marshal Catheter tip culture October 08 greater than 15 colonies of MRSA Assessment/Plan Impression: MRSA sepsis presumably secondary to an infected right IJ Marshal catheter, status post removal 2 days ago, with the catheter tip positive, and with persistent bacteremia felt to be secondary to the large retropharyngeal collection, seen on the recent CT scan, extending from the nasopharyngeal region to the C7 level, concerning for an abscess, with plans for drainage of this collection by ENT later today. The CT scan also revealed a possible nonocclusive thrombus within the right IJ, suggesting a possible suppurative thrombophlebitis. He remains afebrile and white blood cell count has decreased on Vancomycin now Day 5 of treatment. His transthoracic echocardiogram was negative for any vegetations, and a PAKO may need to be considered, but the CT scan did suggest the possibility of osteomyelitis of the cervical spine, in which case he would require a prolonged course of IV antibiotics regardless of the PAKO findings. Suggestion: 1. Repeat blood cultures 2 today 2. Await drainage of the retropharyngeal/prevertebral collection later today 3. Will discuss need or role of PAKO with Cardiology 4. Continue Vancomycin with dosing per dialysis protocol
--- NOTE | 2016-10-10 12:08 | NUR ---
PER DR PERKINS, PT RECEIVED 2 UNITS FFP. INR TO BE DRAWN AND PT TO BE SENT TO O.R. PRIOR TO RESULTS. GIL IN O.R MADE AWARE.
[2016-10-10 12:39] LABS: PT 24.1 SEC (9.4-12.5)
--- NOTE | 2016-10-10 12:50 | PN- Housestaff ---
Subjective Follow-up For: MRSA bacteremia retropharyngeal/prevertebral abscess End-stage renal disease on dialysis Severe bilateral shoulder pain Subjective: This morning patient is complaining of severe pain in his shoulders and back. He is looking very uncomfortable. Nothing by mouth for possible retropharyngeal abscess drainage by ENT today Review of Systems Constitutional: Reports: see HPI. Objective Last 24 Hrs of Vital Signs/I&O Vital Signs Date Time Temp Pulse Resp B/P B/P Pulse O2 O2 Flow FiO2 Mean Ox Delivery Rate 10/10 0947 112/60 10/10 0829 96.4 104 20 112/60 96 10/10 0800 94 Nasal 2.0L Cannula 10/10 0159 96.5 64 20 107/62 93 CPAP 10/10 0034 77 97 10/09 2241 113 114/67 10/09 2241 97.8 113 18 114/67 95 10/09 2226 110 95 10/09 1653 97.0 110 20 110/58 97 Intake & Output 10/10 1600 10/10 0800 10/10 0000 Intake Total 900 400 75 Output Total 0 0 Balance 900 400 75 Intake, Blood 500 Product Intake, IV 400 400 75 Intake, Oral 0 0 0 Output, Urine 0 0 Physical Exam General Appearance: Alert, Moderate Distress Cardiovascular: tachycardia Lungs: Clear to Auscultation Abdomen: Normal Bowel Sounds, Soft, No Tenderness Extremities: No Edema Current Medications: Current Medications Sig/Cole Start time Last Medication Dose Route Stop Time Status Admin Allopurinol 300 MG DAILY 10/06 1110 AC 10/10 PO 0947 Aspirin Buffered 81 MG DAILY 10/06 1117 AC 10/09 PO 1110 Atorvastatin Calcium 20 MG 1700 10/06 1700 AC 10/09 PO 2241 Carvedilol 50 MG BID 10/08 2200 AC 10/10 PO 0947 Dextrose/Sodium 500 ML Q13H 10/10 0000 DC 10/10 Chloride IV 10/10 0959 0000 Epoetin Kameron 4,000 UNIT TUES THURS SAT PRN 10/08 0830 AC IV Hydromorphone HCl 0.6 MG Q3P PRN 10/09 1152 AC 10/10 IV 0944 Insulin Aspart 0 TIDAC 10/09 1700 DC SC Insulin Human Regular 0 Q6 10/10 0000 AC 10/10 SC 0944 Lidocaine 1 PAT DAILY 10/09 1431 AC EXT Paricalcitol 5 MCG TUES THURS SAT PRN 10/08 0830 AC IV Vancomycin HCl 0 SAT PRN 10/07 0045 AC IV Last 24 Hrs of Lab/Cristi Results Last 24 Hrs of Labs/Mics: Laboratory Tests 10/10/16 1200: PT 24.1 H, INR 2.31 H 10/10/16 1107: PT Cancelled, INR Cancelled 10/10/16 0620: Anion Gap 16, Estimated GFR 10 L, BUN/Creatinine Ratio 10.9, Glucose 132 H, Calcium 8.4, Total Bilirubin 1.0, AST 10 L, ALT 30, Alkaline Phosphatase 93, Total Protein 6.2 L, Albumin 2.9 L, Globulin 3.3, Albumin/Globulin Ratio 0.9 L, PT 26.4 H, INR 2.54 H, CBC w Diff NO MAN DIFF REQ, RBC 3.16 L, MCV 97.3 H , MCH 31.2 H, RDW 20.9 H, MPV 8.6, Gran % 80.6 H, Lymphocytes % 9.2 L, Monocytes % 9.4 H, Eosinophils % 0.8, Basophils % 0 L, Absolute Granulocytes 9.8 H, Absolute Lymphocytes 1.1 L, Absolute Monocytes 1.1 H, Absolute Eosinophils 0.1, Absolute Basophils 0, PUBS MCHC 32.1 L 10/10/16 0240: Troponin I 0.01 Microbiology 10/10 1248 BLOOD: Blood Culture - COLB 10/10 1248 BLOOD: Blood Culture - COLB 10/09 1740 BLOOD: Blood Culture - RES GRAM POSITIVE COCCI 10/09 1540 BLOOD: Blood Culture - RES GRAM POSITIVE COCCI Assessment/Plan Assessment: 61-year-old man with PMH of end-stage renal disease on hemodialysis (Friday) via RIJ tunneled dialysis catheter, nonischemic cardiomyopathy, paroxysmal atrial flutter on warfarin and hypertension. Problem list 1. MRSA bacteremia. WBC count 12.1. Afebrile. Dialysis catheter tip culture is also growing staph aureus 2. Paroxysmal atrial flutter. Warfarin on hold 3. Short runs of NSVT. Most likely secondary to ongoing bacteremia and sepsis 4. Bilateral shoulder pain 5. retropharyngeal/prevertebral abscess (3.6 cm TV by 1.5 cm AP by 9.2 cm CC) 6. Suspicion for C5-C6 osteomyelitis 7. Right internal jugular vein nonocclusive thrombus 8. End-stage renal disease on dialysis. PLAN * Monitor vitals closely * Continue telemetry monitoring and watch for any arrhythmias * Check electrolytes daily and replete accordingly * ID consult appreciated * Continue vancomycin * Next dialysis on Friday. If left AV fistula could not be used then patient might need urgent non-tunneled dialysis catheter * retropharyngeal/prevertebral abscess drainage by ENT today. * INR 2.54 this morning. Will give him 2 units of FFP's preoperatively * Postoperatively we will check INR again. If its less than 2 then we will start patient on IV heparin drip * Will follow further ENT recommendations * Adequate pain management * Continue other home medications * DVT prophylaxis * Full code Problem List: 1. Sepsis Pain Ratin Pain Location: Shoulder and back Pain Goal: Pain 4 or less Pain Plan: Dilaudid and Lidoderm patch Tomorrow's Labs & Rationales: cbc, bep DVT/Prophylaxis: pharmacological
--- NOTE | 2016-10-10 14:29 | Operative Report ---
Operative/Inv Procedure Report Surgery Date: 10/10/16 Name of Procedure: Examination under anesthesia I&D of retropharyngeal collection Direct laryngoscopy Pre-Operative Diagnosis: Retropharyngeal abscess Post-Operative Diagnosis: Retropharyngeal phlegmon Estimated Blood Loss: less than 50ml Surgeon/Blending Technician: Jomar Gilmore M.D., [place] Anesthesia: general endotracheal tube (Gen.) Operative Indication: This 61-year-old male has a history of recent back pain associated with fever and elevated white count. His past history reveals end-stage renal disease secondary to diabetes mellitus, blindness, hypertension, reactive disease requiring anticoagulation. Following admission to the hospital a workup revealed evidence of retropharyngeal collection or swelling based on scans including a CT scan with contrast with increasing neck pain. Of note is that he has been afebrile. His preoperative examination revealed fullness and slight erythema of the right posterior pharyngeal area. There is guarding of neck motion. Operative/Procedure Note Note: With the patient in supine position a timeout was performed to confirm the correct patient and procedure. Following this general anesthesia was induced with an oral tracheal tube. The head and body were draped with sterile towels and sheets. Using a McIvor mouthgag and headlight the oropharynx was exposed and examined. Rubber Santiago catheters were passed through the nose and exited from the mouth to retract the palate and examined the nasopharynx indirectly. The nasopharynx appeared clear. The posterior pharyngeal wall appeared erythematous and swollen in the right posterior pharyngeal area although by palpation area was quite soft and nonfluctuant. A small amount of Xylocaine 2% with 100,000 epinephrine was injected into the mucosa and then after brief period of time an 18-gauge needle and 10 mL syringe were used to attempt to aspirate the area with no return. At this point I elected to utilize a #12 scalpel blade to perform a incision along the right posterior pharyngeal wall and dissection was carried down bluntly with use of Metzenbaum scissors. The prevertebral fascia was then visualized and no collection was encountered. A separate area of aspiration was performed more toward the midline again without return of any fluid. Direct laryngoscopy was then performed with an anterior commissure laryngoscope. The larynx was unremarkable there was some edema of the posterior pharyngeal wall and hypopharyngeal wall however again no fluctuance or firmness was noted. At this time it was elected to end the procedure gastric tube was passed into the stomach to evacuate the stomach of swallow contents. He tolerated the procedure well and was awakened and transferred to recovery in satisfactory condition. Findings: Unremarkable nasopharynx The pharynx and hypopharynx reveals slight erythema and swelling of the right posterior pharyngeal wall however no fluid collection could be identified following aspiration and an open incision Larynx itself appeared unremarkable including the base of tongue and the larynx and piriform sinuses Discharge Disposition: PACU CC: HALIMA RECINOS M.D
[2016-10-10 16:00] VITALS: BP 100/50
[2016-10-10 18:11] LABS: PT 27.9 SEC (9.4-12.5)
[2016-10-10 23:00] VITALS: BP 108/60
[2016-10-11 08:01] LABS: ABSOLUTE BASOPHIL COUNT 0 /CUMM (0.0-0.2); ABSOLUTE EOSINOPHIL COUNT 0 /CUMM (0.0-0.7); ABSOLUTE GRANULOCYTE CT 8.8 /CUMM (1.4-6.5); ABSOLUTE MONOCYTE COUNT 0.8 /CUMM (0.10-0.60); BASOPHIL % 0 % (0.0-2.0); EOSINOPHIL % 0.4 % (0-5); MEAN CORPUSCULAR HGB 31.3 PG (27.0-31.0); MEAN CORPUSCULAR HGB CONC 32.8 G/DL (33.0-37.0); MEAN CORPUSCULAR VOLUME 95.6 FL (80.0-94.0); MEAN PLATELET VOLUME 8.4 FL (7.4-10.4); PLATELET COUNT 188 /CUMM (130-400); RED BLOOD CELL CT 3.13 /CUMM (4.70-6.10); WHITE BLOOD CELL COUNT 10.6 /CUMM (4.8-10.8)
[2016-10-11 08:34] LABS: PT 35.7 SEC (9.4-12.5)
[2016-10-11 08:55] VITALS: BP 105/62
--- NOTE | 2016-10-11 11:26 | CT SCAN REPORT ---
EXAMINATION: CT ANGIOGRAM CHEST CLINICAL INFORMATION: Chest pain, MRSA bacteremia. COMPARISON: CT neck 10/08/2016 CT chest 05/29/2014 DLP: 662.85 mGy-cm TECHNIQUE: Prior to contrast administration localization images were obtained. After the administration of 94 mL of intravenous [id number], Multidetector helical CT images were obtained through the thorax. Reformatted images in the coronal and sagittal planes were obtained at the acquisition workstation. Postprocessing was performed on an independent workstation. Maximum intensity projections were developed. Multiplanar reformatting. FINDINGS: Contrast bolus to the pulmonary arteries is satisfactory. There are no filling defects to suggest pulmonary emboli. There is reflux of contrast into the hepatic veins however no septal bowing is identified to suggest right heart strain. LUNGS: There is image degradation secondary to patient respiratory motion artifact. There is poor respiratory effort with low lung volumes. There are diffuse groundglass opacities throughout both lungs. There are bibasilar areas of more consolidative opacity. MEDIASTINUM: The heart is enlarged. There is no pericardial effusion. No clearly enlarged mediastinal lymph nodes though evaluation of the superior mediastinum is limited secondary to significant streak artifact from the contrast bolus. The thoracic aorta is normal in course and caliber without evidence of aneurysmal dilatation or dissection. The structures on the neck are better evaluated on the CT of the neck from 10/08/2016. PLEURA: There is a small right pleural effusion there is trace pleural effusion on the left at the lung base. No pneumothorax. AXILLA: There are some prominent lymph nodes in the left axilla with what appear to be a preserved fatty padmini, these are likely reactive. There is bilateral gynecomastia. UPPER ABDOMEN: Unremarkable. OSSEOUS STRUCTURES: Degenerative changes in the spine. IMPRESSION: 1. No evidence of pulmonary emboli or acute vascular abnormality in the aorta. 2. Evaluation of the lungs is limited secondary to respiratory motion artifact and low lung volumes. There are diffuse groundglass opacities throughout both lungs and more consolidative opacities in the lung bases which may reflect a combination of atelectasis and mild edema, however an underlying infectious process is not excluded. 3. Cardiomegaly. 4. Bilateral gynecomastia.
--- NOTE | 2016-10-11 12:15 | PN- Att Addend ---
Attending Addendum Attending Brief Note I took over the patient service today from Dr. Sue. Patient seen and examined. Agree with resident's note. This is a fairly complicated 61-year-old male with a past medical history of diabetes, COPD, heart failure, gout and end-stage renal disease on hemodialysis. He is here with MRSA bacteremia presumably from line sepsis and the MRSA bacteremia has been complicated with a suspected abscess in the retropharyngeal space extending to the paraspinal C7 area. He also has a nonocclusive thrombus in the IJ. And in addition is on anticoagulation for A. fib/flutter. He has ongoing complaints of back pain and chest pain going into the back which prompted an urgent CT chest with IV contrast to rule out a dissection or an aortic abscess which was done today and was negative. He remains on IV vancomycin per dialysis protocol and will need a PAKO to see that the MRSA has not seeded his valve. His INR is elevated and this is despite not getting any Coumadin and getting 2 units of FFP. For now we'll let the INR drift down. His access has been an issue, he has a left AV fistula that was placed in December 2014 and recently re-instrumented in July and is being used today for dialysis. Treating his pain with IV Dilaudid which appears to be helping but overall he is cranky irritable and upset and he has multiple issues to be followed up on.
--- NOTE | 2016-10-11 12:24 | PN- Infect Dx ---
Subjective Subjective: Afebrile. He continues to complain of severe back pain. He denies any chest pain at this time. Objective Last 24 Hrs of Vital Signs/I&O Vital Signs Date Time Temp Pulse Resp B/P B/P Pulse O2 O2 Flow FiO2 Mean Ox Delivery Rate 10/11 0855 97.1 67 20 105/62 94 Nasal 4.0L Cannula 10/11 0800 96 Nasal 2.0L Cannula 10/11 0034 84 94 10/11 0000 CPAP 2.0L 10/10 2300 97.9 82 22 108/60 95 Nasal 2.0L Cannula 10/10 2215 82 95 10/10 2153 108/60 10/10 1600 97.0 89 20 100/50 92 Nasal 4.0L Cannula Intake & Output 10/11 1600 10/11 0800 10/11 0000 Intake Total 100 250 Output Total Balance 100 250 Intake, IV 0 0 Intake, Oral 100 250 Number 0 0 Bowel Movements Physical Exam Other Physical Findings: He appears uncomfortable secondary to the pain Lungs are clear Heart regular rhythm with no murmur Abdomen is soft, nontender with positive bowel sounds Extremities no cyanosis, clubbing or edema Results Last 24 Hours of Lab Results: Laboratory Tests 10/11 10/10 0705 1745 Chemistry Sodium (137 - 145 mmol/L) 135 L Potassium (3.5 - 5.1 mmol/L) 5.8 H Chloride (98 - 107 mmol/L) 97 L Carbon Dioxide (22 - 30 mmol/L) 21 L Anion Gap (5 - 16) 17 H BUN (9 - 20 mg/dL) 82 H Creatinine (0.7 - 1.2 mg/dL) 6.8 *H Estimated GFR (>60 ml/min) 8 L BUN/Creatinine Ratio (7 - 25 %) 12.1 Glucose (65 - 99 mg/dL) 160 H Calcium (8.4 - 10.2 mg/dL) 8.2 L Total Bilirubin (0.2 - 1.3 mg/dL) 1.2 AST (17 - 59 U/L) 17 ALT (21 - 72 U/L) 32 Alkaline Phosphatase (< 127 U/L) 83 Total Protein (6.3 - 8.2 g/dL) 6.1 L Albumin (3.5 - 5.0 g/dL) 2.9 L Globulin (1.9 - 4.2 gm/dL) 3.2 Albumin/Globulin Ratio (1.1 - 2.2 %) 0.9 L Coagulation PT (9.4 - 12.5 SEC) 35.7 H 27.9 H INR (0.90 - 1.17) 3.44 H 2.68 H Hematology CBC w Diff NO MAN DIFF REQ WBC (4.8 - 10.8 /CUMM) 10.6 RBC (4.70 - 6.10 /CUMM) 3.13 L Hgb (14.0 - 18.0 G/DL) 9.8 L Hct (42 - 52 %) 30.0 L MCV (80.0 - 94.0 FL) 95.6 H MCH (27.0 - 31.0 PG) 31.3 H RDW (11.5 - 14.5 %) 21.0 H Plt Count (130 - 400 /CUMM) 188 MPV (7.4 - 10.4 FL) 8.4 Gran % (42.2 - 75.2 %) 83.0 H Lymphocytes % (20.5 - 51.1 %) 9.2 L Monocytes % (1.7 - 9.3 %) 7.4 Eosinophils % (0 - 5 %) 0.4 Basophils % (0.0 - 2.0 %) 0 L Absolute Granulocytes (1.4 - 6.5 /CUMM) 8.8 H Absolute Lymphocytes (1.2 - 3.4 /CUMM) 1.0 L Absolute Monocytes (0.10 - 0.60 /CUMM) 0.8 H Absolute Eosinophils (0.0 - 0.7 /CUMM) 0 Absolute Basophils (0.0 - 0.2 /CUMM) 0 PUBS MCHC (33.0 - 37.0 G/DL) 32.8 L Last 24 Hours of Cristi Results: Blood culture October 10 positive for gram-positive cocci in clusters Recent Imaging Studies: CTA of the chest this morning negative for pulmonary emboli; diffuse ground glass opacities throughout both lungs, with a small right pleural effusion Assessment/Plan Impression: MRSA sepsis presumably secondary to an infected right IJ Marshal catheter, status post removal 3 days ago, with the catheter tip positive, but with persistent bacteremia, increasing the concern for endocarditis and, possibly, a paravalvular abscess or a suppurative thrombophlebitis of the right IJ particularly as he had no evidence of a retropharyngeal abscess in the OR yesterday. The CTA of the chest this morning suggests the possibility of pulmonary edema, which would support the diagnosis of endocarditis, but could also be related to fluid overload in this patient with end-stage renal disease. He remains afebrile and white blood cell count is now normal on Vancomycin now Day 6 of treatment. He was able to be dialyzed this morning using the left upper extremity AV fistula; therefore he will not require placement of an Marshal catheter today. Suggestion: 1. Repeat blood cultures 2 today 2. Further management of his fluid status per Renal 3. Would pursue PAKO 4. Continue Vancomycin with dosing per dialysis protocol
[2016-10-11 12:27] LABS: ABSOLUTE BASOPHIL COUNT 0 /CUMM (0.0-0.2); ABSOLUTE EOSINOPHIL COUNT 0 /CUMM (0.0-0.7); ABSOLUTE GRANULOCYTE CT 8.6 /CUMM (1.4-6.5); ABSOLUTE LYMPH COUNT 1.2 /CUMM (1.2-3.4); ABSOLUTE MONOCYTE COUNT 0.7 /CUMM (0.10-0.60); BASOPHIL % 0.1 % (0.0-2.0); EOSINOPHIL % 0.5 % (0-5); MEAN CORPUSCULAR HGB 30.9 PG (27.0-31.0); MEAN CORPUSCULAR VOLUME 96.4 FL (80.0-94.0); MEAN PLATELET VOLUME 8.5 FL (7.4-10.4); PLATELET COUNT 189 /CUMM (130-400); RBC DISTRIBUTION WIDTH 21.2 % (11.5-14.5); RED BLOOD CELL CT 3.01 /CUMM (4.70-6.10); WHITE BLOOD CELL COUNT 10.6 /CUMM (4.8-10.8)
--- NOTE | 2016-10-11 14:12 | PN- Cardiology ---
Subjective Subjective: Patient still c/o back and chest pain. Objective Vital Signs and I&Os Vital Signs Date Time Temp Pulse Resp B/P B/P Pulse O2 O2 Flow FiO2 Mean Ox Delivery Rate 10/11 0855 97.1 67 20 105/62 94 Nasal 4.0L Cannula 10/11 0800 96 Nasal 2.0L Cannula 10/11 0034 84 94 10/11 0000 CPAP 2.0L 10/10 2300 97.9 82 22 108/60 95 Nasal 2.0L Cannula 10/10 2215 82 95 10/10 2153 108/60 10/10 1600 97.0 89 20 100/50 92 Nasal 4.0L Cannula Intake & Output 10/11 1600 10/11 0800 10/11 0000 10/10 1600 10/10 0800 10/10 0000 Intake Total 100 250 900 400 75 Output Total 0 0 Balance 100 250 900 400 75 Intake, Blood 500 Product Intake, IV 0 0 400 400 75 Intake, Oral 100 250 0 0 0 Number 0 0 Bowel Movements Output, Urine 0 0 Physical Exam: Neck JVP nl Lungs-clear bilaterally Heart-S1S1 1/6 SM apex Abdomen-soft, not tender, BS+, no organomegaly Extr-trace edema, 1+ pulses Current Medications: Current Medications Sig/Cole Start time Last Medication Dose Route Stop Time Status Admin Acetaminophen 1,000 MG Q4P PRN 10/10 1600 CAN N/A 1 UNIT IV Acetaminophen 1,000 MG Q6P PRN 10/10 1600 AC N/A 1 UNIT IV Allopurinol 300 MG DAILY 10/06 1110 AC 10/10 PO 0947 Aspirin Buffered 81 MG DAILY 10/06 1117 AC 10/09 PO 1110 Atorvastatin Calcium 20 MG 1700 10/06 1700 AC 10/10 PO 1756 Carvedilol 50 MG BID 10/08 2200 AC 10/10 PO 2153 Epoetin Kameron 4,000 UNIT TUES THURS SAT PRN 10/08 0830 AC IV Hydromorphone HCl 2 MG .STK-MED ONE 10/10 1558 DC IM 10/10 1559 Hydromorphone HCl 0.6 MG Q3P PRN 10/09 1152 AC 10/11 IV 0944 Insulin Aspart 0 TIDAC 10/10 1700 AC 10/11 SC 0824 Insulin Human Regular 0 Q6 10/10 0000 DC 10/10 SC 0944 Lidocaine 1 PAT DAILY 10/09 1431 AC EXT Paricalcitol 5 MCG TUES THURS SAT PRN 10/08 0830 AC IV Phenylephrine HCl 10 MG .STK-MED ONE 10/10 1446 DC IM 10/10 1447 Polyethylene Glycol 17 GM DAILY 10/11 1000 AC PO Senna/Docusate Sodium 1 TAB BID PRN 10/11 0815 AC PO Vancomycin HCl 750 MG ONCE ONE 10/11 1330 AC 10/11 Sodium Chloride 250 ML IV 10/11 1429 1404 Vancomycin HCl 0 TUES THURS SAT PRN 10/11 0930 AC IV Vancomycin HCl 0 TUES THURS SAT PRN 10/07 0045 DC IV Results Last 48 Hrs of Labs/Mics: Laboratory Tests 10/11/16 1000: Anion Gap 16, Estimated GFR 8 L, BUN/Creatinine Ratio 12.4, Calcium 8.0 L, CBC w Diff NO MAN DIFF REQ, RBC 3.01 L, MCV 96.4 H, MCH 30.9, RDW 21.2 H, MPV 8.5 , Gran % 81.0 H, Lymphocytes % 11.6 L, Monocytes % 6.8, Eosinophils % 0.5, Basophils % 0.1, Absolute Granulocytes 8.6 H, Absolute Lymphocytes 1.2, Absolute Monocytes 0.7 H, Absolute Eosinophils 0, Absolute Basophils 0, PUBS MCHC 32.0 L, Random Vancomycin 13.1 10/11/16 0705: Anion Gap 17 H, Estimated GFR 8 L, BUN/Creatinine Ratio 12.1, Glucose 160 H, Calcium 8.2 L, Total Bilirubin 1.2, AST 17, ALT 32, Alkaline Phosphatase 83, Total Protein 6.1 L, Albumin 2.9 L, Globulin 3.2, Albumin/Globulin Ratio 0.9 L, PT 35.7 H, INR 3.44 H, CBC w Diff NO MAN DIFF REQ, RBC 3.13 L, MCV 95.6 H , MCH 31.3 H, RDW 21.0 H, MPV 8.4, Gran % 83.0 H, Lymphocytes % 9.2 L, Monocytes % 7.4, Eosinophils % 0.4, Basophils % 0 L, Absolute Granulocytes 8.8 H, Absolute Lymphocytes 1.0 L, Absolute Monocytes 0.8 H, Absolute Eosinophils 0, Absolute Basophils 0, PUBS MCHC 32.8 L 10/10/16 1745: PT 27.9 H, INR 2.68 H 10/10/16 1200: PT 24.1 H, INR 2.31 H 10/10/16 1107: PT Cancelled, INR Cancelled 10/10/16 0620: Anion Gap 16, Estimated GFR 10 L, BUN/Creatinine Ratio 10.9, Glucose 132 H, Calcium 8.4, Total Bilirubin 1.0, AST 10 L, ALT 30, Alkaline Phosphatase 93, Total Protein 6.2 L, Albumin 2.9 L, Globulin 3.3, Albumin/Globulin Ratio 0.9 L, PT 26.4 H, INR 2.54 H, CBC w Diff NO MAN DIFF REQ, RBC 3.16 L, MCV 97.3 H , MCH 31.2 H, RDW 20.9 H, MPV 8.6, Gran % 80.6 H, Lymphocytes % 9.2 L, Monocytes % 9.4 H, Eosinophils % 0.8, Basophils % 0 L, Absolute Granulocytes 9.8 H, Absolute Lymphocytes 1.1 L, Absolute Monocytes 1.1 H, Absolute Eosinophils 0.1, Absolute Basophils 0, PUBS MCHC 32.1 L 10/10/16 0240: Troponin I 0.01 Microbiology 10/09 1740 BLOOD: Blood Culture - COMP METH RESIST STAPH AUREUS 10/09 1540 BLOOD: Blood Culture - COMP METH RESIST STAPH AUREUS Recent Imaging Studies: CTA results noted Assessment/Plan Assessment/Plan Assessment: 1. GPC bacteremia/sepsis in patient 1 week after dialysis catheter change. Catheter site without obvious signs of infection. Catheter removed 2 days ago, patient still bacteremic, afebrile with improved WBC 2. Nonischemic cardiomyopathy, currently euvolemic 3. Paroxysmal atrial flutter, currently he appears to be in ectopic atrial tachycardia, rate 110bpm. short runs of NSVT. 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 Bilateral shoulder pain. MRI showed cervical paraspinal fluid concerning for parapharyngeal abscess, but exploration of paraesophageal area was negative for abscess. Source of infection at this point is unclear. TTE did not show any vegetation. Plan: continue Vancomycin continue carvedilol 50 mg bid Would not restart Warfarin unless INR below 2.0 consider tagged WBC scan PAKO on Friday Continue telemetry? Yes
--- NOTE | 2016-10-11 14:33 | PN- Housestaff ---
Subjective Follow-up For: MRSA bacteremia retropharyngeal/prevertebral abscess End-stage renal disease on dialysis Tele-Events Since Last Visit: Normal sinus rhythm 5 beat run of V. tach Heart rate 63-71 Subjective: This morning patient is still complaining of back and shoulder pain. Review of Systems Constitutional: Reports: see HPI. Objective Last 24 Hrs of Vital Signs/I&O Vital Signs Date Time Temp Pulse Resp B/P B/P Pulse O2 O2 Flow FiO2 Mean Ox Delivery Rate 10/11 0855 97.1 67 20 105/62 94 Nasal 4.0L Cannula 10/11 0800 96 Nasal 2.0L Cannula 10/11 0034 84 94 10/11 0000 CPAP 2.0L 10/10 2300 97.9 82 22 108/60 95 Nasal 2.0L Cannula 10/10 2215 82 95 10/10 2153 108/60 10/10 1600 97.0 89 20 100/50 92 Nasal 4.0L Cannula Intake & Output 10/11 1600 10/11 0800 10/11 0000 Intake Total 490 100 250 Output Total 0 Balance 490 100 250 Intake, IV 250 0 0 Intake, Oral 240 100 250 Number 0 0 0 Bowel Movements Output, Urine 0 Physical Exam General Appearance: Alert Extremities: No Edema Current Medications: Current Medications Sig/Cole Start time Last Medication Dose Route Stop Time Status Admin Acetaminophen 1,000 MG Q4P PRN 10/10 1600 CAN N/A 1 UNIT IV Acetaminophen 1,000 MG Q6P PRN 10/10 1600 AC N/A 1 UNIT IV Allopurinol 300 MG DAILY 10/06 1110 AC 10/10 PO 0947 Aspirin Buffered 81 MG DAILY 10/06 1117 AC 10/09 PO 1110 Atorvastatin Calcium 20 MG 1700 10/06 1700 AC 10/10 PO 1756 Carvedilol 50 MG BID 10/08 2200 AC 10/10 PO 2153 Epoetin Kameron 4,000 UNIT TUES THURS SAT PRN 10/08 0830 AC IV Hydromorphone HCl 2 MG .STK-MED ONE 10/10 1558 DC IM 10/10 1559 Hydromorphone HCl 0.6 MG Q3P PRN 10/09 1152 AC 10/11 IV 0944 Insulin Aspart 0 TIDAC 10/10 1700 AC 10/11 SC 0824 Insulin Human Regular 0 Q6 10/10 0000 DC 10/10 SC 0944 Lidocaine 1 PAT DAILY 10/09 1431 AC EXT Paricalcitol 5 MCG TUES THURS SAT PRN 10/08 0830 AC IV Phenylephrine HCl 10 MG .STK-MED ONE 10/10 1446 DC IM 10/10 1447 Polyethylene Glycol 17 GM DAILY 10/11 1000 AC PO Senna/Docusate Sodium 1 TAB BID PRN 10/11 0815 AC PO Vancomycin HCl 750 MG ONCE ONE 10/11 1330 DC 10/11 Sodium Chloride 250 ML IV 10/11 1429 1404 Vancomycin HCl 0 TUES THURS SAT PRN 10/11 0930 AC IV Vancomycin HCl 0 TUES THURS SAT PRN 10/07 0045 DC IV Last 24 Hrs of Lab/Cristi Results Last 24 Hrs of Labs/Mics: Laboratory Tests 10/11/16 1000: Anion Gap 16, Estimated GFR 8 L, BUN/Creatinine Ratio 12.4, Calcium 8.0 L, CBC w Diff NO MAN DIFF REQ, RBC 3.01 L, MCV 96.4 H, MCH 30.9, RDW 21.2 H, MPV 8.5 , Gran % 81.0 H, Lymphocytes % 11.6 L, Monocytes % 6.8, Eosinophils % 0.5, Basophils % 0.1, Absolute Granulocytes 8.6 H, Absolute Lymphocytes 1.2, Absolute Monocytes 0.7 H, Absolute Eosinophils 0, Absolute Basophils 0, PUBS MCHC 32.0 L, Random Vancomycin 13.1 10/11/16 0705: Anion Gap 17 H, Estimated GFR 8 L, BUN/Creatinine Ratio 12.1, Glucose 160 H, Calcium 8.2 L, Total Bilirubin 1.2, AST 17, ALT 32, Alkaline Phosphatase 83, Total Protein 6.1 L, Albumin 2.9 L, Globulin 3.2, Albumin/Globulin Ratio 0.9 L, PT 35.7 H, INR 3.44 H, CBC w Diff NO MAN DIFF REQ, RBC 3.13 L, MCV 95.6 H , MCH 31.3 H, RDW 21.0 H, MPV 8.4, Gran % 83.0 H, Lymphocytes % 9.2 L, Monocytes % 7.4, Eosinophils % 0.4, Basophils % 0 L, Absolute Granulocytes 8.8 H, Absolute Lymphocytes 1.0 L, Absolute Monocytes 0.8 H, Absolute Eosinophils 0, Absolute Basophils 0, PUBS MCHC 32.8 L 10/10/165: PT 27.9 H, INR 2.68 H Microbiology 10/11 1314 BLOOD: Blood Culture - COLB 10/11 1314 BLOOD: Blood Culture - COLB 10/10 1744 BLOOD: Blood Culture - RES GRAM POSITIVE COCCI Assessment/Plan Assessment: 61-year-old man with PMH of end-stage renal disease on hemodialysis (Friday) via RIJ tunneled dialysis catheter, nonischemic cardiomyopathy, paroxysmal atrial flutter on warfarin and hypertension. Problem list 1. MRSA bacteremia most likely secondary to dialysis catheter. Dialysis catheter was removed by IR on October 08 2. Paroxysmal atrial flutter. Warfarin on hold 3. Short runs of NSVT. Most likely secondary to ongoing bacteremia and sepsis 4. Elevated INR. Status post 2 units of FFP's yesterday 5. retropharyngeal/prevertebral abscess (3.6 cm TV by 1.5 cm AP by 9.2 cm CC) status post surgical intervention by ENT on October 10 showing no fluid collection but phlegmon. 6. Suspicion for C5-C6 osteomyelitis 7. Right internal jugular vein nonocclusive thrombus 8. End-stage renal disease on dialysis. 9. ? Aortic abscess. CTA chest did not show any acute aortic abnormality PLAN * Monitor vitals closely * Continue telemetry monitoring and watch for any arrhythmias * Check electrolytes daily and replete accordingly * Continue vancomycin per dialysis protocol * Dialysis today through left arm AV fistula * Continue holding Coumadin * PAKO on Friday given persistent bacteremia * Adequate pain management * Continue other home medications * DVT prophylaxis * Full code Problem List: 1. Sepsis Pain Ratin Pain Location: back Pain Goal: Pain 4 or less Pain Plan: dilaudid Tomorrow's Labs & Rationales: inr DVT/Prophylaxis: pharmacological
[2016-10-11 16:24] VITALS: BP 108/60
--- NOTE | 2016-10-11 16:41 | PN- Nephrology ---
Assessment/Plan Assessment: 1. ESRD - was not dialyzed yesterday because of surgery 2. MRSA bacteremia - persistent despite removal of tunneled dialysis catheter on 10/08 3. Possible paraspinal/retropharyngeal process which was not able to be aspirated/drained - ?phlegmon versus no actual pathology; no significant new findings on chest CT with contrast Suggestion: 1. Hemodialysis today using left upper arm AVF which will likely not be usable on Friday, at least not for 2 cannulations 2. Please arrange for a non-tunneled (Chandler) catheter to be placed on Friday in preparation for dialysis need Friday. 3. Continue vancomycin per ID Subjective Subjective: Patient continues to complain of back pain, primarily interscapular but also low back. He was seen with dialysis earlier today at which time the dialysis nurse was able to successfully cannulate his left upper arm AV fistula with 2 needles. Unfortunately, in the estimation of the nurse and myself, it is doubtful that we will be able to use 2 needles with his next treatment which should be for Saturday 10/14. A non-tunneled dialysis catheter will therefore need to be placed on Friday which can subsequently be removed, unless his bacteremia has cleared. CT scan of the chest earlier today with contrast did not reveal any new pathology. As already noted by ENT (Dr. Gilmore), there was no fluid collection to be found in the retropharyngeal area. Objective Vital Signs and I&Os Vital Signs Date Time Temp Pulse Resp B/P B/P Pulse O2 O2 Flow FiO2 Mean Ox Delivery Rate 10/11 1624 97.5 109 20 108/60 97 Nasal 2.0L Cannula 10/11 0855 97.1 67 20 105/62 94 Nasal 4.0L Cannula 10/11 0800 96 Nasal 2.0L Cannula 10/11 0034 84 94 10/11 0000 CPAP 2.0L 10/10 2300 97.9 82 22 108/60 95 Nasal 2.0L Cannula 10/10 2215 82 95 10/10 2153 108/60 Intake & Output 10/11 1600 10/11 0400 10/10 1600 10/10 0400 10/09 1600 10/09 0400 Intake Total 516 089 2853 75 390.6 360.3 Output Total 0 0 Balance 424 730 5584 75 390.6 360.3 Intake, Blood 500 Product Intake, IV 250 0 800 75 270.6 20.3 Intake, Oral 340 250 0 0 120 340 Number 0 0 0 0 Bowel Movements Output, Urine 0 0 Patient 227 lb Weight Physical Exam: General: Well-developed, obese black male, complaining of severe back and interscapular pain Skin: No rash or jaundice HEENT: Conjunctivae pink, sclerae anicteric, mucous membranes moist Neck: Without masses or thyromegaly, no supraclavicular or cervical adenopathy Chest: Clear anterolaterally Heart: Regular rate and rhythm without S3 or rub Abdomen: Obese, soft and nontender without palpable masses or organomegaly Extremities: No edema, no livedo, left upper arm AVF being used for dialysis Neuro: No focal findings, no asterixis or myoclonus Results Pertinent Lab Results: Laboratory Tests 10/11 10/11 UNK 0705 Chemistry Sodium (137 - 145 mmol/L) 133 L 135 L Potassium (3.5 - 5.1 mmol/L) 5.8 H 5.8 H Chloride (98 - 107 mmol/L) 96 L 97 L Carbon Dioxide (22 - 30 mmol/L) 20 L 21 L Anion Gap (5 - 16) 16 17 H BUN (9 - 20 mg/dL) 84 H 82 H Creatinine (0.7 - 1.2 mg/dL) 6.8 *H 6.8 *H Estimated GFR (>60 ml/min) 8 L 8 L BUN/Creatinine Ratio (7 - 25 %) 12.4 12.1 Glucose (65 - 99 mg/dL) 160 H Calcium (8.4 - 10.2 mg/dL) 8.0 L 8.2 L Total Bilirubin (0.2 - 1.3 mg/dL) 1.2 AST (17 - 59 U/L) 17 ALT (21 - 72 U/L) 32 Alkaline Phosphatase (< 127 U/L) 83 Total Protein (6.3 - 8.2 g/dL) 6.1 L Albumin (3.5 - 5.0 g/dL) 2.9 L Globulin (1.9 - 4.2 gm/dL) 3.2 Albumin/Globulin Ratio (1.1 - 2.2 %) 0.9 L Coagulation PT (9.4 - 12.5 SEC) 35.7 H INR (0.90 - 1.17) 3.44 H Hematology CBC w Diff NO MAN DIFF REQ NO MAN DIFF REQ WBC (4.8 - 10.8 /CUMM) 10.6 10.6 RBC (4.70 - 6.10 /CUMM) 3.01 L 3.13 L Hgb (14.0 - 18.0 G/DL) 9.3 L 9.8 L Hct (42 - 52 %) 29.0 L 30.0 L MCV (80.0 - 94.0 FL) 96.4 H 95.6 H MCH (27.0 - 31.0 PG) 30.9 31.3 H RDW (11.5 - 14.5 %) 21.2 H 21.0 H Plt Count (130 - 400 /CUMM) 189 188 MPV (7.4 - 10.4 FL) 8.5 8.4 Gran % (42.2 - 75.2 %) 81.0 H 83.0 H Lymphocytes % (20.5 - 51.1 %) 11.6 L 9.2 L Monocytes % (1.7 - 9.3 %) 6.8 7.4 Eosinophils % (0 - 5 %) 0.5 0.4 Basophils % (0.0 - 2.0 %) 0.1 0 L Absolute Granulocytes (1.4 - 6.5 /CUMM) 8.6 H 8.8 H Absolute Lymphocytes (1.2 - 3.4 /CUMM) 1.2 1.0 L Absolute Monocytes (0.10 - 0.60 /CUMM) 0.7 H 0.8 H Absolute Eosinophils (0.0 - 0.7 /CUMM) 0 0 Absolute Basophils (0.0 - 0.2 /CUMM) 0 0 PUBS MCHC (33.0 - 37.0 G/DL) 32.0 L 32.8 L Toxicology Random Vancomycin (ug/ml) 13.1 10/10 10/10 10/10 1745 1200 1107 Coagulation PT (9.4 - 12.5 SEC) 27.9 H 24.1 H Cancelled INR (0.90 - 1.17) 2.68 H 2.31 H Cancelled 10/10 10/10 0620 0240 Chemistry Sodium (137 - 145 mmol/L) 135 L Potassium (3.5 - 5.1 mmol/L) 5.0 Chloride (98 - 107 mmol/L) 98 Carbon Dioxide (22 - 30 mmol/L) 21 L Anion Gap (5 - 16) 16 BUN (9 - 20 mg/dL) 63 H Creatinine (0.7 - 1.2 mg/dL) 5.8 *H Estimated GFR (>60 ml/min) 10 L BUN/Creatinine Ratio (7 - 25 %) 10.9 Glucose (65 - 99 mg/dL) 132 H Calcium (8.4 - 10.2 mg/dL) 8.4 Total Bilirubin (0.2 - 1.3 mg/dL) 1.0 AST (17 - 59 U/L) 10 L ALT (21 - 72 U/L) 30 Alkaline Phosphatase (< 127 U/L) 93 Troponin I (<0.11 ng/ml) 0.01 Total Protein (6.3 - 8.2 g/dL) 6.2 L Albumin (3.5 - 5.0 g/dL) 2.9 L Globulin (1.9 - 4.2 gm/dL) 3.3 Albumin/Globulin Ratio (1.1 - 2.2 %) 0.9 L Coagulation PT (9.4 - 12.5 SEC) 26.4 H INR (0.90 - 1.17) 2.54 H Hematology CBC w Diff NO MAN DIFF REQ WBC (4.8 - 10.8 /CUMM) 12.1 H RBC (4.70 - 6.10 /CUMM) 3.16 L Hgb (14.0 - 18.0 G/DL) 9.9 L Hct (42 - 52 %) 30.8 L MCV (80.0 - 94.0 FL) 97.3 H MCH (27.0 - 31.0 PG) 31.2 H RDW (11.5 - 14.5 %) 20.9 H Plt Count (130 - 400 /CUMM) 186 MPV (7.4 - 10.4 FL) 8.6 Gran % (42.2 - 75.2 %) 80.6 H Lymphocytes % (20.5 - 51.1 %) 9.2 L Monocytes % (1.7 - 9.3 %) 9.4 H Eosinophils % (0 - 5 %) 0.8 Basophils % (0.0 - 2.0 %) 0 L Absolute Granulocytes (1.4 - 6.5 /CUMM) 9.8 H Absolute Lymphocytes (1.2 - 3.4 /CUMM) 1.1 L Absolute Monocytes (0.10 - 0.60 /CUMM) 1.1 H Absolute Eosinophils (0.0 - 0.7 /CUMM) 0.1 Absolute Basophils (0.0 - 0.2 /CUMM) 0 PUBS MCHC (33.0 - 37.0 G/DL) 32.1 L 10/09 618 Chemistry Sodium (137 - 145 mmol/L) 134 L Potassium (3.5 - 5.1 mmol/L) 4.9 Chloride (98 - 107 mmol/L) 99 Carbon Dioxide (22 - 30 mmol/L) 25 Anion Gap (5 - 16) 10 BUN (9 - 20 mg/dL) 51 H Creatinine (0.7 - 1.2 mg/dL) 4.5 H Estimated GFR (>60 ml/min) 13 L BUN/Creatinine Ratio (7 - 25 %) 11.3 Glucose (65 - 99 mg/dL) 253 H Calcium (8.4 - 10.2 mg/dL) 8.0 L Total Bilirubin (0.2 - 1.3 mg/dL) 0.8 AST (17 - 59 U/L) 12 L ALT (21 - 72 U/L) 33 Alkaline Phosphatase (< 127 U/L) 105 Total Protein (6.3 - 8.2 g/dL) 5.9 L Albumin (3.5 - 5.0 g/dL) 2.9 L Globulin (1.9 - 4.2 gm/dL) 3.0 Albumin/Globulin Ratio (1.1 - 2.2 %) 1.0 L Coagulation PT (9.4 - 12.5 SEC) 28.4 H INR (0.90 - 1.17) 2.73 H Hematology CBC w Diff NO MAN DIFF REQ WBC (4.8 - 10.8 /CUMM) 11.9 H RBC (4.70 - 6.10 /CUMM) 3.24 L Hgb (14.0 - 18.0 G/DL) 10.2 L Hct (42 - 52 %) 31.8 L MCV (80.0 - 94.0 FL) 98.0 H MCH (27.0 - 31.0 PG) 31.3 H RDW (11.5 - 14.5 %) 20.9 H Plt Count (130 - 400 /CUMM) 160 MPV (7.4 - 10.4 FL) 8.8 Gran % (42.2 - 75.2 %) 81.1 H Lymphocytes % (20.5 - 51.1 %) 6.5 L Monocytes % (1.7 - 9.3 %) 11.9 H Eosinophils % (0 - 5 %) 0.5 Basophils % (0.0 - 2.0 %) 0 L Absolute Granulocytes (1.4 - 6.5 /CUMM) 9.6 H Absolute Lymphocytes (1.2 - 3.4 /CUMM) 0.8 L Absolute Monocytes (0.10 - 0.60 /CUMM) 1.4 H Absolute Eosinophils (0.0 - 0.7 /CUMM) 0.1 Absolute Basophils (0.0 - 0.2 /CUMM) 0 PUBS MCHC (33.0 - 37.0 G/DL) 32.0 L
[2016-10-11 18:42] VITALS: BP 132/72
--- NOTE | 2016-10-11 19:49 | NUR ---
183 PATIENT WAKEN UP FOR DINNER, PATIENT ORIENTED ONLY TO SELF, EASILY REORIENTED PATIENT HAVING VISUAL HALUCINATION "THIS BOY IS POKING ME, TAKE HIM OUT OF HERE". PATIENT REORIENTED AND COOPERATING WITH HIS CARE, C/O BACK PAIN 11/28 AND MEDICATED WITH DILAUDID PER EMAR. VSS AND RECORDED. MD MUNIZ IN TO ASSESS, BLOOD WORK DONE, WCTM.
[2016-10-11 19:58] LABS: ABSOLUTE BASOPHIL COUNT 0 /CUMM (0.0-0.2); ABSOLUTE EOSINOPHIL COUNT 0.1 /CUMM (0.0-0.7); ABSOLUTE LYMPH COUNT 0.8 /CUMM (1.2-3.4); ABSOLUTE MONOCYTE COUNT 0.6 /CUMM (0.10-0.60); BASOPHIL % 0.1 % (0.0-2.0); EOSINOPHIL % 0.6 % (0-5); GRANULOCYTE % 86.7 % (42.2-75.2); HEMATOCRIT 31.9 % (42-52); MEAN CORPUSCULAR HGB 30.6 PG (27.0-31.0); MEAN CORPUSCULAR HGB CONC 31.7 G/DL (33.0-37.0); MEAN CORPUSCULAR VOLUME 96.7 FL (80.0-94.0); MEAN PLATELET VOLUME 8.1 FL (7.4-10.4); PLATELET COUNT 220 /CUMM (130-400); RBC DISTRIBUTION WIDTH 20.7 % (11.5-14.5); WHITE BLOOD CELL COUNT 11.6 /CUMM (4.8-10.8)
[2016-10-11 21:00] VITALS: BP 133/70
[2016-10-12 08:15] LABS: ABSOLUTE BASOPHIL COUNT 0 /CUMM (0.0-0.2); ABSOLUTE EOSINOPHIL COUNT 0 /CUMM (0.0-0.7); ABSOLUTE GRANULOCYTE CT 10.9 /CUMM (1.4-6.5); ABSOLUTE LYMPH COUNT 0.8 /CUMM (1.2-3.4); ABSOLUTE MONOCYTE COUNT 0.7 /CUMM (0.10-0.60); BASOPHIL % 0.3 % (0.0-2.0); EOSINOPHIL % 0.3 % (0-5); HEMATOCRIT 31.2 % (42-52); MEAN CORPUSCULAR HGB 30.9 PG (27.0-31.0); MEAN CORPUSCULAR HGB CONC 31.9 G/DL (33.0-37.0); MEAN CORPUSCULAR VOLUME 96.6 FL (80.0-94.0); MEAN PLATELET VOLUME 8.4 FL (7.4-10.4); PLATELET COUNT 223 /CUMM (130-400); RBC DISTRIBUTION WIDTH 21.4 % (11.5-14.5); RED BLOOD CELL CT 3.23 /CUMM (4.70-6.10); WHITE BLOOD CELL COUNT 12.6 /CUMM (4.8-10.8)
[2016-10-12 08:45] VITALS: BP 117/75
[2016-10-12 09:07] LABS: PT 46.8 SEC (9.4-12.5)
[2016-10-12 09:44] LABS: GRANULOCYTE % 87.2 % (42.2-75.2)
--- NOTE | 2016-10-12 09:59 | PN- Housestaff ---
TOBIAS CANO,JODIE 10/12/16 0959: Subjective Follow-up For: Septicemia Complaints: irritable and delirius Tele-Events Since Last Visit: Normal sinus rhythm, heart rate between 76 to 107, 3 beats of V. tach at 3:43 Subjective: Overnight team signed out that patient was agitated and irritated all the night and they tried Zyprexa for it. According to the nurse, it did not help at all. I have seen and examined the patient at the bedside. He was following the verbal commands. But he does not want to talk to anybody and wanted to leave him alone. I asked many times about why he is irrtable and how can I help him , but I did not get any definitive answer. His vital signs were stable and he was afebrile. His creatinine went up to 5.4 and INR was 4.47. Discussed with Dr. Phan, and examined together may find out that the patient oriented only one time. We suspected for aspiration. We did a chest x-ray which did not showed any signs of aspiration. Initially we sent him downstairs for CT scan, but he was sent back because he was very irritable. After discussing with Dr. phan, we gave 1 milligram of Ativan one time.He became quite for some time.We also did a CT scan of the head which did not showed any acute abnormality, except mastoiditis. He remained quite for some time but again he started agitated. Later his came in and she talked to the patient. We find out that he has some pain so we gave dilaudid. Afterwards he became calm down. Patient was refusing for food and fluid intake. We encouraged him many times. Then, we decided to start him on D5 half normal saline and NovoLog according to the sliding scale. His PT/INR is continuously rising, probably secondary to septicemia. We will regularly follow it. Review of Systems Constitutional: Denies: no symptoms. Comments: Cannot comment because of patient's clinical condition Objective Last 24 Hrs of Vital Signs/I&O Vital Signs Date Time Temp Pulse Resp B/P B/P Pulse O2 O2 Flow FiO2 Mean Ox Delivery Rate 10/12 1600 99.0 78 20 114/64 98 Nasal 3.0L Cannula 10/12 1600 95 Nasal 3.0L Cannula 10/12 1055 81 156/86 10/12 0845 97.7 80 20 117/75 95 Nasal Cannula 10/12 0800 Nasal 3.0L Cannula 10/12 0000 Nasal 3.0L Cannula 10/11 2300 87 94 10/11 2100 97.8 74 20 133/70 95 Nasal 3.0L Cannula Intake & Output 10/12 1600 10/12 0800 10/12 0000 Intake Total 40 200 150 Output Total 0 0 Balance 40 200 150 Intake, IV 0 Intake, Oral 40 200 150 Number 0 Bowel Movements Output, Stool 0 Output, Urine 0 0 Physical Exam General Appearance: Severe Distress Cardiovascular: Normal S1, Normal S2, murmur present Lungs: occasional crepts Abdomen: Soft, mild tenderness Neurological: Normal Speech, delirius Extremities: No Clubbing, No Cyanosis, No Edema Current Medications: Current Medications Sig/Cole Start time Last Medication Dose Route Stop Time Status Admin Acetaminophen 1,000 MG Q6P PRN 10/10 1600 N/A 1 UNIT IV Allopurinol 300 MG DAILY 10/06 1110 AC 10/12 PO 1051 Aspirin Buffered 81 MG DAILY 10/06 1117 AC 10/12 PO 1051 Atorvastatin Calcium 20 MG 1700 10/06 1700 AC 10/11 PO 1751 Carvedilol 50 MG BID 10/08 2200 AC 10/12 PO 1055 Dextrose/Sodium 1,000 ML Q20H 10/12 1815 AC 10/12 Chloride IV 1834 Epoetin Kameron 4,000 UNIT TU TH SAT PRN 10/08 0830 IV Hydromorphone HCl 0.6 MG Q3P PRN 10/09 1152 AC 10/12 IV 1752 Insulin Aspart 0 TIDAC 10/10 1700 TN 10/11 TN 0824 Insulin Human Regular 0 Q6 10/12 1800 AC 10/12 SC 1830 Lidocaine 1 PAT DAILY 10/09 1431 AC 10/12 EXT 1055 Lorazepam 1 MG ONCE ONE 10/12 1430 DC 10/12 IV 10/12 1431 1418 Olanzapine 5 MG ONCE ONE 10/12 1745 DC IM 10/12 1746 Olanzapine 5 MG ONCE ONE 10/12 0015 DC 10/12 IM 10/12 0016 0710 Paricalcitol 5 MCG TUES THURS SAT PRN 10/08 0830 AC IV Polyethylene Glycol 17 GM DAILY 10/11 1000 AC 10/12 PO 1051 Senna/Docusate Sodium 1 TAB BID PRN 10/11 0815 AC 10/11 PO 1751 Vancomycin HCl 0 SAT PRN 10/11 0930 AC IV Last 24 Hrs of Lab/Cristi Results Last 24 Hrs of Labs/Mics: Laboratory Tests 10/12/16 1655: pH 7.32 L, pCO2 42, pO2 93, HCO3 21, ABG O2 Sat (Measured) 95.0 L, P-50 (Temp Corrected) Y, Carboxyhemoglobin 0.3 L, O2 Concentration % 3L, Temperature 99.0, O2 Delivery Method NC, Phlebotomy Draw Site RIGHT RADIAL 10/12/16 1225: Lactic Acid 1.3 10/12/16 0645: Anion Gap 17 H, Estimated GFR 11 L, BUN/Creatinine Ratio 10.4, PT 46.8 *H, INR 4.52 *H, CBC w Diff NO MAN DIFF REQ, RBC 3.23 L, MCV 96.6 H, MCH 30.9, RDW 21.4 H, MPV 8.4, Gran % 87.2 H, Lymphocytes % 6.4 L, Monocytes % 5.8, Eosinophils % 0.3, Basophils % 0.3, Absolute Granulocytes 10.9 H, Absolute Lymphocytes 0.8 L, Absolute Monocytes 0.7 H, Absolute Eosinophils 0, Absolute Basophils 0, PUBS MCHC 31.9 L Assessment/Plan Assessment: 61-year-old man with PMH of end-stage renal disease on hemodialysis (Friday) via RIJ tunneled dialysis catheter, nonischemic cardiomyopathy, paroxysmal atrial flutter on warfarin and hypertension. Problem list 1. MRSA bacteremia most likely secondary to dialysis catheter. Dialysis catheter was removed by IR on October 08 2. Paroxysmal atrial flutter. Warfarin on hold 3. Short runs of NSVT. Most likely secondary to ongoing bacteremia and sepsis 4. Elevated INR. Status post 2 units of FFP's yesterday 5. retropharyngeal/prevertebral abscess (3.6 cm TV by 1.5 cm AP by 9.2 cm CC) status post surgical intervention by ENT on October 10 showing no fluid collection but phlegmon. 6. Suspicion for C5-C6 osteomyelitis 7. Right internal jugular vein nonocclusive thrombus 8. End-stage renal disease on dialysis. 9. ? Aortic abscess. CTA chest did not show any acute aortic abnormality PLAN * Monitor vitals closely * Continue telemetry monitoring and watch for any arrhythmias * We'll give injection Dilaudid 0.6 milligrams Q3P * His PT/INR is continuously rising, probably secondary to septicemia. We will regularly follow it.Please watch for PT/INR tomorrow * Check electrolytes daily and replete accordingly * Continue vancomycin per dialysis protocol * Continue holding Coumadin * PAKO on Friday given persistent bacteremia * Adequate pain management * Continue other home medications * DVT prophylaxis * Full code Problem List: 1. Sepsis 2. Abscess, parapharyngeal space 3. Intractable pain 4. Leukocytosis, unspecified 5. Atrial flutter Pain Ratin Pain Location: right shoulder Pain Goal: Remain pain free Pain Plan: use dilaudid Tomorrow's Labs & Rationales: cbc,bep,pt/inr - for f/u DVT/Prophylaxis: mechanical DWAYNECHANCEHOLLEY 10/12/16 1126: Attending MD Review Statement Attending Statement Attending MD Statement: examined this patient, discuss w/resident/PA/TURPENTINE DISTILLER, agreed w/resident/PA/TURPENTINE DISTILLER, discussed with family, reviewed EMR data (avail), discussed with nursing, discussed with case mgmt, reviewed images, amended to note Attending Assessment/Plan: Patient had change in mental status. Hypercoaugulable. obtain CT head. patient successfully had dialysis through his fistula. Had a CT chest with IV contrast today which was negative for any aortic dissection or abscess given his ongoing complaints of chest pain. Remains on IV Vanco for persistent MRSA bacteremia with plan for PAKO on Friday to rule out endocarditis and armen cath. No Coumadin and letting INR drift down. Plan is also for [place] on Friday as fistula is giving problems.
--- NOTE | 2016-10-12 10:51 | NUR ---
Physical Therapy: Pt with INR of 4.52 therefore on medical hold for PT at this time due to contraindicated lab values for therapy. Will f/u as appropriate.
--- NOTE | 2016-10-12 11:09 | PN- Infect Dx ---
Subjective Subjective: Afebrile. He denies any neck or back pain. He is upset about the restraints, which were placed overnight because of agitation and hallucinations. Objective Last 24 Hrs of Vital Signs/I&O Vital Signs Date Time Temp Pulse Resp B/P B/P Pulse O2 O2 Flow FiO2 Mean Ox Delivery Rate 10/12 1055 81 156/86 10/12 0845 97.7 80 20 117/75 95 Nasal Cannula 10/12 0000 Nasal 3.0L Cannula 10/11 2300 87 94 10/11 2100 97.8 74 20 133/70 95 Nasal 3.0L Cannula 10/11 1842 96.3 76 22 132/72 95 Nasal 3.0L Cannula 10/11 1805 70 132/72 10/11 1800 95 Nasal 3.0L Cannula 10/11 1624 97.5 109 20 108/60 97 Nasal 2.0L Cannula Intake & Output 10/12 1600 10/12 0800 10/12 0000 Intake Total 200 150 Output Total 0 Balance 200 150 Intake, IV 0 Intake, Oral 200 150 Number 0 Bowel Movements Output, Stool 0 Output, Urine 0 Physical Exam Other Physical Findings: He is awake and alert in no acute distress Lungs are clear Heart regular rhythm with no murmur Abdomen is soft, nontender with positive bowel sounds Extremities no cyanosis, clubbing or edema Results Last 24 Hours of Lab Results: Laboratory Tests 10/12 10/11 0645 1922 Chemistry Sodium (137 - 145 mmol/L) 136 L 135 L Potassium (3.5 - 5.1 mmol/L) 5.0 4.7 Chloride (98 - 107 mmol/L) 96 L 95 L Carbon Dioxide (22 - 30 mmol/L) 22 25 Anion Gap (5 - 16) 17 H 15 BUN (9 - 20 mg/dL) 54 H 46 H Creatinine (0.7 - 1.2 mg/dL) 5.2 *H 4.5 H Estimated GFR (>60 ml/min) 11 L 13 L BUN/Creatinine Ratio (7 - 25 %) 10.4 10.2 Coagulation PT (9.4 - 12.5 SEC) 46.8 *H INR (0.90 - 1.17) 4.52 *H Hematology CBC w Diff NO MAN DIFF REQ WBC (4.8 - 10.8 /CUMM) 12.6 H RBC (4.70 - 6.10 /CUMM) 3.23 L Hgb (14.0 - 18.0 G/DL) 10.0 L Hct (42 - 52 %) 31.2 L MCV (80.0 - 94.0 FL) 96.6 H MCH (27.0 - 31.0 PG) 30.9 RDW (11.5 - 14.5 %) 21.4 H Plt Count (130 - 400 /CUMM) 223 MPV (7.4 - 10.4 FL) 8.4 Gran % (42.2 - 75.2 %) 87.2 H Lymphocytes % (20.5 - 51.1 %) 6.4 L Monocytes % (1.7 - 9.3 %) 5.8 Eosinophils % (0 - 5 %) 0.3 Basophils % (0.0 - 2.0 %) 0.3 Absolute Granulocytes (1.4 - 6.5 /CUMM) 10.9 H Absolute Lymphocytes (1.2 - 3.4 /CUMM) 0.8 L Absolute Monocytes (0.10 - 0.60 /CUMM) 0.7 H Absolute Eosinophils (0.0 - 0.7 /CUMM) 0 Absolute Basophils (0.0 - 0.2 /CUMM) 0 PUBS MCHC (33.0 - 37.0 G/DL) 31.9 L 10/11 1921 Chemistry Ammonia (9 - 30 umol/L) < 9 L Hematology CBC w Diff NO MAN DIFF REQ WBC (4.8 - 10.8 /CUMM) 11.6 H RBC (4.70 - 6.10 /CUMM) 3.30 L Hgb (14.0 - 18.0 G/DL) 10.1 L Hct (42 - 52 %) 31.9 L MCV (80.0 - 94.0 FL) 96.7 H MCH (27.0 - 31.0 PG) 30.6 RDW (11.5 - 14.5 %) 20.7 H Plt Count (130 - 400 /CUMM) 220 MPV (7.4 - 10.4 FL) 8.1 Gran % (42.2 - 75.2 %) 86.7 H Lymphocytes % (20.5 - 51.1 %) 7.0 L Monocytes % (1.7 - 9.3 %) 5.6 Eosinophils % (0 - 5 %) 0.6 Basophils % (0.0 - 2.0 %) 0.1 Absolute Granulocytes (1.4 - 6.5 /CUMM) 10.0 H Absolute Lymphocytes (1.2 - 3.4 /CUMM) 0.8 L Absolute Monocytes (0.10 - 0.60 /CUMM) 0.6 Absolute Eosinophils (0.0 - 0.7 /CUMM) 0.1 Absolute Basophils (0.0 - 0.2 /CUMM) 0 PUBS MCHC (33.0 - 37.0 G/DL) 31.7 L Last 24 Hours of Cristi Results: Blood cultures 2 October 11 negative so far Assessment/Plan Impression: Appears stable with no further complaints of neck or back pain, possibly secondary to pain medication, which likely explains his agitation and disorientation overnight. He remains afebrile with white blood cell count slightly elevated today on Vancomycin now Day 7 of treatment for MRSA sepsis presumably secondary to an infected right IJ Marshal catheter, removed 4 days ago, with his blood cultures from yesterday so far negative. Am concerned about possible endocarditis and paravalvular abscess and he is scheduled for a PAKO on October 14. A suppurative thrombophlebitis of the right IJ is also a concern, with the recent CT of the neck revealing a nonocclusive soft tissue filling defect within the right internal jugular vein. He was able to be dialyzed yesterday using the left upper extremity AV fistula, but, per Renal, he will need placement of a non-tunneled dialysis catheter prior to his next dialysis on October 16. Suggestion: 1. Doppler of the right neck to further evaluate the right IJ 2. Await PAKO on October 16 3. Repeat blood cultures 2 if his blood cultures from October 11 turn positive 4. Continue Vancomycin with dosing per dialysis protocol
--- NOTE | 2016-10-12 12:50 | RADIOLOGY REPORT ---
EXAMINATION: CHEST 1 VIEW CLINICAL INFORMATION: Aspiration. Altered mental status. COMPARISON: 10/06/2016. TECHNIQUE: An AP view of the chest is provided. FINDINGS: The cardiac silhouette is enlarged, but stable. Evaluation of the lungs is limited due to low lung volumes. There are no consolidations. There are neither pleural effusions nor pneumothoraces. The osseous structures are stable. IMPRESSION: Stable enlarged cardiac silhouette without acute airspace disease.
--- NOTE | 2016-10-12 13:08 | Discharge Summary ---
See Addendum Visit Information Visit Dates Admission Date: 10/06/16 Discharge Date: 10/15/16 Hospital Course Course Attending Physician: RIKKI CANO,ELLIE Murphy Primary Care Physician: ELLIS CANO,RODNEY Farias Hospital Course: This is a 61-year-old man with a history of hypertension, COPD with obstructive sleep apnea, nonischemic cardiomyopathy, HFrEF, gout, diabetes, with severe retinopathy, end-stage renal disease, status post creation of a left upper extremity AV fistula nearly 2 years prior to admission which has never been used and has since clotted, hospitalized nearly 2 months with uremia and begun on dialysis via a right IJ Marshal catheter, with a left arm fistulogram, venous angioplasty and arterial angioplasty performed at that time, with his course complicated by atrial flutter, for which he was begun on Coumadin, dialyzed Tuesdays, and Saturdays since discharge, with an ultrasound 4 weeks prior to admission revealing a patent fistula, status post exchange of his catheter as an outpatient 9 days prior to admission because of pain and loosening of the catheter, admitted on October 06 after presenting to the emergency room with several days of severe interscapular, lower back and left buttock pain without associated fevers or chills. On admission he was afebrile. His initial blood pressure was 122/61 but it did decrease to 96 over palp. Laboratory data revealed a white blood cell count of 21,000, BUN/creatinine 36 and 3.8, with normal liver enzymes, INR 2.29. Chest x -ray revealed no definite consolidation. CT of the lumbar spine revealed chronic appearing degenerative changes with a partial fusion of the right sacroiliac joint. He was given Vancomycin and Ceftazidime in ER. He was admitted on telemetry floor. Later on blood cultures 2 were reported positive for gram-positive cocci in clusters, which were identified as MRSA. Ceftazidime was discontinued. 1. MRSA bacteremia The most likely source of his bacteremia was the right IJ Marshal catheter. Vancomycin was continued. On 10/08/16 dialysis catheter was removed by IR. An dialysis catheter tip was sent for culture. Repeated blood cultures daily persistently positive for MRSA. Dialysis catheter tip also grew MRSA. Next dialysis session was attempted through his left upper arm AV fistula. 2. Severe shoulder/neck pain For his persistent severe shoulder and neck pain MRI of cervicothoracic and lumbar spine was ordered on 10/07/16. IMPRESSION: MRI CERVICAL SPINE 1. There is moderate prevertebral soft tissue fullness with fluid extending from the clivus to the level of C7. There is also edematous signal in the paraspinal soft tissues bilaterally. 2. There is spondylosis which is most severe at C4-C5, C5-C6 and C6-C7 with effacement of CSF around the cord and flattening of the cord as described above. 3. CT scan of the neck is recommended for further assessment. A postcontrast study could be considered if the patient has normal creatinine or is going to undergo dialysis. MRI THORACIC SPINE 1. There are mild multilevel spondylitic changes. 2. There is no spinal cord compression or central stenosis. 3. Accounting for artifact, spinal cord signal appears normal. MRI LUMBAR SPINE 1. There are severe facet arthropathic changes at L4-L5 with facet joint effusions and periarticular soft tissue changes. 2. There are disc protrusions at L4-L5 and L5-S1 extending into the neural foramina bilaterally with impingement on the exiting L4 and L5 nerve roots. CT NECK W IV CONTRAST 10/08/16 IMPRESSION: There is a large retropharyngeal/prevertebral fluid collection extending from the nasopharyngeal region to the C7 level that is concerning for a retropharyngeal/ prevertebral abscess in light of the clinical history. There is no extension of this collection into the mediastinum. T2 signal change/marrow placement throughout the C5 and C6 vertebral bodies as well as the anterior aspect of the C5-C6 disc making it difficult to exclude osteomyelitis discitis at this level. Suspect early demineralization and a possible focal prevertebral abscess. - There is a soft tissue tract within the right supraclavicular region extending towards the right internal jugular vein, presumably related to a tract from recent dialysis catheter removal. There is a nonocclusive soft tissue filling defect within the right internal jugular vein at the level of the tract that is most suggestive of nonocclusive thrombus. Neurosurgical consult was called for cervical spine MRI findings. Per their recommendations there was no need for neurosurgical intervention at that time as it was not extending into the disc space or spinal canal and patient was not having any focal neurologic findings. His degenerative disc disease and spinal stenosis was chronic and not of immediate concern and may be followed up as outpatient. For his suspected abscess in the retropharyngeal/cervical prevertebral space, recommended evaluation by interventional radiology for possible aspiration as well as consultation from ENT for possible surgical evacuation. ENT was consulted. Fiberoptic laryngoscopy was performed at the bedside through the right nostril revealed an unremarkable nasal passage nasopharynx hypopharynx and larynx including posterior pharyngeal wall and the endolarynx. ENT recommended possible drainage of retropharyngeal collection under general anesthesia. Despite continue holding Coumadin his INR was elevated. He was given Vitamin K 5mg s/c total x 2 and 2 FFP's preoperatively. He underwent Direct laryngoscopy and I&D of retropharyngeal collection by Dr. Gilmore on 10/10/16. Findings: Unremarkable nasopharynx. The pharynx and hypopharynx reveals slight erythema and swelling of the right posterior pharyngeal wall however no fluid collection could be identified following aspiration and an open incision but Retropharyngeal phlegmon. Larynx itself appeared unremarkable including the base of tongue and the larynx and piriform sinuses. Because of his persistent complaint of neck and back pain there was a concern for suppurative thrombophlebitis of the right IJ. FINDINGS: Normal compression and augmented flow are noted throughout the right upper extremity. The visualized internal jugular vein, lower subclavian vein, axillary vein, brachial vein, basilic vein, and cephalic vein show no evidence of deep venous thrombosis. The proximal and mid portions of the subclavian vein were not visualized due to an overlying bandage. Vancomycin was continued. Blood cultures were persistently positive for MRSA. For his pain management he was getting IV Dilaudid. Lidoderm patch was offered for better pain control but he refused. Later on patient was started on fentanyl patch. After ENT procedure patient was started on clear liquid diet but he was choking while eating. Official Swallow evaluation was done at bedside that he failed and was kept nothing by mouth. (Even on admission patient admitted that he used to choke sometime while eating and reported difficulty swallowing). 3. End-stage renal disease on dialysis (TTF) On 10/08/16 dialysis catheter was removed by IR for presumed line sepsis with MRSA bacteremia. Next dialysis session was attempted through his left upper arm AV fistula. Patient underwent placement of non-tunneled Chandler catheter by IR on 10/14/16. 4. Runs of V.tach Patient had history of paroxysmal A. fib and was on Coumadin. Coumadin was held on admission. 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 He was seen by shut off worker, Dr. Hendricks and Dr. Agudelo. According to Dr. Agudelo NSVT was old and he refused ICD several times in the past. He recommended his dose of carvedilol was increased from 25 mg twice a day to 50 mg twice a day. After removal of dialysis catheter patient was persistently bacteremic. He also started complaining of chest pain. Dr. Agudelo was concerned about his chest pain and thought there might be a suspicion for aortic abscess. CTA chest was ordered stat on 10/11/16. His troponins were all was negative and EKGs did not show any acute changes. IMPRESSION: 1. No evidence of pulmonary emboli or acute vascular abnormality in the aorta. 2. Evaluation of the lungs is limited secondary to respiratory motion artifact and low lung volumes. There are diffuse groundglass opacities throughout both lungs and more consolidative opacities in the lung bases which may reflect a combination of atelectasis and mild edema, however an underlying infectious process is not excluded. 3. Cardiomegaly. 4. Bilateral gynecomastia. Plan was to do PAKO to rule out valvular vegetations. As his INR was supratherapeutic so PAKO could not be performed. Target INR for PAKO was < 3. 4. Confusion and delirium During the course of hospitalization patient was confused and delirious. He was irritable at baseline. CT head on October 12 was done. Study was limited because of motion but there were no secondary signs to suggest metastasis, Mild mucosal changes within the sphenoid sinus and ethmoid air cells bilaterally and partial right sided mastoiditis. Event Note: 10/15/2016 vitals at 8:30 AM: Temperature 93.1, pulse 72, blood pressure 81/51. Patient was sleepy but arousable. He was not answering most of the questions. At baseline patient is irritable and cranky but answer most of the questions. That morning he was not at his baseline. More confused. He also went into A. fib that morning. Repeat vitals at 9:30 AM: Temperature 93.8, pulse 67, blood pressure 81/53 Patient refused all his labs in the morning. Decision was made to transfer patient to ICU for closer monitoring and bear hugger. 250 cc bolus of normal saline bolus was also ordered. His systolic blood pressure improved to 100. He was due for dialysis that day. He started having dialysis and all of a sudden he became unresponsive. He was found to have bradycardia and PEA. ACLS protocol was initiated. He was coded for 8 minutes. got his pulse back. 3 dosages of epinephrine were given. He was intubated at the same time. was at bedside when it all happened. Attending, Alexis Limon MD and medical records receptionist updated about his clinical condition. However after 30 minutes or so patient was coded again because of bradycardia and no pulse. CPR was started and continued for 6 minutes with injection of epinephrine's and ROSC was achieved. Code lasted for 6 minutes. However after 25 minutes patient was coded again for PEA. ACLS was initiated again. Code lasted for 2 minutes and it was stopped per family request. Patient was completely unresponsive without any pulse. patient's pupils were dilated and fixed without any reaction to light. Patient was pronounced at 1444. Dr. yamilet pabon was also updated about this event. Allergies: Coded Allergies: NO KNOWN ALLERGIES (06/10/14) Disposition Summary Disposition Principal Diagnosis: MRSA bactremia persumed 2/2 Line sepsis Additional Diagnosis: Elevated INR. A. flutter retropharyngeal/prevertebral Phlegmon Suspicion for C5-C6 osteomyelitis End-stage renal disease on dialysis (TTF) Discharge Disposition: Discharge Instructions General Discharge Information Code Status: Full Code Patient's Diet: Patient's Activity: Follow-Up Instructions/Appts: patient Copies To: ELLIS CANO,RODNEY Farias; RENETTA CANO,GINA Chaves
[2016-10-12 16:00] VITALS: BP 114/64
--- NOTE | 2016-10-12 16:05 | CT SCAN REPORT ---
EXAMINATION: CT HEAD WITHOUT CONTRAST CLINICAL INFORMATION: Sepsis, question metastasis COMPARISON: CT head 03/06/2011 TECHNIQUE: Contiguous axial imaging was performed from the skull base to vertex without intravenous administration of contrast. DLP: 1270.6 mGy-cm FINDINGS: The study is significantly limited by patient motion. Multiple repeat scans were obtained. There is no definite evidence of acute intracranial hemorrhage or territorial infarction. No abnormal mass effect or midline shift is seen. Camp to white matter differentiation is grossly preserved. No extra-axial fluid collections are identified. The ventricles are normal in size. There is no abnormal attenuation within the brain parenchyma. The osseous structures and soft tissues are normal. There is a small amount because of thickening within the ethmoid air cells and the sphenoid sinuses bilaterally. There is partial opacification of the right mastoid air cells. The left mastoid air cells appear well aerated. Left scleral buckle. There is marked calcification of the cavernous portions of the internal carotid arteries. IMPRESSION: 1. Limited study secondary to patient motion throughout the examination. 2. Within this limitation, no secondary signs to suggest metastasis. A more appropriate examination would be a repeat CT scan possibly with sedation and intravenous contrast. 3. Mild mucosal changes within the sphenoid sinus and ethmoid air cells bilaterally. 4. Partial right sided mastoiditis.
--- NOTE | 2016-10-12 16:10 | ULTRASOUND REPORT ---
EXAMINATION: US TRIPLEX UPPER EXTREMITY, RIGHT CLINICAL INFORMATION: Filling defect seen on prior CT following an Marshal catheter removal 4 days ago. Evaluate the right internal jugular vein. COMPARISON: Multiple priors, most recent CT neck dated 10/08/2016. TECHNIQUE: Color-flow triplex imaging with spectral analysis and compression Doppler were performed on the neck/upper extremity. FINDINGS: Normal compression and augmented flow are noted throughout the right upper extremity. The visualized internal jugular vein, lower subclavian vein, axillary vein, brachial vein, basilic vein, and cephalic vein show no evidence of deep venous thrombosis. The proximal and mid portions of the subclavian vein were not visualized due to an overlying bandage. IMPRESSION: Normal triplex scan without evidence of deep venous thrombosis involving the right upper extremity. The proximal and mid portions of the subclavian vein were not visualized due to an overlying bandage.
--- NOTE | 2016-10-12 18:49 | NUR ---
AGITATION/COMBATIVE BEHAVIOR- PT CONFUSED THROUGHOUT THIS SHIFT. DR COLLADO AWARE OF INCREASING AGITATION. MULTIPLE INTERVENTIONS TRIED. MEDS PER EMAR FOR ANXIETY = LESS ANXIETY X 1 HOUR. TRIALED OFF WRIST RESTRAINTS WITH NO CHANGE IN BEHAVIOR. MEDS FOR PAIN ALLOWED PT TO SLEEP FOR 1 HOUR SO FAR AT THIS TIME.
[2016-10-13 08:04] VITALS: BP 115/63
[2016-10-13 08:27] LABS: ABSOLUTE BASOPHIL COUNT 0 /CUMM (0.0-0.2); ABSOLUTE EOSINOPHIL COUNT 0.1 /CUMM (0.0-0.7); ABSOLUTE GRANULOCYTE CT 8.9 /CUMM (1.4-6.5); ABSOLUTE LYMPH COUNT 1.2 /CUMM (1.2-3.4); ABSOLUTE MONOCYTE COUNT 0.8 /CUMM (0.10-0.60); BASOPHIL % 0 % (0.0-2.0); EOSINOPHIL % 0.5 % (0-5); HEMATOCRIT 29.8 % (42-52); MEAN CORPUSCULAR HGB 31.3 PG (27.0-31.0); MEAN CORPUSCULAR HGB CONC 32.2 G/DL (33.0-37.0); MEAN CORPUSCULAR VOLUME 97.4 FL (80.0-94.0); PLATELET COUNT 229 /CUMM (130-400); RED BLOOD CELL CT 3.06 /CUMM (4.70-6.10)
--- NOTE | 2016-10-13 09:15 | PN- Housestaff ---
MARCIA CANO,HERNANDEZ 10/13/16 0915: Subjective Follow-up For: Septicemia Complaints: pt unable to provide hx Tele-Events Since Last Visit: Sinus rhythm, heart rate ranging from 62-75, no overnight events Subjective: I followed up the patient today. Overnight he has not been agitated, has remained calm, and the nursing staff has been present his restraints. He is not resisting, is cooperating very well. His vitals have remained stable and no overnight issues noted. Review of Systems Constitutional: Reports: no symptoms. Objective Last 24 Hrs of Vital Signs/I&O Vital Signs Date Time Temp Pulse Resp B/P B/P Pulse O2 O2 Flow FiO2 Mean Ox Delivery Rate 10/13 2211 64 102/64 10/13 1647 97.8 68 22 98/56 96 Nasal Cannula 10/13 1059 75 115/63 10/13 0804 97.5 75 24 115/63 97 Nasal 2.0L Cannula 10/13 0800 97 Nasal 3.0L Cannula 10/13 0106 71 98 10/13 0000 Nasal 3.0L Cannula 10/12 2311 96 Intake & Output 10/13 1600 10/13 0800 10/13 0000 Intake Total 400 400 0 Output Total 0 Balance 400 400 0 Intake, IV 400 400 Intake, Oral 0 0 Output, Urine 0 Physical Exam General Appearance: Alert, Cooperative, No Acute Distress Other Physical Findings: Cardiovascular: Normal S1, Normal S2, murmur present Lungs: occasional crepts Abdomen: Soft, mild tenderness Neurological: Normal Speech, better mentation today, calm, cooperative Extremities: No Clubbing, No Cyanosis, No Edema Current Medications: Current Medications Sig/Cole Start time Last Medication Dose Route Stop Time Status Admin Acetaminophen 1,000 MG Q6P PRN 10/10 1600 AC N/A 1 UNIT IV Allopurinol 300 MG DAILY 10/06 1110 AC 10/13 PO 1100 Aspirin Buffered 81 MG DAILY 10/06 1117 AC 10/13 PO 1100 Atorvastatin Calcium 20 MG 1700 10/06 1700 AC 10/11 PO 1751 Carvedilol 50 MG BID 10/08 2200 AC 10/13 PO 2211 Dextrose/Sodium 1,000 ML Q20H 10/12 1815 AC 10/13 Chloride IV 1217 Epoetin Kameron 4,000 UNIT TU TH SAT PRN 10/08 0830 AC IV Hydromorphone HCl 0.6 MG Q3P PRN 10/09 1152 AC 10/13 IV 2210 Insulin Human Regular 1 UNITS .STK-MED ONE 10/13 0651 DC IV 10/13 0652 Insulin Human Regular 8 UNITS .STK-MED ONE 10/13 0135 DC IV 10/13 0136 Insulin Human Regular 0 Q6 10/12 1800 AC 10/13 SC 1753 Lidocaine 1 PAT DAILY 10/09 1431 AC 10/13 EXT 1059 Paricalcitol 5 MCG TUES THURS SAT PRN 10/08 0830 AC IV Phytonadione 5 MG ONCE ONE 10/13 1715 DC 10/13 SC 10/13 1716 1754 Polyethylene Glycol 17 GM DAILY 10/11 1000 AC 10/13 PO 1058 Senna/Docusate Sodium 1 TAB BID PRN 10/11 0815 AC 10/11 PO 1751 Vancomycin HCl 0 TUES THURS SAT PRN 10/11 0930 AC IV Last 24 Hrs of Lab/Cristi Results Last 24 Hrs of Labs/Mics: Laboratory Tests 10/13/16 1320: PT 46.2 *H, INR 4.47 *H 10/13/16 0612: Anion Gap 13, Estimated GFR 9 L, BUN/Creatinine Ratio 11.1, CBC w Diff NO MAN DIFF REQ, RBC 3.06 L, MCV 97.4 H, MCH 31.3 H, RDW 21.0 H, MPV 8.0, Gran % 81.0 H, Lymphocytes % 10.8 L, Monocytes % 7.7, Eosinophils % 0.5, Basophils % 0 L, Absolute Granulocytes 8.9 H, Absolute Lymphocytes 1.2, Absolute Monocytes 0.8 H, Absolute Eosinophils 0.1, Absolute Basophils 0, PUBS MCHC 32.2 L Assessment/Plan Assessment: 61-year-old man with PMH of end-stage renal disease on hemodialysis (Friday) via RIJ tunneled dialysis catheter, nonischemic cardiomyopathy, paroxysmal atrial flutter on warfarin and hypertension. Problem list 1. MRSA bacteremia most likely secondary to dialysis catheter. Dialysis catheter was removed by IR on October 08 2. Paroxysmal atrial flutter. Warfarin on hold 3. Short runs of NSVT. Most likely secondary to ongoing bacteremia and sepsis 4. Elevated INR. Status post 2 units of FFP's yesterday 5. retropharyngeal/prevertebral abscess (3.6 cm TV by 1.5 cm AP by 9.2 cm CC) status post surgical intervention by ENT on October 10 showing no fluid collection but phlegmon. 6. Suspicion for C5-C6 osteomyelitis 7. Right internal jugular vein nonocclusive thrombus 8. End-stage renal disease on dialysis. 9. ? Aortic abscess. CTA chest did not show any acute aortic abnormality PLAN * Monitor vitals closely * Continue telemetry monitoring and watch for any arrhythmias * We'll give injection Dilaudid 0.6 milligrams Q3P * His PT/INR is continuously rising, probably secondary to septicemia. We will regularly follow it.Please watch for PT/INR tomorrow. INR was 4.47 so 5mg of SQ Vit K was given today per attending Dr Phan. * Check electrolytes daily and replete accordingly * Continue vancomycin per dialysis protocol * Continue holding Coumadin * PAKO on Friday given persistent bacteremia, so pt kept NPO from [place]. * Adequate pain management * Continue other home medications * DVT prophylaxis * Full code Problem List: 1. Sepsis Pain Ratin (pt unable to give proper feedb) Pain Location: - Pain Goal: Pain 4 or less Pain Plan: prn Tomorrow's Labs & Rationales: Vanc level, BEP, CBC, INR PETAR PHAN 10/13/16 1231: Attending MD Review Statement Attending Statement Attending MD Statement: examined this patient, discuss w/resident/PA/VOLCANOLOGY TEACHER, agreed w/resident/PA/VOLCANOLOGY TEACHER, discussed with family, reviewed EMR data (avail), discussed with nursing, discussed with case mgmt, reviewed images, amended to note Attending Assessment/Plan: "patient successfully had dialysis through his fistula. Had a CT chest with IV contrast today which was negative for any aortic dissection or abscess given his ongoing complaints of chest pain. Remains on IV Vanco for persistent MRSA bacteremia with plan for PAKO on Friday to rule out endocarditis and armen cath. No Coumadin and letting INR drift down. Plan is also for [place] on Friday as fistula is giving problems." Patient was deliriuos over weekend, chest xray with no acute process, CT head negative for acute abnormality, labs with no significant abnormality, repeat blood culture sent, abx as per ID, restraints for agitation, recieved low dose BZds which helped him. f/u ID , plan for PAKO tomorrow
[2016-10-13 14:19] LABS: PT 46.2 SEC (9.4-12.5)
[2016-10-13 16:47] VITALS: BP 98/56
[2016-10-13 23:40] VITALS: BP 60/44
[2016-10-13 23:58] VITALS: BP 138/00; BP 138/64
--- NOTE | 2016-10-14 06:58 | NUR ---
PT THIS MORNING IS AGITATED AND COMBATIVE TOWARDS THE BLOOD TEAM, TECHS AND MYSELF. PT IS REFUSING BLOOD WORK AND ACCUCHECKS AFTER MULTIPLE ATTEMPTS THIS MORNING. DR. TIM SALCIDO NOTIFIED AND WILL PASS ALONG TO DAY TEAM SO THEY CAN POSSIBLY TRY IF/WHEN PT BECOMES LESS AGITATED.
--- NOTE | 2016-10-14 09:35 | PN- Nephrology ---
Assessment/Plan Assessment: 1. MRSA sepsis. Likely due to line. 2. End-stage renal disease 3. Back pain Suggestion: 1. Await placement of D LQ. 2. Pain issues to be addressed by primary care team 3. Assess after placement as to proceeding with hemodialysis today. Subjective Subjective: His major issue today is pain. Apparently he was refusing blood draws as well as examination by one of the primary care team. Objective Vital Signs and I&Os Vital Signs Date Time Temp Pulse Resp B/P B/P Pulse O2 O2 Flow FiO2 Mean Ox Delivery Rate 10/14 0020 62 92 10/14 0000 CPAP 10/13 2358 138/64 10/13 2340 64 24 60/44 91 Nasal 2.0L Cannula 10/13 2211 64 102/64 10/13 1647 97.8 68 22 98/56 96 Nasal Cannula 10/13 1059 75 115/63 Intake & Output 10/14 1600 10/14 0400 10/13 1600 10/13 0400 10/12 1600 10/12 0400 Intake Total 400 150 800 0 240 150 Output Total 0 0 0 Balance 400 150 800 0 240 150 Intake, IV 400 150 800 0 Intake, Oral 0 0 240 150 Number 0 Bowel Movements Output, Stool 0 Output, Urine 0 0 0 Physical Exam General Appearance: well developed/nourished, no apparent distress, alert, awake , anxious, obese, in pain Head: atraumatic, normal appearance, active bleeding Ears, Nose, Throat: normal pharynx, normal ENT inspection, hearing grossly normal Neck: normal inspection, supple, full range of motion Respiratory: normal breath sounds, examined anteriorly Cardiovascular: regular rate/rhythm, edema Abdomen: normal bowel sounds, soft, non-tender Extremities: no edema Neurologic/Psychiatric: awake, alert Results Pertinent Lab Results: Laboratory Tests 10/14 10/14 10/14 1015 1015 0600 Chemistry Sodium (137 - 145 mmol/L) 134 L Cancelled Potassium (3.5 - 5.1 mmol/L) 5.4 H Cancelled Chloride (98 - 107 mmol/L) 98 Cancelled Carbon Dioxide (22 - 30 mmol/L) 20 L Cancelled Anion Gap (5 - 16) 16 Cancelled BUN (9 - 20 mg/dL) 79 H Cancelled Creatinine (0.7 - 1.2 mg/dL) 6.9 *H Cancelled Estimated GFR (>60 ml/min) 8 L BUN/Creatinine Ratio (7 - 25 %) 11.4 Cancelled Coagulation PT (9.4 - 12.5 SEC) 34.1 H INR (0.90 - 1.17) 3.29 H Hematology CBC w Diff NO MAN DIFF REQ WBC (4.8 - 10.8 /CUMM) 12.6 H RBC (4.70 - 6.10 /CUMM) 3.06 L Hgb (14.0 - 18.0 G/DL) 9.5 L Hct (42 - 52 %) 29.6 L MCV (80.0 - 94.0 FL) 96.7 H MCH (27.0 - 31.0 PG) 31.1 H RDW (11.5 - 14.5 %) 20.8 H Plt Count (130 - 400 /CUMM) 214 MPV (7.4 - 10.4 FL) 7.7 Gran % (42.2 - 75.2 %) 87.0 H Lymphocytes % (20.5 - 51.1 %) 7.1 L Monocytes % (1.7 - 9.3 %) 5.6 Eosinophils % (0 - 5 %) 0.3 Basophils % (0.0 - 2.0 %) 0 L Absolute Granulocytes (1.4 - 6.5 /CUMM) 10.9 H Absolute Lymphocytes (1.2 - 3.4 /CUMM) 0.9 L Absolute Monocytes (0.10 - 0.60 /CUMM) 0.7 H Absolute Eosinophils (0.0 - 0.7 /CUMM) 0 Absolute Basophils (0.0 - 0.2 /CUMM) 0 PUBS MCHC (33.0 - 37.0 G/DL) 32.2 L Toxicology Random Vancomycin (ug/ml) Cancelled 11.2 Cancelled 10/13 10/13 1320 0612 Chemistry Sodium (137 - 145 mmol/L) 135 L Potassium (3.5 - 5.1 mmol/L) 5.1 Chloride (98 - 107 mmol/L) 99 Carbon Dioxide (22 - 30 mmol/L) 23 Anion Gap (5 - 16) 13 BUN (9 - 20 mg/dL) 69 H Creatinine (0.7 - 1.2 mg/dL) 6.2 *H Estimated GFR (>60 ml/min) 9 L BUN/Creatinine Ratio (7 - 25 %) 11.1 Coagulation PT (9.4 - 12.5 SEC) 46.2 *H INR (0.90 - 1.17) 4.47 *H Hematology CBC w Diff NO MAN DIFF REQ WBC (4.8 - 10.8 /CUMM) 11.0 H RBC (4.70 - 6.10 /CUMM) 3.06 L Hgb (14.0 - 18.0 G/DL) 9.6 L Hct (42 - 52 %) 29.8 L MCV (80.0 - 94.0 FL) 97.4 H MCH (27.0 - 31.0 PG) 31.3 H RDW (11.5 - 14.5 %) 21.0 H Plt Count (130 - 400 /CUMM) 229 MPV (7.4 - 10.4 FL) 8.0 Gran % (42.2 - 75.2 %) 81.0 H Lymphocytes % (20.5 - 51.1 %) 10.8 L Monocytes % (1.7 - 9.3 %) 7.7 Eosinophils % (0 - 5 %) 0.5 Basophils % (0.0 - 2.0 %) 0 L Absolute Granulocytes (1.4 - 6.5 /CUMM) 8.9 H Absolute Lymphocytes (1.2 - 3.4 /CUMM) 1.2 Absolute Monocytes (0.10 - 0.60 /CUMM) 0.8 H Absolute Eosinophils (0.0 - 0.7 /CUMM) 0.1 Absolute Basophils (0.0 - 0.2 /CUMM) 0 PUBS MCHC (33.0 - 37.0 G/DL) 32.2 L 10/12 10/12 10/12 1655 1456 1225 Blood Gas pH (7.35 - 7.45 PH) 7.32 L pCO2 (35 - 45 TORR) 42 pO2 (80 - 100 TORR) 93 HCO3 (21 - 28 MEQ/L) 21 ABG O2 Sat (Measured) (>96.0 %) 95.0 L P-50 (Temp Corrected) Y Carboxyhemoglobin (1.5 - 5.0 %) 0.3 L O2 Concentration % 3L Temperature (97.0 - 100.0 FARH) 99.0 O2 Delivery Method NC Chemistry Lactic Acid (0.7 - 2.1 mmol/L) Cancelled 1.3 Miscellaneous Phlebotomy Draw Site RIGHT RADIAL 10/12 10/11 0645 1922 Chemistry Sodium (137 - 145 mmol/L) 136 L 135 L Potassium (3.5 - 5.1 mmol/L) 5.0 4.7 Chloride (98 - 107 mmol/L) 96 L 95 L Carbon Dioxide (22 - 30 mmol/L) 22 25 Anion Gap (5 - 16) 17 H 15 BUN (9 - 20 mg/dL) 54 H 46 H Creatinine (0.7 - 1.2 mg/dL) 5.2 *H 4.5 H Estimated GFR (>60 ml/min) 11 L 13 L BUN/Creatinine Ratio (7 - 25 %) 10.4 10.2 Coagulation PT (9.4 - 12.5 SEC) 46.8 *H INR (0.90 - 1.17) 4.52 *H Hematology CBC w Diff NO MAN DIFF REQ WBC (4.8 - 10.8 /CUMM) 12.6 H RBC (4.70 - 6.10 /CUMM) 3.23 L Hgb (14.0 - 18.0 G/DL) 10.0 L Hct (42 - 52 %) 31.2 L MCV (80.0 - 94.0 FL) 96.6 H MCH (27.0 - 31.0 PG) 30.9 RDW (11.5 - 14.5 %) 21.4 H Plt Count (130 - 400 /CUMM) 223 MPV (7.4 - 10.4 FL) 8.4 Gran % (42.2 - 75.2 %) 87.2 H Lymphocytes % (20.5 - 51.1 %) 6.4 L Monocytes % (1.7 - 9.3 %) 5.8 Eosinophils % (0 - 5 %) 0.3 Basophils % (0.0 - 2.0 %) 0.3 Absolute Granulocytes (1.4 - 6.5 /CUMM) 10.9 H Absolute Lymphocytes (1.2 - 3.4 /CUMM) 0.8 L Absolute Monocytes (0.10 - 0.60 /CUMM) 0.7 H Absolute Eosinophils (0.0 - 0.7 /CUMM) 0 Absolute Basophils (0.0 - 0.2 /CUMM) 0 PUBS MCHC (33.0 - 37.0 G/DL) 31.9 L 10/11 1921 Chemistry Ammonia (9 - 30 umol/L) < 9 L Hematology CBC w Diff NO MAN DIFF REQ WBC (4.8 - 10.8 /CUMM) 11.6 H RBC (4.70 - 6.10 /CUMM) 3.30 L Hgb (14.0 - 18.0 G/DL) 10.1 L Hct (42 - 52 %) 31.9 L MCV (80.0 - 94.0 FL) 96.7 H MCH (27.0 - 31.0 PG) 30.6 RDW (11.5 - 14.5 %) 20.7 H Plt Count (130 - 400 /CUMM) 220 MPV (7.4 - 10.4 FL) 8.1 Gran % (42.2 - 75.2 %) 86.7 H Lymphocytes % (20.5 - 51.1 %) 7.0 L Monocytes % (1.7 - 9.3 %) 5.6 Eosinophils % (0 - 5 %) 0.6 Basophils % (0.0 - 2.0 %) 0.1 Absolute Granulocytes (1.4 - 6.5 /CUMM) 10.0 H Absolute Lymphocytes (1.2 - 3.4 /CUMM) 0.8 L Absolute Monocytes (0.10 - 0.60 /CUMM) 0.6 Absolute Eosinophils (0.0 - 0.7 /CUMM) 0.1 Absolute Basophils (0.0 - 0.2 /CUMM) 0 PUBS MCHC (33.0 - 37.0 G/DL) 31.7 L
[2016-10-14 10:00] VITALS: BP 98/00
[2016-10-14 10:38] LABS: ABSOLUTE BASOPHIL COUNT 0 /CUMM (0.0-0.2); ABSOLUTE EOSINOPHIL COUNT 0 /CUMM (0.0-0.7); ABSOLUTE GRANULOCYTE CT 10.9 /CUMM (1.4-6.5); ABSOLUTE LYMPH COUNT 0.9 /CUMM (1.2-3.4); ABSOLUTE MONOCYTE COUNT 0.7 /CUMM (0.10-0.60); BASOPHIL % 0 % (0.0-2.0); EOSINOPHIL % 0.3 % (0-5); HEMATOCRIT 29.6 % (42-52); MEAN CORPUSCULAR HGB 31.1 PG (27.0-31.0); MEAN CORPUSCULAR HGB CONC 32.2 G/DL (33.0-37.0); MEAN CORPUSCULAR VOLUME 96.7 FL (80.0-94.0); MEAN PLATELET VOLUME 7.7 FL (7.4-10.4); RBC DISTRIBUTION WIDTH 20.8 % (11.5-14.5); RED BLOOD CELL CT 3.06 /CUMM (4.70-6.10); WHITE BLOOD CELL COUNT 12.6 /CUMM (4.8-10.8)
[2016-10-14 11:06] LABS: PT 34.1 SEC (9.4-12.5)
--- NOTE | 2016-10-14 11:12 | NUR ---
SPEECH THERAPY: ATTEMPTED TO SEE PT FOR RE-ASSESSMENT OF SWALLOWING FUNCTION. PT CURRENTLY NPO PENDING PAKO PROCEDURE. PER RN, PROCEDURE TO TAKE PLACE AT APPROX. 1:[address] CONTINUE TO FOLLOW FOR SWALLOW RE-EVALUTION. D/W RN.
[2016-10-14 11:19] LABS: PLATELET COUNT 214 /CUMM (130-400)
--- NOTE | 2016-10-14 11:23 | PN- Housestaff ---
DYLAN CABRERA 10/14/16 1121: Subjective Follow-up For: MRSA bacteremia CKD on dialysis Subjective: This morning patient is lying flat on the bed. On CPAP. He is not very cooperative this morning asked me to leave him alone. He is nothing by mouth for possible lolis catheter placement today Review of Systems Constitutional: Reports: see HPI. Objective Last 24 Hrs of Vital Signs/I&O Vital Signs Date Time Temp Pulse Resp B/P B/P Pulse O2 O2 Flow FiO2 Mean Ox Delivery Rate 10/14 1043 62 98/00 10/14 0800 94 Nasal 3.0L Cannula 10/14 0020 62 92 10/14 0000 CPAP 10/13 2358 138/64 10/13 2340 64 24 60/44 91 Nasal 2.0L Cannula 10/13 2211 64 102/64 10/13 1647 97.8 68 22 98/56 96 Nasal Cannula Intake & Output 10/14 1600 10/14 0800 10/14 0000 Intake Total 400 150 Output Total Balance 400 150 Intake, IV 400 150 Physical Exam General Appearance: Alert Other Physical Findings: Physical exam was not done as patient was not cooperative Current Medications: Current Medications Sig/Cole Start time Last Medication Dose Route Stop Time Status Admin Acetaminophen 1,000 MG Q6P PRN 10/10 1600 AC N/A 1 UNIT IV Allopurinol 300 MG DAILY 10/06 1110 AC 10/13 PO 1100 Aspirin Buffered 81 MG DAILY 10/06 1117 AC 10/13 PO 1100 Atorvastatin Calcium 20 MG 1700 10/06 1700 AC 10/11 PO 1751 Carvedilol 50 MG BID 10/08 2200 AC 10/13 PO 2211 Dextrose/Sodium 1,000 ML Q20H 10/12 1815 AC 10/14 Chloride IV 0756 Epoetin Kameron 4,000 UNIT TUES THURS SAT PRN 10/08 0830 AC IV Fentanyl Citrate 12 MCG Q72H 10/14 0945 AC 10/14 TOP 1015 Hydromorphone HCl 0.6 MG Q3P PRN 10/09 1152 AC 10/14 IV 0939 Insulin Human Regular 1 UNITS .STK-MED ONE 10/14 0051 DC IV 10/14 0052 Insulin Human Regular 0 Q6 10/12 1800 AC 10/14 SC 1024 Lidocaine 1 PAT DAILY 10/09 1431 AC 10/13 EXT 1059 Paricalcitol 5 MCG TUES THURS SAT PRN 10/08 0830 AC IV Phytonadione 5 MG ONCE ONE 10/14 0945 DC 10/14 SC 10/14 0946 1019 Phytonadione 5 MG ONCE ONE 10/13 1715 DC 10/13 SC 10/13 1716 1754 Polyethylene Glycol 17 GM DAILY 10/11 1000 AC 10/13 PO 1058 Senna/Docusate Sodium 1 TAB BID PRN 10/11 0815 AC 10/11 PO 1751 Vancomycin HCl 0 SAT PRN 10/11 0930 AC IV Last 24 Hrs of Lab/Cristi Results Last 24 Hrs of Labs/Mics: Laboratory Tests 10/14/16 1015: Random Vancomycin Cancelled 10/14/16 1015: Anion Gap 16, Estimated GFR 8 L, BUN/Creatinine Ratio 11.4, PT 34.1 H, INR 3.29 H, CBC w Diff NO MAN DIFF REQ, RBC 3.06 L, MCV 96.7 H, MCH 31.1 H, RDW 20.8 H, MPV 7.7, Gran % 87.0 H, Lymphocytes % 7.1 L, Monocytes % 5.6, Eosinophils % 0.3, Basophils % 0 L, Absolute Granulocytes 10.9 H, Absolute Lymphocytes 0.9 L, Absolute Monocytes 0.7 H, Absolute Eosinophils 0, Absolute Basophils 0, PUBS MCHC 32.2 L, Random Vancomycin 11.2 10/14/16 0600: Sodium Cancelled, Potassium Cancelled, Chloride Cancelled, Carbon Dioxide Cancelled, Anion Gap Cancelled, BUN Cancelled, Creatinine Cancelled, BUN/ Creatinine Ratio Cancelled, Random Vancomycin Cancelled 10/13/16 1320: PT 46.2 *H, INR 4.47 *H Assessment/Plan Assessment: 61-year-old man with PMH of end-stage renal disease on hemodialysis (Friday) via RIJ tunneled dialysis catheter, nonischemic cardiomyopathy, paroxysmal atrial flutter on warfarin and hypertension. Problem list 1. MRSA bacteremia most likely secondary to dialysis catheter. Dialysis catheter was removed by IR on October 08. Blood cultures October 11 negative to date 2. Paroxysmal atrial flutter. Warfarin on hold 3. Short runs of NSVT. 4. Elevated INR. Status post 2 units of FFP's. Status post vitamin K 5 mg subcutaneous 2. INR today is 3.29 5. retropharyngeal/prevertebral abscess (3.6 cm TV by 1.5 cm AP by 9.2 cm CC) status post surgical intervention by ENT on October 10 showing no fluid collection but phlegmon. 6. Suspicion for C5-C6 osteomyelitis 7. End-stage renal disease on dialysis (TTF) PLAN * Monitor vitals closely * Continue telemetry monitoring and watch for any arrhythmias * Continue vancomycin per dialysis protocol * Continue holding Coumadin * Non-tunneled dialysis catheter placement by IR today and Dialysis right after * Adequate pain management, IV Dilaudid and fentanyl patch * Continue other home medications * DVT prophylaxis * Full code Problem List: 1. Sepsis Pain Ratin Pain Location: back Pain Goal: Pain 4 or less Pain Plan: Dilaudid and fentanyl patch Tomorrow's Labs & Rationales: cbc, bep, INR DVT/Prophylaxis: mechanical, pharmacological RIKKI CANO,ELLIE 10/14/16 1428: Attending MD Review Statement Attending Statement Attending MD Statement: examined this patient, discuss w/resident/PA/EXECUTIVE SECRETARY SOCIAL WELFARE, agreed w/resident/PA/EXECUTIVE SECRETARY SOCIAL WELFARE, discussed with family, reviewed EMR data (avail), discussed with nursing, reviewed images Attending Assessment/Plan: Patient was very upset early in the morning, complaining of pain and just wanted to be left alone. Was refusing all meds, refusing blood draws and refusing to be examined. Dakota Woodson MD spoke to him and he agreed to have the blood draw. We gave him IV Dilaudid for pain and I talked to him at length and we are going to start him on a fentanyl patch for ongoing pain associated with MRSA bacteremia with line sepsis. We gave him another dose of vitamin K today and his INR before that was 3, he is going to get a non-tunneled dialysis catheter today with the plan for dialysis later today. The PAKO will be postponed and will talk to cardiology about timing of PAKO.
--- NOTE | 2016-10-14 11:54 | PN- Infect Dx ---
Subjective Subjective: Afebrile. He continues to complain of pain, mostly in the lower back and, to a lesser extent, interscapular Objective Last 24 Hrs of Vital Signs/I&O Vital Signs Date Time Temp Pulse Resp B/P B/P Pulse O2 O2 Flow FiO2 Mean Ox Delivery Rate 10/14 1043 62 98/00 10/14 0800 94 Nasal 3.0L Cannula 10/14 0020 62 92 10/14 0000 CPAP 10/13 2358 138/64 10/13 2340 64 24 60/44 91 Nasal 2.0L Cannula 10/13 2211 64 102/64 10/13 1647 97.8 68 22 98/56 96 Nasal Cannula Intake & Output 10/14 1600 10/14 0800 10/14 0000 Intake Total 400 150 Output Total Balance 400 150 Intake, IV 400 150 Physical Exam Other Physical Findings: He is in moderate distress secondary to pain Lungs are clear Heart regular rhythm with no murmur Abdomen is soft, nontender with positive bowel sounds Extremities no cyanosis, clubbing or edema Results Last 24 Hours of Lab Results: Laboratory Tests 10/14 10/14 10/14 1015 1015 0600 Chemistry Sodium (137 - 145 mmol/L) 134 L Cancelled Potassium (3.5 - 5.1 mmol/L) 5.4 H Cancelled Chloride (98 - 107 mmol/L) 98 Cancelled Carbon Dioxide (22 - 30 mmol/L) 20 L Cancelled Anion Gap (5 - 16) 16 Cancelled BUN (9 - 20 mg/dL) 79 H Cancelled Creatinine (0.7 - 1.2 mg/dL) 6.9 *H Cancelled Estimated GFR (>60 ml/min) 8 L BUN/Creatinine Ratio (7 - 25 %) 11.4 Cancelled Coagulation PT (9.4 - 12.5 SEC) 34.1 H INR (0.90 - 1.17) 3.29 H Hematology CBC w Diff NO MAN DIFF REQ WBC (4.8 - 10.8 /CUMM) 12.6 H RBC (4.70 - 6.10 /CUMM) 3.06 L Hgb (14.0 - 18.0 G/DL) 9.5 L Hct (42 - 52 %) 29.6 L MCV (80.0 - 94.0 FL) 96.7 H MCH (27.0 - 31.0 PG) 31.1 H RDW (11.5 - 14.5 %) 20.8 H Plt Count (130 - 400 /CUMM) 214 MPV (7.4 - 10.4 FL) 7.7 Gran % (42.2 - 75.2 %) 87.0 H Lymphocytes % (20.5 - 51.1 %) 7.1 L Monocytes % (1.7 - 9.3 %) 5.6 Eosinophils % (0 - 5 %) 0.3 Basophils % (0.0 - 2.0 %) 0 L Absolute Granulocytes (1.4 - 6.5 /CUMM) 10.9 H Absolute Lymphocytes (1.2 - 3.4 /CUMM) 0.9 L Absolute Monocytes (0.10 - 0.60 /CUMM) 0.7 H Absolute Eosinophils (0.0 - 0.7 /CUMM) 0 Absolute Basophils (0.0 - 0.2 /CUMM) 0 PUBS MCHC (33.0 - 37.0 G/DL) 32.2 L Toxicology Random Vancomycin (ug/ml) Cancelled 11.2 Cancelled 10/13 1320 Coagulation PT (9.4 - 12.5 SEC) 46.2 *H INR (0.90 - 1.17) 4.47 *H Last 24 Hours of Cristi Results: Blood cultures 2 October 11 remain negative Recent Imaging Studies: Doppler of the right upper extremity October 12 reveals no evidence of any DVT in the right upper extremity, but the proximal and mid portions of the subclavian vein were not visualized due to an overlying bandage Assessment/Plan Impression: Persistent interscapular and lower back pain of unclear etiology, with no evidence for a retropharyngeal abscess on his recent ENT examination under anesthesia. He remains afebrile with white blood cell count overall decreased, though still mildly elevated, on Vancomycin now Day 9 of treatment for MRSA sepsis presumably secondary to an infected right IJ Marshal catheter, removed 6 days ago, and with his most recent blood cultures negative. Endocarditis is still a concern and he was scheduled for a PAKO today, though this has apparently been deferred. A suppurative thrombophlebitis of the right IJ is also a possibility, with the recent CT of the neck revealing a nonocclusive soft tissue filling defect within the right internal jugular vein. A Doppler of the right upper extremity was performed but was incomplete. Suggestion: 1. Repeat Doppler of the right neck and remove his overlying bandage prior to the study 2. Await PAKO when feasible per Cardiology 3. Await placement of a temporary dialysis catheter later today 4. Will need to consider a follow-up CT of the neck if his pain persists 5. Continue Vancomycin per dialysis protocol
--- NOTE | 2016-10-14 13:34 | NUR ---
Physical therapy: Attempted to see patient for PT treatment. Patient going NOREEN for procedure. Will follow up tomorrow as appropriate. Thank you.
[2016-10-14 16:40] VITALS: BP 100/56
--- NOTE | 2016-10-14 20:56 | ULTRASOUND REPORT ---
PROCEDURE: VENOUS ACCESS NON TUNNELED WITHOUT PORT UNDER SONOGRAPHIC AND FLUOROSCOPIC GUIDANCE CLINICAL INFORMATION: 61-year-old patient who requires a temporary dialysis catheter for ongoing inpatient hemodialysis. The patient has a left arm fistula which is not functioning well. The patient is anticoagulated with a current INR of 3.29. The patient had a previous tunneled Marshal catheter removed on 10/08/2016 for presumed line sepsis with MRSA bacteremia. COMPARISON: CTA of the chest dated 10/11/2016. COLOR TECHNICIAN: Noel Alarcon M.D. TECHNIQUE: Informed consent was obtained from the patient prior to the procedure. During this process, the procedure and potential alternatives was explained, along with the intended outcome and benefits. The risks of the procedure, as well as the risk of not doing the procedure, were discussed. The patient was given the opportunity to ask questions regarding the procedure and appeared competent to make medical decisions. A signed consent form which documents this discussion was placed in the medical record. The patient was brought to the interventional suite and a final Timeout procedure was performed. A sonographic survey was performed of the right neck for determination of venous access. The right internal jugular vein was confirmed to be patent. A sonographic image was sent to PACS for documentation. The right neck and upper chest were then sterilely prepped and draped. Maximum sterile better technique was maintained throughout the procedure. Local anesthesia was administered using 1% lidocaine. A puncture was performed of the lateral right internal jugular vein under direct sonographic visualization using a micropuncture kit. An image was sent to PACS for documentation. Serial fascial dilatations were performed over an Amplatz stiff wire to 12 [place]ian. A 12 [place]ian, 16 cm length Mahurkar dual-lumen dialysis catheter was inserted with its tip in the distal superior vena cava. The ports could be aspirated and flushed. Heparinized saline was infused. The patient tolerated the procedure well. There was no evidence of complications. The patient was observed in the recovery area and subsequently discharged to the dialysis unit in stable condition without significant discomfort. FINDINGS: Non tunneled dialysis catheter seen in place entering the right internal jugular vein with its tip in the distal right SVC. SEDATION: None MEDICATIONS: 1. 19 mL 1% lidocaine 2. 50 mcg fentanyl FLUOROSCOPY TIME: 1.1 minutes ESTIMATED RADIATION DOSE: 5.4 mGy IMPRESSION: Non tunneled dialysis catheter placed under sonographic and fluoroscopic guidance via the right internal jugular vein without evidence of complications. The procedure performed with a lateral access such that this catheter could potentially be converted to a tunneled catheter at later date.
[2016-10-15 08:30] VITALS: BP 81/51
[2016-10-15 09:25] VITALS: BP 81/53
--- NOTE | 2016-10-15 09:53 | PN- Nephrology ---
Assessment/Plan Assessment: 1. MRSA sepsis. Likely due to line. He had a catheter placed yesterday. It's in the right IJ. 2. End-stage renal disease-BALTAZAR dialysis this afternoon 3. Back pain 4. Change in mental status. He needs more delirious and yesterday Suggestion: 1. The patient will be dialyzed today . 2. He seems hypotensive. It may be reasonable to have an ICU evaluation. Will take the liberty of discussing with them. Subjective Subjective: Largely unresponsive/somewhat agitated. Objective Vital Signs and I&Os Vital Signs Date Time Temp Pulse Resp B/P B/P Pulse O2 O2 Flow FiO2 Mean Ox Delivery Rate 10/15 0925 67 81/53 10/15 0845 96.4 10/15 0830 93.1 72 81/51 10/15 0012 62 92 10/15 0000 CPAP 10/14 2243 58 91 10/14 2225 58 90/0 10/14 1640 97.9 60 20 100/56 94 10/14 1600 95 Nasal 3.0L Cannula 10/14 1043 62 98/00 10/14 1000 97.6 62 20 98/00 Intake & Output 10/15 1600 10/15 0400 10/14 1600 10/14 0400 10/13 1600 10/13 0400 Intake Total 400 700 150 800 0 Output Total 0 0 Balance 400 700 150 800 0 Intake, IV 400 700 150 800 Intake, Oral 0 0 0 Number 0 Bowel Movements Output, Urine 0 0 Current Medications: Current Medications Sig/Cole Start time Last Medication Dose Route Stop Time Status Admin Acetaminophen 1,000 MG Q6P PRN 10/10 1600 AC N/A 1 UNIT IV Allopurinol 300 MG DAILY 10/06 1110 AC 10/13 PO 1100 Aspirin Buffered 81 MG DAILY 10/06 1117 AC 10/13 PO 1100 Atorvastatin Calcium 20 MG 1700 10/06 1700 AC 10/11 PO 1751 Bisacodyl 10 MG ONCE ONE 10/15 0930 DC NH 10/15 0931 Carvedilol 50 MG BID 10/08 2200 AC 10/13 PO 2211 Dextrose/Sodium 1,000 ML Q20H 10/12 1815 AC 10/14 Chloride IV 0756 Epoetin Kameron 4,000 UNIT TUES THURS SAT PRN 10/08 0830 AC IV Fentanyl Citrate 0 .STK-MED ONE 10/14 1512 DC .ROUTE Fentanyl Citrate 12 MCG Q72H 10/14 0945 AC 10/14 TOP 1015 Heparin Sodium 0 .STK-MED ONE 10/14 1501 DC (Porcine) IV Hydromorphone HCl 0.6 MG Q3P PRN 10/09 1152 AC 10/15 IV 0538 Insulin Human Regular 4 UNITS .STK-MED ONE 10/14 1023 DC IV 10/14 1024 Insulin Human Regular 0 Q6 10/12 1800 AC 10/15 SC 0917 Lidocaine 0 .STK-MED ONE 10/14 1429 DC .ROUTE Lidocaine 1 PAT DAILY 10/09 1431 AC 10/13 EXT 1059 Paricalcitol 5 MCG TUES THURS SAT PRN 10/08 0830 AC IV Polyethylene Glycol 17 GM DAILY 10/11 1000 AC 10/13 PO 1058 Senna/Docusate Sodium 1 TAB BID PRN 10/11 0815 AC 10/11 PO 1751 Vancomycin HCl 0 TUES THURS SAT PRN 10/11 0930 DC IV Results Pertinent Lab Results: Laboratory Tests 10/14 10/14 10/14 1015 1015 0600 Chemistry Sodium (137 - 145 mmol/L) 134 L Cancelled Potassium (3.5 - 5.1 mmol/L) 5.4 H Cancelled Chloride (98 - 107 mmol/L) 98 Cancelled Carbon Dioxide (22 - 30 mmol/L) 20 L Cancelled Anion Gap (5 - 16) 16 Cancelled BUN (9 - 20 mg/dL) 79 H Cancelled Creatinine (0.7 - 1.2 mg/dL) 6.9 *H Cancelled Estimated GFR (>60 ml/min) 8 L BUN/Creatinine Ratio (7 - 25 %) 11.4 Cancelled Coagulation PT (9.4 - 12.5 SEC) 34.1 H Cancelled INR (0.90 - 1.17) 3.29 H Cancelled Hematology CBC w Diff NO MAN DIFF REQ Cancelled WBC (4.8 - 10.8 /CUMM) 12.6 H Cancelled RBC (4.70 - 6.10 /CUMM) 3.06 L Cancelled Hgb (14.0 - 18.0 G/DL) 9.5 L Cancelled Hct (42 - 52 %) 29.6 L Cancelled MCV (80.0 - 94.0 FL) 96.7 H Cancelled MCH (27.0 - 31.0 PG) 31.1 H Cancelled RDW (11.5 - 14.5 %) 20.8 H Cancelled Plt Count (130 - 400 /CUMM) 214 Cancelled MPV (7.4 - 10.4 FL) 7.7 Cancelled Gran % (42.2 - 75.2 %) 87.0 H Lymphocytes % (20.5 - 51.1 %) 7.1 L Monocytes % (1.7 - 9.3 %) 5.6 Eosinophils % (0 - 5 %) 0.3 Basophils % (0.0 - 2.0 %) 0 L Absolute Granulocytes (1.4 - 6.5 /CUMM) 10.9 H Absolute Lymphocytes (1.2 - 3.4 /CUMM) 0.9 L Absolute Monocytes (0.10 - 0.60 /CUMM) 0.7 H Absolute Eosinophils (0.0 - 0.7 /CUMM) 0 Absolute Basophils (0.0 - 0.2 /CUMM) 0 PUBS MCHC (33.0 - 37.0 G/DL) 32.2 L Cancelled Toxicology Random Vancomycin (ug/ml) Cancelled 11.2 Cancelled 10/13 10/13 1320 0612 Chemistry Sodium (137 - 145 mmol/L) 135 L Potassium (3.5 - 5.1 mmol/L) 5.1 Chloride (98 - 107 mmol/L) 99 Carbon Dioxide (22 - 30 mmol/L) 23 Anion Gap (5 - 16) 13 BUN (9 - 20 mg/dL) 69 H Creatinine (0.7 - 1.2 mg/dL) 6.2 *H Estimated GFR (>60 ml/min) 9 L BUN/Creatinine Ratio (7 - 25 %) 11.1 Coagulation PT (9.4 - 12.5 SEC) 46.2 *H INR (0.90 - 1.17) 4.47 *H Hematology CBC w Diff NO MAN DIFF REQ WBC (4.8 - 10.8 /CUMM) 11.0 H RBC (4.70 - 6.10 /CUMM) 3.06 L Hgb (14.0 - 18.0 G/DL) 9.6 L Hct (42 - 52 %) 29.8 L MCV (80.0 - 94.0 FL) 97.4 H MCH (27.0 - 31.0 PG) 31.3 H RDW (11.5 - 14.5 %) 21.0 H Plt Count (130 - 400 /CUMM) 229 MPV (7.4 - 10.4 FL) 8.0 Gran % (42.2 - 75.2 %) 81.0 H Lymphocytes % (20.5 - 51.1 %) 10.8 L Monocytes % (1.7 - 9.3 %) 7.7 Eosinophils % (0 - 5 %) 0.5 Basophils % (0.0 - 2.0 %) 0 L Absolute Granulocytes (1.4 - 6.5 /CUMM) 8.9 H Absolute Lymphocytes (1.2 - 3.4 /CUMM) 1.2 Absolute Monocytes (0.10 - 0.60 /CUMM) 0.8 H Absolute Eosinophils (0.0 - 0.7 /CUMM) 0.1 Absolute Basophils (0.0 - 0.2 /CUMM) 0 PUBS MCHC (33.0 - 37.0 G/DL) 32.2 L 10/12 10/12 10/12 1655 1456 1225 Blood Gas pH (7.35 - 7.45 PH) 7.32 L pCO2 (35 - 45 TORR) 42 pO2 (80 - 100 TORR) 93 HCO3 (21 - 28 MEQ/L) 21 ABG O2 Sat (Measured) (>96.0 %) 95.0 L P-50 (Temp Corrected) Y Carboxyhemoglobin (1.5 - 5.0 %) 0.3 L O2 Concentration % 3L Temperature (97.0 - 100.0 FARH) 99.0 O2 Delivery Method NC Chemistry Lactic Acid (0.7 - 2.1 mmol/L) Cancelled 1.3 Miscellaneous Phlebotomy Draw Site RIGHT RADIAL
--- NOTE | 2016-10-15 10:41 | PN- Housestaff ---
Subjective Follow-up For: MRSA bacteremia CKD on dialysis Suspicion for C5-C6 osteomyelitis Elevated INR Tele-Events Since Last Visit: No overnight telemetry events. This morning patient went into A. fib Subjective: This morning patient is not very cooperative and refusing blood draw and physical exam. He is sleepy but arousable. His rectal temperature this morning is 93 and his blood pressure is 81/51. He is still complaining of back pain 6/ 10 in intensity. Review of Systems Constitutional: Reports: see HPI. Objective Last 24 Hrs of Vital Signs/I&O Vital Signs Date Time Temp Pulse Resp B/P B/P Pulse O2 O2 Flow FiO2 Mean Ox Delivery Rate 10/15 1034 93.8 10/15 1000 96.4 10/15 0925 67 81/53 10/15 0845 96.4 10/15 0830 93.1 72 81/51 10/15 0012 62 92 10/15 0000 CPAP 10/14 2243 58 91 10/14 2225 58 90/0 10/14 1640 97.9 60 20 100/56 94 10/14 1600 95 Nasal 3.0L Cannula Intake & Output 10/15 1600 10/15 0800 10/15 0000 Intake Total 400 Output Total 0 Balance 400 Intake, IV 400 Intake, Oral 0 Number 0 Bowel Movements Output, Urine 0 Physical Exam General Appearance: Alert Neck: right IJ non tunneled dialysis catheter Other Physical Findings: refused PE Current Medications: Current Medications Sig/Cole Start time Last Medication Dose Route Stop Time Status Admin Acetaminophen 1,000 MG Q6P PRN 10/10 1600 AC N/A 1 UNIT IV Allopurinol 300 MG DAILY 10/06 1110 AC 10/13 PO 1100 Aspirin Buffered 81 MG DAILY 10/06 1117 AC 10/13 PO 1100 Atorvastatin Calcium 20 MG 1700 10/06 1700 AC 10/11 PO 1751 Bisacodyl 10 MG ONCE ONE 10/15 0930 DC TN 10/15 0931 Carvedilol 50 MG BID 10/08 2200 AC 10/13 PO 2211 Dextrose/Sodium 1,000 ML Q20H 10/12 1815 AC 10/14 Chloride IV 0756 Epoetin Kameron 4,000 UNIT TUES THURS SAT PRN 10/08 0830 AC IV Fentanyl Citrate 0 .STK-MED ONE 10/14 1512 DC .ROUTE Fentanyl Citrate 12 MCG Q72H 10/14 0945 AC 10/14 TOP 1015 Heparin Sodium 0 .STK-MED ONE 10/14 1501 DC (Porcine) IV Hydromorphone HCl 0.6 MG Q3P PRN 10/09 1152 AC 10/15 IV 0538 Insulin Human Regular 0 Q6 10/12 1800 AC 10/15 SC 0917 Lidocaine 0 .STK-MED ONE 10/14 1429 DC .ROUTE Lidocaine 1 PAT DAILY 10/09 1431 AC 10/15 EXT 1049 Paricalcitol 5 MCG TUES TH SAT PRN 10/08 0830 AC IV Polyethylene Glycol 17 GM DAILY 10/11 1000 AC 10/13 PO 1058 Senna/Docusate Sodium 1 TAB BID PRN 10/11 0815 AC 10/11 PO 1751 Sodium Chloride 250 ML BOLUS ONE 10/15 1045 AC 10/15 IV 10/15 1144 1050 Vancomycin HCl 0 TUES THURS SAT PRN 10/11 0930 DC IV Last 24 Hrs of Lab/Cristi Results Last 24 Hrs of Labs/Mics: Microbiology 10/15 1110 UPPER RESP: Surveillance Culture - ORD 10/15 1110 GI: Surveillance Culture - ORD Lines/Diet/Fluids Fluids/Infusions: D5 half normal saline at 50 mL per hour Assessment/Plan Assessment: 61-year-old man with PMH of end-stage renal disease on hemodialysis (Friday) via RIJ tunneled dialysis catheter, nonischemic cardiomyopathy, paroxysmal atrial flutter on warfarin and hypertension. Problem list 1. MRSA bacteremia most likely secondary to dialysis catheter. Dialysis catheter was removed by IR on October 08. Blood cultures October 11 negative to date. New non-tunneled Chandler catheter was placed by IR yesterday. 2. Paroxysmal atrial flutter. Warfarin on hold. ECHO 10/07/2016 Moderately abnormal left ventricular ejection fraction estimated at 25-30%. Moderately reduced global left ventricular systolic function. Moderate left atrial dilatation. 3. Elevated INR. Status post 2 units of FFP's. Status post vitamin K 5 mg subcutaneous 2. INR yesterday was 3.29. Holding Coumadin 5. retropharyngeal/prevertebral abscess (3.6 cm TV by 1.5 cm AP by 9.2 cm CC) status post surgical intervention by ENT on October 10 showing no fluid collection but phlegmon. 6. Suspicion for C5-C6 osteomyelitis 7. End-stage renal disease on dialysis (TTF) 8. Failed bedside swallow evaluation. Nothing by mouth right now 9. Hypothermia and hypotension PLAN * Plan is to transfer him to ICU for bear hugger and hypotension * 250 mL of normal saline bolus 1 * Monitor vitals closely * Continue vancomycin per dialysis protocol * Patient is due for hemodialysis today. Confirm with nephro in the setting of hypotension * Continue holding Coumadin. Follow-up today's INR * Adequate pain management, IV Dilaudid and fentanyl patch * Swallow evaluation today * Follow-up other labs today * PAKO when INR would be < 3 * Continue other home medications * DVT prophylaxis * Full code I updated his Jenni Santiago about ICU transfer and current clinical condition. I also discussed with her about possibility of central line for vasopressors. She was okay with that. I took her consent over the phone. Consent paper is in the chart. Problem List: 1. Sepsis Pain Ratin Pain Location: back Pain Goal: Pain 4 or less Pain Plan: IV Dilaudid and fentanyl patch Tomorrow's Labs & Rationales: inr DVT/Prophylaxis: mechanical, pharmacological
--- NOTE | 2016-10-15 12:39 | NUR ---
Physical therapy: Patient downgraded from tele to ICU. Patient to be placed on hold from PT. Will require new orders when medically stable and appropriate for PT. Thank you.
--- NOTE | 2016-10-15 13:21 | PN- Att Addend ---
Attending Addendum Attending Brief Note Patient seen and examined. Plan of care discussed with the medical team and the patient. Available lab work and radiology test reports were reviewed. Pt appears confused. Repeatedly saying "too much, too much" and " so much going on ". His BP is noted to be low today. Rectal tempreture was 93. It was rechecked to confirm. Vital Signs Date Time Temp Pulse Resp B/P B/P Pulse O2 O2 Flow FiO2 Mean Ox Delivery Rate 10/15 1034 93.8 10/15 1000 96.4 10/15 0925 67 81/53 10/15 0845 96.4 10/15 0830 93.1 72 81/51 10/15 0800 Nasal 3.0L Cannula 10/15 0012 62 92 10/15 0000 CPAP 10/14 2243 58 91 10/14 2225 58 90/0 10/14 1640 97.9 60 20 100/56 94 10/14 1600 95 Nasal 3.0L Cannula Intake & Output 10/15 1600 10/15 0800 10/15 0000 Intake Total 200 400 Output Total 0 Balance 200 400 Intake, IV 200 400 Intake, Oral 0 Number 0 Bowel Movements Output, Urine 0 Exam: General: Patient awake alert but confused and partially oriented; mild to moderate distress, appears restless CVS: S1 plus S2 without any murmur or gallops Chest: Few scattered crepitation without any wheeze. There is no respiratory distress. Right dialysis catheter intact with dried blood at entrance site. Abdomen: Soft nontender, bowel sound present, no guarding or rebound [employer]: Awake alert oriented without any focal neuro deficit and follows command appropriately Extremities: Trace edema; no clubbing or cyanosis noted Microbiology Date/Time Procedure - Status Source Growth 10/15 111 Surveillance Culture - RECD UPPER RESP 10/15 111 Surveillance Culture - RECD GI Problem list 1. MRSA bacteremia most likely secondary to dialysis catheter infection. Recent cultures are negative. Dialysis catheter was removed by IR on October 08. Blood cultures October 11 negative to date. New non-tunneled Chandler catheter was placed by IR yesterday. 2. Paroxysmal atrial flutter. Warfarin on hold. ECHO 10/07/2016 Moderately abnormal left ventricular ejection fraction estimated at 25-30%. Moderately reduced global left ventricular systolic function. Moderate left atrial dilatation. 3. Elevated INR. Status post 2 units of FFP's. Status post vitamin K 5 mg subcutaneous 2. INR still elevated. 5. retropharyngeal/prevertebral phlegmaon (3.6 cm TV by 1.5 cm AP by 9.2 cm CC) status post surgical intervention by ENT on October 10 showing no fluid collection but phlegmon. 6. Suspected C5-C6 osteomyelitis 7. End-stage renal disease on dialysis 8. Failed bedside swallow evaluation. Nothing by mouth right now; on IV fluids 9. Hypothermia and hypotension- PLAN * Plan is to transfer him to ICU for hypothermia and hypotension * 250 mL of normal saline bolus 1 * Monitor vitals closely * Check random cortisol level * Continue vancomycin per dialysis protocol * Patient is due for hemodialysis today but not sure if he undergo HD today because of low BP. * Continue holding Coumadin. Follow-up today's INR * DC fentanyl; reduce dilaudid dose to 0.4mg Q 4 prn. HOld for low bp. * Swallow evaluation today * PAKO when INR would be < [address] Woodson.
--- NOTE | 2016-10-15 14:10 | PN- Infect Dx ---
Subjective Subjective: Temperature down to 93.1, with blood pressure 80/50, prompting transfer to the ICU. He continues to complain of pain all over. Objective Last 24 Hrs of Vital Signs/I&O Vital Signs Date Time Temp Pulse Resp B/P B/P Pulse O2 O2 Flow FiO2 Mean Ox Delivery Rate 10/15 1200 Nasal 3.0L Cannula 10/15 1034 93.8 10/15 1000 96.4 10/15 0925 67 81/53 10/15 0845 96.4 10/15 0830 93.1 72 81/51 10/15 0800 Nasal 3.0L Cannula 10/15 0012 62 92 10/15 0000 CPAP 10/14 2243 58 91 10/14 2225 58 90/0 10/14 1640 97.9 60 20 100/56 94 10/14 1600 95 Nasal 3.0L Cannula Intake & Output 10/15 1600 10/15 0800 10/15 0000 Intake Total 200 400 Output Total 0 Balance 200 400 Intake, IV 200 400 Intake, Oral 0 Number 0 Bowel Movements Output, Urine 0 Physical Exam Other Physical Findings: He is awake and alert in moderate distress secondary to pain Neck right IJ Marshal catheter with no inflammation at the site Lungs are clear Heart regular rhythm with no murmur Abdomen is soft, nontender with positive bowel sounds Extremities no cyanosis, clubbing or edema Results Last 24 Hours of Lab Results: No labs drawn today Last 24 Hours of Cristi Results: Blood cultures October 11 negative Assessment/Plan Impression: Recent hypothermia and hypotension of unclear etiology but does raise concern for ongoing sepsis, with his most recent blood cultures negative on Vancomycin now Day 10 of treatment for MRSA sepsis presumably secondary to an infected right IJ Marshal catheter, removed one week ago. He continues to have severe back pain, which remains of unclear etiology, with no evidence for a retropharyngeal abscess on his recent ENT examination under anesthesia. Endocarditis is still a concern and a PAKO, initially scheduled for yesterday, was canceled. A suppurative thrombophlebitis of the right IJ is also a possibility, with the recent CT of the neck revealing a nonocclusive soft tissue filling defect within the right internal jugular vein. A Doppler of the right upper extremity was performed but was incomplete. Suggestion: 1. Repeat blood cultures 2 2. Repeat Doppler of the right neck and remove his overlying bandage prior to the study 3. Await PAKO 4. Will need to consider a follow-up CT of the neck if his pain persists 5. Continue Vancomycin per dialysis protocol
[2016-10-15 14:19] LABS: ABSOLUTE BASOPHIL COUNT 0 /CUMM (0.0-0.2); ABSOLUTE EOSINOPHIL COUNT 0 /CUMM (0.0-0.7); ABSOLUTE GRANULOCYTE CT 10.6 /CUMM (1.4-6.5); ABSOLUTE LYMPH COUNT 0.6 /CUMM (1.2-3.4); ABSOLUTE MONOCYTE COUNT 0.6 /CUMM (0.10-0.60); BASOPHIL % 0.1 % (0.0-2.0); EOSINOPHIL % 0.2 % (0-5); GRANULOCYTE % 89.8 % (42.2-75.2); HEMATOCRIT 28.7 % (42-52); MEAN CORPUSCULAR HGB 31.1 PG (27.0-31.0); MEAN CORPUSCULAR HGB CONC 31.9 G/DL (33.0-37.0); MEAN CORPUSCULAR VOLUME 97.6 FL (80.0-94.0); MEAN PLATELET VOLUME 8.1 FL (7.4-10.4); PLATELET COUNT 186 /CUMM (130-400); RED BLOOD CELL CT 2.94 /CUMM (4.70-6.10); WHITE BLOOD CELL COUNT 11.8 /CUMM (4.8-10.8)
--- NOTE | 2016-10-15 14:50 | Event Note ---
Event Note Event Note: Patient Arsalan'ed down at the very initiation of HD. Patient was rinsedback. He then arrested with the initiation of CPR. Labs sent before HD showed K= 5.6. Unfortunately he has arrested at least twice more. Eventually patient after the decision to not proceed with further resuscitative efforts was made by his .
--- NOTE | 2016-10-15 14:53 | RADIOLOGY REPORT ---
EXAMINATION: XR PORTABLE CHEST CLINICAL INFORMATION: Post code. ET tube placement. CPR. COMPARISON: Chest x-ray 10/12/2016 TECHNIQUE: Portable frontal view of the chest was obtained. 2:29 PM FINDINGS: Endotracheal tube catheter 6 cm above palmer. Right IJ catheter tip in superior vena cava at about the level of the aortic arch approximately 8 cm proximal to the cavoatrial junction. Nasogastric tube in place. Catheter passes below the diaphragm but the catheter tip not included in study. Heart size is enlarged. There is moderate pulmonary vascular congestion. Moderate volume right pleural effusion blunting the right costophrenic angle extends along the right lateral chest wall. No pneumothorax. IMPRESSION: 1. Endotracheal tube 6 cm above palmer good position. 2. Right IJ catheter tip in superior vena cava. 3. Nasogastric tube in stomach. 4. Cardiomegaly with congestive heart failure. 5. Right pleural effusion.
--- NOTE | 2016-10-15 15:10 | Cons- CRCU ---
BHAVYAJOAQUIN TAYLOR 10/15/16 1509: General Information and HPI Consulting Request Date of Consult: 10/15/16 Requested By: DR. DANIEL Reason for Consult: LOW BLOOD PRESSURE, BRADYCARDIA, HYPOTHERMIA Source of Information: patient, family Exam Limitations: unable to give history History of Present Illness: 61-year-old man with PMH of end-stage renal disease on hemodialysis (Friday) via RIJ tunneled dialysis catheter, nonischemic cardiomyopathy, paroxysmal atrial flutter on warfarin and hypertension who was admitted for MRSA bacteremia most likely secondary to dialysis catheter(Dialysis catheter was removed by IR on October 08). He was transferred to ICU for mild hypotension and hypothermia. The patient has hx of Paroxysmal atrial flutter( Warfarin on hold/Status post 2 units of FFP's).he also deceloped retropharyngeal /prevertebral abscess (3.6 cm TV by 1.5 cm AP by 9.2 cm CC) status post surgical intervention by ENT on October 10 showing no fluid. upon coming to icu patient was alert but disoriented and noncomplaint with T of 93.5 (anal) and blood pressre of systolic over doppler. Allergies/Medications Allergies: Coded Allergies: NO KNOWN ALLERGIES (06/10/14) Home Med List: Allopurinol 300 MG TABLET 1 TAB PO DAILY GOUT (Reported) Aspirin (Ecotrin*) 81 MG TABLET. 1 TAB PO DAILY heart health (Reported) Atorvastatin Calcium 20 MG TABLET 20 MG PO 1700 heart health Carvedilol 25 MG TABLET 50 MG PO BID heart health Cholecalciferol (Vitamin D3) (Vitamin D) 1,000 UNIT TABLET 1 TAB PO DAILY SUPPLEMENT (Reported) Epoetin Kameron (Procrit) 20,000 UNIT/ML VIAL 1 UNIT IV Q 3 WEEKS ANEMIA ( Reported) Fluticasone-Salmeterol (Advair 100-50 Diskus) 100 MCG-50 MCG/DOSE BLST.W.DEV 1 PUF INH BID ASTHMA (Reported) Isosorbide Monitrate Sr (Imdur 60MG Tab) 60 MG TAB 2 TAB PO DAILY HEART HEALTH Latanoprost (Xalatan) 2.5 ML DROPS 1 GTT OPH QPM BOTH EYES (Reported) Nephro-Vitamins (Nephro-Geri Tablet) 0.8 MG TABLET 1 TAB PO DAILY renal health Oxycodone HCl/Acetaminophen (Percocet 5-325 MG Tablet) 1 EACH TABLET 1-2 TAB PO Q6P PRN pain Repaglinide (Prandin) 1 MG TABLET 1 MG PO AC diabetes Please take your medication before meals. If you skip meals, please dont take this medication. It will cause hypoglycemia. Sevelamer Carbonate (Renvela) 800 MG TABLET KIDNEY HEALTH (Reported) Warfarin Sodium (Coumadin) 2.5 MG TABLET 1 TAB PO DAILY heart health Please dose coumadin as per INR. Please contact your PCP or insurance policy clerk for correct dosing. Review of Systems Review of Systems Constitutional: Reports: see HPI. Past History Travel History Traveled to [place] past 21 day No Medical History Blood Transfusion Hx: No Neurological: vertigo EENT: blindness Cardiovascular: aflutter, cardiomyopathy, CHF, hypertension Respiratory: COPD, obstructive sleep apnea Gastrointestinal: NONE Hepatic: NONE Renal: ERECTILE DYSFUNCTION NEPHROTIC SYNDROME HYPERURICEMIA Musculoskeletal: gout Psychiatric: NONE Endocrine: diabetes, hypothyroidism, NEUROPATHY VITAMIN d DEFICIENCY, matilde HYPOTHYROIDISM Blood Disorders: anemia Cancer(s): NONE GRANTS OFFICER/Reproductive: NONE Surgical History Surgical History: s/p incision and drainage of a plantar space abscess in the left foot. There is also an excision of a retained foreign object. This was in May 2012. left AV fistula venous and arterial angioplasty 07/2016 status post left olecranon bursa excision October 27 Family History Relations & Conditions If Any: MOTHER Diabetes mellitus (DM) Relation not specified for: Cerebrovascular accident in mother Psychosocial History Where Do You Live? Home Who Do You Live With? spouse Services at Home: None Primary Language: [place]ib[place] Smoking Status: Former Smoker ETOH Use: occasional use Illicit Drug Use: denies illicit drug use Functional Ability ADLs Independent: dressing, eating, toileting, bathing. Ambulation: cane IADLs Independent: telephone. Needs Assist: housework, finances, food prep, medication admin. Unknown: shopping, transportation. Exam & Diagnostic Data Last 24 Hrs of Vital Signs/I&O Vital Signs Date Time Temp Pulse Resp B/P B/P Pulse O2 O2 Flow FiO2 Mean Ox Delivery Rate 10/15 1444 100 10/15 1200 Nasal 3.0L Cannula 10/15 1034 93.8 10/15 1000 96.4 10/15 0925 67 81/53 10/15 0845 96.4 10/15 0830 93.1 72 81/51 10/15 08 Nasal 3.0L Cannula 10/15 0012 62 92 10/15 0000 CPAP 10/14 2243 58 91 10/14 2225 58 90/0 Intake & Output 10/15 1600 10/15 0800 10/15 0000 Intake Total 200 400 Output Total 0 Balance 200 400 Intake, IV 200 400 Intake, Oral 0 Number 0 Bowel Movements Output, Urine 0 Physical Exam General Appearance: alert Head: atraumatic Respiratory: normal breath sounds, chest non-tender Cardiovascular: regular rate/rhythm Gastrointestinal: normal bowel sounds, distention Assessment/Plan Impression/Plan: 61-year-old man with PMH of end-stage renal disease on hemodialysis (Friday) via RIJ tunneled dialysis catheter, nonischemic cardiomyopathy, paroxysmal atrial flutter on warfarin and hypertension who was admitted for MRSA bacteremia most likely secondary to dialysis catheter(Dialysis catheter was removed by IR on October 08). He was transferred to ICU for mild hypotension and hypothermia. the patient has hx of Paroxysmal atrial flutter( Warfarin on hold/Status post 2 units of FFP's).he also deceloped retropharyngeal /prevertebral abscess (3.6 cm TV by 1.5 cm AP by 9.2 cm CC) status post surgical intervention by ENT on October 10 showing no fluid. upon coming to icu patient was alert but disoriented and noncomplaint with T of 93.5 (anal) and blood pressre of systolic over doppler. initial assessment and plan: #hypothermia possibly due to sepsis (MRSA) -we put the patient on jairo hugger patient has refused the lab owrk in the morning and blood work was obtained before dialysis -we continued on antibiotics -PAKO was canceled due to patient's clinical condition #hypotension/ CHF -EF of 20-30% -Possibly due to sepsis. Patient was put on bolus of 250 mL normal saline and blood pressure went up to 100 over Doppler and subsequently stays over 100 SBP before dialysis #AMS -Possibly due to sepsis versus delirium, she was alert but did not follow commands. Patient was responding to questions minimally. #elevated INR -Possibly due to being NPO for couple of days and being on abx -warfarin was on hold #acute on chronic renal failure requiring dialysis -Patient was supposed to get dialysis yesterday however it was rescheduled for today. Upon starting the dialysis patient became defensive and bradycardic and went into cardiopulmonary arrest full details are below. upon starting dialysis patient become hypotensive and bradycardic. First cardiopulmonary resuscitation was started around 13:45, patient was intubated and was present on the back CPR of 8 minutes with 3 infusion of epinephrine was performed and patient achieved ROSC. However again round 14:14 patient became bradycardic with no pulse second CPR was started and continued for 6 minutes with injection of epinephrine's and ROSC was achieved. Shortly after around 14: 40 patient went into PEA and no pulse. 3rd round of CPR was started however is was stopped shortly after due to request from the family for stopping the CPR. There were no heart sounds, no breath sounds, patient was completely unresponsive, patient's pupils were dilated and fixed without any reaction to lites Patient was pronounced at 1444. Recommendations: see above Problem List: 1. [id number] renal failure 2. Benign essential hypertension Consult Acknowledgment - Thank you for your consult request. MARLENY CANO,YOANS 10/15/16 1530: Exam & Diagnostic Data Last 48 Hrs of Labs/Cristi: Laboratory Tests 10/15/16 1414: PT Cancelled, INR Cancelled, APTT Cancelled 10/15/16 1332: Lactic Acid 1.1 10/15/16 1332: Anion Gap 16, Estimated GFR 7 L, Glucose 142 H, Calcium 7.4 L, Phosphorus 10.2 H, Magnesium 2.4 H, Total Bilirubin 1.1, AST 18, ALT 34, Troponin I < 0.01, Albumin 2.6 L, Cortisol PM Sample 47.0 H, CBC w Diff MAN DIFF ORDERED, RBC 2.94 L, MCV 97.6 H, MCH 31.1 H, RDW 21.0 H, MPV 8.1, Gran % 89.8 H, Lymphocytes % 5.2 L, Monocytes % 4.7, Eosinophils % 0.2, Basophils % 0.1, Absolute Granulocytes 10.6 H, Segmented Neutrophils 87 H, Band Neutrophils 1, Absolute Lymphocytes 0.6 L, Lymphocytes 9 L, Monocytes 2, Absolute Monocytes 0.6, Absolute Eosinophils 0, Absolute Basophils 0, Metamyelocytes 1, Nucleated RBCs 2 H, Platelet Estimate ADEQUATE, Hypochromic-Microcytic 1+, Poikilocytosis 1+, Anisocytosis 2+, Macrocytic Cells 1+, Elliptocytes FEW, PUBS MCHC 31.9 L, Hep Bs Antibody NONREACTIVE, Random Vancomycin 10.0 10/15/16 1036: Cortisol PM Sample Cancelled 10/15/16 0713: Sodium Cancelled, Potassium Cancelled, Chloride Cancelled, Carbon Dioxide Cancelled, Anion Gap Cancelled, BUN Cancelled, Creatinine Cancelled, BUN/ Creatinine Ratio Cancelled 10/15/16 0600: PT Cancelled, INR Cancelled, Random Vancomycin Cancelled 10/14/16 1015: Random Vancomycin Cancelled 10/14/16 1015: Anion Gap 16, Estimated GFR 8 L, BUN/Creatinine Ratio 11.4, PT 34.1 H, INR 3.29 H, CBC w Diff NO MAN DIFF REQ, RBC 3.06 L, MCV 96.7 H, MCH 31.1 H, RDW 20.8 H, MPV 7.7, Gran % 87.0 H, Lymphocytes % 7.1 L, Monocytes % 5.6, Eosinophils % 0.3, Basophils % 0 L, Absolute Granulocytes 10.9 H, Absolute Lymphocytes 0.9 L, Absolute Monocytes 0.7 H, Absolute Eosinophils 0, Absolute Basophils 0, PUBS MCHC 32.2 L, Random Vancomycin 11.2 Assessment/Plan Other Findings/Comments: Yonas Warren M.D. have examined this patient, reviewed available EMR data, personally reviewed images, discussed with resident/PA/SURFACE LOGGING SYSTEMS LOGGER, discussed management plan with housestaff and nursing staff, discussed managment plan all of healthcare providers, discussed management plan with patient and/or family, agreed with resident/PA/SURFACE LOGGING SYSTEMS LOGGER. The past history and parts of the chart have been autopopulated. TTS 40 min Consult Acknowledgment - Thank you for your consult request.
--- NOTE | 2016-10-15 16:53 | NUR ---
LATE ENTRY: WHILE JUST STARTING DIALYSIS PATIENT BECAME BRADACARDIC, AND UNRESPONSVIE. DIALYSIS NURSE CAME TO LET NURSING STAFF KNOW. UPON ARRIVAL TO ROOM PATIENT BECAME PULSELESS. COMPRESSIONS STARTED AT 1348. SEE CODE SHEETS X3.
--- NOTE | 2016-10-15 16:54 | NUR ---
LATE ENTRY - INFORMED BY TELE BOWLING BALL WEIGHER AND PACKER @ 2267 THAT PT CONVERTED TO AFIB & PROBABLY HAD BEEN IN AFIB SINCE 729. HAD MST DO VITALS ON PT & BP USING AUTO CUFF WAS 81/51, HR 72. TEMP DID NOT REGISTER ORALLY OR AXILLARY ON THERMOMETER. RECTAL TEMP WAS 93.1. TEMPORAL TEMP WAS 96.4. DR. FOY WAS NOTIFIED. REPEAT BP & TEMP WAS DONE PER MD. @ 0925 BP WAS 81/53, HR 67. @ 1035 RECTAL TEMP WAS 93.8. PT WAS ALTERNATELY AGITATED THEN QUIET. DR. FOY CONSULTED WITH DR. DANIEL & DECIDED TO TRANSFER THE PATIENT TO ICU. PT WAS GIVEN 250CC NS BOLUS ENROUTE TO ICU.
--- NOTE | 2016-10-16 11:07 | PN- Att Addend ---
Attending Addendum Attending Brief Note The patient was transferred to ICU because of hypothermia and hypotension. After arriving in ICU his blood pressure started to improve however his mental status did not improve. Later in day patient was found to be stable enough to initiate dialysis as per nephrology. Soon after dialysis initiation he was noted to be bradycardiac. Unfortunately patient had code 3 for cardiac arrest. Patient was found to be in asystole. He was given CPR for about 8 minutes and he was intubated. During the code he was given 3 rounds of epinephrine. Patient reverted to sinus tachycardia and regained blood pressure systolic 130. However he did not regain consciousness. Unfortunately patient then had 2 more episodes of cardiac arrest and required further CPR. I provided updates the who was outside patient's room. During the third round of cardiac arrest patient's stated that patient did not have good quality of life at his baseline. She wished to stop CPR. By the time we stopped CPR patient had reverted back into sinus tachycardia. However soon afterwards he went into bradycardia again and lost his pulse again. At that point no CPR was initiated.
--- NOTE | 2016-10-16 12:33 | Event Note ---
Event Note Event Note: 10/15/2016 vitals at 8:30 AM: Temperature 93.1, pulse 72, blood pressure 81/51. Patient was sleepy but arousable. He was not answering most of the questions. At baseline patient is irritable and cranky but answer most of the questions. This morning he was not at his baseline. More confused. He also went into A. fib this morning. He had a history of a flutter but because of supratherapeutic INR we will hold Coumadin. Repeat vitals at 9:30 AM: Temperature 93.8, pulse 67, blood pressure 81/53 Patient refused all his labs in the morning. Decision was made to transfer patient to ICU for closer monitoring and bear hugger. 250 cc bolus of normal saline bolus was also ordered. His systolic blood pressure improved to 100. He was due for dialysis today. He started having dialysis and all of a sudden he became unresponsive. He was found to have bradycardia and PEA. ACLS protocol was initiated. He was coded for 8 minutes. got his pulse back. 3 dosages of epinephrine were given. He was intubated at the same time. was at bedside when it all happened. Attending, Alexis Limon MD and electromedical equipment repairer updated about his clinical condition. However after 30 minutes or so patient was coded again because of bradycardia and no pulse. CPR was started and continued for 6 minutes with injection of epinephrine's and ROSC was achieved. Code lasted for 6 minutes. However after 25 minutes patient was coded her time for PEA. ACLS was initiated again. Code lasted for 2 minutes and it was stopped per family request. Patient was completely unresponsive without any pulse. patient's pupils were dilated and fixed without any reaction to light. Patient was pronounced at 1444. Dr. yamilet pabon was also updated about this event.
== END 2016-10-15 14:44 | disposition expired | DRG 314 ==
LOC: ERH 02:43 → CRI 08:41 → 1NO 08:41 → ERHI 08:41 → EDBEDREQ 10:35 → ENRESERV 11:39 → CANRESERV 11:39 → ENTRNSPT 13:51 → 1NO 14:15 → ENRESERV 14:17 → 1NO 14:17 → CMPTRNSPT 14:28 → 1NO 10-07 12:14 → ENTRNSPT 10-10 16:16 → CMPTRNSPT 10-10 17:08 → 1NO 10-12 07:10 → CRI 10-15 11:05
PROVIDERS: Emergency Medicine; Internal Medicine; Internal Medicine Adolescent Medicine; Internal Medicine Nephrology; Otolaryngology; Student in an Organized Health Care Education/Training Program; ADMIT Internal Medicine
PROC: 5A1D60Z (ICD-10-PCS; 2016-10-08)
PROC: 0C9M0ZX Drainage of Pharynx, Open Approach, Diagnostic (ICD-10-PCS; principal; 2016-10-10)
PROC: 0CJS8ZZ Inspection of Larynx, Via Natural or Artificial Opening Endoscopic (ICD-10-PCS; 2016-10-10)
PROC: 30233K1 Transfusion of Nonautologous Frozen Plasma into Peripheral Vein, Percutaneous Approach (ICD-10-PCS; 2016-10-10)
PROC: 5A1935Z Respiratory Ventilation, Less than 24 Consecutive Hours (ICD-10-PCS; 2016-10-15)
PROC: 0BH17EZ Insertion of Endotracheal Airway into Trachea, Via Natural or Artificial Opening (ICD-10-PCS; 2016-10-15)
PROC: 5A12012 Performance of Cardiac Output, Single, Manual (ICD-10-PCS; 2016-10-15)
DX: T82.7XXA Infection and inflammatory reaction due to other cardiac and vascular devices, implants and grafts, initial encounter (principal); A41.02 Sepsis due to Methicillin resistant Staphylococcus aureus; N18.6 End stage renal disease; I13.2 Hypertensive heart and chronic kidney disease with heart failure and with stage 5 chronic kidney disease, or end stage renal disease; N17.9 Acute kidney failure, unspecified; D68.59 Other primary thrombophilia; J39.0 Retropharyngeal and parapharyngeal abscess; I42.9 Cardiomyopathy, unspecified; I48.92 Unspecified atrial flutter; M46.22 Osteomyelitis of vertebra, cervical region; I82.C11 Acute embolism and thrombosis of right internal jugular vein; I50.32 Chronic diastolic (congestive) heart failure; Z79.01 Long term (current) use of anticoagulants; Z99.2 Dependence on renal dialysis; G47.33 Obstructive sleep apnea (adult) (pediatric); E11.22 Type 2 diabetes mellitus with diabetic chronic kidney disease; J44.9 Chronic obstructive pulmonary disease, unspecified; E11.319 Type 2 diabetes mellitus with unspecified diabetic retinopathy without macular edema; M47.9 Spondylosis, unspecified; I48.0 Paroxysmal atrial fibrillation; E11.40 Type 2 diabetes mellitus with diabetic neuropathy, unspecified; E55.9 Vitamin D deficiency, unspecified; E03.9 Hypothyroidism, unspecified; D64.9 Anemia, unspecified; Z87.891 Personal history of nicotine dependence
CPT/HCPCS: 1NP; 1NSP; 72141; 72146; 72148; 87070; 87184; 87205; 36415; 77001; 82436; 87040; 87086; 87147; 93005; 93010; 93306; 94799; 96361; 96365; 96375; 97161-GP; 97530-GO; 99291; C1752; C1769; J0131; J0713; J0885; J1644; J1815; J2060; J2501; J3360; J3370; J3490; J7040; J7042; J7060; P9017; P9047